=== PATIENT | female | born 1935 | race Caucasian/White ===

== ENCOUNTER 2016-10-03 10:26 | Emergency (ER) | payer OTHER ==
[~2016-10-03] VITALS: Ht 144.8 cm; Wt 74.2 kg
[~2016-10-03 10:26] MED LIST: ALBUAER19 INH; HYDR-3419 PO; METO25TA56 PO; Tylenol PO
[2016-10-03 10:47] VITALS: TEMP 36.7; Ht 144.8 cm; Wt 74.2 kg
[2016-10-03 11:00] VITALS: O2SAT 94
[2016-10-03 11:06] LABS: HEMATOCRIT 41.1 % (37-47); MEAN CELL VOLUME 89.7 fL (80-100); MEAN CORPUSCULAR HGB CONC 34.5 g/dl (32-36); MEAN PLATELET VOLUME 11.5 fL (7.4-10.4); PLATELET COUNT 167 K/uL (130-400); RED BLOOD COUNT 4.58 M/uL (4.2-5.4); WHITE BLOOD COUNT 3.11 K/uL (4.8-10.8)
[2016-10-03 11:17] LABS: PROTHROMBIN TIME (PATIENT) 10.8 SECONDS (9.0-12.0)
[2016-10-03 11:23] LABS: CALCIUM 9.1 mg/dl (8.5-10.1); CREATININE 0.81 mg/dl (0.60-1.20); POTASSIUM 3.7 mmol/L (3.5-5.1)
[2016-10-03 11:27] LABS: ALB/GLOB RATIO 1.1 (0.9-2)
--- NOTE | 2016-10-03 11:27 | DIAGNOSTIC IMAGING REPORT ---
CHEST ONE VIEW PORTABLE HISTORY: Atypical chest pain COMPARISON: Chest 09/20/2011. FINDINGS: The heart is normal in size. Mild interstitial thickening most pronounced at the lung bases has progressed. No pleural effusions. No pneumothorax. IMPRESSION: Mild interstitial thickening most pronounced at the lung bases has progressed. This could be due to developing congestive change or an atypical pneumonitis. Electronically signed by: Juan Jose Kenny M.D. 10/03/2016 11:25 AM Dictated Date/Time: 10/03/2016 11:19 AM
[2016-10-03 12:00] VITALS: BP 132/80
[2016-10-03 12:26] VITALS: PULSE 95; O2SAT 91
--- NOTE | 2016-10-03 16:07 | EMERGENCY ROOM VISIT NOTE ---
History Report prepared by Susana: Mariposa Barraza Under the Supervision of: Dr. Elan Juárez M.D. First contact with patient: 10:59 Chief Complaint: CHEST PAIN Stated Complaint: CHEST PAIN Nursing Triage Summary: chest pain for 2 wks, seen at Dr Estrella this am, told she needed to come to the er, pt has home health nurse. pt speaks gambian History of Present Illness The patient is a 81 year old female who presents to the Emergency Room with complaints of persistent chest pain starting 2 weeks ago. She was brought to the ED by EMS and received nitro on the way to no relief. The patient is providing the history with the help of a easement man. The pain is constant and radiates to her shoulder blade. The pain worsens with palpation and movement. She reports a subjective fever, cough and SOB. She states that it seems as though she cannot get enough air. She reports difficultly sleeping and some swelling in the legs in the evening. She denies any changes to her bowel movements or urinary symptoms. She denies any injury or fall. She is not on any blood thinners. She has recently had some flu symptoms which have resolved. Source of History: patient (through easement man) Onset: 2 weeks ago Position: chest Timing: constant, other (persistent) Modifying Factors (Worsening): movement, other (palpation) Associated Symptoms: + SOB, + cough, + fevers, No hematochezia, No melena, No urinary symptoms Note: Pt reports difficulty sleeping and swelling in the legs. Review of Systems See HPI for pertinent positives & negatives. A total of 10 systems reviewed and were otherwise negative. Past Medical & Surgical Medical Problems: (1) Kidney stone Old medical records were reviewed. Nurse's notes were reviewed and I agree with. Family History Noncontributory secondary to age. Social History Smoking Status: Never Smoker Drug Use: none Marital Status: Housing Status: lives with significant other Occupation Status: retired Current/Historical Medications Scheduled Albuterol Inhaler (Ventolin Inhaler), 2 PUFFS INH Q4-6HR PRN Hydrocodon/Acetaminophen 5MG/300MG (Vicodin (5MG/300MG)), 1 TAB PO Q4H Metoprolol Tartrate (Lopressor) (Lopressor), 12.5 MG PO BID Scheduled PRN [Tylenol], 1 TAB PO Q4 PRN Allergies Coded Allergies: Aspirin (Verified Allergy, Mild, ITCHING, 03/12/13) Physical Exam Vital Signs Date Time Temp Pulse Resp B/P Pulse Ox O2 Delivery O2 Flow Rate FiO2 10/03/16 12:26 95 23 91 10/03/16 12:00 132/80 10/03/16 11:56 78 19 92 10/03/16 11:30 135/85 10/03/16 11:26 84 20 93 10/03/16 11:19 129/100 10/03/16 11:00 94 Room Air 10/03/16 10:56 89 20 92 10/03/16 10:55 92 10/03/16 10:49 95 Room Air 10/03/16 10:47 36.7 96 22 135/86 95 Room Air 10/03/16 10:39 135/86 Physical Exam General: Non ill-appearing older female. Well developed well nourished in no acute distress, breathing comfortably on room air. Normal speech HEENT: Normal cephalic atraumatic. Pupils are equal round and reactive to light. Sclerae are anicteric Extraocular movements are intact. Oropharynx is pink with moist mucous membranes. No swelling of the mouth lips or tongue. Neck: Supple with a midline trachea. No meningeal signs or stiffness, no JVD or bruits. No Stridor. Chest: Clear to auscultation bilaterally. No wheezes or rhonchi. No increased work of breathing. Reproducible tenderness on chest to palpation. Heart: regular rate and rhythm. Abdomen: Soft nontender, nondistended without rebound guarding or rigidity. Extremities: No cyanosis clubbing or edema. No calf tenderness or assymetry Spine/Back. Non tender to palpation. No CVA tenderness Skin: Good turgor without rashes. Neurologic exam: Cranial nerves two through 12 are intact. Motor and sensation are intact and symmetrical throughout. Medical Decision & Procedures ER Provider Diagnostic Interpretation: X-ray results as stated below per interpretation by me and the radiologist: CHEST ONE VIEW PORTABLE HISTORY: Atypical chest pain COMPARISON: Chest 09/20/2011. FINDINGS: The heart is normal in size. Mild interstitial thickening most pronounced at the lung bases has progressed. No pleural effusions. No pneumothorax. IMPRESSION: Mild interstitial thickening most pronounced at the lung bases has progressed. This could be due to developing congestive change or an atypical pneumonitis. Electronically signed by: Juan Jose Kenny M.D. 10/03/2016 11:25 AM Dictated Date/Time: 10/03/2016 11:19 AM Laboratory Results 10/03/16 10:50 10/03/16 10:50 Test 10/03/16 10:50 10/03/16 10:57 10/03/16 11:19 Red Blood Count 4.58 M/uL (4.2-5.4) Mean Corpuscular Volume 89.7 fL (80-100) Mean Corpuscular Hemoglobin 31.0 pg (25-34) Mean Corpuscular Hemoglobin Concent 34.5 g/dl (32-36) RDW Standard Deviation 42.2 fL (36.4-46.3) RDW Coefficient of Variation 13.0 % (11.5-14.5) Mean Platelet Volume 11.5 fL (7.4-10.4) Prothrombin Time 10.8 SECONDS (9.0-12.0) Prothromb Time International Ratio 1.0 (0.9-1.1) Activated Partial Thromboplast Time 25.0 SECONDS (21.0-31.0) Partial Thromboplastin Ratio 1.0 D-Dimer 520 ug/L FEU (0-500) Anion Gap 8.0 mmol/L (3-11) Est Creatinine Clear Calc Drug Dose 45.4 ml/min Estimated GFR () 78.9 Estimated GFR (Non- 68.1 BUN/Creatinine Ratio 19.0 (10-20) Calcium Level 9.1 mg/dl (8.5-10.1) Total Bilirubin 1.3 mg/dl (0.2-1) Aspartate Amino Transf (AST/SGOT) 27 U/L (15-37) Alanine Aminotransferase (ALT/SGPT) 33 U/L (12-78) Alkaline Phosphatase 75 U/L (45-117) Total Creatine Kinase 32 U/L (26-192) Creatine Kinase MB 1.6 ng/ml (0.5-3.6) Creatine Kinase MB Ratio 5.0 (0-3.0) Pro-B-Type Natriuretic Peptide 111 pg/ml (0-1800) Total Protein 6.6 gm/dl (6.4-8.2) Albumin 3.4 gm/dl (3.4-5.0) Globulin 3.2 gm/dl (2.5-4.0) Albumin/Globulin Ratio 1.1 (0.9-2) Bedside Troponin I 0.020 ng/ml (0-0.045) Influenza Type A Antigen Neg for Influ A (NEG) Influenza Type B Antigen Neg for Influ B (NEG) Laboratory studies as stated above per my review. ECG Indication: chest pain Rate (beats per minute): 99 Rhythm: normal sinus Findings: RBBB, no acute ischemic change, no ectopy Comparison ECG Date: Change: no significant change ED Course 1101: Past medical records reviewed. The patient was evaluated in room B6, and a complete history and physical examination were performed. 1308: Upon reevaluation, the patient is resting comfortably. I discussed the results and treatment plan with her. She verbalized agreement of the treatment plan. The patient was discharged home. Medical Decision Differential diagnoses: acute coronary syndrome, arrhythmia, musculoskeletal, influenza, PE, electrolyte or metabolic abnormality. This patient comes in as described above. She was placed in room B6. She is here for treatment and evaluation of chest pain. It has been going for several weeks and it is worse with palpation and movement and she appears in no distress. I did use the farmworker turkey farm provided by the hospital through the iPad. EKG does not suggest acute coronary syndrome or arrhythmia. Her symptoms are atypical for cardiac disease. Her cardiac enzymes are not elevated. Her d-dimer is marginally elevated at 520 and given her age this is probably an age-appropriate d-dimer and her symptoms do not suggest a PE. Chest x-ray does not show any definite acute findings, there are some increased interstitial markings. Clinically, I do not think she is in heart failure. She 's had no white count or fever to suggest infection. I talked at length and I think this most likely is musculoskeletal as it is reproducible. I recommend that she follow up with her regular doctor. I did offer her admission but she declines and wants to go home. She will return if: Worsening of symptoms, fever or chills, shortness of breath, any new problems or concerns. Impression Primary Impression: Precordial chest pain Scribe Attestation The scribe's documentation has been prepared under my direction and personally reviewed by me in its entirety. I confirm that the note above accurately reflects all work, treatment, procedures, and medical decision making performed by me. Departure Information Dispostion Home / Self-Care Referrals Walter Campbell MD (PCP) Forms HOME CARE DOCUMENTATION FORM, IMPORTANT VISIT INFORMATION Patient Instructions My [facility] Additional Instructions Rest REtun if: worsening of symptoms, fever, increasing pain, shortness of breath, any new problems or concerns Follow-up with your doctor on Friday for recek
== END 2016-10-03 14:14 | disposition home or self-care (01) ==
LOC: EDBD 10:26 → C.EDB 10:28
DX: R07.2 Precordial pain (principal); I45.10 Unspecified right bundle-branch block; Z87.442 Personal history of urinary calculi; Z79.82 Long term (current) use of aspirin

== ENCOUNTER 2019-12-13 11:56 | Inpatient (IN) ==
[2019-12-13] MEDS ORDERED: SODIUM CHLORIDE 0.9% 500 ML IV ONE (13:31)
[2019-12-13] MEDS ORDERED: ONDANSETRON INJ 2 MG/ML 2 ML VIAL IV STA (13:32)
[2019-12-13] MEDS ORDERED: MoRPHine SULFATE 2 MG/ML CARP IV STA (13:32)
--- NOTE | 2019-12-13 13:37 | Emergency Department Note ---
History of Present Illness General Chief complaint: Abdominal Pain Stated complaint: ABD Pain Time Seen by Provider: 12/13/19 13:17 Source: patient, family (daughter) and phlebotomist associate Mode of arrival: ambulatory Limitations: language barrier History of Present Illness Maximum Pain Intensity: 8 This patient is a an 84-year-old white female comes in complaining of abdominal pain most in the lower abdomen centrally and also bilaterally. It sounds like she is also had some dysuria and frequency. She appears uncomfortable. She tells me she has a history of kidney stones and thinks this feels similar she has mild back pain bilaterally. No fever or chills. No exposure to COVID known. She does have some mild shortness of breath but says she has some asthma at time she appears in no respiratory distress no chest pain. No trauma. No numbness or weakness. History was obtained from the patient using the language line phlebotomist associate Home Medications Home Medications Medication Instructions Recorded Confirmed Type atorvastatin 20 mg PO QAM 12/13/19 12/13/19 History levothyroxine 50 mcg PO QAM 12/13/19 12/13/19 History linagliptin [Tradjenta] 5 mg PO QAM 12/13/19 12/13/19 History lisinopril 10 mg PO QAM 12/13/19 12/13/19 History mometasone [Asmanex Twisthaler] 1 inh INHALATION BID 12/13/19 12/13/19 History Allergies Allergy/AdvReac Type Severity Reaction Status Date / Time aspirin Allergy Mild ITCHING Verified 12/13/19 14:00 Tessalon Perles CAPS Allergy Unknown Unknown Uncoded 12/13/19 14:00 Past Med/Surg History Medical History (Updated 12/13/19 @ 21:06 by Elan Juárez MD) 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 and not listed on [facility] problem list Asthma Diabetes mellitus, type II HLD (hyperlipidemia) HTN (hypertension) Hypothyroidism Surgical History (Updated 12/13/19 @ 16:50 by Sandee Jenkins PA-C) History of appendectomy History of cholecystectomy History of partial gastrectomy REMOVE STOMACH, PARTIAL N/A 11/29/2014 LAPAROSCOPIC GASTRECTOMY PARTIAL performed by Ubaldo Kilpatrick MD [place] [facility] [place] Status post laser lithotripsy of ureteral calculus REMOVE SMALL BLADDER STONE, SIMPLE 06/01/2014 LITHOLAPAXY SIMPLE performed by Brenda Dietz MD Family History Family/Other Asthma Social History Preferred Language: Malaysian Communication Ability: interprete Train Control Technician Required: Yes Beliefs That Will Affect Care: None marital status: / Current Living Situation: Alone current occupational status: retired Other Information That Helps Us Care for You: No Feels Safe at Home: Yes Safety Concerns: Feels Safe At This Time Smoking Status: Former smoker Hx Alcohol Use: No Hx Substance Use: No Immunizations: Past medical history: Kidney stones. 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 she tells me she is not on any prednisone/steroids Review of Systems A total of 10 systems reviewed and were otherwise negative Physical Exam Vital Signs Vital Signs - 24 hr 12/13/19 12:08 12/13/19 14:43 Pulse Rate 130 H Respiratory Rate 22 18 Respiratory Depth Normal Respiratory Pattern Regular Blood Pressure 178/105 H Blood Pressure Mean 129 Pulse Oximetry 94 97 Oxygen Delivery Method Room Air Nasal Cannula Oxygen Flow Rate 1 Sepsis Recent Fever Within 48 Hours No Sepsis Action Taken by Nursing No Action Required General: Well developed well nourished uncomfortable appearing older female in no acute distress, breathing comfortably on room air. Normal speech HEENT: Normal cephalic atraumatic. Pupils are equal round and reactive to light. Extraocular movements are intact. Oropharynx is pink with moist mucous membranes. No swelling of the mouth lips or tongue. Neck: Supple with a midline trachea. No meningeal signs or stiffness, no JVD or bruits. No Stridor. Chest: Clear to auscultation bilaterally. No wheezes or rhonchi. No increased work of breathing. Heart: Regular rate and rhythm without murmurs or gallops. Abdomen: Soft she appears mildly distended and diffusely tender mostly in the central and lower abdomen, nondistended without rebound guarding or rigidity. Extremities: No cyanosis clubbing or edema. No calf tenderness or assymetry Spine/Back. Non tender to palpation. No CVA tenderness Skin: Good turgor without rashes. Neurologic exam: Cranial nerves two through 12 are intact. Motor and sensation are intact and symmetrical throughout. Course Administered Medications Sodium Chloride (Nss 1000ml) 1,000 mls @ 75 mls/hr IV .[id number] MOODY Stop: 12/14/19 08:29 Last Admin: 12/13/19 19:27 Dose: 75 mls/hr Documented by: [id number] Insulin Aspart (Novolog Flexpen) 0 units SC ACHS MOODY Stop: 01/12/20 20:59 Last Admin: 12/13/19 20:58 Dose: 2 units Documented by: [id number] Cosigned by: [id number] Discontinued Medications Sodium Chloride (Nss) 500 mls @ 999 mls/hr IV .Q31M ONE Stop: 12/13/19 14:01 Last Admin: 12/13/19 13:30 Dose: 999 mls/hr Documented by: [id number] Ceftriaxone Sodium (Rocephin) 2,000 mg in 70 mls @ 140 mls/hr IV NOW STA Stop: 12/13/19 15:15 Last Admin: 12/13/19 16:01 Dose: 140 mls/hr Documented by: [id number] Sodium Chloride (Nss 1000ml) 1,000 mls @ 999 mls/hr IV .Q1H1M ONE Stop: 12/13/19 15:47 Last Admin: 12/13/19 15:00 Dose: 999 mls/hr Documented by: [id number] Morphine Sulfate (Morphine Sulfate) 2 mg IV NOW STA Stop: 12/13/19 13:33 Last Admin: 12/13/19 15:01 Dose: 2 mg Documented by: [id number] Ondansetron HCl (Zofran) 4 mg IV NOW STA Stop: 12/13/19 13:33 Last Admin: 12/13/19 15:01 Dose: 4 mg Documented by: [id number] Medical Decision Making Differential Diagnosis Kidney stone, aneurysm, bowel obstruction, UTI, sepsis, cardiac disease, electrolyte or metabolic abnormality Medical Records Attestation: I reviewed the patient's medical records. Home Medications Current Medication List: was personally reviewed by me Laboratory Data Result diagrams: 12/13/19 13:40 12/13/19 13:40 Lab Results 12/13/19 12/13/19 12/13/19 Range/Units 13:00 13:40 13:40 WBC 21.43 H (4.8-10.8) K/uL RBC 4.55 (4.2-5.4) M/uL Hgb 14.2 (12.0-16.0) g/dL Hct 42.1 (37-47) % MCV 92.5 (80-100) fL MCH 31.2 (25-34) pg MCHC 33.7 (32-36) g/dL RDW Std Deviation 43.8 (36.4-46.3) fL RDW Coeff of Esa 13.0 (11.5-14.5) % Plt Count 127 L (130-400) K/uL MPV 13.0 H (7.4-10.4) fL Immature Gran % (Auto) 0.3 % Neut % (Auto) 85.5 % Lymph % (Auto) 4.6 % [place] % (Auto) 9.5 % Eos % (Auto) 0.0 % Baso % (Auto) 0.1 % Immature Gran # (Auto) 0.07 H (0.00-0.02) K/uL Neut # (Auto) 18.30 H (1.4-6.5) K/uL Lymph # (Auto) 0.98 L (1.2-3.4) K/uL [place] # (Auto) 2.04 H (0.11-0.59) K/uL Eos # (Auto) 0.01 (0-0.5) K/uL Baso # (Auto) 0.03 (0-0.2) K/uL Sodium 134 L (136-145) mmol/L Potassium 3.8 (3.5-5.1) mmol/L Chloride 101 (98-107) mmol/L Carbon Dioxide 26 (21-32) mmol/L Anion Gap 8.0 (3-11) BUN 12 (7-18) mg/dl Creatinine 0.96 (0.6-1.2) mg/dl Est Cr Clr Drug Dosing 39.3 ml/min Est GFR ( Amer) 62.9 Est GFR (Non-Af Amer) 54.3 BUN/Creatinine Ratio 12.5 (10-20) Glucose 201 H (70-99) mg/dl Calcium 9.2 (8.5-10.1) mg/dl Total Bilirubin 1.9 H (0.2-1) mg/dl AST 17 (15-37) U/L ALT 25 (12-78) U/L Alkaline Phosphatase 103 (45-117) U/L Troponin I < 0.015 (0-0.045) ng/ml Total Protein 7.3 (6.4-8.2) gm/dl Albumin 3.7 (3.4-5.0) gm/dl Globulin 3.6 (2.5-4.0) gm/dl Albumin/Globulin Ratio 1.0 (0.9-2) Lipase 63 L (73-393) U/L Urine Color Yellow Urine Appearance Cloudy A (Clear) Urine pH 8.0 H (4.5-7.5) Ur Specific [place] 1.013 (1.000-1.030) Urine Protein Negative (Negative) Urine Glucose (UA) Negative (Negative) Urine Ketones 1+ H (Negative) Urine Blood Negative (Negative) Urine Nitrite Positive A (Negative) Urine Bilirubin Negative (Negative) Urine Urobilinogen Negative (Negative) Ur Leukocyte Esterase 2+ H (Negative) Urine RBC 0-4 (0-4) /hpf Urine WBC 10-30 H (0-5) /hpf Ur Epithelial Cells 10-20 H (0-5) /lpf Ur Renal Epithelial Cell 0-5 (0-5) /lpf Urine Bacteria 4+ H (Negative) Hyaline Casts 5-10 H (0-5) /lpf Granular Casts 1-5 H (0) /lpf Imaging Data Radiologist's Impression: Abdomen and pelvis CT: 1. No evidence of bowel obstruction. No evidence of free air 2. Nonspecific inflammatory process centered in the cecum. A definite appendix is not visualized. Close clinical follow-up is indicated. 3. 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 4. Bladder calculi Chest x-ray: 1. Chronic interstitial coarsening of the lung bases is suggestive of fibrosis with probable atelectasis. 2. Mild cardiomegaly. ECG Data Attestation: I personally reviewed and interpreted this ECG as follows: Indication: + abdominal pain Rate (beats per minute): 130 Rhythm: + sinus tachycardia ECG Intervals/blocks: + Right Bundle branch block and + Normal IA ECG [place]: + Normal ECG ST segments: + Nonspecific ST abnormalities ECG Findings: no PACs and no PVCs Comparison ECG Date: no prior available Blood Pressure Blood Pressure Findings: Elevated blood pressure Blood Pressure Disposition: elevated BP felt to be situational MDM Narrative This patient comes in as described above. She was placed in room A9. She is been having lower abdominal pain. She is had some urinary symptoms as well with pain from urination. She appears very uncomfortable. She is tachycardic which I think is secondary to mostly pain. IV access was established established she was hydrated with IV with fluid boluses. She was given morphine 2 mg IV and Zofran 4 mg IV and seemed be doing much better. Her white count came back significant elevated 21,000. Her urinalysis does look infected. CAT scan the abdomen shows hydro-on the right. There is some possible inflammatory changes around the cecum. She is had a previous appendectomy. X-ray does not show any pneumonia. She is remained hemodynamically stable. I did add blood cultures as well as a lactic acid and she was given Rocephin 2 g IV. A chest x-ray does not show any acute abnormalities. I do think she needs to be admitted/observe for further treatment and evaluation of her abdominal pain, UTI, sepsis. Continuous cardiac monitoring: The patient was having abdominal pain and has some mild shortness of breath and was placed on a continuous cardiac monito.r she initially was tachycardic with a rate of 130 with sinus tachycardia. Impression & Plan Sepsis, Abdominal pain, Acute UTI (urinary tract infection), Weakness Discharge Plan Visit Data *Final* Discharge Date/Time: 12/13/19 17:38 Chief Complaint: Abdominal Pain Stated Complaint: ABD Pain ED Provider: Elan Juárez Discharge Problem: Sepsis, Abdominal pain, Acute UTI (urinary tract infection), Weakness Patient Disposition: Admitted As Inpatient Discharge Instructions Interventions: ED Discharge Assessment Last Done: 12/13/19 17:38 Discharge Problem: Sepsis Qualifiers: Sepsis type: sepsis due to unspecified organism Sepsis acute organ dysfunction status: without acute organ dysfunction Qualified Code(s): A41.9 - Sepsis, unspecified organism Abdominal pain Qualifiers: Abdominal location: lower abdomen, unspecified Qualified Code(s): R10.30 - Lower abdominal pain, unspecified
[2019-12-13 13:38] LABS: Appearance Urine Cloudy (Clear); Bilirubin Urine Negative (Negative); Blood Urine Negative (Negative); Color Urine Yellow; Glucose Urine UA Negative (Negative); Ketones Urine 1+ (Negative); Leukocyte Esterase Urine 2+ (Negative); Nitrite Urine Positive (Negative); Protein Urine Negative (Negative); Specific Gravity Urine 1.013 (1.000-1.030); Urobilinogen Urine Negative (Negative)
[2019-12-13 14:02] LABS: Bacteria Urine 4+ (Negative); RBC Urine 0-4 /hpf (0-4); Renal Epithelial Cells Urine 0-5 /lpf (0-5)
[2019-12-13 14:05] LABS: Alanine Aminotransferase 25 U/L (12-78); Albumin Level 3.7 gm/dl (3.4-5.0); Aspartate Aminotransferase 17 U/L (15-37); BUN Creatinine Ratio 12.5 (10-20); Blood Urea Nitrogen 12 mg/dl (7-18); Calcium 9.2 mg/dl (8.5-10.1); Carbon Dioxide 26 mmol/L (21-32); Chloride 101 mmol/L (98-107); Creatinine Clr Calc Pharmacy 39.3 ml/min; Est GFR (African American) 62.9; Est GFR (Non-African American) 54.3; Glucose 201 mg/dl (70-99); Lipase 63 U/L (73-393); Potassium 3.8 mmol/L (3.5-5.1); Sodium 134 mmol/L (136-145)
[2019-12-13 14:09] LABS: Alkaline Phosphatase 103 U/L (45-117); Bilirubin,Total 1.9 mg/dl (0.2-1); Globulin 3.6 gm/dl (2.5-4.0); Total Protein 7.3 gm/dl (6.4-8.2); Troponin I < 0.015 ng/ml (0-0.045)
--- NOTE | 2019-12-13 14:35 | CT Scan Report ---
CT SCAN OF THE ABDOMEN AND PELVIS WITHOUT CONTRAST CLINICAL HISTORY: Generalized abdominal pain COMPARISON STUDY: 05/23/1999 TECHNIQUE: CT scan of the abdomen and pelvis was performed from the lung bases to the proximal femurs . Images are reviewed in the axial, sagittal, and coronal planes. IV contrast was not administered fo r this examination. A dose lowering technique was utilized adhering to the principles of ALARA. CT DOSE: 515.19 mGy.cm FINDINGS: Lower chest: There is respiratory motion artifact. There are dependent atelectatic changes. Liver: The unenhanced liver is normal in size, contour, and attenuation. There is no intrahepatic iris iary ductal dilatation. Gallbladder: Surgically absent Spleen: Normal in size and attenuation. Pancreas: Unremarkable. Adrenal glands: There is minor left adrenal gland thickening Kidneys: There is a stable dilated right renal pelvis consistent with a chronic UPJ type obstruction versus a large parapelvic cyst. No renal calculi are visualized. There are several bladder calculi id entified similar to the preceding study. Bowel: There are no transition zones indicate bowel obstruction. There is an inflammatory process gloria tered on the cecum. A definite appendix is not visualized, nor was it visualized the preceding study. The etiology of this inflammatory process is not known. This could be secondary to an infectious col itis, or cecal diverticulitis. Underlying neoplasm cannot be excluded with certainty. Clinical follow -up is advocated. Peritoneum: There is no intraperitoneal free air or abdominal ascites. Vasculature: The abdominal aorta is normal in course and caliber. Adenopathy: None. Pelvic viscera: There are calcified uterine fibroids. Skeletal structures: No destructive osseous lesions are seen. IMPRESSION: 1. No evidence of bowel obstruction. No evidence of free air 2. Nonspecific inflammatory process centered in the cecum. A definite appendix is not visualized. Kristine se clinical follow-up is indicated. 3. 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 4. Bladder calculi ACT 112: Negative or not required by law. Electronically signed by: Juan Bernardo M.D. 12/13/2019 2:33 PM
--- NOTE | 2019-12-13 14:43 | XRay Report ---
XR chest 1V portable HISTORY: 84 years-old Female sob acute weakness with shortness of breath COMPARISON: Chest radiograph 10/03/2016, CT abdomen and pelvis 12/13/2019 TECHNIQUE: Portable AP view of the chest FINDINGS: Unchanged mild left hemidiaphragmatic elevation. Cardiac silhouette is mildly enlarged. Calcific plaq ue of the thoracic arch. Interstitial coarsening of the lung bases redemonstrated. Chronic blunting o f the left costophrenic angle. No pneumothorax, large pleural effusion or overt pulmonary edema. Dege nerative changes of the shoulders and spine. IMPRESSION: 1. Chronic interstitial coarsening of the lung bases is suggestive of fibrosis with probable atelecta sis. 2. Mild cardiomegaly. ACT 112: Negative or not required by law. The above report was generated using voice recognition software. It may contain grammatical, syntax o r spelling errors. Electronically signed by: Jakob Rodriguez M.D. 12/13/2019 2:42 PM
[2019-12-13 14:44] LABS: Hematocrit (blood only) 42.1 % (37-47); Hemoglobin 14.2 g/dL (12.0-16.0); Mean Corpuscular Hemoglobin 31.2 pg (25-34); Mean Corpuscular Hgb Conc 33.7 g/dL (32-36); Mean Corpuscular Volume 92.5 fL (80-100); RDW Standard Deviation 43.8 fL (36.4-46.3); Red Blood Count 4.55 M/uL (4.2-5.4); White Blood Count 21.43 K/uL (4.8-10.8)
[2019-12-13] MEDS ORDERED: cefTRIAXone SODIUM 2,000 MG/70 ML BAG IV STA (14:46)
[2019-12-13] MEDS ORDERED: SODIUM CHLORIDE 0.9% 1000ML 1,000 ML IV ONE (14:47)
[2019-12-13 14:58] LABS: Basophils # (auto) 0.03 K/uL (0-0.2); Basophils % (auto) 0.1 %; Eosinophils # (auto) 0.01 K/uL (0-0.5); Immature Granulocytes # (auto) 0.07 K/uL (0.00-0.02); Immature Granulocytes % (auto) 0.3 %; Lymphocytes # (auto) 0.98 K/uL (1.2-3.4); Lymphocytes % (auto) 4.6 %; Monocytes # (auto) 2.04 K/uL (0.11-0.59); Monocytes % (auto) 9.5 %; Neutrophils % (auto) 85.5 %; Platelet Count 127 K/uL (130-400)
--- NOTE | 2019-12-13 15:32 | History & Physical Report ---
Date of Service December 13, 2019 Assessment & Plan (1) UTI (urinary tract infection): (2) Ureteropelvic junction (UPJ) obstruction: This is an 84yo F with a PMH of HTN, DM II, HLD, asthma and hypothyroidism who presents with abdominal pain since yesterday and was found to have a UTI. -UA abnormal. Leukocytosis of 21K. Receiving empiric Rocephin until urine cultures result. Also obtain blood cultures -CT abdomen pelvis with chronic right UPJ obstruction versus parapelvic cyst and bladder calculi. Also with nonspecific inflammatory process centered in the cecum (history of appendectomy per chart review) -Last urology follow up was [address] Dietz, found to have passed stones spontaneously -Gentle IV fluids, routine urology consult, strain urine, follow cultures (3) HTN (hypertension): Continue lisinopril (4) Diabetes mellitus, type II: A1c of 8.3 in 2019. Will repeat a1c -Hold home agents -SSI while in-patient -BSG AC HS (5) Asthma: Continue Asmanex inhaler BID (6) Hypothyroidism: Continue levothyroxine (7) HLD (hyperlipidemia): Continue atorvastatin DVT Ppx: SCDs Code status: FULL per discussion with patient via reverberatory skimmer PCP: Refugio Dispo: Admitted to [facility]. Plan to return home once medically stable. Patient seen in collaboration with Dr. Frazier. Please see addendum. History of Present Illness Chief Complaint: abdominal pain Primary Care Provider: Clarisa Huff MD This is an 84yo F with a PMH of HTN, DM II, HLD, asthma and hypothyroidism who presents with abdominal pain since yesterday. Of note, patient speaks Turkmen so history obtained with help of video reverberatory skimmer. Abdominal pain is located in lower quadrants in a band-like distribution and is constant. Not associated with fever, nausea or vomiting. No flank pain. Took tylenol and ibuprofen with some relief. Also has been having difficulty urinating with thin stream and occasionally has pain. No chills, confusion, chest pain,SOB, hematuria or constipation. Per chart review, has history of bladder stone removal in 2013. Also with history of gastric mass at the [place] s/[place] [facility] [place] Histology consistent with leiomyoma. Allergies Allergy/AdvReac Type Severity Reaction Status Date / Time aspirin Allergy Mild ITCHING Verified 12/13/19 14:00 Tesandre Bess CAPS Allergy Unknown Unknown Uncoded 12/13/19 14:00 Home Medications Home Medications Medication Instructions Recorded Confirmed Type atorvastatin 20 mg PO QAM 12/13/19 12/13/19 History levothyroxine 50 mcg PO QAM 12/13/19 12/13/19 History linagliptin [Tradjenta] 5 mg PO QAM 12/13/19 12/13/19 History lisinopril 10 mg PO QAM 12/13/19 12/13/19 History mometasone [Asmanex Twisthaler] 1 inh INHALATION BID 12/13/19 12/13/19 History Past Med/Surg History Medical History (Updated 12/13/19 @ 21:06 by Elan Juárez MD) 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 and not listed on [facility] problem list Asthma Diabetes mellitus, type II HLD (hyperlipidemia) HTN (hypertension) Hypothyroidism Surgical History (Updated 12/13/19 @ 16:50 by Sandee Jenkins PA-C) History of appendectomy History of cholecystectomy History of partial gastrectomy REMOVE STOMACH, PARTIAL N/A 11/29/2014 LAPAROSCOPIC GASTRECTOMY PARTIAL performed [place] Ubaldo Kilpatrick [place] [facility] [place] post laser lithotripsy of ureteral calculus REMOVE SMALL BLADDER STONE, SIMPLE 06/01/2014 LITHOLAPAXY SIMPLE performed by Brenda Dietz MD Family History Family/Other Asthma Social History Preferred Language: Turkmen Communication Ability: interprete Pictures Editor Required: Yes Beliefs That Will Affect Care: None marital status: / Current Living Situation: Alone current occupational status: retired Other Information That Helps Us Care for You: No Feels Safe at Home: Yes Safety Concerns: Feels Safe At This Time Smoking Status: Former smoker Hx Alcohol Use: No Hx Substance Use: No Review of Systems Review of Systems: At least ten systems reviewed and negative except as noted in the HPI. Physical Exam Physical Exam: Please see Dr. Frazier's addendum for physical exam. Results & Data Results & Data ([facility]) Vital Signs (Past 12 Hours) Vital Signs Pulse Resp BP Pulse Ox 12/13/19 14:43 18 97 12/13/19 12:08 130 H 22 178/105 H 94 Laboratory Results Short CBC 12/13/19 Range/Units 13:40 WBC 21.43 H (4.8-10.8) K/uL Hgb 14.2 (12.0-16.0) g/dL Hct 42.1 (37-47) % Plt Count 127 L (130-400) K/uL BMP 12/13/19 13:40 Sodium 134 L Potassium 3.8 Chloride 101 Carbon Dioxide 26 BUN 12 Creatinine 0.96 Glucose 201 H Calcium 9.2 Cardiac Enzymes 12/13/19 Range/Units 13:40 Troponin I < 0.015 (0-0.045) ng/ml Liver Function 12/13/19 Range/Units 13:40 Total Bilirubin 1.9 H (0.2-1) mg/dl AST 17 (15-37) U/L ALT 25 (12-78) U/L Alkaline Phosphatase 103 (45-117) U/L Albumin 3.7 (3.4-5.0) gm/dl Urine 12/13/19 Range/Units 13:00 Urine Color Yellow Urine Appearance Cloudy A (Clear) Urine pH 8.0 H (4.5-7.5) Ur Specific [place] 1.013 (1.000-1.030) Urine Protein Negative (Negative) Urine Glucose (UA) Negative (Negative) Diagnostic Findings CXR: IMPRESSION: 1. Chronic interstitial coarsening of the lung bases is suggestive of fibrosis with probable atelectasis. 2. Mild cardiomegaly. CT abd/pelvis: IMPRESSION: 1. No evidence of bowel obstruction. No evidence of free air 2. Nonspecific inflammatory process centered in the cecum. A definite appendix is not visualized. Close clinical follow-up is indicated. 3. 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 4. Bladder calculi Supervising Physician Co-Signing Physician Notes History and physical exam performed by me. Patient is Turkmen-speaking. History obtained using video telemetry reverberatory skimmer. History notable for 84-year-old woman with PMH of HTN, DM II, HLD, asthma and hypothyroidism who presents with abdominal pain since yesterday, associated with some dysuria and reduced urination. Physical exam, General: Elderly woman in no acute distress Eyes: PERRL, conjunctivae normal, not pale, anicteric sclerae, EOM intact bilaterally ENMT: External ear and nose normal, oropharynx normal Neck: Normal visual inspection, no tracheal deviation, no swelling noted Respiratory: Normal respiratory effort, no respiratory distress, lungs clear to auscultation, no crackles and no wheezes Cardiovascular: Tachycardia, regular pulse, S1-2, no pedal edema Chest (Breasts): Chest: normal inspection of chest Gastrointestinal (Abdomen): Abdomen is not distended, soft, suprapubic and central abdominal tenderness, no guarding, no palpable hepatosplenomegaly, normal bowel sounds Musculoskeletal: No cyanosis or clubbing, all extremities motor strength 5/5 Genitourinary: +suprapubic tenderness, No CVA tenderness Skin: No rash noted on gross inspection, No ulcers noted Neurologic: Alert and oriented x 3, No focal weakness, sensation grossly intact Psychiatric: Euthymic affect Labs notable for leukocytosis of 21, platelet of 127, sodium of 134, glucose of 201, UA suggestive of UTI [positive nitrite, bacteria, pyuria] CT abdomen and pelvis showed nonspecific inflammatory process in the cecum, chronic right UPJ obstruction versus parapelvic cyst, bladder calculi -Abdominal pain -UTI -Bladder calculi Continue IV ceftriaxone Follow-up urine cultures Get urology consult regarding CT findings Strain urine Monitor blood glucose and manage appropriately Other plans as documented in Sandee Jenkins's note
[2019-12-13] MEDS ORDERED: ONDANSETRON INJ 2 MG/ML 2 ML VIAL IV PRN (18:29)
[2019-12-13] MEDS ORDERED: GLUCOSE 40% GEL 15 GM TUBE PO PRN (18:29)
[2019-12-13] MEDS ORDERED: GLUCAGON FOR INJ 1 MG VIAL SQ PRN (18:29)
[2019-12-13] MEDS ORDERED: POLYETHYLENE (MIRALAX) 17 GM PACK PO PRN (18:29)
[2019-12-13] MEDS ORDERED: DEXTROSE 50% 50 ML SYRINGE IV PRN (18:29)
[2019-12-13] MEDS ORDERED: GLUCOSE 10 TABS/TUBE PO PRN (18:29)
[2019-12-13] MEDS ORDERED: CARBOHYDRATES FOR HYPOGLYCEMIA PO PRN (18:29)
[2019-12-13] MEDS ORDERED: SODIUM CHLORIDE 0.9% 1000ML 1,000 ML IV SCH (19:10)
[2019-12-13] MEDS: INSULIN ASPART 100 UNITS/ML 3 ML PEN SC SCH (20:58)
[2019-12-14] MEDS: LEVOTHYROXINE SODIUM 50 MCG TABLET PO SCH (05:11)
[2019-12-14 06:29] LABS: Hematocrit (blood only) 39.7 % (37-47); Hemoglobin 12.8 g/dL (12.0-16.0); Mean Corpuscular Hemoglobin 30.6 pg (25-34); Mean Corpuscular Hgb Conc 32.2 g/dL (32-36); Mean Platelet Volume 12.8 fL (7.4-10.4); Platelet Count 127 K/uL (130-400); RDW Coefficient of Variation 13.1 % (11.5-14.5); RDW Standard Deviation 45.6 fL (36.4-46.3); Red Blood Count 4.18 M/uL (4.2-5.4); White Blood Count 16.58 K/uL (4.8-10.8)
[2019-12-14 06:46] LABS: Estimated Average Glucose 180 mg/dl; Hemoglobin A1C 7.9 % (4.5-5.6)
[2019-12-14 06:52] LABS: Calcium 8.5 mg/dl (8.5-10.1); Creatinine Clr Calc Pharmacy 46.3 ml/min; Est GFR (African American) 77.3; Est GFR (Non-African American) 66.7; Potassium 3.6 mmol/L (3.5-5.1)
--- NOTE | 2019-12-14 07:03 | Electrocardiogram Report ---
Test Reason : Blood Pressure : / mmHG Vent. Rate : 130 BPM Atrial Rate : 130 BPM P-R Int : 200 ms QRS Dur : 116 ms QT Int : 266 ms P-R-T Axes : 069 086 -20 degrees QTc Int : 391 ms Sinus tachycardia Low voltage QRS Right bundle branch block T wave abnormality, consider inferior ischemia Abnormal ECG When compared with ECG of 03-OCT-2016 10:37, T wave inversion more evident in Inferior leads Nonspecific T wave abnormality now evident in Lateral leads Confirmed by Derrell Jarrell ([id number]) on 12/14/2019 7:03:07 AM Referred By: REFERRED SELF Confirmed By:Mahin Jarrell
[2019-12-14] MEDS: ATORVASTATIN 20 MG TAB PO SCH (08:35)
[2019-12-14] MEDS: FLUTICASONE FUROATE 100MCG 14 PUFFS/INHALER INH SCH (08:35)
[2019-12-14] MEDS: lisinopriL 10 MG TAB PO SCH (08:35)
--- NOTE | 2019-12-14 08:39 | Urology Consultation ---
Date of Consultation December 14, 2019 Assessment & Plan (1) Bladder stones: Patient with bladder stones and signs of retention on CT scan. At this point would highly recommend placement of catheter for drainage. Patient will need drainage and antibiotics for management of acute UTI. Will need to get full records from Dr. Dietz who patient has previously seen and previously required litholapaxy. Will need to check with patient's daughter who per nursing is the medical decision maker. She will likely need outpatient follow- up once the acute UTI is better controlled. Difficult to determine if findings on kidney are acute versus chronic versus cysts. Hydronephrosis with retention would be a possibility as well. No obstructing stones visualized. Agree with plans for supportive care and antibiotics. Will await further information from family and from patient's medical records with Dr. Dietz. Can also attempt to discuss again with patient if able to have a commercial construction estimator available. Will likely need management in the outpatient setting and can defer until that visit to further discuss different options. For now recommendation would be drainage and antibiotics for management of acute UTI. (2) Acute urinary retention: (3) Acute UTI (urinary tract infection): History of Present Illness Attending Physician: Lucille Maya MD History of Present Illness Extremely limited information from patient as she knows minimal Nepali. Majority of information given from nursing and for medical records. Patient was admitted with acute abdominal pain. Found to have retention with bladder stones. Patient has history of kidney stones per records. Patient also may have hydro-versus peripelvic cyst. Is dealing with acute UTI and ill feelings. No major changes. Patient has elevated white count. No recent fever. Is undergoing IV antibiotics and close monitoring and management. Denies any major complaints right now. 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 and not listed on [facility] problem list Asthma Diabetes mellitus, type II HLD (hyperlipidemia) HTN (hypertension) Hypothyroidism Surgical History History of appendectomy History of cholecystectomy History of partial gastrectomy REMOVE STOMACH, PARTIAL N/A 11/29/2014 LAPAROSCOPIC GASTRECTOMY PARTIAL [place] Ubal[place]patrick [place] [facility] [place] post laser lithotripsy of ureteral calculus REMOVE SMALL BLADDER STONE, SIMPLE 06/01/2014 LITHOLAPAXY SIMPLE performed by Brenda Dietz MD Family History Family/Other Asthma Social History Preferred Language: [place] Island[place] Communication Ability: interprete Communication Tools: Facial Expression, Physical Gestures and Lip Movement/Reading Quarter Trimmer Required: Yes Beliefs That Will Affect Care: None marital status: / Current Living Situation: Alone current occupational status: retired Other Information That Helps Us Care for You: No Feels Safe at Home: Yes Safety Concerns: Feels Safe At This Time Smoking Status: Former smoker Hx Alcohol Use: No Hx Substance Use: No Review of Systems Review of Systems: Unobtainable due to cognitive status Extremely limited secondary to patient's language barrier. Physical Exam Physical Exam: General: Alert in no acute distress. Patient is well nourished and well kept. HEENT: Normocephalic Atraumatic. Inspection normal. Cranial Nerves 2-12 Grossly intact. Nares are clear. Neck is supple. Normal inspection of face. Normal inspection of neck. Neurologic: No deficits on inspection. Baseline for motor function and sensory. Psychologic: Normal affect, limited exam secondary to language barrier. Respiratory: Nonlabored. No use of accessory muscles. No tachypnea or dyspnea. Cardiovascular: No tachycardia Skin: [place] and Dry. No rashes or visible lesions. Extremities: Moving without issues. No motor deficits on inspection Lymphatics: No edema Abdomen: Soft Non-distended. No acites. No rebound or guarding. Results & Data Vital Signs (Past 12 Hours) Vital Signs Temp Pulse Pulse Resp BP Pulse Ox 12/14/19 07:25 36.8 C 95 H 18 134/75 95 12/14/19 04:00 37.2 C 92 H 18 130/64 96 12/14/19 00:00 37.1 C 68 18 146/63 H 99 12/13/19 23:45 90 PG Care Time/CCT Total # of Minutes Spent Total Time Spent with Patient: Total time spent is greater than 50% in coordination of care (as documented) at patient's floor/unit and/or counseling patient: Coding Level of Care Code 57512 Initial Inpt Care Lvl 3 Diagnoses Bladder stones N21.0 Acute urinary retention R33.8 Acute UTI (urinary tract infection) N39.0
[2019-12-14] MEDS: INSULIN ASPART 100 UNITS/ML 3 ML PEN SC SCH ×4 (08:42→21:16)
[2019-12-14] MEDS: ACETAMINOPHEN 325 MG TAB PO PRN (10:22)
[2019-12-14] MEDS: MoRPHine SULFATE 2 MG/ML CARP IV PRN ×2 (11:14→20:13)
[2019-12-14] MEDS ORDERED: cefTRIAXone SODIUM 1,000 MG in DEXTROSE 5% 50 ML IV SCH (16:00)
--- NOTE | 2019-12-14 17:06 | Hospitalist Progress Note ---
Date of Service December 14, 2019 Assessment & Plan (1) Abdominal pain: continues to have lower abdomen tenderness CT abdomen/pelvis shows inflammatory change in ceacum area r/o IBD Abx changed to IV cipro and flagyl GI eval requested clear liq diet till GI eval (2) UTI (urinary tract infection): complicated UTI due to chronic UPJ obstruction /urinary bladder stone was initially treated with IV rocephin changed to IV cipro and Flagyl for GI findings of inflammation in ceacum follow urine culture ordered Pyridium for bladder spasm (3) Ureteropelvic junction (UPJ) obstruction: -CT abdomen pelvis with chronic right UPJ obstruction versus parapelvic cyst and bladder calculi. Also with nonspecific inflammatory process centered in the cecum (history of appendectomy per chart review) was [place] Dietz [place] [facility] [place] consulted , appreciate input recommends Cooper cathter for chronic urinary retention pt will need to be on Cooper cather on dc till next urology eval in clinic (4) HTN (hypertension): Continue lisinopril (5) Diabetes mellitus, type II: -Hold home agents -SSI while in-patient -BSG AC HS (6) Asthma: Continue Asmanex inhaler BID no wheeze or cough or SOB (7) Hypothyroidism: Continue levothyroxine (8) HLD (hyperlipidemia): Continue atorvastatin DVT Ppx: SCDs Code status: FULL per discussion with patient via petroleum refining firer PCP: Dr Huff Dispo: excepted to be discharged home when medically stable Admission and Anticipated Discharge Date Admission Date: December 13, 2019 Subjective pt does not speak citizen of [place] pointing to lower abdomen/suprapubic area says " pain " no fever or chills /no nausea , vomiting or diarrhea , tolerating diet vitals been stable Cooper draining clear liquid urine Physical Exam Constitutional: WD/WN, vitals as above + language barrier (does no speak Filipino ) Eyes: + anicteric sclerae ENMT: external ear and nose normal, oropharynx normal Respiratory: normal respiratory effort, lungs clear to auscultation Cardiovascular: RRR, no murmur, no edema Gastrointestinal (Abdomen): Percussion/Palpation: + abdomen tender (lower abdomen /suprapubic tenderness ) and abdomen soft Musculoskeletal: no cyanosis or clubbing, extremities motor strength 5/5 Neurologic: PERRL, EOMI, accommodation nl, no face palsy, no dysarthria Psychiatric: A+Ox3, euthymic affect Results & Data Results & Data ([facility]) Vital Signs (Past 12 Hours) Vital Signs Temp Pulse Pulse Pulse Resp BP BP 12/14/19 16:48 80 12/14/19 15:44 36.8 C 82 17 90/55 L 12/14/19 11:11 36.3 C L 94 H 20 137/82 12/14/19 08:00 94 H 12/14/19 07:25 36.8 C 95 H 18 134/75 Pulse Ox 12/14/19 16:48 12/14/19 15:44 98 12/14/19 11:11 97 12/14/19 08:00 12/14/19 07:25 95 (1) Abdominal pain Abdominal location: lower abdomen, unspecified Qualified Code(s): R10.30 - Lower abdominal pain, unspecified
[2019-12-14] MEDS ORDERED: bisacodyL 10 MG SUPP PR STA (21:19)
[2019-12-14] MEDS ORDERED: LACTULOSE SYRUP 30 GM/45 ML UDP PO STA (21:19)
[2019-12-15] MEDS: LEVOTHYROXINE SODIUM 50 MCG TABLET PO SCH (06:19)
[2019-12-15] MEDS: FLUTICASONE FUROATE 100MCG 14 PUFFS/INHALER INH SCH (07:30)
[2019-12-15 08:04] LABS: Mean Corpuscular Hgb Conc 32.6 g/dL (32-36)
[2019-12-15 08:13] LABS: Hematocrit (blood only) 41.7 % (37-47); Hemoglobin 13.6 g/dL (12.0-16.0); Mean Corpuscular Hemoglobin 30.9 pg (25-34); Mean Corpuscular Volume 94.8 fL (80-100); RDW Coefficient of Variation 13.1 % (11.5-14.5); RDW Standard Deviation 45.8 fL (36.4-46.3); White Blood Count 9.45 K/uL (4.8-10.8)
[2019-12-15 08:31] LABS: Creatinine Clr Calc Pharmacy 45.7 ml/min; Est GFR (African American) 76.2; Est GFR (Non-African American) 65.7; Potassium 3.5 mmol/L (3.5-5.1)
[2019-12-15 08:41] LABS: Mean Platelet Volume 13.2 fL (7.4-10.4); Platelet Count 147 K/uL (130-400); Platelet Estimate Normal (Normal)
--- NOTE | 2019-12-15 08:58 | Urology Progress Note ---
Date of Service December 15, 2019 Assessment & Plan (1) Bladder stones: (2) Acute urinary retention: issues do not seem to be the cause of her pain hydro vs peripelvic cyst - no symptoms matching acute obstruction/renal colic - contrast enhanced CT with delayed images will differentiate cyst vs hydro - uncertain this has to happen acutely bladder stones/retention - her lower abdominal pain seems to be more GI than in nature - cont jordan and continue observation Subjective limited direct history because of language barrier seen in the company of nursing who could relay issues overnight no flank pain/renal colic pain urine clear - draining appropriately (jordan) - complaining of lower abdominal tenderness - thinks she needs to have a BM - crampy nature of the pain Review of Systems Review of Systems: All systems reviewed & are unremarkable except as noted in HPI & below Physical Exam Physical Exam: very tender in the lower abdomen/suprapubic region Constitutional: well developed and well nourished Neck: neck nontender Respiratory: normal respiratory effort; no respiratory distress and does not use accessory muscles Cardiovascular: Rate/Rhythm: regular rate Vessels: radial pulses present Extremities: no edema Gastrointestinal (Abdomen): Inspection/Auscultation: abdomen normal to inspection Percussion/Palpation: abdomen soft; abdomen nontender and no guarding Musculoskeletal: Head/Neck/Chest: normocephalic and head atraumatic Extremities: extremities normal to inspection Skin: no rashes and no lesions Trauma: no evidence of skin trauma Neurologic: awake; not obtunded Speech / Cognition: normal speech Motor/Sensory: no tremor Psychiatric: Orientation: alert and oriented x 3 Lymphatic: no lymphadenopathy Results & Data Vital Signs (Past 12 Hours) Vital Signs Temp Pulse Resp BP BP Pulse Ox 12/15/19 07:40 36.7 C 99 H 18 168/83 H 96 12/15/19 04:00 36.8 C 91 H 20 116/68 93 12/14/19 23:36 37.3 C 96 H 18 154/81 H 97 PG Care Time/CCT Total # of Minutes Spent Total Time Spent with Patient: Total time spent is greater than 50% in coordination of care (as documented) at patient's floor/unit and/or counseling patient: Coding Level of Care Code 24697 Subseq Hosp Care Lvl 2 Diagnoses Bladder stones N21.0 Acute urinary retention R33.8
[2019-12-15] MEDS: INSULIN ASPART 100 UNITS/ML 3 ML PEN SC SCH ×4 (09:02→21:06)
--- NOTE | 2019-12-15 09:26 | Gastrointestinal Consultation ---
Date of Consultation December 15, 2019 Assessment & Plan (1) Acute urinary retention: 84 year old paraguayan speaking female w/ history of HTN, T2DM, dyslipidemia, asthma and hypothyroidism admitted w/ acute urinary retention, bladder stones and UTI - GI asked to evaluate as CTAP w/ inflammatory process at the cecum etiology unknown. Denies black/bloody stools, change in bowel habits, weight loss or prior history of IBD. She recalls a history of a colonoscopy but I am unable to locate this. DDX discussed: infectious colitis, diverticulitis, IBD, underlying neoplasm. She is quite hesitant to undergo a colonoscopy after discussion but will think about it Appreciate urology and primary team management of urinary retention, UTI and bladder stones. Would check c.diff, stool culture, giardia if loose stools present. Consider diagnostic colonoscopy. If not agreeable, consider repeat contrast enhanced abdominal imaging Thank you for allowing us to participate in the care of this patient. Please call with any acute changes, questions or concerns. Please see addendum below with additional recommendation from my supervising physician. (2) Bladder stones: (3) Abnormal CT of the abdomen: Supervising Physician Co-Signing Physician Notes Attg add: I interviewed and examined pt, reviewed chart and labs. Pt with lower abdominal pain, CT imaging showed madhu-cecal inflammation. On exam, she is comfortable, but has tenderness on RLQ. CT reviewed with radiologist -- she does not clearly have an appendix. DDX = ischemia? infectious enteritis? appendicitis? Perforating cecal neoplasm is also in differential, although CT is not clearly consistent with this. Continue abx for now. Diet as tolerated. COnsider surgery consult for ? possible appendicitis. Would consider cscopy in 4 weeks if pt is amenable. History of Present Illness Reason for Consultation: abnormal CT, IBD? Requesting Physician: Darrion Attending Physician: Melisa Maier MD History of Present Illness 84 year old Russ[place] speaking female with history of HTN, T2DM, dyslipidemia, asthma and hypothyroidism who presented to the ED with abdominal pain - GI asked to evaluate for abnormal CTAP. Pt is a vague historian. Notes abdominal pain for quite some time but did not seek help as she was fearful to leave quarantine. She is unable to describe the pain for me but constant, lower midline. No associated change in bowels. Denies constipation, diarrhea, black/bloody stools. She does note urinary symptoms and difficulty w/ urination. Discussed CT findings with her. She is adamant that her symptoms are from her bladder stones and UTI and will not elaborate much past that. No prior history of IBD. No weight loss. No fever, chills, CP, SOB. 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 No evidence of free air Nonspecific inflammatory process centered in the cecum. A definite appendix is not visualized. Close clinical follow-up is indicated. 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 Bladder calculi Allergies Allergy/AdvReac Type Severity Reaction Status Date / Time aspirin Allergy Mild ITCHING Verified 12/13/19 14:00 benzonatate Allergy Unknown Verified 12/15/19 08:20 [From Sb Bess] Home Medications Home Medications Medication Instructions Recorded Confirmed Type atorvastatin 20 mg PO QAM 12/13/19 12/13/19 History levothyroxine 50 mcg PO QAM 12/13/19 12/13/19 History linagliptin [Tradjenta] 5 mg PO QAM 12/13/19 12/13/19 History lisinopril 10 mg PO QAM 12/13/19 12/13/19 History mometasone [Asmanex Twisthaler] 1 inh INHALATION BID 12/13/19 12/13/19 History Patient History 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 and not listed on [facility] problem list Asthma Diabetes mellitus, type II HLD (hyperlipidemia) HTN (hypertension) Hypothyroidism Surgical History History of appendectomy History of cholecystectomy History of partial gastrectomy REMOVE STOMACH, PARTIAL N/A 11/29/2014 LAPAROSCOPIC GASTRECTOMY PARTIAL performed by Ubaldo Kilpatrick MD at OR [facility] Status post laser lithotripsy of ureteral calculus REMOVE SMALL BLADDER STONE, SIMPLE 06/01/2014 LITHOLAPAXY SIMPLE performed by Brenda Dietz MD Family History Family/Other Asthma Social History Preferred Language: Venezuelan Communication Ability: Venezuelan Communication Tools: IPad and Language Line Conference Translator Conference Translator Required: Yes Beliefs That Will Affect Care: None marital status: Unknown Current Living Situation: Alone current occupational status: retired Other Information That Helps Us Care for You: No Feels Safe at Home: Yes Safety Concerns: Feels Safe At This Time Smoking Status: Former smoker Hx Alcohol Use: No Hx Substance Use: No Review of Systems Constitutional: no fever, no chills and no fatigue Respiratory: no cough and no dyspnea Cardiovascular: no chest pain and no dyspnea Gastrointestinal: + abdominal pain; no nausea, no vomiting, no change in bowel habits, no change in stools, no blood in stools and no melena Genitourinary: + decreased urination Physical Exam Constitutional: + obese; no acute distress appears stated age Eyes: PERRL, conjunctivae normal, anicteric sclerae Neck: trachea midline Respiratory: normal respiratory effort Cardiovascular: Rate/Rhythm: regular rate and regular rhythm Gastrointestinal (Abdomen): Inspection/Auscultation: abdomen normal to inspection and normal bowel sounds Patient would not consent to palpation of abdomen. Skin: no rashes, warm and dry Results & Data ([facility]) Vital Signs (Past 12 Hours) Vital Signs Temp Pulse Resp BP BP Pulse Ox 12/15/19 07:40 36.7 C 99 H 18 168/83 H 96 12/15/19 04:00 36.8 C 91 H 20 116/68 93 12/14/19 23:36 37.3 C 96 H 18 154/81 H 97 Laboratory Results 12/15/19 12/15/19 12/15/19 Range/Units 07:52 07:52 07:31 WBC 9.45 (4.8-10.8) K/uL RBC 4.40 (4.2-5.4) M/uL Hgb 13.6 (12.0-16.0) g/dL Hct 41.7 (37-47) % MCV 94.8 (80-100) fL MCH 30.9 (25-34) pg MCHC 32.6 (32-36) g/dL RDW Std Deviation 45.8 (36.4-46.3) fL RDW Coeff of Esa 13.1 (11.5-14.5) % Plt Count 147 (130-400) K/uL MPV 13.2 H (7.4-10.4) fL Platelet Estimate Normal (Normal) Sodium 138 (136-145) mmol/L Potassium 3.5 (3.5-5.1) mmol/L Chloride 105 (98-107) mmol/L Carbon Dioxide 27 (21-32) mmol/L Anion Gap 7.0 (3-11) BUN 10 (7-18) mg/dl Creatinine 0.82 (0.6-1.2) mg/dl Est Cr Clr Drug Dosing 45.7 ml/min Est GFR ( Amer) 76.2 Est GFR (Non-Af Amer) 65.7 BUN/Creatinine Ratio 12.0 (10-20) Glucose 146 H (70-99) mg/dl POC Glucose 147 H (70-99) mg/dl Calcium 9.0 (8.5-10.1) mg/dl 12/14/19 12/14/19 12/14/19 Range/Units 20:49 16:42 11:34 WBC (4.8-10.8) K/uL RBC (4.2-5.4) M/uL Hgb (12.0-16.0) g/dL Hct (37-47) % MCV (80-100) fL MCH (25-34) pg MCHC (32-36) g/dL RDW Std Deviation (36.4-46.3) fL RDW Coeff of Esa (11.5-14.5) % Plt Count (130-400) K/uL MPV (7.4-10.4) fL Platelet Estimate (Normal) Sodium (136-145) mmol/L Potassium (3.5-5.1) mmol/L Chloride (98-107) mmol/L Carbon Dioxide (21-32) mmol/L Anion Gap (3-11) BUN (7-18) mg/dl Creatinine (0.6-1.2) mg/dl Est Cr Clr Drug Dosing ml/min Est GFR ( Amer) Est GFR (Non-Af Amer) BUN/Creatinine Ratio (10-20) Glucose (70-99) mg/dl POC Glucose 132 H 144 H 148 H (70-99) mg/dl Calcium (8.5-10.1) mg/dl
[2019-12-15] MEDS: CIPROFLOXACIN / D5W 400 MG/200 ML BAG IV SCH ×2 (09:49→21:47)
[2019-12-15] MEDS: lisinopriL 10 MG TAB PO SCH (09:50)
[2019-12-15] MEDS: ATORVASTATIN 20 MG TAB PO SCH (09:50)
[2019-12-15] MEDS: PHENAZOPYRIDINE HCL 100 MG TAB PO SCH ×3 (09:52→21:47)
[2019-12-15] MEDS: metroNIDAZOLE 500 MG/100 ML BAG IV SCH ×2 (09:55→18:24)
[2019-12-15] MEDS: ACETAMINOPHEN 325 MG TAB PO PRN (10:08)
[2019-12-15] MEDS ORDERED: ALBUTEROL 0.083% NEBU SOLN 3 ML VIAL NEB PRN (11:25)
[2019-12-15] MEDS ORDERED: ALBUTEROL HFA 8 GM INHALER INH ONE (11:57)
[2019-12-15] MEDS ORDERED: ALBUTEROL HFA 8 GM INHALER INH PRN ×2 (13:56→19:16)
--- NOTE | 2019-12-15 19:06 | Hospitalist Progress Note ---
Date of Service December 15, 2019 Assessment & Plan (1) Abdominal pain: continues to have R lower abdomen tenderness CT abdomen/pelvis shows inflammatory change in ceacum area Gastro on board recommended to continue cipro and flagyl Consider outpatient colonoscopy in 4 weeks if pt is amenable. Continue clear liquid diet and advanced as tolerated Consider surgical consult for possible appendicitis if pain continues Continue monitor closely (2) UTI (urinary tract infection): complicated UTI due to chronic UPJ obstruction /urinary bladder stone was initially treated with IV Rocephin Urine cx postive for Ecoli IV Rocephin changed to IV cipro for GI findings of inflammation in ceacum Continue Pyridium for bladder spasm (3) Ureteropelvic junction (UPJ) obstruction: CT abdomen pelvis with chronic right UPJ obstruction versus parapelvic cyst and bladder calculi. Also with nonspecific inflammatory process centered in the cecum (history of appendectomy per chart review) Was followed with Dr Dietz [facility] Urology consulted Recommends Jordan cathter for chronic urinary retention Pt does not want to discharge home with the the jordan cath Follow up with urology next week (4) HTN (hypertension): Continue lisinopril (5) Diabetes mellitus, type II: Hold home agents SSI while in-patient BSG AC HS Continue monitor BS (6) Asthma: Continue Asmanex inhaler BID no wheeze or cough or SOB (7) Hypothyroidism: Continue levothyroxine (8) HLD (hyperlipidemia): Continue atorvastatin DVT Ppx: SCDs Code status: FULL per discussion with patient via drill operator PCP: Dr Huff Dispo: excepted to be discharged home when medically stable Admission and Anticipated Discharge Date Admission Date: December 13, 2019 Subjective Pt was seen and examined Lying in bed with no distress Montenegrin drill operator line was used to communicate to her Pt said that she has some SOB She is very concern because they did not let her use her Asmanex and the albuterol inhalers She said that her room inhalers work very well for her breathing She said that her abdominal pain feels better Denies any chest pain, palpitation and fever Physical Exam Physical Exam: General- No acute distress Head- atraumatic Eyes- PERRL, EOMI, ENT- oropharynx clear Neck- supple, no JVD Lungs- clear to auscultation Heart- regular rhythm; no murmur Abdomen- normal bowel sounds, +BS with palpation Extremities- no calf tenderness Neuro- alert, oriented x 3; PERRL, EOMI; no facial palsy; no dysarthria Skin- warm & dry Results & Data Results & Data ([facility]) Vital Signs (Past 12 Hours) Vital Signs Temp Pulse Resp BP BP Pulse Ox 12/15/19 15:28 36.7 C 92 H 22 111/74 95 12/15/19 11:19 36.4 C L 90 20 133/75 98 12/15/19 07:40 36.7 C 99 H 18 168/83 H 96 (1) Abdominal pain Abdominal location: lower abdomen, unspecified Qualified Code(s): R10.30 - Lower abdominal pain, unspecified
[2019-12-15] MEDS: MoRPHine SULFATE 2 MG/ML CARP IV PRN (21:46)
[2019-12-16] MEDS: metroNIDAZOLE 500 MG/100 ML BAG IV SCH ×2 (02:27→11:20)
[2019-12-16] MEDS: LEVOTHYROXINE SODIUM 50 MCG TABLET PO SCH (06:34)
[2019-12-16] MEDS: FLUTICASONE FUROATE 100MCG 14 PUFFS/INHALER INH SCH (08:31)
[2019-12-16] MEDS: ATORVASTATIN 20 MG TAB PO SCH (08:36)
[2019-12-16] MEDS: PHENAZOPYRIDINE HCL 100 MG TAB PO SCH ×2 (08:36→13:16)
[2019-12-16] MEDS: lisinopriL 10 MG TAB PO SCH (08:36)
[2019-12-16] MEDS: CIPROFLOXACIN / D5W 400 MG/200 ML BAG IV SCH (08:38)
[2019-12-16] MEDS: INSULIN ASPART 100 UNITS/ML 3 ML PEN SC SCH ×2 (08:39→13:16)
--- NOTE | 2019-12-16 09:29 | Gastroenterology Progress Note ---
Date of Service December 16, 2019 Assessment & Plan (1) Acute urinary retention: 84 year old sammarinese speaking female w/ history of HTN, T2DM, dyslipidemia, asthma and hypothyroidism admitted w/ acute urinary retention, bladder stones and UTI - GI asked to evaluate as CTAP w/ inflammatory process at the cecum etiology unknown. DDX infectious, ischemic, neoplastic, diverticulitis, IBDm vs other Denies black/bloody stools, change in bowel habits, weight loss or prior history of IBD. She recalls a history of a colonoscopy but I am unable to locate this. Appreciate urology and primary team management of urinary retention, UTI and bladder stones. Would check c.diff, stool culture, giardia if loose stools present. Continue ABX as ordered. Consider diagnostic colonoscopy as an OP. If not agreeable, consider repeat contrast enhanced abdominal imaging Will sign off. Thank you for allowing us to participate in the care of this patient. Please call with any acute changes, questions or concerns. Please see addendum below with additional recommendation from my supervising physician. (2) Bladder stones: (3) Abnormal CT of the abdomen: Admission and Anticipated Discharge Date Admission Date: December 13, 2019 Supervising Physician Co-Signing Physician Notes Attg add: I interviewed pt with aid or director radiation oncology, and reviewed chart and labs . Pt refused physical exam. She reports that she has had complete resolution of her abdominal pain, and is insisting on leaving the hospital. She tells me multiple times that she does not want any further testing. Cecitis -- ? Occult appendicitis, ischemia, malignancy. I have recommended continued abx and inpt obs, but pt is presently refusing this. Please complete 7 days of empiric abx. She should have colonoscopy as an outpt in 4 weeks if she is agreeable; at present she is refusing this. Please call with questions. Subjective Pt was seen and evaluated, chart reviewed No concerns Wants to go home Less abd pain No nausea,vomiting Last BM was yesterday Review of Systems Constitutional: no fever and no chills Respiratory: no cough Cardiovascular: no chest pain Gastrointestinal: + abdominal pain (improving) Physical Exam Gastrointestinal (Abdomen): Percussion/Palpation: + abdomen tender (would not let me palpate RLQ) and abdomen soft; no guarding and abdomen not rigid Results & Data ([facility]) Vital Signs (Past 12 Hours) Vital Signs Temp Pulse Resp BP BP Pulse Ox 06/18/20 07:00 36.9 C 80 18 131/78 97 12/15/19 23:59 37 C 85 18 103/67 96
[2019-12-16] MEDS ORDERED: ALBUTEROL HFA 8 GM INHALER INH SCH (12:00)
--- NOTE | 2019-12-16 15:26 | Hospitalist Progress Note ---
Date of Service December 16, 2019 Assessment & Plan (1) Abdominal pain: continues to have R lower abdomen tenderness CT abdomen/pelvis shows inflammatory change in ceacum area Gastro on board recommended to continue cipro and flagyl Consider outpatient colonoscopy in 4 weeks if pt is amenable. If not agreeable, consider repeat contrast enhanced abdominal imaging Full liquid diet tolerated and advanced as tolerated Consider surgical consult for possible appendicitis if pain continues Pain improved significantly Case discussed with GI and recommended to continue cipro and flagyl (2) UTI (urinary tract infection): complicated UTI due to chronic UPJ obstruction /urinary bladder stone was initially treated with IV Rocephin Urine cx postive for Ecoli IV Rocephin changed to IV cipro for GI findings of inflammation in ceacum Continue Pyridium for bladder spasm Continue cipro on discharge (3) Ureteropelvic junction (UPJ) obstruction: CT abdomen pelvis with chronic right UPJ obstruction versus parapelvic cyst and bladder calculi. Also with nonspecific inflammatory process centered in the cecum (history of appendectomy per chart review) Was followed with Dr Dietz in past [facility] Urology consulted Recommends Jordan cathter for chronic urinary retention Pt does not want to discharge home with the the jordan cath Urology was notified and Dr. Abreu recommended to discharge on the jordan cath Follow up with urology on 12/20 @ 9:20 AM (4) HTN (hypertension): Continue lisinopril (5) Diabetes mellitus, type II: Hold home agents SSI while in-patient BSG AC HS Continue monitor BS (6) Asthma: Continue Asmanex inhaler BID On Abuterol prn no wheeze or cough or SOB (7) Hypothyroidism: Continue levothyroxine (8) HLD (hyperlipidemia): Continue atorvastatin DVT Ppx: SCDs Code status: FULL per discussion with patient via spanish interpreter/translator PCP: Dr Huff Dispo: Discharge home today Follow up with urology on 12/20 @ 9:20 AM Follow up with your PCP Follow up with gastroenterology in 3 to 4 weeks Admission and Anticipated Discharge Date Admission Date: December 13, 2019 Subjective Pt was seen and examined Sitting in chair with no distress Pt is upset because she wanted the albuterol inhaler to be at the bedside I spent about 1hr explained it to her via the Niuean spanish interpreter/translator that when she needs to use it to ask for it Pt does not want to go home with the jordan cath Later son came, I explained it to the son via the Niuean spanish interpreter/translator that she needs to keep the jordan cath as per urology due to dilated right renal pelvis She said that her abdominal pain improved significantly She tolerated her diet Denies any chest pain, palpitation, dizziness and SOB Physical Exam Physical Exam: General- No acute distress Head- atraumatic Eyes- PERRL, EOMI, ENT- oropharynx clear Neck- supple, no JVD Lungs- clear to auscultation Heart- regular rhythm; no murmur Abdomen- normal bowel sounds, Non distended Extremities- no calf tenderness Neuro- alert, oriented x 3; PERRL, EOMI; no facial palsy; no dysarthria Skin- warm & dry Results & Data Results & Data ([facility]) Vital Signs (Past 12 Hours) Vital Signs Temp Pulse Resp BP Pulse Ox 12/16/19 12:31 108 H 20 93 12/16/19 07:00 36.9 C 80 18 131/78 97 (1) Abdominal pain Abdominal location: lower abdomen, unspecified Qualified Code(s): R10.30 - Lower abdominal pain, unspecified
--- NOTE | 2019-12-17 09:18 | Discharge Summary ---
Date of Service December 16, 2019 Admission HPI Per Admitting Provider This is an 84yo F with a PMH of HTN, DM II, HLD, asthma and hypothyroidism who presents with abdominal pain since yesterday. Of note, patient speaks Congolese so history obtained with help of video parts interpreter. Abdominal pain is located in lower quadrants in a band-like distribution and is constant. Not associated with fever, nausea or vomiting. No flank pain. Took tylenol and ibuprofen with some relief. Also has been having difficulty urinating with thin stream and occasionally has pain. No chills, confusion, chest pain,SOB, hematuria or constipation. Per chart review, has history of bladder stone removal in 2013. Also with history of gastric mass at the cardia s/p partial gastrectomy at [facility]. Histology consistent with leiomyoma. Admission Exam Per Admitting Provider General: Elderly woman in no acute distress Eyes: PERRL, conjunctivae normal, not pale, anicteric sclerae, EOM intact bilaterally ENMT: External ear and nose normal, oropharynx normal Neck: Normal visual inspection, no tracheal deviation, no swelling noted Respiratory: Normal respiratory effort, no respiratory distress, lungs clear to auscultation, no crackles and no wheezes Cardiovascular: Tachycardia, regular pulse, S1-2, no pedal edema Chest (Breasts): Chest: normal inspection of chest Gastrointestinal (Abdomen): Abdomen is not distended, soft, suprapubic and central abdominal tenderness, no guarding, no palpable hepatosplenomegaly, normal bowel sounds Musculoskeletal: No cyanosis or clubbing, all extremities motor strength 5/5 Genitourinary: +suprapubic tenderness, No CVA tenderness Skin: No rash noted on gross inspection, No ulcers noted Neurologic: Alert and oriented x 3, No focal weakness, sensation grossly intact Psychiatric: Euthymic affect Principal Diagnosis Abdominal pain: UTI (urinary tract infection): Ureteropelvic junction (UPJ) obstruction: HTN (hypertension): Diabetes mellitus, type II: Asthma: Hypothyroidism: HLD (hyperlipidemia): Discharge Exam General- No acute distress Head- atraumatic Eyes- PERRL, EOMI, ENT- oropharynx clear Neck- supple, no JVD Lungs- clear to auscultation Heart- regular rhythm; no murmur Abdomen- normal bowel sounds, Non distended Extremities- no calf tenderness Neuro- alert, oriented x 3; PERRL, EOMI; no facial palsy; no dysarthria Skin- warm & dry Discharge Data Allergies Allergy/AdvReac Type Severity Reaction Status Date / Time aspirin Allergy Mild ITCHING Verified 12/13/19 14:00 benzonatate Allergy Unknown Verified 12/15/19 08:20 [From Sb Bess] Consultations 12/13/19 15:17 ED Decision to Admit Stat 12/13/19 18:29 Consult Urology Routine 12/15/19 07:35 Consult Gastroenterology Routine Ordered Studies 12/13/19 13:28 CT abd pelvis wo con Stat CT SCAN OF THE ABDOMEN AND PELVIS WITHOUT CONTRAST CLINICAL HISTORY: Generalized abdominal pain COMPARISON STUDY: 05/23/1999 TECHNIQUE: CT scan of the abdomen and pelvis was performed from the lung bases to the proximal femurs. Images are reviewed in the axial, sagittal, and coronal planes. IV contrast was not administered for this examination. A dose lowering technique was utilized adhering to the principles of ALARA. CT DOSE: 515.19 mGy.cm FINDINGS: Lower chest: There is respiratory motion artifact. There are dependent atelectatic changes. Liver: The unenhanced liver is normal in size, contour, and attenuation. There is no intrahepatic biliary ductal dilatation. Gallbladder: Surgically absent Spleen: Normal in size and attenuation. Pancreas: Unremarkable. Adrenal glands: There is minor left adrenal gland thickening Kidneys: There is a stable dilated right renal pelvis consistent with a chronic UPJ type obstruction versus a large parapelvic cyst. No renal calculi are visualized. There are several bladder calculi identified similar to the preceding study. Bowel: There are no transition zones indicate bowel obstruction. There is an inflammatory process centered on the cecum. A definite appendix is not visualized, nor was it visualized the preceding study. The etiology of this inflammatory process is not known. This could be secondary to an infectious colitis, or cecal diverticulitis. Underlying neoplasm cannot be excluded with certainty. Clinical follow-up is advocated. Peritoneum: There is no intraperitoneal free air or abdominal ascites. Vasculature: The abdominal aorta is normal in course and caliber. Adenopathy: None. Pelvic viscera: There are calcified uterine fibroids. Skeletal structures: No destructive osseous lesions are seen. IMPRESSION: 1. No evidence of bowel obstruction. No evidence of free air 2. Nonspecific inflammatory process centered in the cecum. A definite appendix is not visualized. Close clinical follow-up is indicated. 3. 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 4. Bladder calculi ACT 112: Negative or not required by law. Electronically signed by: Juan Bernardo M.D. 12/13/2019 2:33 PM Dictated: 12/13/19 1418 Transcribed: 12/13/19 1418 XR chest 1V portable HISTORY: 84 years-old Female sob acute weakness with shortness of breath COMPARISON: Chest radiograph 10/03/2016, CT abdomen and pelvis 12/13/2019 TECHNIQUE: Portable AP view of the chest FINDINGS: Unchanged mild left hemidiaphragmatic elevation. Cardiac silhouette is mildly enlarged. Calcific plaque of the thoracic arch. Interstitial coarsening of the lung bases redemonstrated. Chronic blunting of the left costophrenic angle. No pneumothorax, large pleural effusion or overt pulmonary edema. Degenerative changes of the shoulders and spine. IMPRESSION: 1. Chronic interstitial coarsening of the lung bases is suggestive of fibrosis with probable atelectasis. 2. Mild cardiomegaly. ACT 112: Negative or not required by law. The above report was generated using voice recognition software. It may contain grammatical, syntax or spelling errors. Electronically signed by: Jakob Rodriguez M.D. 12/13/2019 2:42 PM Dictated: 12/13/19 1441 Transcribed: 12/13/19 1441 Hospital Course (1) Abdominal pain: continues to have R lower abdomen tenderness CT abdomen/pelvis shows inflammatory change in ceacum area Gastro on board recommended to continue cipro and flagyl Consider outpatient colonoscopy in 4 weeks if pt is amenable. If not agreeable, consider repeat contrast enhanced abdominal imaging Full liquid diet tolerated and advanced as tolerated Consider surgical consult for possible appendicitis if pain continues Pain improved significantly Case discussed with GI and recommended to continue cipro and flagyl (2) UTI (urinary tract infection): complicated UTI due to chronic UPJ obstruction /urinary bladder stone was initially treated with IV Rocephin Urine cx postive for Ecoli IV Rocephin changed to IV cipro for GI findings of inflammation in ceacum Continue Pyridium for bladder spasm Continue cipro on discharge (3) Ureteropelvic junction (UPJ) obstruction: CT abdomen pelvis with chronic right UPJ obstruction versus parapelvic cyst and bladder calculi. Also with nonspecific inflammatory process centered in the cecum (history of appendectomy per chart review) Was followed with Dr Dietz in [facility] consulted Recommends Jordan cathter for chronic urinary retention Pt does not want to discharge home with the the jordan cath Urology was notified and Dr. Abreu recommended to discharge on the jordan cath Follow up with urology on 12/20 @ 9:20 AM (4) HTN (hypertension): Continue lisinopril (5) Diabetes mellitus, type II: Hold home agents SSI while in-patient BSG AC HS Continue monitor BS (6) Asthma: Continue Asmanex inhaler BID On Abuterol prn no wheeze or cough or SOB (7) Hypothyroidism: Continue levothyroxine (8) HLD (hyperlipidemia): Continue atorvastatin DVT Ppx: SCDs Code status: FULL per discussion with patient via parts interpreter PCP: Dr Huff Dispo: Discharge home today Follow up with urology on 12/20 @ 9:20 AM Follow up with your PCP Follow up with gastroenterology in 3 to 4 weeks Total Time Total Time Spent Total Time Spent (In Minutes): 60 minutes Total Time Includes: Examination of the Patient, Discharge Planning, Medication Reconciliation, Communication With Other Providers and Other Discharge Plan Discharge Items Patient Disposition: Home - Home Health Services Reason For Visit: UTI,ABD PAIN Discharge Diagnosis: Abdominal pain: UTI (urinary tract infection): Ureteropelvic junction (UPJ) obstruction: HTN (hypertension): Diabetes mellitus, type II: Asthma: Hypothyroidism: HLD (hyperlipidemia): Activity: Resume your previous activity Non-emergency contact: Primary Care Provider, Bale Breaker Operator and Urologist Call non-emergency contact if: you have any medication questions Follow-up/Referrals: Clarisa Huff MD [Primary Care Provider] - 12/23/19 11:00 am (12/23/2019 11:00 AM Provider Clarisa Huff MD Department General Internal Medicine [facility] ) Urology,[facility] [Physician] - 12/21/19 9:20 am ([facility] 12/21/2019 at 09:20am.) Diet: Carb Consistent or DM2 Addtl Attending Provider Instructions: Follow up with your primary care provider Dr. Huff on 12/22 @ 11:00 AM Follow up with Urology Dr. Abreu on 12/20 @ 9:20AM Address: [address] [place] [id number] Follow up with Gastroenterology in 4 weeks to arrange for colonoscopy (Your physician will arrange for the referral) Keep the jordan catheter for now until seeing by the urology on 12/20 Fall precaution (Due to the jordan catheter) Complete the course of the antibiotic with cipro and flagyl Advanced diet slowly as tolerated Follow up a healthy diabetes diet and limited concentrated sweet intake Seek medical attention if you develop any fever or abdominal pain worsening Pending Studies at Discharge: No Stand-Alone Forms: My [facility], Smoking Cessation Medications and DC Order Prescriptions: New albuterol sulfate [Ventolin HFA] 90 mcg/actuation Hfa Aerosol Inhaler 2 puff inhalation Q6R PRN (Reason: shortness of breath or wheezing) Qty: 18 RF: 0 phenazopyridine [Pyridium] 100 mg Tablet 100 mg PO TID PRN (Reason: bladder pain) Qty: 20 RF: 0 ciprofloxacin HCl [Cipro] 500 mg tablet 500 mg PO BID Qty: 10 RF: 0 metronidazole [Flagyl] 500 mg tablet 500 mg PO TID Qty: 15 RF: 0 Continued atorvastatin 20 mg tablet 20 mg PO QAM RF: 0 levothyroxine 50 mcg tablet 50 mcg PO QAM RF: 0 lisinopril 10 mg tablet 10 mg PO QAM RF: 0 Tradjenta 5 mg tablet 5 mg PO QAM RF: 0 Asmanex Twisthaler 220 mcg/ actuation (60) aerosol powdr breath activated 1 inh INHALATION BID Qty: 1 RF: 0 Discharge Orders: Discharge Order (Routine); Ordered 12/16/19 Ordered By: Melisa Monzon/Other Patient Handouts: High Blood Sugar (Hyperglycemia), Hypoglycemia (Low Blood Sugar), Managing Type 2 Diabetes Admission Data Admit Date/Time: 12/13/19 15:59 Attending Provider: Melisa Maier Admit Provider: Isamar Frazier I. Primary Care Provider: Clarisa Huff Other Providers: Isamar Frazier I. ; Dwain Bernstein ; Akhil Chang ; Kane Trotter I. ; Eliseo Abreu ; Haritha Stearns ; Jeanine Ruano ; Puneet Lepe ; Camilla Pfeiffer ; Lisseth Chambers ; Jj Maharaj ; Rayna Otero ; Mike Gardner ; Elsie Lu ; Biju Landeros ; Richa Prasad ; Kenneth Rosado ; Nereida Antonio ; Martín Cooper ; Sofía Crawford ; Boubacar Silva ; Josh Bee ; Anita De La Torre ; Evie Damico ; Ruma Yeung ; Brie Lozano ; Arley Jose ; [facility] Other Interventions: Discharge Summary Assessment (RN) Last Done: 12/16/19 15:55 DC Date/Time DO NOT enter until pt leaves facility: 12/16/19 16:50
[2019-12-18] MEDS ORDERED: SODIUM CHLORIDE 0.9% 500 ML IV ONE (12:23)
== END 2019-12-16 16:50 | disposition home health service (06) | DRG 690 ==
LOC: ED 11:56 → SUATTDRO 15:59 → 2W 15:59

== ENCOUNTER 2019-12-18 12:14 | Inpatient (IN) ==
[2019-12-18] MEDS ORDERED: HEPARIN (PORCINE) 1000 UNIT/ML 10 ML (CATH LAB USE ONLY) ONE (12:29)
[2019-12-18] MEDS ORDERED: NiCARDipine HCL INJ 2.5 MG/ML 10 ML AMP ONE (12:29)
[2019-12-18] MEDS ORDERED: fentaNYL citrate 100 MCG/2 ML VIAL ONE (12:30)
[2019-12-18] MEDS ORDERED: MIDAZOLAM HCL 1 MG/ML 2ML VIAL ONE (12:30)
[2019-12-18] MEDS ORDERED: NITROGLYCERIN/D5W 100MCG/ML 20ML SYR ONE (12:30)
[2019-12-18] MEDS ORDERED: BIVALIRUDIN 250 MG VIAL (CATH LAB ONLY) ONE (12:31)
[2019-12-18] MEDS ORDERED: SODIUM CHLORIDE 0.9% 500 ML IV ONE ×2 (12:45→13:53)
[2019-12-18 12:50] LABS: iSTAT Creatinine 0.9 mg/dl (0.6-1.3); iSTAT Ionized Calcium 1.08 mmol/l (1.12-1.32)
[2019-12-18 12:53] LABS: Base Excess VBG 0.1 mEq/L; HCO3 VBG 27 mmol/L; PCO2 VBG 53 mmHg (38-50); PO2 VBG 29 mmHg; pH VBG 7.33 (7.36-7.41)
[2019-12-18 12:55] LABS: Oxygen Saturation VBG < 60.0 %
[2019-12-18 13:03] LABS: Albumin Level 3.2 gm/dl (3.4-5.0); BUN Creatinine Ratio 9.6 (10-20); Bilirubin Direct 0.2 mg/dl (0-0.2); Calcium 9.2 mg/dl (8.5-10.1); Creatinine Clr Calc Pharmacy 35.5 ml/min; Est GFR (African American) 57.8; Est GFR (Non-African American) 49.9; Magnesium 1.8 mg/dl (1.8-2.4)
[2019-12-18 13:08] LABS: Basophils # (auto) 0.04 K/uL (0-0.2); Basophils % (auto) 0.4 %; Eosinophils # (auto) 0.01 K/uL (0-0.5); Eosinophils % (auto) 0.1 %; Hemoglobin 13.9 g/dL (12.0-16.0); Immature Granulocytes # (auto) 0.04 K/uL (0.00-0.02); Immature Granulocytes % (auto) 0.4 %; Lymphocytes # (auto) 0.56 K/uL (1.2-3.4); Lymphocytes % (auto) 5.9 %; Mean Corpuscular Hemoglobin 32.3 pg (25-34); Mean Corpuscular Hgb Conc 33.9 g/dL (32-36); Mean Corpuscular Volume 95.1 fL (80-100); Mean Platelet Volume 12.9 fL (7.4-10.4); Monocytes # (auto) 0.77 K/uL (0.11-0.59); Monocytes % (auto) 8.1 %; Neutrophils # (auto) 8.11 K/uL (1.4-6.5); Neutrophils % (auto) 85.1 %; Platelet Count 266 K/uL (130-400); RDW Coefficient of Variation 12.7 % (11.5-14.5); RDW Standard Deviation 44.4 fL (36.4-46.3); Red Blood Count 4.31 M/uL (4.2-5.4); White Blood Count 9.53 K/uL (4.8-10.8)
[2019-12-18 13:10] LABS: INR 1.1 (0.9-1.1); Partial Thromboplastin Ratio 0.9; Partial Thromboplastin Time 25.1 Seconds (21.0-31.0); Prothrombin Time 11.5 Seconds (9.0-12.0)
[2019-12-18 13:16] LABS: Albumin Globulin Ratio 0.8 (0.9-2); Bilirubin,Total 0.9 mg/dl (0.2-1); Globulin 4.2 gm/dl (2.5-4.0); Phosphorus 2.9 mg/dl (2.5-4.9); Thyroid Stimulating Hormone 2.77 uIu/ml (0.300-4.500); Total Protein 7.4 gm/dl (6.4-8.2); Troponin I 3.94 ng/ml (0-0.045)
--- NOTE | 2019-12-18 13:25 | XRay Report ---
XR chest 1V portable CLINICAL HISTORY: SEPSIS dyspnea COMPARISON STUDY: 12/13/2019 FINDINGS: Mild increase in cardiac size as well as prominence of the pulmonary vasculature. Diaphragm s remain smooth. Interstitial prominence of the left and to a lesser extent right base is slightly pr ogressive. IMPRESSION: 1. Mildly progressive bibasilar interstitial infiltrative change. 2. Developing pulmonary vascular congestion. ACT 112: Negative or not required by law. The above report was generated using voice recognition software. It may contain grammatical, syntax or spelling errors. Electronically signed by: Danis Galan M.D. 12/18/2019 1:24 PM
[2019-12-18] MEDS ORDERED: OPTIRAY 320 125ml IV PRN (14:10)
--- NOTE | 2019-12-18 14:17 | CT Scan Report ---
CT abd pelvis IV con only CT DOSE: HISTORY: Dyspnea sepsis TECHNIQUE: Multiaxial CT images of the abdomen and pelvis were performed following the use of intrave nous contrast. A dose lowering technique was utilized adhering to the principles of ALARA. COMPARISON STUDY: 12/13/2019 FINDINGS: Slightly progressive basilar infiltrative change. This primarily interstitial. Trace amount pleural thickening both lung bases unchanged. The liver spleen and pancreas are uniform in appearance. Prior cholecystectomy. Unchanged right renal cyst. No evidence for renal hydronephrosis. There continues to be mild degree of pericecal infiltrative change. This is unaltered from the prior exam and is nonspecific. The appendix is poorly seen. Nonobstructive bowel pattern. There is a Cooper catheter within a collapsed bladder. Uterus demonstrates several fibroids. Bladder calcifications persist and appear unchanged. IMPRESSION: 1. Slightly progressive bibasilar interstitial infiltrative change. 2. Bladder calculi unchanged. 3. Pericecal infiltrative process unchanged from the prior exam. 4. Right renal parapelvic cyst considered stable. ACT 112: Negative or not required by law. The above report was generated using voice recognition software. It may contain grammatical, syntax or spelling errors. Electronically signed by: Danis Galan M.D. 12/18/2019 2:15 PM
--- NOTE | 2019-12-18 14:20 | CT Scan Report ---
CT angio chest PE protocol CT DOSE: 597.61 mGy.cm HISTORY: Chest pain PE TECHNIQUE: Multiaxial CT images of the chest were performed following the intravenous administration of contrast to evaluate the pulmonary arteries. Maximal intensity projection images were also obtaine d. A dose lowering technique was utilized adhering to the principles of ALARA. COMPARISON STUDY: None. FINDINGS: Moderate atherosclerotic change thoracic aorta. Pulmonary vasculature enhances uniformly. No significant filling defects. Nonspecific bilateral interstitial change throughout both hemithoraces. No evidence for consolidative infiltrative process. IMPRESSION: 1. No evidence for pulmonary embolus. 2.. Mild interstitial change of the mid to lower lung regions bilaterally. ACT 112: Negative or not required by law. The above report was generated using voice recognition software. It may contain grammatical, syntax or spelling errors. Electronically signed by: Danis Galan M.D. 12/18/2019 2:19 PM
[2019-12-18] MEDS: POTASSIUM CHLORIDE / WTR 10 MEQ/100 ML PLCT IV SCH ×3 (14:40→23:10)
[2019-12-18] MEDS: MAGNESIUM SULFATE / D5W 1 GM/100 ML BAG IV STA ×2 (14:40→15:51)
[2019-12-18] MEDS ORDERED: VANCOMYCIN HCL 1,500 MG in SODIUM CHLORIDE 0.9% 500 ML IV ONE (15:21)
[2019-12-18] MEDS ORDERED: VANCOMYCIN CONSULT ACTIVE PRN (15:21)
[2019-12-18] MEDS ORDERED: PIPERACILLIN/TAZOBACTAM 4.5 GM/120 ML BAG IV ONE (15:21)
[2019-12-18] MEDS ORDERED: PIPERACILL/TAZOBAC CONSULT ACTIVE PRN (15:21)
--- NOTE | 2019-12-18 15:51 | History & Physical Report ---
Date of Service December 18, 2019 Assessment & Plan (1) Acute respiratory failure with hypoxia and hypercapnia: Acute respiratory failure with hypoxia CTA:No evidence for pulmonary embolus. Mild interstitial change of the mid to lower lung regions bilaterally. Intubated for respiratory support COVID screen: negative ? Aspiration Started on broad-spectrum antibiotics, steroids, bronchodilators Appreciate livestock broker help Sepsis Abdominal pain Ongoing nausea, vomiting, diarrhea Recently discharged on antibiotics for cecitis CT ABD:Slightly progressive bibasilar interstitial infiltrative change. Bladder calculi unchanged. Pericecal infiltrative process unchanged from the prior exam. Right renal parapelvic cyst considered stable. R/O C diff Stool studies ordered Consulted GI for input On antibiotics as above Trend lactate levels Received IV fluids On p.o. vancomycin until C. difficile ruled out NSTEMI Elevated troponin levels Continue IV heparin Check resting echo EKG in a.m. Consulted cardiology H/O aspirin allergy Continue Lipitor, lisinopril Added beta-lashanda Hypokalemia Likely due to GI losses Replete electrolytes as needed Ureteropelvic junction obstruction Continue Cooper catheter Hypothyroidism Continue levothyroxine DM II: Hold metformin Insulin therapy while hospitalized Monitor BGs DVT Px: On IV Heparin Code Status Full Code As per my discussion with patient's daughter Disposition Admitted in ICU History of Present Illness Chief Complaint: Chest Pain, SOB Primary Care Provider: Clarisa Huff MD Patient is an 84-year-old female with history of asthma, diabetes mellitus, hypertension, hypothyroidism, hyperlipidemia and other medical problems presents with history of shortness of breath, chest pain, abdominal pain, nausea, vomiting and diarrhea. History is limited as patient is Puerto Rican-speaking and in distress at the time of admission. Most of the history is obtained from old records, ER physician and patient's daughter. Patient was discharged 2 days ago from [facility] after being treated for E. coli UTI, Cecitis, UPJ obstruction. Patient has been having nausea, vomiting, diarrhea since yesterday as per the patient's daughter. Daughter states that she noticed her mother to be cyanotic and was gasping for breath today. EMS performed an EKG which was concerning for possible STEMI. On further evaluation by interventional cardiology while in ED, patient was thought to have similar prior EKG findings and heart alert was called off. Patient complained of lower abdominal pain and left-sided chest pain. No known history of fever, cough. Patient was was noted to be hypoxic while in ED and was placed on oxygen mask and later transitioned to BiPAP. CTA showed no acute PE. Imaging studies suggestive of mild interstitial change, developing pulmonary edema. Patient did not tolerate the BiPAP, and was transferred to ICU and was intubated. Troponins were elevated to be at 3.9, lactate elevated at 3.7. Patient was started on IV heparin while in ED. Allergies Allergy/AdvReac Type Severity Reaction Status Date / Time aspirin Allergy Mild ITCHING Verified 12/18/19 15:12 benzonatate Allergy Unknown Verified 12/18/19 15:12 [From [employer] Bess] Home Medications Home Medications Medication Instructions Recorded Confirmed Type Tradjenta 5 mg PO QAM 12/13/19 12/18/19 History atorvastatin 20 mg PO QAM 12/13/19 12/18/19 History levothyroxine 50 mcg PO QAM 12/13/19 12/18/19 History lisinopril 10 mg PO QAM 12/13/19 12/18/19 History albuterol sulfate [Ventolin HFA] 2 puff INHALATION Q6R PRN #18 gm 12/16/19 0 12/18/19 Rx ciprofloxacin HCl [Cipro] 500 mg PO BID #10 tab 12/16/19 12/18/19 Rx metronidazole [Flagyl] 500 mg PO TID #15 tab 12/16/19 12/18/19 Rx phenazopyridine [Pyridium] 100 mg PO TID PRN #20 tab 12/16/19 12/18/19 Rx metformin 500 mg PO BID 12/18/19 12/18/19 History Past Med/Surg History 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 and not listed on [facility] problem list Asthma Diabetes mellitus, type II HLD (hyperlipidemia) HTN (hypertension) Hypothyroidism Surgical History History of appendectomy History of cholecystectomy History of partial gastrectomy REMOVE STOMACH, PARTIAL N/A 11/29/2014 LAPAROSCOPIC GASTRECTOMY PARTIAL performed by Ubaldo Kilpatrick MD at [facility] [place] [place] Status post laser lithotripsy of ureteral calculus REMOVE SMALL BLADDER STONE, SIMPLE 06/01/2014 LITHOLAPAXY SIMPLE performed by Brenda Dietz MD Family History Family/Other Asthma Social History Preferred Language: Puerto Rican Communication Ability: Puerto Rican Communication Tools: IPad and Language Line Middleware Developer Middleware Developer Required: Yes Beliefs That Will Affect Care: None marital status: Unknown Current Living Situation: Alone current occupational status: retired Feels Safe at Home: Yes Smoking Status: Never smoker Hx Alcohol Use: No Hx Substance Use: No Review of Systems Review of Systems: Other Difficult to obtain due to patient's respiratory distress. Physical Exam Physical Exam: Physical Exam: Vitals signs as noted above General Appearance:Moderately built and nourished, in resp. distress Head: normocephalic, Atraumatic Eyes: normal inspection, EOMI Neck: supple, Trachea midline Respiratory/Chest: Decreased breath sounds, b/l scattered wheezing, Basal crackles, Tachypnea Cardiovascular: S1, S2, No murmur, +Tachycardia Abdomen/GI:Soft, Lower quadrant tender, Bowel sounds present Extremities/Musculoskelatal:normal inspection, B/L LE edema Neurologic/Psych:AAOX3, grossly no focal neurological deficits Skin: normal color, warm Results & Data Results & Data ([facility]) Vital Signs (Past 12 Hours) Vital Signs Pulse Pulse Resp BP BP Pulse Ox 12/18/19 15:29 127 H 29 H 95 12/18/19 15:16 125 H 15 142/85 H 86 L 12/18/19 15:15 125 H 26 H 85 L 12/18/19 15:13 124 H 17 156/86 H 89 L 12/18/19 15:06 127 H 18 158/116 H 85 L 12/18/19 15:00 126 H 21 12/18/19 14:45 125 H 20 92 12/18/19 14:40 126 H 34 H 92 12/18/19 14:30 122 H 16 92 12/18/19 14:20 118 H 31 H 91 12/18/19 14:11 123 H 22 91 12/18/19 14:10 122 H 21 141/101 H 92 12/18/19 13:50 119 H 24 90 12/18/19 13:46 120 H 22 90 06/20/20 13:35 118 H 24 120/88 94 12/18/19 13:31 119 H 92 12/18/19 13:30 117 H 18 120/88 92 12/18/19 13:20 121 H 92 12/18/19 13:17 117 H 24 131/90 96 12/18/19 13:16 117 H 127/100 96 12/18/19 13:10 116 H 96 12/18/19 13:00 118 H 131/91 95 12/18/19 12:50 117 H 97 12/18/19 12:45 117 H 137/104 H 99 12/18/19 12:40 123 H 93 12/18/19 12:36 123 H 124 H 30 H 155/106 H 155/106 H 93 12/18/19 12:31 123 H 122 H 24 148/104 H 91 12/18/19 12:30 123 H 90 12/18/19 12:24 123 H 17 90 12/18/19 12:23 126 H 22 92 12/18/19 12:18 120 H 22 142/104 H 89 L 12/18/19 12:11 126 H 20 142/104 H 87 L Laboratory Results Short CBC 12/18/19 Range/Units 12:30 WBC 9.53 (4.8-10.8) K/uL Hgb 13.9 (12.0-16.0) g/dL Hct 41.0 (37-47) % Plt Count 266 (130-400) K/uL BMP 12/18/19 12:30 Sodium 135 L Potassium 3.0 L Chloride 98 Carbon Dioxide 25 BUN 10 Creatinine 1.03 Glucose 280 H Calcium 9.2 Cardiac Enzymes 12/18/19 Range/Units 12:30 Troponin I 3.940 H* (0-0.045) ng/ml Liver Function 12/18/19 Range/Units 12:30 Total Bilirubin 0.9 (0.2-1) mg/dl Direct Bilirubin 0.2 (0-0.2) mg/dl AST 37 (15-37) U/L ALT 29 (12-78) U/L Alkaline Phosphatase 101 (45-117) U/L Albumin 3.2 L (3.4-5.0) gm/dl Diagnostic Findings CTA: 1. No evidence for pulmonary embolus. 2.. Mild interstitial change of the mid to lower lung regions bilaterally. CT ABD: 1. Slightly progressive bibasilar interstitial infiltrative change. 2. Bladder calculi unchanged. 3. Pericecal infiltrative process unchanged from the prior exam. 4. Right renal parapelvic cyst considered stable.
[2019-12-18] MEDS ORDERED: Heparin IV Low Dose *NO* Bolus IV ONE (16:16)
[2019-12-18] MEDS ORDERED: HEPARIN SODIUM/DEXTROSE 25,000 UNITS/500 ML BAG IV SCH (16:30)
--- NOTE | 2019-12-18 17:07 | Emergency Department Note ---
Impression & Plan Acute respiratory failure with hypoxia and hypercapnia, Sepsis, Pneumonia, Acute non-ST elevation myocardial infarction (NSTEMI), Elevated lactic acid level ED Provider Note NAME: RASHAD YOUNGER AGE: 84 SEX: F ARRIVES VIA: Ambulance INFORMANT: Patient, Daughter ED PROVIDER(S): Nicolas Hsieh MD CHIEF COMPLAINT: Shortness of breath. PLAN: Disposition: Admit MEDICAL DECISION MAKING: The patient is a pleasant 84-year-old woman, [place]se-speaking only, with a past medical history of hypertension, hyperlipidemia, diabetes, asthma, hypothyroidism who presents emergency department BIBA accompanied by Cuban speaking daughter from home after EMS was called for her complaints of shortness of breath and chest pressure in the setting of having nausea, vomiting and diarrhea repeatedly last night and was noted to be unwell when seen by her physical therapy team today. Upon arrival of EMS they performed an EKG which went was transmitted upon Med command call, which I received. Patient's EKG did raise concern for possible inferior ST elevation NV and so heart alert was initially activated. However in the interim prior to arrival we were able to obtain patient's prior EKG from 12/12 which looked identical with prominent right bundle branch block. I did share these EKGs with Dr. Velazquez, interventional cardiology on-call, and we did agree that they appeared identical and given the patient's constellation of symptoms reasonable to continue the patient's evaluation for possible infectious metabolic process and to cancel heart alert. Further, the patient's presentation occurs in the setting of recently being admitted from 12/12 to 12/15 for a urinary tract infection with chronic right UPJ obstruction. And was discharged on Cipro and Flagyl for inflammatory changes in the region of the cecum. Of note, I did discuss with the patient and her daughter and they do confirm she is full code, "do everything" [if her hear were to stop]. . On arrival the patient is ill-appearing, short of breath in mild distress. She does appear clinically dry. Lungs are diminished breath sounds at the bases. Abdomen is benign. The patient was given IV fluid hydration with improvement in her heart rate and dyspnea. EKG again demonstrates right bundle branch block that is similar to 12/13/2019. Chest x-ray with increased interstitial congestion. WBC, H/H and platelets within normal limits. VBG with pH of 7.33 and PCO2 of 53. Chemistry without acidosis with bicarb of 25. Potassium 3.0. Electrolytes otherwise unremarkable. LFTs unremarkable. Initial lactate 3.7 which did improve with 500 cc of fluid to 3.5. We were cautious to avoid overly aggressive IV fluid hydration to avoid overload in this elderly patient. Patient's troponin was elevated at 3.9 with BNP of 600, within normal limits. CTA of the chest was performed and negative for PE and CT of the abdomen pelvis also shows stable intra-abdominal findings. However note is made of increased interstitial infiltrative change as well as venous congestion. Patient was ordered for empiric broad-spectrum antibiotics given the patient's septic presentation with elevated lactate. Upon return from CT the patient's shortness of breath did worsen with increasing oxygen requirement which may have been related to lying supine. Patient was ordered for BiPAP and she subsequently had stabilizing of her work of breathing with normal oxygen saturation on BiPAP with 50% FiO2. Did review the findings and plan for admission with the patient and her daughter at the bedside. They were agreeable with plan for admission. Case was discussed with Dr. Ruggiero, [facility] hospitalist, who will evaluate the patient for admission. Triage Nursing notes reviewed and agree them. Additional history obtained from daughter Prior medical records reviewed Vital Signs: reviewed and remarkable for tachycardia. Differential diagnosis: Reactive airway disease, pneumonia, pneumothorax, COPD, CHF, infections, cardiac ischemia, pulmonary embolism, musculoskeletal, gastrointestinal, as well as other pathologies. ER treatment provided: See below. Diagnostics interpreted by me: ECG: Sinus Tachycardia, right bundle branch block, no ectopy. ST abnormalities similar to 12/13/2019. Cardiac Monitoring: An order for continuous cardiac monitoring was placed and demonstrated Sinus Tachycardia, 125 bpm, right bundle branch block, no ectopy. Laboratory studies: See below Imaging studies: XR chest 1V portable CLINICAL HISTORY: SEPSIS dyspnea COMPARISON STUDY: 12/13/2019 FINDINGS: Mild increase in cardiac size as well as prominence of the pulmonary vasculature. Diaphragms remain smooth. Interstitial prominence of the left and to a lesser extent right base is slightly progressive. IMPRESSION: 1. Mildly progressive bibasilar interstitial infiltrative change. 2. Developing pulmonary vascular congestion. -- CT abd pelvis IV con only CT DOSE: HISTORY: Dyspnea sepsis TECHNIQUE: Multiaxial CT images of the abdomen and pelvis were performed following the use of intravenous contrast. A dose lowering technique was utilized adhering to the principles of ALARA. COMPARISON STUDY: 12/13/2019 FINDINGS: Slightly progressive basilar infiltrative change. This primarily interstitial. Trace amount pleural thickening both lung bases unchanged. The liver spleen and pancreas are uniform in appearance. Prior cholecystectomy. Unchanged right renal cyst. No evidence for renal hydronephrosis. There continues to be mild degree of pericecal infiltrative change. This is unaltered from the prior exam and is nonspecific. The appendix is poorly seen. Nonobstructive bowel pattern. There is a Cooper catheter within a collapsed bladder. Uterus demonstrates several fibroids. Bladder calcifications persist and appear unchanged. IMPRESSION: 1. Slightly progressive bibasilar interstitial infiltrative change. 2. Bladder calculi unchanged. 3. Pericecal infiltrative process unchanged from the prior exam. 4. Right renal parapelvic cyst considered stable. -- CT angio chest PE protocol CT DOSE: 597.61 mGy.cm HISTORY: Chest pain PE TECHNIQUE: Multiaxial CT images of the chest were performed following the in travenous administration of contrast to evaluate the pulmonary arteries. Maximal intensity projection images were also obtained. A dose lowering technique was utilized adhering to the principles of ALARA. COMPARISON STUDY: None. FINDINGS: Moderate atherosclerotic change thoracic aorta. Pulmonary vasculature enhances uniformly. No significant filling defects. Nonspecific bilateral interstitial change throughout both hemithoraces. No evidence for consolidative infiltrative process. IMPRESSION: 1. No evidence for pulmonary embolus. 2.. Mild interstitial change of the mid to lower lung regions bilaterally. Consultation(s): Dr. Velazquez, interventional cardiology on-call. Case was [facility] who will [facility] the patient for [facility]. HPI: The patient is a pleasant 84-year-old woman, [place]orese-speaking only, with a past medical history of hypertension, hyperlipidemia, diabetes, asthma, hypothyroidism who presents emergency department from home after EMS was called for her complaints of shortness of breath and chest pressure in the setting of having nausea, vomiting and diarrhea repeatedly last night and was noted to be unwell when seen by her physical therapy team today. Upon arrival of EMS they performed an EKG which did raise concern for possible inferior ST elevation NV and so heart alert was initially activated. However in the interim prior to arrival we were able to obtain patient's prior EKG from 12/12 which looked identical with prominent right bundle branch block. I did share these EKGs with Dr. Velazquez, interventional cardiology on-call, and we did agree that they appeared identical and given the patient's constellation of symptoms reasonable to continue the patient's evaluation for possible infectious metabolic process and to cancel heart alert. Further, the patient's presentation occurs in the setting of recently being admitted from 12/12 to 12/15 for a urinary tract i nfection with chronic right UPJ obstruction. And was discharged on Cipro and Flagyl for inflammatory changes in the region of the cecum. ROS: See above HPI for pertinent positives & negatives. A total of 10 systems reviewed and were otherwise negative. PAST MEDICAL HISTORY:See Below PAST SURGICAL HISTORY:See Below FAMILY HISTORY:See Below SOCIAL HISTORY:See Below HOME MEDICATIONS:See Below ALLERGIES:See Below VITALS:See Below PHYSICAL EXAMINATION: GENERAL: Awake, alert, ill-appearing, in mild respiratory distress HENT: Normocephalic, atraumatic. Oropharynx with dry mucous membranes and otherwise unremarkable. . EYES: Normal conjunctiva. Sclera non-icteric. NECK: Supple. No nuchal rigidity. FROM. No JVD. RESPIRATORY: Diminished breath sounds at the bases and otherwise clear to auscultation. CARDIAC: Tachycardic rate, normal rhythm. Extremities warm and well perfused. Pulses equal. ABDOMEN: Soft, non-distended. No tenderness to palpation. No rebound or guarding. No masses. RECTAL: Deferred. MUSCULOSKELETAL: Chest examination reveals no tenderness. The back is symmetrical on inspection without obvious abnormality. There is no CVA tenderness to palpation. No joint edema. LOWER EXTREMITIES: Calves are equal size bilaterally and non-tender. Scant BLE edema. No discoloration. NEURO: Normal sensorium. No sensory or motor deficits noted. SKIN: No rash or jaundice noted. ED COURSE: Critical Care: I have personally spent greater than 135 minutes of critical care time in the direct management of this patient. This includes bedside care, interpretation of diagnostic studies, and testing, discussion with consultants, patient, and family members, and other required patient management activities. This 135 minutes is in excess of all separately billable procedures. 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 and not listed on [facility] problem list Asthma Diabetes mellitus, type II HLD (hyperlipidemia) HTN (hypertension) Hypothyroidism Surgical History History of appendectomy History of cholecystectomy History of partial gastrectomy REMOVE STOMACH, PARTIAL N/A 11/29/2014 LAPAROSCOPIC GASTRECTOMY PARTIAL performed by Ubaldo Kilpatrick MD at OR [facility] Status post laser lithotripsy of ureteral calculus REMOVE SMALL BLADDER STONE, SIMPLE 06/01/2014 LITHOLAPAXY SIMPLE performed by Brenda Dietz MD Family History Family/Other Asthma Social History Preferred Language: [place] Communication Ability: Impaired Communication Tools: IPad and Language Line Transit Mix Operator Transit Mix Operator Required: Yes Beliefs That Will Affect Care: None marital status: Unknown Current Living Situation: Alone current occupational status: retired Feels Safe at Home: Declines to Answer Smoking Status: Former smoker Hx Alcohol Use: No Hx Substance Use: No Allergies Allergies Allergy/AdvReac Type Severity Reaction Status Date / Time aspirin Allergy Mild ITCHING Verified 12/18/19 15:12 benzonatate Allergy Unknown Verified 12/18/19 15:12 [From Sb Bess] Home Meds Home Medications Medication Instructions Recorded Confirmed Tradjenta 5 mg PO QAM 12/13/19 12/18/19 atorvastatin 20 mg PO QAM 12/13/19 12/18/19 levothyroxine 50 mcg PO QAM 12/13/19 12/18/19 lisinopril 10 mg PO QAM 12/13/19 12/18/19 metformin 500 mg PO BID 12/18/19 12/18/19 Previous Rx's Medication Instructions Recorded albuterol sulfate [Ventolin HFA] 2 puff INHALATION Q6R PRN #18 gm 12/16/19 ciprofloxacin HCl [Cipro] 500 mg PO BID #10 tab 12/16/19 metronidazole [Flagyl] 500 mg PO TID #15 tab 12/16/19 phenazopyridine [Pyridium] 100 mg PO TID PRN #20 tab 12/16/19 Results & Data (ED) Vital Signs Vital Signs - 24 hr 12/18/19 12:11 12/18/19 12:18 12/18/19 12:23 Temperature Source Oral Pulse Rate 126 H 120 H 126 H Pulse Rate [Right] Pulse Rate from SpO2 Sensor 121 H Respiratory Rate 20 22 22 Respiratory Effort / Characteristics Respiratory Pattern Blood Pressure 142/104 H 142/104 H Blood Pressure [Right Arm] Blood Pressure Mean 116 113 Blood Pressure Mean [Right Arm] Pulse Oximetry 87 L 89 L 92 Oxygen Delivery Method Room Air Nasal Cannula Nasal Cannula Oxygen Flow Rate 3 4 Fraction of Inspired Oxygen Sepsis Recent Fever Within 48 Hours No Sepsis Action Taken by Nursing No Action Required 12/18/19 12:24 12/18/19 12:25 12/18/19 12:26 Temperature Source Pulse Rate 123 H Pulse Rate [Right] Pulse Rate from SpO2 Sensor 124 H Respiratory Rate 17 Respiratory Effort / Characteristics Respiratory Pattern Regular Blood Pressure Blood Pressure [Right Arm] Blood Pressure Mean Blood Pressure Mean [Right Arm] Pulse Oximetry 90 Oxygen Delivery Method Nasal Cannula Nasal Cannula Oxygen Flow Rate 3 4 Fraction of Inspired Oxygen Sepsis Recent Fever Within 48 Hours Sepsis Action Taken by Nursing 12/18/19 12:27 12/18/19 12:30 12/18/19 12:31 Temperature Source Pulse Rate 123 H 123 H Pulse Rate [Right] 122 H Pulse Rate from SpO2 Sensor 123 H 123 H Respiratory Rate 24 Respiratory Effort / Characteristics Respiratory Pattern Blood Pressure 148/104 H Blood Pressure [Right Arm] Blood Pressure Mean 117 Blood Pressure Mean [Right Arm] Pulse Oximetry 90 91 Oxygen Delivery Method Nasal Cannula Nasal Cannula Nasal Cannula Oxygen Flow Rate 4 3 3 Fraction of Inspired Oxygen Sepsis Recent Fever Within 48 Hours Sepsis Action Taken by Nursing 12/18/19 12:36 12/18/19 12:40 12/18/19 12:45 Temperature Source Pulse Rate 123 H 123 H 117 H Pulse Rate [Right] 124 H Pulse Rate from SpO2 Sensor 124 H 123 H 116 H Respiratory Rate 30 H Respiratory Effort / Characteristics Respiratory Pattern Blood Pressure 155/106 H 137/104 H Blood Pressure [Right Arm] 155/106 H Blood Pressure Mean 114 128 Blood Pressure Mean [Right Arm] 122 Pulse Oximetry 93 93 99 Oxygen Delivery Method Nasal Cannula Nasal Cannula Nasal Cannula Oxygen Flow Rate 6 6 6 Fraction of Inspired Oxygen Sepsis Recent Fever Within 48 Hours Sepsis Action Taken by Nursing 12/18/19 12:50 12/18/19 13:00 12/18/19 13:10 Temperature Source Pulse Rate 117 H 118 H 116 H Pulse Rate [Right] Pulse Rate from SpO2 Sensor 117 H 118 H 116 H Respiratory Rate Respiratory Effort / Characteristics Respiratory Pattern Blood Pressure 131/91 Blood Pressure [Right Arm] Blood Pressure Mean 107 Blood Pressure Mean [Right Arm] Pulse Oximetry 97 95 96 Oxygen Delivery Method Nasal Cannula Nasal Cannula Nasal Cannula Oxygen Flow Rate 6 6 6 Fraction of Inspired Oxygen Sepsis Recent Fever Within 48 Hours Sepsis Action Taken by Nursing 12/18/19 13:16 12/18/19 13:17 12/18/19 13:20 Temperature Source Pulse Rate 117 H 121 H Pulse Rate [Right] 117 H Pulse Rate from SpO2 Sensor 117 H 120 H Respiratory Rate 24 Respiratory Effort / Characteristics Respiratory Pattern Blood Pressure 127/100 Blood Pressure [Right Arm] 131/90 Blood Pressure Mean 106 Blood Pressure Mean [Right Arm] 103 Pulse Oximetry 96 96 92 Oxygen Delivery Method Nasal Cannula Nasal Cannula Nasal Cannula Oxygen Flow Rate 6 2 6 Fraction of Inspired Oxygen Sepsis Recent Fever Within 48 Hours Sepsis Action Taken by Nursing 12/18/19 13:30 12/18/19 13:31 12/18/19 13:35 Temperature Source Pulse Rate 117 H 119 H Pulse Rate [Right] 118 H Pulse Rate from SpO2 Sensor 112 H 119 H Respiratory Rate 18 24 Respiratory Effort / Characteristics Respiratory Pattern Blood Pressure 120/88 Blood Pressure [Right Arm] 120/88 Blood Pressure Mean 93 Blood Pressure Mean [Right Arm] 98 Pulse Oximetry 92 92 94 Oxygen Delivery Method Nasal Cannula Nasal Cannula Nasal Cannula Oxygen Flow Rate 6 6 2 Fraction of Inspired Oxygen Sepsis Recent Fever Within 48 Hours Sepsis Action Taken by Nursing 12/18/19 13:46 12/18/19 13:50 12/18/19 14:10 Temperature Source Pulse Rate 120 H 119 H 122 H Pulse Rate [Right] Pulse Rate from SpO2 Sensor 120 H 120 H 124 H Respiratory Rate 22 24 21 Respiratory Effort / Characteristics Respiratory Pattern Blood Pressure 141/101 H Blood Pressure [Right Arm] Blood Pressure Mean 105 Blood Pressure Mean [Right Arm] Pulse Oximetry 90 90 92 Oxygen Delivery Method Nasal Cannula Nasal Cannula Nasal Cannula Oxygen Flow Rate Fraction of Inspired Oxygen Sepsis Recent Fever Within 48 Hours Sepsis Action Taken by Nursing 12/18/19 14:11 12/18/19 14:20 12/18/19 14:30 Temperature Source Pulse Rate 123 H 118 H 122 H Pulse Rate [Right] Pulse Rate from SpO2 Sensor 123 H 118 H 123 H Respiratory Rate 22 31 H 16 Respiratory Effort / Characteristics Respiratory Pattern Blood Pressure Blood Pressure [Right Arm] Blood Pressure Mean Blood Pressure Mean [Right Arm] Pulse Oximetry 91 91 92 Oxygen Delivery Method Nasal Cannula Oxygen Flow Rate Fraction of Inspired Oxygen Sepsis Recent Fever Within 48 Hours Sepsis Action Taken by Nursing 12/18/19 14:40 12/18/19 14:45 12/18/19 15:00 Temperature Source Pulse Rate 126 H 125 H 126 H Pulse Rate [Right] Pulse Rate from SpO2 Sensor 126 H 125 H Respiratory Rate 34 H 20 21 Respiratory Effort / Characteristics Respiratory Pattern Blood Pressure Blood Pressure [Right Arm] Blood Pressure Mean Blood Pressure Mean [Right Arm] Pulse Oximetry 92 92 Oxygen Delivery Method Nasal Cannula Oxygen Flow Rate 4 Fraction of Inspired Oxygen Sepsis Recent Fever Within 48 Hours Sepsis Action Taken by Nursing 12/18/19 15:06 12/18/19 15:13 12/18/19 15:15 Temperature Source Pulse Rate 127 H 124 H 125 H Pulse Rate [Right] Pulse Rate from SpO2 Sensor 127 H 126 H 125 H Respiratory Rate 18 17 26 H Respiratory Effort / Characteristics Respiratory Pattern Blood Pressure 158/116 H 156/86 H Blood Pressure [Right Arm] Blood Pressure Mean 120 109 Blood Pressure Mean [Right Arm] Pulse Oximetry 85 L 89 L 85 L Oxygen Delivery Method Nasal Cannula Oxymask Oxymask Oxygen Flow Rate 4 7 7 Fraction of Inspired Oxygen Sepsis Recent Fever Within 48 Hours Sepsis Action Taken by Nursing 12/18/19 15:16 12/18/19 15:29 12/18/19 15:30 Temperature Source Pulse Rate 125 H 127 H 127 H Pulse Rate [Right] Pulse Rate from SpO2 Sensor 126 H 127 H Respiratory Rate 15 29 H 25 H Respiratory Effort / Characteristics Spontaneous Respiratory Pattern Blood Pressure 142/85 H 155/105 H Blood Pressure [Right Arm] Blood Pressure Mean 106 115 Blood Pressure Mean [Right Arm] Pulse Oximetry 86 L 95 95 Oxygen Delivery Method Oxymask BiPAP Oxygen Flow Rate 9 Fraction of Inspired Oxygen 50 Sepsis Recent Fever Within 48 Hours Sepsis Action Taken by Nursing 12/18/19 15:45 12/18/19 16:00 12/18/19 16:01 Temperature Source Pulse Rate 113 H 109 H 109 H Pulse Rate [Right] Pulse Rate from SpO2 Sensor 113 H 109 H 109 H Respiratory Rate 23 25 H 26 H Respiratory Effort / Characteristics Respiratory Pattern Blood Pressure 100/47 L Blood Pressure [Right Arm] Blood Pressure Mean 58 Blood Pressure Mean [Right Arm] Pulse Oximetry 95 97 96 Oxygen Delivery Method BiPAP BiPAP BiPAP Oxygen Flow Rate Fraction of Inspired Oxygen Sepsis Recent Fever Within 48 Hours Sepsis Action Taken by Nursing 12/18/19 16:15 12/18/19 16:30 12/18/19 16:31 Temperature Source Pulse Rate 114 H 115 H 113 H Pulse Rate [Right] Pulse Rate from SpO2 Sensor 113 H 115 H 113 H Respiratory Rate 22 19 26 H Respiratory Effort / Characteristics Respiratory Pattern Blood Pressure 123/95 Blood Pressure [Right Arm] Blood Pressure Mean 103 Blood Pressure Mean [Right Arm] Pulse Oximetry 98 96 98 Oxygen Delivery Method BiPAP Oxygen Flow Rate Fraction of Inspired Oxygen Sepsis Recent Fever Within 48 Hours Sepsis Action Taken by Nursing 12/18/19 16:45 12/18/19 17:00 12/18/19 17:01 Temperature Source Pulse Rate 113 H Pulse Rate [Right] Pulse Rate from SpO2 Sensor 113 H 122 H 123 H Respiratory Rate 31 H Respiratory Effort / Characteristics Respiratory Pattern Blood Pressure 128/102 H Blood Pressure [Right Arm] Blood Pressure Mean 111 Blood Pressure Mean [Right Arm] Pulse Oximetry 96 83 L 85 L Oxygen Delivery Method Oxygen Flow Rate Fraction of Inspired Oxygen Sepsis Recent Fever Within 48 Hours Sepsis Action Taken by Nursing 12/18/19 17:15 12/18/19 17:30 12/18/19 17:31 Temperature Source Pulse Rate 120 H 121 H 121 H Pulse Rate [Right] Pulse Rate from SpO2 Sensor 120 H 122 H 121 H Respiratory Rate 29 H 22 24 Respiratory Effort / Characteristics Respiratory Pattern Blood Pressure 156/102 H Blood Pressure [Right Arm] Blood Pressure Mean 125 Blood Pressure Mean [Right Arm] Pulse Oximetry 93 92 92 Oxygen Delivery Method Oxymask Oxymask Oxymask Oxygen Flow Rate 9 9 9 Fraction of Inspired Oxygen Sepsis Recent Fever Within 48 Hours Sepsis Action Taken by Nursing Laboratory Data Attestation: I reviewed the patient's lab results. Result diagrams: 12/18/19 12:30 12/18/19 20:17 Lab Results 12/18/19 12/18/19 12/18/19 Range/Units 12:30 12:30 12:30 WBC 9.53 (4.8-10.8) K/uL RBC 4.31 (4.2-5.4) M/uL Hgb 13.9 (12.0-16.0) g/dL POC Hgb (12.0-16.0) g/dl Hct 41.0 (37-47) % POC Hct (37-47) % MCV 95.1 (80-100) fL MCH 32.3 (25-34) pg MCHC 33.9 (32-36) g/dL RDW Std Deviation 44.4 (36.4-46.3) fL RDW Coeff of Esa 12.7 (11.5-14.5) % Plt Count 266 (130-400) K/uL MPV 12.9 H (7.4-10.4) fL Immature Gran % (Auto) 0.4 % Neut % (Auto) 85.1 % Lymph % (Auto) 5.9 % [place] % (Auto) 8.1 % Eos % (Auto) 0.1 % Baso % (Auto) 0.4 % Immature Gran # (Auto) 0.04 H (0.00-0.02) K/uL Neut # (Auto) 8.11 H (1.4-6.5) K/uL Lymph # (Auto) 0.56 L (1.2-3.4) K/uL [place] # (Auto) 0.77 H (0.11-0.59) K/uL Eos # (Auto) 0.01 (0-0.5) K/uL Baso # (Auto) 0.04 (0-0.2) K/uL PT 11.5 (9.0-12.0) Seconds INR 1.1 (0.9-1.1) APTT 25.1 (21.0-31.0) Seconds PTT Ratio 0.9 VBG pH (7.36-7.41) VBG pCO2 (38-50) mmHg VBG pO2 mmHg VBG HCO3 mmol/L VBG O2 Saturation % VBG Base Excess mEq/L Barometric Pressure mm/Hg POC Sodium (135-144) mmol/L Sodium 135 L (136-145) mmol/L POC Potassium (3.3-5.0) mmol/L Potassium 3.0 L (3.5-5.1) mmol/L POC Chloride (101-112) mmol/L Chloride 98 (98-107) mmol/L Carbon Dioxide 25 (21-32) mmol/L POC Total CO2 (24-31) mmol/L Anion Gap 12.0 H (3-11) POC Anion Gap (16-25) mmol/L POC BUN (7-18) mg/dl BUN 10 (7-18) mg/dl Creatinine 1.03 (0.6-1.2) mg/dl POC Creatinine (0.6-1.3) mg/dl Est Cr Clr Drug Dosing 35.5 ml/min Est GFR ( Amer) 57.8 Est GFR (Non-Af Amer) 49.9 BUN/Creatinine Ratio 9.6 L (10-20) Glucose 280 H (70-99) mg/dl POC Glucose (other) (70-99) mg/dl Lactate (0.4-2.0) mmol/L Calcium 9.2 (8.5-10.1) mg/dl POC Ioniz Calcium Coleen (1.12-1.32) mmol/l Phosphorus 2.9 (2.5-4.9) mg/dl Magnesium 1.8 (1.8-2.4) mg/dl Total Bilirubin 0.9 (0.2-1) mg/dl Direct Bilirubin 0.2 (0-0.2) mg/dl AST 37 (15-37) U/L ALT 29 (12-78) U/L Alkaline Phosphatase 101 (45-117) U/L Troponin I 3.940 H* (0-0.045) ng/ml NT-Pro-B Natriuret Pep 604 (0-1800) pg/ml Total Protein 7.4 (6.4-8.2) gm/dl Albumin 3.2 L (3.4-5.0) gm/dl Globulin 4.2 H (2.5-4.0) gm/dl Albumin/Globulin Ratio 0.8 L (0.9-2) Procalcitonin (0-0.5) ng/ml TSH 2.770 (0.300-4.500) uIu/ml 12/18/19 12/18/19 12/18/19 Range/Units 12:30 12:35 12:35 WBC (4.8-10.8) K/uL RBC (4.2-5.4) M/uL Hgb (12.0-16.0) g/dL POC Hgb (12.0-16.0) g/dl Hct (37-47) % POC Hct (37-47) % MCV (80-100) fL MCH (25-34) pg MCHC (32-36) g/dL RDW Std Deviation (36.4-46.3) fL RDW Coeff of Esa (11.5-14.5) % Plt Count (130-400) K/uL MPV (7.4-10.4) fL Immature Gran % (Auto) % Neut % (Auto) % Lymph % (Auto) % [place] % (Auto) % Eos % (Auto) % Baso % (Auto) % Immature Gran # (Auto) (0.00-0.02) K/uL Neut # (Auto) (1.4-6.5) K/uL Lymph # (Auto) (1.2-3.4) K/uL [place] # (Auto) (0.11-0.59) K/uL Eos # (Auto) (0-0.5) K/uL Baso # (Auto) (0-0.2) K/uL PT (9.0-12.0) Seconds INR (0.9-1.1) APTT (21.0-31.0) Seconds PTT Ratio VBG pH 7.33 L (7.36-7.41) VBG pCO2 53 H (38-50) mmHg VBG pO2 29 mmHg VBG HCO3 27 mmol/L VBG O2 Saturation < 60.0 % VBG Base Excess 0.1 mEq/L Barometric Pressure 734.0 mm/Hg POC Sodium (135-144) mmol/L Sodium (136-145) mmol/L POC Potassium (3.3-5.0) mmol/L Potassium (3.5-5.1) mmol/L POC Chloride (101-112) mmol/L Chloride (98-107) mmol/L Carbon Dioxide (21-32) mmol/L POC Total CO2 (24-31) mmol/L Anion Gap (3-11) POC Anion Gap (16-25) mmol/L POC BUN (7-18) mg/dl BUN (7-18) mg/dl Creatinine (0.6-1.2) mg/dl POC Creatinine (0.6-1.3) mg/dl Est Cr Clr Drug Dosing ml/min Est GFR ( Amer) Est GFR (Non-Af Amer) BUN/Creatinine Ratio (10-20) Glucose (70-99) mg/dl POC Glucose (other) (70-99) mg/dl Lactate 3.7 H* (0.4-2.0) mmol/L Calcium (8.5-10.1) mg/dl POC Ioniz Calcium Coleen (1.12-1.32) mmol/l Phosphorus (2.5-4.9) mg/dl Magnesium (1.8-2.4) mg/dl Total Bilirubin (0.2-1) mg/dl Direct Bilirubin (0-0.2) mg/dl AST (15-37) U/L ALT (12-78) U/L Alkaline Phosphatase (45-117) U/L Troponin I (0-0.045) ng/ml NT-Pro-B Natriuret Pep (0-1800) pg/ml Total Protein (6.4-8.2) gm/dl Albumin (3.4-5.0) gm/dl Globulin (2.5-4.0) gm/dl Albumin/Globulin Ratio (0.9-2) Procalcitonin 0.26 (0-0.5) ng/ml TSH (0.300-4.500) uIu/ml 12/18/19 12/18/19 Range/Units 12:36 14:34 WBC (4.8-10.8) K/uL RBC (4.2-5.4) M/uL Hgb (12.0-16.0) g/dL POC Hgb 15.0 (12.0-16.0) g/dl Hct (37-47) % POC Hct 44 (37-47) % MCV (80-100) fL MCH (25-34) pg MCHC (32-36) g/dL RDW Std Deviation (36.4-46.3) fL RDW Coeff of Esa (11.5-14.5) % Plt Count (130-400) K/uL MPV (7.4-10.4) fL Immature Gran % (Auto) % Neut % (Auto) % Lymph % (Auto) % [place] % (Auto) % Eos % (Auto) % Baso % (Auto) % Immature Gran # (Auto) (0.00-0.02) K/uL Neut # (Auto) (1.4-6.5) K/uL Lymph # (Auto) (1.2-3.4) K/uL [place] # (Auto) (0.11-0.59) K/uL Eos # (Auto) (0-0.5) K/uL Baso # (Auto) (0-0.2) K/uL PT (9.0-12.0) Seconds INR (0.9-1.1) APTT (21.0-31.0) Seconds PTT Ratio VBG pH (7.36-7.41) VBG pCO2 (38-50) mmHg VBG pO2 mmHg VBG HCO3 mmol/L VBG O2 Saturation % VBG Base Excess mEq/L Barometric Pressure mm/Hg POC Sodium 137 (135-144) mmol/L Sodium (136-145) mmol/L POC Potassium 3.0 L (3.3-5.0) mmol/L Potassium (3.5-5.1) mmol/L POC Chloride 96 L (101-112) mmol/L Chloride (98-107) mmol/L Carbon Dioxide (21-32) mmol/L POC Total CO2 26 (24-31) mmol/L Anion Gap (3-11) POC Anion Gap 19.0 (16-25) mmol/L POC BUN 10 (7-18) mg/dl BUN (7-18) mg/dl Creatinine (0.6-1.2) mg/dl POC Creatinine 0.9 (0.6-1.3) mg/dl Est Cr Clr Drug Dosing ml/min Est GFR ( Amer) Est GFR (Non-Af Amer) BUN/Creatinine Ratio (10-20) Glucose (70-99) mg/dl POC Glucose (other) 284 H (70-99) mg/dl Lactate 3.5 H* (0.4-2.0) mmol/L Calcium (8.5-10.1) mg/dl POC Ioniz Calcium Coleen 1.08 L (1.12-1.32) mmol/l Phosphorus (2.5-4.9) mg/dl Magnesium (1.8-2.4) mg/dl Total Bilirubin (0.2-1) mg/dl Direct Bilirubin (0-0.2) mg/dl AST (15-37) U/L ALT (12-78) U/L Alkaline Phosphatase (45-117) U/L Troponin I (0-0.045) ng/ml NT-Pro-B Natriuret Pep (0-1800) pg/ml Total Protein (6.4-8.2) gm/dl Albumin (3.4-5.0) gm/dl Globulin (2.5-4.0) gm/dl Albumin/Globulin Ratio (0.9-2) Procalcitonin (0-0.5) ng/ml TSH (0.300-4.500) uIu/ml Administered Medications Albuterol (Duoneb) 3 ml NEB QIDR [facility] Stop: 01/17/20 19:49 Last Admin: 12/18/19 20:26 Dose: 3 ml Documented by: [id number] Atorvastatin Calcium (Lipitor) 80 mg PO HS [facility] Stop: 01/17/20 19:59 Last Admin: 12/18/19 23:01 Dose: Not Given Documented by: [id number] Clopidogrel Bisulfate (Plavix) 75 mg PO QAM [facility] Stop: 01/17/20 20:09 Last Admin: 12/18/19 23:01 Dose: Not Given Documented by: [id number] Heparin Sodium/Dextrose (Heparin Sodium/Dextrose) 25,000 units in 500 mls @ 13 mls/hr IV .Q24H [facility]; Protocol Stop: 01/17/20 16:29 Last Admin: 12/18/19 17:27 Dose: 650 units/hr, 13 mls/hr Documented by: [id number] Cosigned by: [id number] Fentanyl Citrate (Fentanyl Drip) 1,250 mcg in 250 mls @ 10 mls/hr IV .Q24H [facility]; Protocol Stop: 01/01/20 19:29 Last Titration: 12/18/19 20:15 Dose: 50 mcg/hr, 10 mls/hr Documented by: [id number] Admin: 12/18/19 19:30 Dose: 25 mcg/hr, 5 mls/hr Documented by: [id number] Cosigned by: [id number] Propofol (Diprivan) 1,000 mg in 100 mls @ 8.4 mls/hr IV .[id number] [facility]; Protocol Stop: 12/21/19 19:29 Last Admin: 12/18/19 20:41 Dose: 5 mcg/kg/min, 2.1 mls/hr Documented by: [id number] Cosigned by: [id number] Potassium Chloride (K Arturo / Wtr) 10 meq in 100 mls @ 100 mls/hr IV Q1H [facility] Stop: 12/19/19 00:29 Last Admin: 12/18/19 23:10 Dose: 100 mls/hr Documented by: [id number] Pantoprazole Sodium 40 mg/ (Syringe) 10 mls @ 5 mls/min IV DAILY@1100 [facility] Stop: 01/17/20 19:59 Last Admin: 12/18/19 23:10 Dose: 5 mls/min Documented by: [id number] Piperacillin Sod/Tazobactam (Sod 3.375 gm/ Dextrose) 115 mls @ 28.75 mls/hr IV Q8H [facility]; Protocol Stop: 12/25/19 21:59 Last Admin: 12/18/19 23:03 Dose: 28.8 mls/hr Documented by: [id number] Insulin Aspart (Novolog Flexpen) 0 units SC Q4H [facility]; Protocol Stop: 01/17/20 21:59 Last Admin: 12/18/19 23:16 Dose: 7 units Documented by: [id number] Cosigned by: [id number] Ioversol (Optiray 320 125ml) 121 ml IV ONCE PRN PRN Reason: Interaction Checking Stop: 12/22/19 14:09 Last Admin: 12/18/19 14:10 Dose: 121 ml Documented by: [id number] Metoprolol Tartrate (Lopressor) 12.5 mg PO BID [facility] Stop: 01/17/20 20:59 Last Admin: 12/18/19 23:01 Dose: Not Given Documented by: [id number] Discontinued Medications Albuterol (Duoneb) 3 ml NEB ONE ONE Stop: 12/18/19 17:20 Last Admin: 12/18/19 18:19 Dose: 3 ml Documented by: [id number] Bivalirudin (Angiomax (Speech Language Pathologist Only)) Confirm Administered Dose 250 mg .ROUTE .STK-MED ONE Stop: 12/18/19 12:32 Last Admin: 12/18/19 13:49 Dose: Not Given Documented by: [id number] Fentanyl Citrate (Fentanyl Citrate) Confirm Administered Dose 100 mcg .ROUTE .STK-MED ONE Stop: 12/18/19 12:31 Last Admin: 12/18/19 13:48 Dose: Not Given Documented by: [id number] Fentanyl Citrate (Fentanyl Drip) Confirm Administered Dose 1,250 mcg IV .STK-MED ONE Stop: 12/18/19 19:33 Last Admin: 12/18/19 20:43 Dose: Not Given Documented by: [id number] Furosemide (Lasix) 20 mg IV ONE ONE Stop: 12/18/19 17:28 Last Admin: 12/18/19 17:36 Dose: 20 mg Documented by: [id number] Heparin Sodium (Porcine) (Heparin Iv Bolus (Speech Language Pathologist Use Only)) Confirm Administered Dose 10,000 units .ROUTE .STK-MED ONE Stop: 12/18/19 12:30 Last Admin: 12/18/19 13:48 Dose: Not Given Documented by: [id number] Heparin Sodium/Dextrose () 1 ea IV ONE ONE; Protocol Stop: 12/18/19 16:17 Last Admin: 12/18/19 17:30 Dose: Not Given Documented by: [id number] Heparin Sodium/Sodium Chloride (Heparin/Nss 1000 Unit/500ml Flush Bag) Confirm Administered Dose 3,000 units IV .STK-MED ONE Stop: 12/18/19 12:31 Last Admin: 12/18/19 13:49 Dose: Not Given Documented by: [id number] Sodium Chloride (Nss) 500 mls @ 999 mls/hr IV .Q31M ONE Stop: 12/18/19 13:15 Last Infusion: 12/18/19 14:34 Dose: 0 mls/hr Documented by: [id number] Admin: 12/18/19 13:33 Dose: 999 mls/hr Documented by: [id number] Sodium Chloride (Nss) 500 mls @ 999 mls/hr IV .Q31M ONE Stop: 12/18/19 14:23 Last Infusion: 12/18/19 15:11 Dose: 0 mls/hr Documented by: [id number] Admin: 12/18/19 14:40 Dose: 999 mls/hr Documented by: [id number] Potassium Chloride (K Arturo / Wtr) 10 meq in 100 mls @ 100 mls/hr IV Q1H [facility] Stop: 12/18/19 15:59 Last Infusion: 12/18/19 16:48 Dose: 0 mls/hr Documented by: [id number] Admin: 12/18/19 15:48 Dose: 100 mls/hr Documented by: [id number] Infusion: 12/18/19 15:40 Dose: 100 mls/hr Documented by: [id number] Admin: 12/18/19 14:40 Dose: 100 mls/hr Documented by: [id number] Magnesium Sulfate/Dextrose (Magnesium Sulfate / D5w) 1 gm in 100 mls @ 50 mls/hr IV Q2H [facility] Stop: 12/18/19 15:52 Last Admin: 12/18/19 15:51 Dose: 50 mls/hr Documented by: [id number] Infusion: 12/18/19 15:51 Dose: 50 mls/hr Documented by: [id number] Admin: 12/18/19 14:40 Dose: 50 mls/hr Documented by: [id number] Piperacillin Sod/Tazobactam Sod (Zosyn) 4.5 gm in 120 mls @ 240 mls/hr IV NOW ONE Stop: 12/18/19 15:50 Last Infusion: 12/18/19 16:10 Dose: 0 mls/hr Documented by: [id number] Admin: 12/18/19 15:36 Dose: 240 mls/hr Documented by: [id number] Vancomycin HCl 1,500 mg/ (Sodium Chloride) 530 mls @ 200 mls/hr IV NOW ONE Stop: 12/18/19 17:59 Last Admin: 12/18/19 16:14 Dose: 200 mls/hr Documented by: [id number] Insulin Human Regular 5 units/ (Syringe) 5 mls @ 30 mls/min IV 2200 ONE Stop: 12/18/19 22:01 Last Admin: 12/18/19 23:03 Dose: 30 mls/min Documented by: [id number] Cosigned by: [id number] Sodium Chloride (Nss 1000ml) 500 mls @ 999 mls/hr IV .Q31M ONE Stop: 12/18/19 23:05 Last Admin: 12/18/19 23:07 Dose: 999 mls/hr Documented by: [id number] Sodium Chloride (Nss 1000ml) 500 mls @ 999 mls/hr IV .Q31M ONE Stop: 12/18/19 23:14 Last Admin: 12/18/19 23:07 Dose: 999 mls/hr Documented by: [id number] Insulin Glargine (Lantus Solostar Pen) 10 units SC 2200 ONE Stop: 12/18/19 22:01 Last Admin: 12/18/19 23:11 Dose: 10 units Documented by: [id number] Cosigned by: [id number] Methylprednisolone (Solumedrol) 40 mg IV ONE ONE Stop: 12/18/19 17:21 Last Admin: 12/18/19 17:36 Dose: 40 mg Documented by: [id number] Midazolam HCl (Versed) Confirm Administered Dose 2 mg .ROUTE .STK-MED ONE Stop: 12/18/19 12:31 Last Admin: 12/18/19 13:49 Dose: Not Given Documented by: [id number] Miscellaneous () Confirm Administered Dose 1 ea .ROUTE .STK-MED ONE Stop: 12/18/19 19:05 Last Admin: 12/18/19 23:00 Dose: Not Given Documented by: [id number] Nicardipine HCl (Cardene) Confirm Administered Dose 25 mg .ROUTE .STK-MED ONE Stop: 12/18/19 12:30 Last Admin: 12/18/19 13:48 Dose: Not Given Documented by: [id number] Nitroglycerin/Dextrose (Nitroglycerin/D5w 100 Mcg/Ml 20ml Syringe) Confirm Administered Dose 2,000 mcg .ROUTE .STK-MED ONE Stop: 12/18/19 12:31 Last Admin: 12/18/19 13:49 Dose: Not Given Documented by: [id number] Propofol (Diprivan) Confirm Administered Dose 1,000 mg IV .STK-MED ONE Stop: 12/18/19 19:33 Last Admin: 12/18/19 20:43 Dose: Not Given Documented by: [id number] Blood Pressure Blood Pressure Findings: Elevated blood pressure Blood Pressure Disposition: further management by hospitalist Discharge Plan Visit Data *Final* Discharge Date/Time: 12/18/19 18:45 Chief Complaint: Shortness of Breath/Dyspnea Stated Complaint: cardiac alert ED Provider: Nicolas Hsieh Discharge Problem: Acute respiratory failure with hypoxia and hypercapnia, Sepsis, Pneumonia, Acut e non-ST elevation myocardial infarction (NSTEMI), Elevated lactic acid level Patient Disposition: Admitted As Inpatient Discharge Instructions Interventions: ED Discharge Assessment Last Done: 12/18/19 18:45
[2019-12-18] MEDS ORDERED: ALBUT/IPRATROP 3MG/0.5MG NEB 3 ML VIAL NEB ONE (17:19)
[2019-12-18 17:23] LABS: Influenza A virus by PCR Neg for Influ A (Neg); Influenza B virus by PCR Neg for Influ B (Neg)
[2019-12-18] MEDS ORDERED: FUROSEMIDE 40 MG/4 ML VIAL IV ONE (17:27)
--- NOTE | 2019-12-18 18:30 | Critical Care Consultation ---
Date of Consultation December 18, 2019 Assessment & Plan (1) Acute respiratory failure with hypoxia and hypercapnia: EKG 12/18/2019: Sinus tachycardia, right axis deviation, right bundle branch block, ST depression and T wave inversions appreciated in lead V2 V3, lead III and aVF. -- VDRF sec to Acute Hypoxic respiratory failure Increased interstitial thickening appreciated on the CT chest, no evidence of PE, no pleural effusion Aspiration from vomiting high on differential Patient does have underlying asthma --> not wheezing at the time of examination Continue with inhaled bronchodilators, steroids, antibiotics Maintain SPO2 between 88 to 92% BiPAP nightly and as needed shortness of breath Covid 19 PCR negative. Influenza A & B -ve --Abdominal pain diffuse diarrhea with nausea and vomiting going on since last couple of days while the patient was on antibiotics Rule out C. difficile Continue with contact precautions Patient has dirty urine but she has chronic Cooper as well which was placed on prior admission on 12/13/2019--> culture from 12/13/2019 is growing E. coli which is pansensitive Follow-up septic work-up continue with broad-spectrum antibiotic CT abdomen pelvis: Pericecal infiltrative process unchanged from prior exam, right renal parapelvic cyst which is stable. Bladder calculi which is unchanged GI consult, follow-up recommendation -- HAGMA Delta-delta: > 2, mixed picture Likely sec to lactic acidosis, metabolic alkalosis from vomiting and acidosis from diarrhea Follow up serum osm, urine osm, urine lytes Follow up ABG Monitor --NSTEMI Trend troponin Repeat EKG Start the patient on low-dose beta-lashanda, continue with lisinopril, continue with statin --Ureteropelvic junction obstruction Continue with Cooper --Hypothyroidism TSH 2.7 c/w Levothyroxine --Hypokalemia Being placed --Prophylaxis VTE: Heparin GI: Protonix Diet: Cardiac Plan: c/w broad spectrum antibiotic. F/u septic work up Last urine culture showed E. coli which is pansensitive. Continue with broad- spectrum antibiotics right now. Continue with NSTEMI protocol for elevated troponin. Low-dose beta-lashanda, continue with WILFRIDO inhibitor, statin, Plavix. Patient is allergic to aspirin Consult cardiology GI. I have personally spent 71 minutes of critical care time in the direct management of this patient. This is a life/limb threatening event. This includes time spent evaluating patient, direct bedside care, chart review, placing orders, interpretation of diagnostic studies, discussion with consultants, patient, and family members, as well as other required patient management activities. This time is exclusive of all separately billable procedures, and teaching time and separate from and in addition to any other critical care service time. Please note the above document was generated using voice recognition software. It may contain grammatical, syntax or spelling errors. (2) Sepsis: (3) Acute non-ST elevation myocardial infarction (NSTEMI): (4) Ureteropelvic junction (UPJ) obstruction: History of Present Illness History of Present Illness 84-year-old female with past medical history of hypothyroidism, hypertension, ureteropelvic junction obstruction status post Cooper catheter placed on previous admission which was 12/13/2019, diabetes type 2, asthma, dyslipidemia was recently in the hospital on 12/13/2019 with similar complaints of abdominal pain. She was found to have UTI with pansensitive E. coli as well as pericecal fat stranding. She was discharged on Flagyl and ciprofloxacin to be taken. She started complaining of nausea and vomiting since last couple of days along with abdominal pain and diarrhea. Diarrhea was 2-3 times a day which was watery. At the time of examination today she is complaining of respiratory distress. She states she is having difficulty breathing as well as abdominal pain. Denies any headache. No blurry vision. Patient's daughter was at bedside during time of examination. On interrogation was taking place in Ugandan language and Part Gambian. I had a talk with the daughter regarding CODE STATUS she said do everything right now. But the patient would not like to be on the vent for a long time no tracheostomy then stop. On asking patient whether she is willing to have intubation done if need be. What she is saying is let her I think she is altered because of the underlying acute medical issues going on. Allergies Allergy/AdvReac Type Severity Reaction Status Date / Time aspirin Allergy Mild ITCHING Verified 12/18/19 15:12 benzonatate Allergy Unknown Verified 12/18/19 15:12 [From Sb Bess] Home Medications Home Medications Medication Instructions Recorded Confirmed Type Tradjenta 5 mg PO QAM 12/13/19 12/18/19 History atorvastatin 20 mg PO QAM 12/13/19 12/18/19 History levothyroxine 50 mcg PO QAM 12/13/19 12/18/19 History lisinopril 10 mg PO QAM 12/13/19 12/18/19 History albuterol sulfate [Ventolin HFA] 2 puff INHALATION Q6R PRN #18 gm 12/16/19 12/18/19 Rx ciprofloxacin HCl [Cipro] 500 mg PO BID #10 tab 12/16/19 12/18/19 Rx metronidazole [Flagyl] 500 mg PO TID #15 tab 12/16/19 12/18/19 Rx phenazopyridine [Pyridium] 100 mg PO TID PRN #20 tab 12/16/19 12/18/19 Rx metformin 500 mg PO BID 12/18/19 12/18/19 History Patient History Social History Preferred Language: Ug[place]an Communication Ability: Ugandan Communication Tools: IPad and Language Line Reception Interviewer Reception Interviewer Required: Yes Beliefs That Will Affect Care: None marital status: Unknown Current Living Situation: Alone current occupational status: retired Feels Safe at Home: Yes Smoking Status: Never smoker Hx Alcohol Use: No Hx Substance Use: No Review of Systems Review of Systems: All systems reviewed & are unremarkable except as noted in HPI & below Physical Exam Physical Exam: Constitutional: In respiratory distress HEENT: EOMI, PERRLA Respiratory system: Decreased air entry bilaterally, positive crackles bilateral lower lobes, more on the left side, no wheeze, no rhonchi CVS: S1-S2 positive, no murmurs or gallops, tachycardia Abdomen: Soft, diffuse tenderness, more tender bilateral lower quadrants, no rebound, decreased bowel sounds x4 Extremities: +2 pulses bilaterally radialis/ dorsalis pedis, no cyanosis, no edema Neuro: Lethargic but oriented to self, she knew that her daughter was bedside Psych: Flat mood and affect G/U: Positive Cooper Skin: no rashes, warm and dry Lymphatic: no cervical or axillary lymphadenopathy Results & Data Results & Data ([facility]) Vital Signs (Past 12 Hours) Vital Signs Pulse Pulse Resp BP BP Pulse Ox 12/18/19 18:20 120 H 22 91 12/18/19 18:15 119 H 93 12/18/19 18:05 121 H 130/107 H 90 12/18/19 18:01 120 H 90 12/18/19 18:00 121 H 90 12/18/19 17:57 120 H 140/97 91 12/18/19 17:45 120 H 32 H 91 12/18/19 17:31 121 H 24 156/102 H 92 12/18/19 17:30 121 H 22 92 12/18/19 17:15 120 H 29 H 93 12/18/19 17:01 85 L 12/18/19 17:00 128/102 H 83 L 12/18/19 16:45 113 H 31 H 96 12/18/19 16:31 113 H 26 H 123/95 98 12/18/19 16:30 115 H 19 96 12/18/19 16:15 114 H 22 98 12/18/19 16:01 109 H 26 H 100/47 L 96 12/18/19 16:00 109 H 25 H 97 12/18/19 15:45 113 H 23 95 12/18/19 15:30 127 H 25 H 155/105 H 95 12/18/19 15:29 127 H 29 H 95 12/18/19 15:16 125 H 15 142/85 H 86 L 12/18/19 15:15 125 H 26 H 85 L 12/18/19 15:13 124 H 17 156/86 H 89 L 12/18/19 15:06 127 H 18 158/116 H 85 L 12/18/19 15:00 126 H 21 12/18/19 14:45 125 H 20 92 12/18/19 14:40 126 H 34 H 92 12/18/19 14:30 122 H 16 92 12/18/19 14:20 118 H 31 H 91 12/18/19 14:11 123 H 22 91 12/18/19 14:10 122 H 21 141/101 H 92 12/18/19 13:50 119 H 24 90 12/18/19 13:46 120 H 22 90 12/18/19 13:35 118 H 24 120/88 94 12/18/19 13:31 119 H 92 12/18/19 13:30 117 H 18 120/88 92 12/18/19 13:20 121 H 92 12/18/19 13:17 117 H 24 131/90 96 12/18/19 13:16 117 H 127/100 96 12/18/19 13:10 116 H 96 12/18/19 13:00 118 H 131/91 95 12/18/19 12:50 117 H 97 12/18/19 12:45 117 H 137/104 H 99 12/18/19 12:40 123 H 93 12/18/19 12:36 123 H 124 H 30 H 155/106 H 155/106 H 93 12/18/19 12:31 123 H 122 H 24 148/104 H 91 12/18/19 12:30 123 H 90 12/18/19 12:24 123 H 17 90 12/18/19 12:23 126 H 22 92 12/18/19 12:18 120 H 22 142/104 H 89 L 12/18/19 12:11 126 H 20 142/104 H 87 L 12/18/19 12:30 12/18/19 12:30 Coding Level of Care Code Critical Care 1st 30-74 mins Diagnoses Acute respiratory failure with hypoxia and hypercapnia J96.01; J96.02 Sepsis A41.9 Acute non-ST elevation myocardial infarction (NSTEMI) I21.4 Ureteropelvic junction (UPJ) obstruction N13.5 Time Spent (min) 71
[2019-12-18] MEDS ORDERED: RAPID SEQUENCE INDUCTION BAG ONE (19:04)
[2019-12-18] MEDS ORDERED: PROPOFOL BOLUS FROM BAG IV PRN (19:21)
[2019-12-18] MEDS ORDERED: FENTANYL BOLUS FROM BAG IV PRN (19:21)
[2019-12-18] MEDS ORDERED: STAT IV Infusion **Titration per Protocol STA (19:21)
--- NOTE | 2019-12-18 19:22 | Procedure Note ---
Procedure Note Date of Service December 18, 2019 INTUBATION PROCEDURE NOTE: Attending: Dr Shaan Yi MD Patient was evaluated and plan to intubate was made for respiratory distress. Sedative agent used: Etomidate 20, lidocaine 100 mg Paralysis agent used: Rocuronium 40 mg Emergent consent was implied given patients rapidly declining clinical status and need for airway protection. The patient was prepared in the appropriate fashion. The patient was easily pre-oxygenated by using [id number] ventilation. With help of glide scope grade 1 vocal cords were visualized and 7.5 Yoruba ETT was introduced on first attempt to 23 cm at the lip. The stylette was removed and balloon was inflated with 10mL of air. Appropriate Colorimetric change was appreciated for at least 10 breaths. Bilateral chest rise and breath sounds were appreciated without air sounds in the epigastrium. Patient tolerated the procedure well and there were no immediate complications. Chest Xray to follow for confirming placement. Coding CPT Codes Resuscitation - Resuscitation: 93376 Endotracheal Intubation, emergency ([id number]) [facility] [place] Procedure Codes (Charges) Resuscitation Resuscitation: 34432 Endotracheal Intubation, emergency
[2019-12-18] MEDS: fentaNYL DRIP 1,250 MCG/250 ML BAG IV SCH (19:30)
[2019-12-18] MEDS ORDERED: PROPOFOL IV EMULSION 10 MG/ML 100 ML VIAL IV ONE (19:32)
[2019-12-18] MEDS ORDERED: ROCURONIUM BROMIDE 10 MG/ML 5 ML VIAL IV ONE (19:33)
[2019-12-18] MEDS ORDERED: ETOMIDATE 2 MG/ML 20 ML VIAL IV ONE (19:33)
[2019-12-18] MEDS ORDERED: LIDOCAINE HCL 2% MPF (LOCAL) 5 ML VIAL INFIL ONE (19:33)
--- NOTE | 2019-12-18 19:39 | XRay Report ---
XR chest 1V portable CLINICAL HISTORY: intubation tube position COMPARISON STUDY: 12/18/2019 FINDINGS: Endotracheal tube positioned 1 cm above the giselle. Interval development of a small left ef fusion. Bibasilar parenchymal infiltrative change. Prominent pulmonary vasculature. Nasogastric tube within the stomach. IMPRESSION: 1. Endotracheal tube 1 cm above the giselle. 2. Nasogastric tube within the stomach. 3. Developing bibasilar parenchymal infiltrative/effusion type change. ACT 112: Negative or not required by law. The above report was generated using voice recognition software. It may contain grammatical, syntax or spelling errors. Electronically signed by: Danis Galan M.D. 12/18/2019 7:38 PM
[2019-12-18] MEDS ORDERED: DEXTROSE 50% 50 ML SYRINGE IV PRN (19:50)
[2019-12-18] MEDS ORDERED: CONSULT PHARMACY STA (19:50)
[2019-12-18] MEDS ORDERED: GLUCOSE 10 TABS/TUBE PO PRN (19:50)
[2019-12-18] MEDS ORDERED: PHENAZOPYRIDINE HCL 100 MG TAB PO PRN (19:50)
[2019-12-18] MEDS ORDERED: GLUCOSE 40% GEL 15 GM TUBE PO PRN (19:50)
[2019-12-18] MEDS ORDERED: CARBOHYDRATES FOR HYPOGLYCEMIA PO PRN (19:50)
[2019-12-18] MEDS ORDERED: ICU PROTOCOL FOR HYPERGLYCEMIA PRN (19:50)
[2019-12-18] MEDS ORDERED: GLUCAGON FOR INJ 1 MG VIAL SQ PRN (19:50)
--- NOTE | 2019-12-18 20:02 | Procedure Note ---
Procedure Note Date of Service December 18, 2019 Note ARTERIAL LINE PROCEDURE NOTE: Procedure: Arterial Line Placement Attending: Dr. Yi Provider: COMPA Mayer Indication: Monitoring on Pressors Anesthesia: None Line placed emergently following intubation with hypotension. A time-out was completed verifying correct patient, procedure, site, positioning, and implant(s) or special equipment if applicable. Allens test was performed to ensure adequate perfusion. Patients left wrist was prepped and draped in the usual sterile fashion. Ultrasound guidance was used to aid needle placement. A 20g Arrow arterial line was introduced into the left radial artery. Catheter was threaded, and the needle was removed with appropriate blood return. Good waveform was observed. The patient tolerated the procedure well. Confirmation of placement with ultrasound. Blood Loss: Minimal Complications: None Procedural Ultrasound Guidance: Procedure Date: 12/18/2019 Indication: Arterial line placement Attending: Dr. Shaan Yi Provider: COMPA Mayer Artery Identified: YES Line confirmed in Artery with ultrasound: Yes Complications: NONE Patient tolerated procedure: WELL Coding CPT Codes Tubes, Drains, and Vasc Access - Tubes, Drains, and Vasc Access: [id number] Place Catheter In Artery ([id number]) Tubes, Drains, and Vasc Access - Tubes, Drains, and Vasc Access: [id number] Ultrasound Guidance For Vascular ([id number]) [facility] [place] Procedure Codes (Charges) Tubes, Drains, and Vasc Access Procedure 1: Tubes, Drains, and Vasc Access: [id number] Place Catheter In Artery Procedure 2: Tubes, Drains, and Vasc Access: [id number] Ultrasound Guidance For Vascular
[2019-12-18] MEDS ORDERED: PHARMACY GLYCEMIC MGMT CONSULT PRN (20:20)
[2019-12-18 20:25] LABS: iSTAT Arterial Blood Gas HCO3 21 meg/L (19-24); iSTAT Arterial Blood Gas pCO2 34 mmHg (35-46); iSTAT Arterial Blood Gas pO2 300 mmHg (80-95); iSTAT Carbon Dioxide 22 mmol/L (24-31); iSTAT FiO2 100 %; iSTAT Site Art Line
[2019-12-18] MEDS: ALBUT/IPRATROP 3MG/0.5MG NEB 3 ML VIAL NEB SCH (20:26)
[2019-12-18] MEDS: propofoL 1,000 MG/100 ML VIAL IV SCH (20:41)
[2019-12-18 21:00] LABS: Albumin Globulin Ratio 0.7 (0.9-2); Albumin Level 2.7 gm/dl (3.4-5.0); BUN Creatinine Ratio 11.2 (10-20); Calcium 8.4 mg/dl (8.5-10.1); Creatinine Clr Calc Pharmacy 34.5 ml/min; Est GFR (African American) 55.8; Est GFR (Non-African American) 48.2; Globulin 3.7 gm/dl (2.5-4.0); Magnesium 2.3 mg/dl (1.8-2.4); Phosphorus 5.7 mg/dl (2.5-4.9); Total Protein 6.4 gm/dl (6.4-8.2)
[2019-12-18 21:07] LABS: Troponin I 4.38 ng/ml (0-0.045)
[2019-12-18] MEDS ORDERED: PNEUMOCOCCAL POLYSACCHARIDES 25 MCG/0.5 ML VIAL/SYR IM ONE (21:27)
[2019-12-18] MEDS ORDERED: PNEUMOCOCCAL ADMINISTRATION CHARGE ONE (21:27)
[2019-12-18 21:29] LABS: Bilirubin,Total 1.2 mg/dl (0.2-1)
[2019-12-18] MEDS ORDERED: INSULIN HUMAN REGULAR PER UNIT 5 UNITS in SYRINGE 4.95 ML IV ONE (22:00)
[2019-12-18] MEDS ORDERED: INSULIN GLARGINE SOLOSTAR 100 UNITS/ML 3 ML PEN SC ONE (22:00)
[2019-12-18] MEDS ORDERED: SODIUM CHLORIDE 0.9% 1000ML 500 ML IV ONE ×2 (22:35→22:44)
[2019-12-18] MEDS: ATORVASTATIN 40 MG TAB PO SCH (23:01)
[2019-12-18] MEDS: METOPROLOL TARTRATE 25 MG TAB PO SCH (23:01)
[2019-12-18] MEDS: CLOPIDOGREL BISULFATE 75 MG TAB PO SCH (23:01)
[2019-12-18] MEDS: PIPERACILLIN/TAZOBACTAM 3.375 GM in DEXTROSE 5% 100 ML IV SCH (23:03)
[2019-12-18] MEDS: PANTOprazole 40 MG in SYRINGE 0 ML IV SCH (23:10)
[2019-12-18] MEDS: INSULIN ASPART 100 UNITS/ML 3 ML PEN SC SCH (23:16)
[2019-12-19] MEDS: POTASSIUM CHLORIDE / WTR 10 MEQ/100 ML PLCT IV SCH ×3 (00:10→02:32)
[2019-12-19 02:18] LABS: Partial Thromboplastin Ratio 1.2; Partial Thromboplastin Time 32.2 Seconds (21.0-31.0)
[2019-12-19] MEDS ORDERED: INSULIN PROTOCOL GOAL RANGE ONE (02:41)
[2019-12-19] MEDS ORDERED: SEVERE STRESS LEVEL STA (02:54)
[2019-12-19] MEDS ORDERED: HEPARIN IV BOLUS 4,000 UNITS in SYRINGE 0 ML IV STA (02:56)
[2019-12-19 03:14] LABS: Creatinine Urine Random 20.8 mg/dl; Potassium Random Urine 25.4 mmol/L; Uric Acid Urine Random 14.3 mg/dl
[2019-12-19] MEDS: RASPBERRY SYRUP 5 ML UDP PO SCH ×4 (04:00→18:33)
[2019-12-19] MEDS: VANCOMYCIN HCL 125 MG/2.5ML SOLN PO SCH ×4 (04:00→18:33)
[2019-12-19] MEDS ORDERED: NovoLIN-R BOLUS FROM BAG IV ONE (04:00)
[2019-12-19 04:23] LABS: Basophils # (auto) 0.01 K/uL (0-0.2); Basophils % (auto) 0.1 %; Hematocrit (blood only) 38.2 % (37-47); Hemoglobin 12.8 g/dL (12.0-16.0); Immature Granulocytes # (auto) 0.06 K/uL (0.00-0.02); Immature Granulocytes % (auto) 0.6 %; Lymphocytes # (auto) 0.95 K/uL (1.2-3.4); Lymphocytes % (auto) 9.2 %; Mean Corpuscular Hemoglobin 30.5 pg (25-34); Mean Corpuscular Hgb Conc 33.5 g/dL (32-36); Mean Platelet Volume 12.7 fL (7.4-10.4); Monocytes # (auto) 0.71 K/uL (0.11-0.59); Monocytes % (auto) 6.8 %; Neutrophils # (auto) 8.65 K/uL (1.4-6.5); Neutrophils % (auto) 83.3 %; Platelet Count 207 K/uL (130-400); RDW Coefficient of Variation 12.9 % (11.5-14.5); RDW Standard Deviation 42.8 fL (36.4-46.3); White Blood Count 10.38 K/uL (4.8-10.8)
[2019-12-19] MEDS: INSULIN REGULAR 250 UNITS in SODIUM CHLORIDE 0.9% 247.5 ML IV SCH (04:24)
[2019-12-19] MEDS: INSULIN ASPART 100 UNITS/ML 3 ML PEN SC SCH ×5 (05:00→20:38)
[2019-12-19 05:02] LABS: Albumin Globulin Ratio 0.7 (0.9-2); Albumin Level 2.6 gm/dl (3.4-5.0); BUN Creatinine Ratio 15.8 (10-20); Calcium 8.2 mg/dl (8.5-10.1); Creatinine Clr Calc Pharmacy 34.5 ml/min; Est GFR (African American) 58.5; Est GFR (Non-African American) 50.5; Globulin 3.5 gm/dl (2.5-4.0); Magnesium 2.1 mg/dl (1.8-2.4); Phosphorus 1.9 mg/dl (2.5-4.9); Potassium 3.9 mmol/L (3.5-5.1); Total Protein 6.1 gm/dl (6.4-8.2)
[2019-12-19 05:20] LABS: Beta-Hydroxybutyrate 23.81 mg/dl (0.2-2.81)
[2019-12-19 06:26] LABS: iSTAT Arterial Blood Gas HCO3 20 meg/L (19-24); iSTAT Arterial Blood Gas pCO2 26 mmHg (35-46); iSTAT Arterial Blood Gas pH 7.49 (7.35-7.45); iSTAT Arterial Blood Gas pO2 83 mmHg (80-95); iSTAT Carbon Dioxide 20 mmol/L (24-31); iSTAT FiO2 40 %; iSTAT Site Art Line
[2019-12-19] MEDS: PIPERACILLIN/TAZOBACTAM 3.375 GM in DEXTROSE 5% 100 ML IV SCH ×3 (06:35→22:00)
[2019-12-19] MEDS ORDERED: NORMOSOL-R 500 ML IV ONE (07:00)
[2019-12-19] MEDS: ALBUT/IPRATROP 3MG/0.5MG NEB 3 ML VIAL NEB SCH ×4 (07:04→19:59)
--- NOTE | 2019-12-19 07:39 | XRay Report ---
XR chest 1V portable CLINICAL HISTORY: resp failure dyspnea COMPARISON STUDY: 12/18/2019 FINDINGS: Endotracheal tube 2 cm with the giselle. Nasogastric tube within the stomach. Unchanging par enchymal infiltrate/effusion left lung base. Slight improvement of the parenchymal infiltrate right b ase. IMPRESSION: 1. Stable parenchymal infiltrate/effusion left base. 2. Improving parenchymal infiltrate right base. 3. Endotracheal tube 2 cm above the giselle. ACT 112: Negative or not required by law. The above report was generated using voice recognition software. It may contain grammatical, syntax or spelling errors. Electronically signed by: Danis Galan M.D. 12/19/2019 7:38 AM
[2019-12-19] MEDS ORDERED: NORMOSOL-R 1,000 ML IV SCH (07:45)
--- NOTE | 2019-12-19 08:36 | Pharmacy Report ---
Pharmacy Abx Initial Consult - Date of Service December 19, 2019 - Pharmacy Dosing Scope Date of Consult: 12/18/2019 Consultation requested by: Dr. Ruggiero Pharmacy is consulted to initiate Vancomycin and Zosyn IV dosing therapy, order appropriate labs and adjust drug dose/frequency. - Subjective The patient is a 84 year old F admitted on 12/18/19 17:36. - Objective Height: 5 ft Weight: 65 kg Vital Signs (Past 12hrs): Vital Signs Temp Pulse Pulse Resp BP Pulse Ox 12/19/19 06:57 14 12/19/19 06:01 18 12/19/19 06:00 37.1 C 82 98 12/19/19 05:30 37.1 C 81 97 12/19/19 05:00 37.0 C 75 98 12/19/19 04:30 37.0 C 73 98 12/19/19 04:00 36.9 C 75 98 12/19/19 03:30 36.9 C 75 99 12/19/19 03:00 36.8 C 79 99 12/19/19 02:30 36.8 C 78 99 12/19/19 02:00 36.7 C 76 99 12/19/19 01:40 79 18 99 12/19/19 01:30 36.6 C 80 99 12/19/19 01:00 36.5 C 81 99 12/19/19 00:30 36.5 C 81 99 12/19/19 00:00 36.5 C 85 99 12/18/19 23:40 86 18 99 12/18/19 23:30 36.4 C L 82 18 100 12/18/19 23:00 36.4 C L 85 18 99 12/18/19 22:30 36.4 C L 87 18 99 12/18/19 22:00 36.3 C L 87 18 98 12/18/19 21:30 36.4 C L 89 18 98 12/18/19 21:00 36.6 C 90 18 97 12/18/19 20:30 36.7 C 97 H 92 H 17 105/62 96 Lab Results (24hrs): Laboratory Tests (24 Hours) 12/19/19 12/19/19 12/18/19 04:11 04:11 20:17 WBC 10.38 Neut # (Auto) 8.65 H ESR Creatinine 1.02 1.06 Est Cr Clr Drug Dosing 34.5 34.5 C-Reactive Protein Procalcitonin 12/18/19 12/18/19 12/18/19 20:17 20:17 12:30 WBC Neut # (Auto) ESR 39 H Creatinine Est Cr Clr Drug Dosing C-Reactive Protein 2.00 H Procalcitonin 0.26 12/18/19 12/18/19 12:30 12:30 WBC 9.53 Neut # (Auto) 8.11 H ESR Creatinine 1.03 Est Cr Clr Drug Dosing 35.5 C-Reactive Protein Procalcitonin Micro Results: 12/19/19 03:36 MRSA Surveillance Culture - Pending Nasal 12/19/19 02:12 Urine Culture - Pending Urine,Indwelling Cath 12/18/19 12:35 Aerobic Blood Culture - Pending Blood Anaerobic Blood Culture - Pending 12/18/19 12:30 Aerobic Blood Culture - Pending Blood Anaerobic Blood Culture - Pending - Risk Factors for Resistance * Hospitalization for 48 hours or more within the past 90 days: * 12/12-12/15 secondary to UTI * Antimicrobial use within the last 90 days: * Ciprofloxacin * Metronidazole * Ceftriaxone - Assessment & Plan Assessment 84 year old F admitted secondary to acute respiratory failure with hypoxia and hypercapnia * PMHx significant for HTN, Ureteropelvic junction obstruction s/p Cooper cath, T2DM, asthma * Recently admitted for UTI which was treated with Ceftriaxone and then transitioned to PO cipro/flagy upon discharge * Complains of N/v along w/ abdominal pain and diarrhea for the past few days as well as difficulty breathing * Chest CT shows interstitial thickening, possible aspiration * Patient required intubation secondary to respiratory failure * Cdiff studies, Blood cultures, MRSA nasal swab, Urine Cx all pending at this time * SCr is slightly elevated from baseline, WBCs 10.4k, Lactic acid down this AM (3.4 --> 2.3), PCT 0.26 * Patient started on vanc and zosyn, also on PO vanc until Cdiff ruled out Plan IV Vancomycin and Zosyn for treatment of possible pneumonia Vancomycin IV * Estimated PK Parameters: Vd 0.6 L/kg, Tien 0.032 hr-1, t1/2 ~22 hrs * Loading dose: 1500 mg (23 mg/kg) * Maintenance dose: 1000 mg IV (15 mg/kg) every 24 hours * Goal trough level: 15 to 20 mcg/mL * Trough level ordered for Friday prior to the 3rd maintenance dose to ensure trough is not subtherapeutic Piperacillin/tazobactam * 4.5 g bolus administered over 30 minutes, then 3.375 g IV extended infusion every 8 hours for CrCl greater than 20 mL/min Pharmacy will continue to follow and will adjust dose/frequency as necessary. Thank you.
[2019-12-19] MEDS: METOPROLOL TARTRATE 25 MG TAB PO SCH ×2 (08:56→20:34)
[2019-12-19] MEDS ORDERED: SODIUM PHOSPHATE 3 MMOL/1 ML 5 ML VIAL IV ONE (09:00)
[2019-12-19] MEDS ORDERED: ATORVASTATIN 20 MG TAB PO SCH (09:00)
[2019-12-19] MEDS ORDERED: POTASSIUM CHLORIDE 20 MEQ/15 ML UDC PO STA (09:01)
--- NOTE | 2019-12-19 09:01 | Pharmacy Report ---
Pharmacy Glycemic Short Note 2 - Date of Service December 19, 2019 - Glycemic Short BSG Results (Last 24 hours): 12/18/19 12/18/19 12/18/19 12:30 12:36 19:04 Glucose 280 H POC Glucose 345 H* POC Glucose (other) 284 H 12/18/19 12/18/19 12/19/19 20:17 23:15 01:55 Glucose 371 H* POC Glucose 376 H* 345 H* POC Glucose (other) 12/19/19 12/19/19 12/19/19 03:40 04:11 05:26 Glucose 342 H* POC Glucose 347 H* 325 H* POC Glucose (other) 12/19/19 12/19/19 06:34 07:37 Glucose POC Glucose 299 H 279 H POC Glucose (other) OUTPATIENT ANTIDIABETIC REGIMEN: * Tradjenta 5 mg qAM, metformin 500 mg BID * A1c = 7.9% (12/14/19) ASSESSMENT: * Anette is a 84 yo T2DM female admitted with acute respiratory failure with hypoxia and hypercapnia * Patient started on broad spectrum empiric antibiotics for sepsis work up. She is s/p intubation and mechanical ventilation on propofol and fentanyl infusions. She is also on IV heparin infusion. * Received a one time dose of solu medrol 40 mg IV 12/17 @ 1736 * IV insulin infusion initiated overnight. Currently infusing at 3.5 units/hr. Continue to titrate per insulin infusion protocol. PLAN FOR INPATIENT GLYCEMIC CONTROL: * Hold outpatient oral diabetes medications * Continue IV insulin infusion per protocol PLAN FOR DISCHARGE: * A1c = 7.9% * TBD
--- NOTE | 2019-12-19 09:27 | Cardiology Consultation ---
Date of Consultation December 19, 2019 Assessment & Plan (1) Acute respiratory failure with hypoxia and hypercapnia: (2) Sepsis: (3) Pneumonia: (4) Acute non-ST elevation myocardial infarction (NSTEMI): (5) Elevated lactic acid level: (6) Abnormal CT of the abdomen: (7) Acute urinary retention: (8) Bladder stones: I believe the patient's troponin elevation is multifactorial including stress and sepsis. Believe continued conservative management is indicated. She has an allergy to aspirin and I think Plavix is appropriate. I think it is also appropriate to switch her from IV heparin to subcu due to volume considerations. A resting echocardiogram is planned which I will review. History of Present Illness Attending Physician: Melisa Maier MD History of Present Illness Patient is an 84-year-old Guinean-speaking female with history of asthma, diabetes mellitus, hypertension, hypothyroidism, hyperlipidemia, and is followed by endocrinology for [place]'s disease. She presented with history of shortness of breath, chest pain, abdominal pain, nausea, vomiting and diarrhea. She is currently intubated so the information is taken from the medical record. She was only recently discharged from the hospital after having abdominal pain and a UTI. She has a history of bladder stones and obstructive uropathy. The GI service was consulted during the admission and recommended colonoscopy due to some evidence of inflammation in the colon however, patient decided against this procedure. She came in in respiratory failure after having nausea vomiting and diarrhea. She has been intubated. At first a heart alert was called but after review by the interventionalists who felt her EKG was unchanged with an old right bundle branch block and conservative management was indicated. The patient has had a bump in her troponins peaking at 4.9. Patient has no past significant cardiac history. Allergies Allergy/AdvReac Type Severity Reaction Status Date / Time aspirin Allergy Mild ITCHING Verified 12/18/19 15:12 benzonatate Allergy Unknown Verified 12/18/19 15:12 [From Sb Bess] Home Medications Home Medications Medication Instructions Recorded Confirmed Type Tradjenta 5 mg PO QAM 12/13/19 12/18/19 History atorvastatin 20 mg PO QAM 12/13/19 12/18/19 History levothyroxine 50 mcg PO QAM 12/13/19 12/18/19 History lisinopril 10 mg PO QAM 12/13/19 12/18/19 History albuterol sulfate [Ventolin HFA] 2 puff INHALATION Q6R PRN #18 gm 12/16/19 12/18/19 Rx ciprofloxacin HCl [Cipro] 500 mg PO BID #10 tab 12/16/19 12/18/19 Rx metronidazole [Flagyl] 500 mg PO TID #15 tab 12/16/19 12/18/19 Rx phenazopyridine [Pyridium] 100 mg PO TID PRN #20 tab 12/16/19 12/18/19 Rx metformin 500 mg PO BID 12/18/19 12/18/19 History Patient History Medical History [place]'s disease (Inactive 03/17/13) ? not taking steroids and not listed on [facility] problem list Asthma Diabetes mellitus, type II HLD (hyperlipidemia) HTN (hypertension) Hypothyroidism Surgical History History of appendectomy History of cholecystectomy History of partial gastrectomy REMOVE STOMACH, PARTIAL N/A 11/29/2014 LAPAROSCOPIC G[place]RECTOMY [place]IAL [place] Ubaldo Kilpatrick [place] [facility] [place] post laser lithotripsy of ureteral calculus REMOVE SMALL BLADDER STONE, SIMPLE 06/01/2014 LITHOLAPAXY SIMPLE performed by Brenda Dietz MD Family History Family/Other Asthma Social History Preferred Language: Guinean Communication Ability: Unable Communication Tools: IPad, Picture Board, Facial Expression and Physical Gestures Complementary Health Therapists Required: Yes Beliefs That Will Affect Care: None marital status: Unknown Current Living Situation: Alone current occupational status: retired Feels Safe at Home: Declines to Answer Smoking Status: Former smoker Hx Alcohol Use: No Hx Substance Use: No Review of Systems Review of Systems: Unobtainable due to endotracheal tube Physical Exam Physical Exam: General: The patient is intubated Head: normocephalic, no masses, lesions, tenderness or abnormalities Eyes: conjunctiva are pink and non-injected, sclera clear Neck: supple, no adenopathy, no bruits, normal jugular venous pulse, no hepatojugular reflux Chest: normal shape and normal respiratory effort Lungs: clear to auscultation and percussion Cardiac Exam: - regular rate & rhythm, no murmurs gallops or rubs - normal S1, normal S2 Pulses: 2(+) throughout Abdomen: abdomen soft, non-tender, no abnormal masses and no hepatosplenomegaly Musculoskeletal: no gait disturbance, no joint inflammation, no deforming arthritis Extremities: no edema and no cyanosis Neuro: grossly normal exam Results & Data ([facility]) Vital Signs (Past 12 Hours) Vital Signs Temp Pulse Resp Pulse Ox 12/19/19 07:10 82 15 96 12/19/19 06:57 14 12/19/19 06:01 18 12/19/19 06:00 37.1 C 82 98 12/19/19 05:30 37.1 C 81 97 12/19/19 05:00 37.0 C 75 98 12/19/19 04:30 37.0 C 73 98 12/19/19 04:00 36.9 C 75 98 12/19/19 03:30 36.9 C 75 99 12/19/19 03:00 36.8 C 79 99 12/19/19 02:30 36.8 C 78 99 12/19/19 02:00 36.7 C 76 99 12/19/19 01:40 79 18 99 12/19/19 01:30 36.6 C 80 99 12/19/19 01:00 36.5 C 81 99 12/19/19 00:30 36.5 C 81 99 12/19/19 00:00 36.5 C 85 99 12/18/19 23:40 86 18 99 12/18/19 23:30 36.4 C L 82 18 100 12/18/19 23:00 36.4 C L 85 18 99 12/18/19 22:30 36.4 C L 87 18 99 12/18/19 22:00 36.3 C L 87 18 98 12/18/19 21:30 36.4 C L 89 18 98 Laboratory Results Laboratory Results - last 24 hr 12/18/19 12/18/19 12/18/19 12:30 12:30 12:30 WBC 9.53 RBC 4.31 Hgb 13.9 POC Hgb Hct 41.0 POC Hct MCV 95.1 MCH 32.3 MCHC 33.9 RDW Std Deviation 44.4 RDW Coeff of Esa 12.7 Plt Count 266 MPV 12.9 H Immature Gran % (Auto) 0.4 Neut % (Auto) 85.1 Lymph % (Auto) 5.9 Coos % (Auto) 8.1 Eos % (Auto) 0.1 Baso % (Auto) 0.4 Immature Gran # (Auto) 0.04 H Neut # (Auto) 8.11 H Lymph # (Auto) 0.56 L Coos # (Auto) 0.77 H Eos # (Auto) 0.01 Baso # (Auto) 0.04 ESR PT 11.5 INR 1.1 APTT 25.1 PTT Ratio 0.9 Sample Site POC pH POC pCO2 POC pO2 POC HCO3 POC Base Excess POC ABG O2 Sat Abdiel Test VBG pH VBG pCO2 VBG pO2 VBG HCO3 VBG O2 Saturation VBG Base Excess Barometric Pressure O2 Delivery Device POC O2 Rate Minute Ventilation POC FiO2 Tidal Volume PEEP POC Sodium Sodium 135 L POC Potassium Potassium 3.0 L POC Chloride Chloride 98 Carbon Dioxide 25 POC Total CO2 Anion Gap 12.0 H POC Anion Gap POC BUN BUN 10 Creatinine 1.03 POC Creatinine Est Cr Clr Drug Dosing 35.5 Est GFR ( Amer) 57.8 Est GFR (Non-Af Amer) 49.9 BUN/Creatinine Ratio 9.6 L Glucose 280 H POC Glucose POC Glucose (other) Lactate Calcium 9.2 POC Ioniz Calcium Coleen Phosphorus 2.9 Magnesium 1.8 Total Bilirubin 0.9 Direct Bilirubin 0.2 AST 37 ALT 29 Alkaline Phosphatase 101 Troponin I 3.940 H* C-Reactive Protein NT-Pro-B Natriuret Pep 604 Total Protein 7.4 Albumin 3.2 L Globulin 4.2 H Albumin/Globulin Ratio 0.8 L Beta-Hydroxybutyric Acd Procalcitonin TSH 2.770 Urine Osmolality Ur Random Creatinine Ur Random Sodium Ur Random Potassium Ur Random Chloride Ur Random Uric Acid Nasal Screen MRSA (PCR) COVID-19 PCR Influenza Type A (PCR) Influenza Type B (PCR) SARS-CoV-2 RNA (RT-PCR) 12/18/19 12/18/19 12/18/19 12:30 12:35 12:35 WBC RBC Hgb POC Hgb Hct POC Hct MCV MCH MCHC RDW Std Deviation RDW Coeff of Esa Plt Count MPV Immature Gran % (Auto) Neut % (Auto) Lymph % (Auto) Coos % (Auto) Eos % (Auto) Baso % (Auto) Immature Gran # (Auto) Neut # (Auto) Lymph # (Auto) Coos # (Auto) Eos # (Auto) Baso # (Auto) ESR PT INR APTT PTT Ratio Sample Site POC pH POC pCO2 POC pO2 POC HCO3 POC Base Excess POC ABG O2 Sat Abdiel Test VBG pH 7.33 L VBG pCO2 53 H VBG pO2 29 VBG HCO3 27 VBG O2 Saturation < 60.0 VBG Base Excess 0.1 Barometric Pressure 734.0 O2 Delivery Device POC O2 Rate Minute Ventilation POC FiO2 Tidal Volume PEEP POC Sodium Sodium POC Potassium Potassium POC Chloride Chloride Carbon Dioxide POC Total CO2 Anion Gap POC Anion Gap POC BUN BUN Creatinine POC Creatinine Est Cr Clr Drug Dosing Est GFR ( Amer) Est GFR (Non-Af Amer) BUN/Creatinine Ratio Glucose POC Glucose POC Glucose (other) Lactate 3.7 H* Calcium POC Ioniz Calcium Coleen Phosphorus Magnesium Total Bilirubin Direct Bilirubin AST ALT Alkaline Phosphatase Troponin I C-Reactive Protein NT-Pro-B Natriuret Pep Total Protein Albumin Globulin Albumin/Globulin Ratio Beta-Hydroxybutyric Acd Procalcitonin 0.26 TSH Urine Osmolality Ur Random Creatinine Ur Random Sodium Ur Random Potassium Ur Random Chloride Ur Random Uric Acid Nasal Screen MRSA (PCR) COVID-19 PCR Influenza Type A (PCR) Influenza Type B (PCR) SARS-CoV-2 RNA (RT-PCR) 12/18/19 12/18/19 12/18/19 12:36 14:34 19:04 WBC RBC Hgb POC Hgb 15.0 Hct POC Hct 44 MCV MCH MCHC RDW Std Deviation RDW Coeff of Esa Plt Count MPV Immature Gran % (Auto) Neut % (Auto) Lymph % (Auto) Coos % (Auto) Eos % (Auto) Baso % (Auto) Immature Gran # (Auto) Neut # (Auto) Lymph # (Auto) Coos # (Auto) Eos # (Auto) Baso # (Auto) ESR PT INR APTT PTT Ratio Sample Site POC pH POC pCO2 POC pO2 POC HCO3 POC Base Excess POC ABG O2 Sat Abdiel Test VBG pH VBG pCO2 VBG pO2 VBG HCO3 VBG O2 Saturation VBG Base Excess Barometric Pressure O2 Delivery Device POC O2 Rate Minute Ventilation POC FiO2 Tidal Volume PEEP POC Sodium 137 Sodium POC Potassium 3.0 L Potassium POC Chloride 96 L Chloride Carbon Dioxide POC Total CO2 26 Anion Gap POC Anion Gap 19.0 POC BUN 10 BUN Creatinine POC Creatinine 0.9 Est Cr Clr Drug Dosing Est GFR ( Amer) Est GFR (Non-Af Amer) BUN/Creatinine Ratio Glucose POC Glucose 345 H* POC Glucose (other) 284 H Lactate 3.5 H* Calcium POC Ioniz Calcium Coleen 1.08 L Phosphorus Magnesium Total Bilirubin Direct Bilirubin AST ALT Alkaline Phosphatase Troponin I C-Reactive Protein NT-Pro-B Natriuret Pep Total Protein Albumin Globulin Albumin/Globulin Ratio Beta-Hydroxybutyric Acd Procalcitonin TSH Urine Osmolality Ur Random Creatinine Ur Random Sodium Ur Random Potassium Ur Random Chloride Ur Random Uric Acid Nasal Screen MRSA (PCR) COVID-19 PCR Influenza Type A (PCR) Influenza Type B (PCR) SARS-CoV-2 RNA (RT-PCR) 12/18/19 12/18/19 12/18/19 20:11 20:17 20:17 WBC RBC Hgb POC Hgb Hct POC Hct MCV MCH MCHC RDW Std Deviation RDW Coeff of Esa Plt Count MPV Immature Gran % (Auto) Neut % (Auto) Lymph % (Auto) Coos % (Auto) Eos % (Auto) Baso % (Auto) Immature Gran # (Auto) Neut # (Auto) Lymph # (Auto) Coos # (Auto) Eos # (Auto) Baso # (Auto) ESR 39 H PT INR APTT PTT Ratio Sample Site Art Line POC pH 7.40 POC pCO2 34 L POC pO2 300 H POC HCO3 21 POC Base Excess -3.0 POC ABG O2 Sat 100.0 H Abdiel Test NA VBG pH VBG pCO2 VBG pO2 VBG HCO3 VBG O2 Saturation VBG Base Excess Barometric Pressure O2 Delivery Device Ventilator POC O2 Rate 20 Minute Ventilation 9.0 POC FiO2 100 Tidal Volume 450 PEEP 5 POC Sodium Sodium POC Potassium Potassium POC Chloride Chloride Carbon Dioxide POC Total CO2 22 L Anion Gap POC Anion Gap POC BUN BUN Creatinine POC Creatinine Est Cr Clr Drug Dosing Est GFR ( Amer) Est GFR (Non-Af Amer) BUN/Creatinine Ratio Glucose POC Glucose POC Glucose (other) Lactate Calcium POC Ioniz Calcium Coleen Phosphorus Magnesium Total Bilirubin Direct Bilirubin AST ALT Alkaline Phosphatase Troponin I 4.380 H* C-Reactive Protein 2.00 H NT-Pro-B Natriuret Pep Total Protein Albumin Globulin Albumin/Globulin Ratio Beta-Hydroxybutyric Acd Procalcitonin TSH Urine Osmolality Ur Random Creatinine Ur Random Sodium Ur Random Potassium Ur Random Chloride Ur Random Uric Acid Nasal Screen MRSA (PCR) COVID-19 PCR Influenza Type A (PCR) Influenza Type B (PCR) SARS-CoV-2 RNA (RT-PCR) 12/18/19 12/18/19 12/18/19 20:17 20:30 21:39 WBC RBC Hgb POC Hgb Hct POC Hct MCV MCH MCHC RDW Std Deviation RDW Coeff of Esa Plt Count MPV Immature Gran % (Auto) Neut % (Auto) Lymph % (Auto) Coos % (Auto) Eos % (Auto) Baso % (Auto) Immature Gran # (Auto) Neut # (Auto) Lymph # (Auto) Coos # (Auto) Eos # (Auto) Baso # (Auto) ESR PT INR APTT PTT Ratio Sample Site POC pH POC pCO2 POC pO2 POC HCO3 POC Base Excess POC ABG O2 Sat Abdiel Test VBG pH VBG pCO2 VBG pO2 VBG HCO3 VBG O2 Saturation VBG Base Excess Barometric Pressure O2 Delivery Device POC O2 Rate Minute Ventilation POC FiO2 Tidal Volume PEEP POC Sodium Sodium 137 POC Potassium Potassium 3.0 L POC Chloride Chloride 103 Carbon Dioxide 18 L POC Total CO2 Anion Gap 15.0 H POC Anion Gap POC BUN BUN 12 Creatinine 1.06 POC Creatinine Est Cr Clr Drug Dosing 34.5 Est GFR ( Amer) 55.8 Est GFR (Non-Af Amer) 48.2 BUN/Creatinine Ratio 11.2 Glucose 371 H* POC Glucose POC Glucose (other) Lactate 3.4 H* Calcium 8.4 L POC Ioniz Calcium Coleen Phosphorus 5.7 H D Magnesium 2.3 Total Bilirubin 1.2 H Direct Bilirubin AST 315 H ALT 149 H Alkaline Phosphatase 110 Troponin I C-Reactive Protein NT-Pro-B Natriuret Pep Total Protein 6.4 Albumin 2.7 L Globulin 3.7 Albumin/Globulin Ratio 0.7 L Beta-Hydroxybutyric Acd 36.66 H Procalcitonin TSH Urine Osmolality Ur Random Creatinine Ur Random Sodium Ur Random Potassium Ur Random Chloride Ur Random Uric Acid Nasal Screen MRSA (PCR) COVID-19 PCR Influenza Type A (PCR) Influenza Type B (PCR) SARS-CoV-2 RNA (RT-PCR) 12/18/19 12/18/19 12/18/19 22:10 23:15 Unknown WBC RBC Hgb POC Hgb Hct POC Hct MCV MCH MCHC RDW Std Deviation RDW Coeff of Esa Plt Count MPV Immature Gran % (Auto) Neut % (Auto) Lymph % (Auto) Coos % (Auto) Eos % (Auto) Baso % (Auto) Immature Gran # (Auto) Neut # (Auto) Lymph # (Auto) Coos # (Auto) Eos # (Auto) Baso # (Auto) ESR PT INR APTT PTT Ratio Sample Site POC pH POC pCO2 POC pO2 POC HCO3 POC Base Excess POC ABG O2 Sat Abdiel Test VBG pH VBG pCO2 VBG pO2 VBG HCO3 VBG O2 Saturation VBG Base Excess Barometric Pressure O2 Delivery Device POC O2 Rate Minute Ventilation POC FiO2 Tidal Volume PEEP POC Sodium Sodium POC Potassium Potassium POC Chloride Chloride Carbon Dioxide POC Total CO2 Anion Gap POC Anion Gap POC BUN BUN Creatinine POC Creatinine Est Cr Clr Drug Dosing Est GFR ( Amer) Est GFR (Non-Af Amer) BUN/Creatinine Ratio Glucose POC Glucose 376 H* POC Glucose (other) Lactate 3.4 H* Calcium POC Ioniz Calcium Coleen Phosphorus Magnesium Total Bilirubin Direct Bilirubin AST ALT Alkaline Phosphatase Troponin I C-Reactive Protein NT-Pro-B Natriuret Pep Total Protein Albumin Globulin Albumin/Globulin Ratio Beta-Hydroxybutyric Acd Procalcitonin TSH Urine Osmolality Ur Random Creatinine Ur Random Sodium Ur Random Potassium Ur Random Chloride Ur Random Uric Acid Nasal Screen MRSA (PCR) COVID-19 PCR Influenza Type A (PCR) Influenza Type B (PCR) SARS-CoV-2 RNA (RT-PCR) Cancelled 12/18/19 12/18/19 12/19/19 Unknown Unknown 01:55 WBC RBC Hgb POC Hgb Hct POC Hct MCV MCH MCHC RDW Std Deviation RDW Coeff of Esa Plt Count MPV Immature Gran % (Auto) Neut % (Auto) Lymph % (Auto) Coos % (Auto) Eos % (Auto) Baso % (Auto) Immature Gran # (Auto) Neut # (Auto) Lymph # (Auto) Coos # (Auto) Eos # (Auto) Baso # (Auto) ESR PT INR APTT PTT Ratio Sample Site POC pH POC pCO2 POC pO2 POC HCO3 POC Base Excess POC ABG O2 Sat Abdiel Test VBG pH VBG pCO2 VBG pO2 VBG HCO3 VBG O2 Saturation VBG Base Excess Barometric Pressure O2 Delivery Device POC O2 Rate Minute Ventilation POC FiO2 Tidal Volume PEEP POC Sodium Sodium POC Potassium Potassium POC Chloride Chloride Carbon Dioxide POC Total CO2 Anion Gap POC Anion Gap POC BUN BUN Creatinine POC Creatinine Est Cr Clr Drug Dosing Est GFR ( Amer) Est GFR (Non-Af Amer) BUN/Creatinine Ratio Glucose POC Glucose POC Glucose (other) Lactate Calcium POC Ioniz Calcium Coleen Phosphorus Magnesium Total Bilirubin Direct Bilirubin AST ALT Alkaline Phosphatase Troponin I 4.940 H* C-Reactive Protein NT-Pro-B Natriuret Pep Total Protein Albumin Globulin Albumin/Globulin Ratio Beta-Hydroxybutyric Acd Procalcitonin TSH Urine Osmolality Ur Random Creatinine Ur Random Sodium Ur Random Potassium Ur Random Chloride Ur Random Uric Acid Nasal Screen MRSA (PCR) COVID-19 PCR NEGATIVE Influenza Type A (PCR) Neg for Influ A Influenza Type B (PCR) Neg for Influ B SARS-CoV-2 RNA (RT-PCR) 12/19/19 12/19/19 12/19/19 01:55 01:55 02:12 WBC RBC Hgb POC Hgb Hct POC Hct MCV MCH MCHC RDW Std Deviation RDW Coeff of Esa Plt Count MPV Immature Gran % (Auto) Neut % (Auto) Lymph % (Auto) Coos % (Auto) Eos % (Auto) Baso % (Auto) Immature Gran # (Auto) Neut # (Auto) Lymph # (Auto) Coos # (Auto) Eos # (Auto) Baso # (Auto) ESR PT INR APTT 32.2 H PTT Ratio 1.2 Sample Site POC pH POC pCO2 POC pO2 POC HCO3 POC Base Excess POC ABG O2 Sat Abidel Test VBG pH VBG pCO2 VBG pO2 VBG HCO3 VBG O2 Saturation VBG Base Excess Barometric Pressure O2 Delivery Device POC O2 Rate Minute Ventilation POC FiO2 Tidal Volume PEEP POC Sodium Sodium POC Potassium Potassium POC Chloride Chloride Carbon Dioxide POC Total CO2 Anion Gap POC Anion Gap POC BUN BUN Creatinine POC Creatinine Est Cr Clr Drug Dosing Est GFR ( Amer) Est GFR (Non-Af Amer) BUN/Creatinine Ratio Glucose POC Glucose 345 H* POC Glucose (other) Lactate Calcium POC Ioniz Calcium Coleen Phosphorus Magnesium Total Bilirubin Direct Bilirubin AST ALT Alkaline Phosphatase Troponin I C-Reactive Protein NT-Pro-B Natriuret Pep Total Protein Albumin Globulin Albumin/Globulin Ratio Beta-Hydroxybutyric Acd Procalcitonin TSH Urine Osmolality Ur Random Creatinine 20.8 Ur Random Sodium 94 Ur Random Potassium 25.4 Ur Random Chloride 112 Ur Random Uric Acid 14.3 Nasal Screen MRSA (PCR) COVID-19 PCR Influenza Type A (PCR) Influenza Type B (PCR) SARS-CoV-2 RNA (RT-PCR) 12/19/19 12/19/19 12/19/19 02:12 03:40 04:11 WBC 10.38 RBC 4.20 Hgb 12.8 POC Hgb Hct 38.2 POC Hct MCV 91.0 MCH 30.5 MCHC 33.5 RDW Std Deviation 42.8 RDW Coeff of Esa 12.9 Plt Count 207 MPV 12.7 H Immature Gran % (Auto) 0.6 Neut % (Auto) 83.3 Lymph % (Auto) 9.2 Coos % (Auto) 6.8 Eos % (Auto) 0.0 Baso % (Auto) 0.1 Immature Gran # (Auto) 0.06 H Neut # (Auto) 8.65 H Lymph # (Auto) 0.95 L Coos # (Auto) 0.71 H Eos # (Auto) 0.00 Baso # (Auto) 0.01 ESR PT INR APTT PTT Ratio Sample Site POC pH POC pCO2 POC pO2 POC HCO3 POC Base Excess POC ABG O2 Sat Abdiel Test VBG pH VBG pCO2 VBG pO2 VBG HCO3 VBG O2 Saturation VBG Base Excess Barometric Pressure O2 Delivery Device POC O2 Rate Minute Ventilation POC FiO2 Tidal Volume PEEP POC Sodium Sodium POC Potassium Potassium POC Chloride Chloride Carbon Dioxide POC Total CO2 Anion Gap POC Anion Gap POC BUN BUN Creatinine POC Creatinine Est Cr Clr Drug Dosing Est GFR ( Amer) Est GFR (Non-Af Amer) BUN/Creatinine Ratio Glucose POC Glucose 347 H* POC Glucose (other) Lactate Calcium POC Ioniz Calcium Coleen Phosphorus Magnesium Total Bilirubin Direct Bilirubin AST ALT Alkaline Phosphatase Troponin I C-Reactive Protein NT-Pro-B Natriuret Pep Total Protein Albumin Globulin Albumin/Globulin Ratio Beta-Hydroxybutyric Acd Procalcitonin TSH Urine Osmolality 406 L Ur Random Creatinine Ur Random Sodium Ur Random Potassium Ur Random Chloride Ur Random Uric Acid Nasal Screen MRSA (PCR) COVID-19 PCR Influenza Type A (PCR) Influenza Type B (PCR) SARS-CoV-2 RNA (RT-PCR) 12/19/19 12/19/19 12/19/19 04:11 04:11 05:26 WBC RBC Hgb POC Hgb Hct POC Hct MCV MCH MCHC RDW Std Deviation RDW Coeff of Esa Plt Count MPV Immature Gran % (Auto) Neut % (Auto) Lymph % (Auto) Coos % (Auto) Eos % (Auto) Baso % (Auto) Immature Gran # (Auto) Neut # (Auto) Lymph # (Auto) Coos # (Auto) Eos # (Auto) Baso # (Auto) ESR PT INR APTT PTT Ratio Sample Site POC pH POC pCO2 POC pO2 POC HCO3 POC Base Excess POC ABG O2 Sat Abdiel Test VBG pH VBG pCO2 VBG pO2 VBG HCO3 VBG O2 Saturation VBG Base Excess Barometric Pressure O2 Delivery Device POC O2 Rate Minute Ventilation POC FiO2 Tidal Volume PEEP POC Sodium Sodium 137 POC Potassium Potassium 3.9 D POC Chloride Chloride 106 Carbon Dioxide 20 L POC Total CO2 Anion Gap 11.0 POC Anion Gap POC BUN BUN 16 Creatinine 1.02 POC Creatinine Est Cr Clr Drug Dosing 34.5 Est GFR ( Amer) 58.5 Est GFR (Non-Af Amer) 50.5 BUN/Creatinine Ratio 15.8 Glucose 342 H* POC Glucose 325 H* POC Glucose (other) Lactate 2.3 H* Calcium 8.2 L POC Ioniz Calcium Coleen Phosphorus 1.9 L D Magnesium 2.1 Total Bilirubin 1.0 Direct Bilirubin AST 383 H ALT 188 H Alkaline Phosphatase 100 Troponin I C-Reactive Protein NT-Pro-B Natriuret Pep Total Protein 6.1 L Albumin 2.6 L Globulin 3.5 Albumin/Globulin Ratio 0.7 L Beta-Hydroxybutyric Acd 23.81 H Procalcitonin TSH Urine Osmolality Ur Random Creatinine Ur Random Sodium Ur Random Potassium Ur Random Chloride Ur Random Uric Acid Nasal Screen MRSA (PCR) COVID-19 PCR Influenza Type A (PCR) Influenza Type B (PCR) SARS-CoV-2 RNA (RT-PCR) 12/19/19 12/19/19 12/19/19 06:12 06:34 07:37 WBC RBC Hgb POC Hgb Hct POC Hct MCV MCH MCHC RDW Std Deviation RDW Coeff of Esa Plt Count MPV Immature Gran % (Auto) Neut % (Auto) Lymph % (Auto) Coos % (Auto) Eos % (Auto) Baso % (Auto) Immature Gran # (Auto) Neut # (Auto) Lymph # (Auto) Coos # (Auto) Eos # (Auto) Baso # (Auto) ESR PT INR APTT PTT Ratio Sample Site Art Line POC pH 7.49 H POC pCO2 26 L POC pO2 83 POC HCO3 20 POC Base Excess -4.0 POC ABG O2 Sat 97.0 H Abdiel Test NA VBG pH VBG pCO2 VBG pO2 VBG HCO3 VBG O2 Saturation VBG Base Excess Barometric Pressure O2 Delivery Device Ventilator POC O2 Rate 12 Minute Ventilation 8.1 POC FiO2 40 Tidal Volume 450 PEEP 5 POC Sodium Sodium POC Potassium Potassium POC Chloride Chloride Carbon Dioxide POC Total CO2 20 L Anion Gap POC Anion Gap POC BUN BUN Creatinine POC Creatinine Est Cr Clr Drug Dosing Est GFR ( Amer) Est GFR (Non-Af Amer) BUN/Creatinine Ratio Glucose POC Glucose 299 H 279 H POC Glucose (other) Lactate Calcium POC Ioniz Calcium Coleen Phosphorus Magnesium Total Bilirubin Direct Bilirubin AST ALT Alkaline Phosphatase Troponin I C-Reactive Protein NT-Pro-B Natriuret Pep Total Protein Albumin Globulin Albumin/Globulin Ratio Beta-Hydroxybutyric Acd Procalcitonin TSH Urine Osmolality Ur Random Creatinine Ur Random Sodium Ur Random Potassium Ur Random Chloride Ur Random Uric Acid Nasal Screen MRSA (PCR) COVID-19 PCR Influenza Type A (PCR) Influenza Type B (PCR) SARS-CoV-2 RNA (RT-PCR) 12/19/19 12/19/19 12/19/19 08:31 09:08 09:08 WBC RBC Hgb POC Hgb Hct POC Hct MCV MCH MCHC RDW Std Deviation RDW Coeff of Esa Plt Count MPV Immature Gran % (Auto) Neut % (Auto) Lymph % (Auto) Coos % (Auto) Eos % (Auto) Baso % (Auto) Immature Gran # (Auto) Neut # (Auto) Lymph # (Auto) Coos # (Auto) Eos # (Auto) Baso # (Auto) ESR PT INR APTT Pending PTT Ratio Pending Sample Site POC pH POC pCO2 POC pO2 POC HCO3 POC Base Excess POC ABG O2 Sat Abdiel Test VBG pH VBG pCO2 VBG pO2 VBG HCO3 VBG O2 Saturation VBG Base Excess Barometric Pressure O2 Delivery Device POC O2 Rate Minute Ventilation POC FiO2 Tidal Volume PEEP POC Sodium Sodium POC Potassium Potassium POC Chloride Chloride Carbon Dioxide POC Total CO2 Anion Gap POC Anion Gap POC BUN BUN Creatinine POC Creatinine Est Cr Clr Drug Dosing Est GFR ( Amer) Est GFR (Non-Af Amer) BUN/Creatinine Ratio Glucose POC Glucose 289 H POC Glucose (other) Lactate Calcium POC Ioniz Calcium Coleen Phosphorus Magnesium Total Bilirubin Direct Bilirubin AST ALT Alkaline Phosphatase Troponin I Pending C-Reactive Protein NT-Pro-B Natriuret Pep Total Protein Albumin Globulin Albumin/Globulin Ratio Beta-Hydroxybutyric Acd Procalcitonin TSH Urine Osmolality Ur Random Creatinine Ur Random Sodium Ur Random Potassium Ur Random Chloride Ur Random Uric Acid Nasal Screen MRSA (PCR) COVID-19 PCR Influenza Type A (PCR) Influenza Type B (PCR) SARS-CoV-2 RNA (RT-PCR) 12/19/19 12/19/19 09:11 Unknown WBC RBC Hgb POC Hgb Hct POC Hct MCV MCH MCHC RDW Std Deviation RDW Coeff of Esa Plt Count MPV Immature Gran % (Auto) Neut % (Auto) Lymph % (Auto) Coos % (Auto) Eos % (Auto) Baso % (Auto) Immature Gran # (Auto) Neut # (Auto) Lymph # (Auto) Coos # (Auto) Eos # (Auto) Baso # (Auto) ESR PT INR APTT PTT Ratio Sample Site POC pH POC pCO2 POC pO2 POC HCO3 POC Base Excess POC ABG O2 Sat Abdiel Test VBG pH VBG pCO2 VBG pO2 VBG HCO3 VBG O2 Saturation VBG Base Excess Barometric Pressure O2 Delivery Device POC O2 Rate Minute Ventilation POC FiO2 Tidal Volume PEEP POC Sodium Sodium POC Potassium Potassium POC Chloride Chloride Carbon Dioxide POC Total CO2 Anion Gap POC Anion Gap POC BUN BUN Creatinine POC Creatinine Est Cr Clr Drug Dosing Est GFR ( Amer) Est GFR (Non-Af Amer) BUN/Creatinine Ratio Glucose POC Glucose POC Glucose (other) Lactate Pending Calcium POC [facility] Calcium Coleen Phosphorus Magnesium Total Bilirubin Direct Bilirubin AST ALT Alkaline Phosphatase Troponin I C-Reactive Protein NT-Pro-B Natriuret Pep Total Protein Albumin Globulin Albumin/Globulin Ratio Beta-Hydroxybutyric Acd Procalcitonin TSH Urine Osmolality Ur Random Creatinine Ur Random Sodium Ur Random Potassium Ur Random Chloride Ur Random Uric Acid Nasal Screen MRSA (PCR) Cancelled COVID-19 PCR Influenza Type A (PCR) Influenza Type B (PCR) SARS-CoV-2 RNA (RT-PCR) Medications Administered Current Inpatient Medications Albuterol (Duoneb) 3 ml NEB QIDR MOODY Stop: 01/17/20 19:49 Last Admin: 12/19/19 07:04 Dose: 3 ml Documented by: Atorvastatin Calcium (Lipitor) 80 mg PO HS MOODY Stop: 01/17/20 19:59 Last Admin: 12/18/19 23:01 Dose: Not Given Documented by: Clopidogrel Bisulfate (Plavix) 75 mg PO QAM MOODY Stop: 01/17/20 20:09 Last Admin: 12/18/19 23:01 Dose: Not Given Documented by: Dextrose (Dextrose 50%) 25 - 50 ml IV UD PRN; Protocol PRN Reason: Hypoglycemia Protocol Stop: 01/17/20 19:49 Fentanyl Citrate (Fentanyl Bolus From Bag) 50 mcg IV Q60M PRN PRN Reason: Pain or Agitation Stop: 01/01/20 19:20 Glucagon (Glucagen) 1 mg SQ UD PRN; Protocol PRN Reason: Hypoglycemia Protocol Stop: 01/17/20 19:49 Glucose (Dex4 Glucose) 4 - 8 tabs PO UD PRN; Protocol PRN Reason: Hypoglycemia Protocol Stop: 01/17/20 19:49 Glucose (Glucose 40%) 15 - 30 gm PO UD PRN; Protocol PRN Reason: Hypoglycemia Protocol Stop: 01/17/20 19:49 Heparin Sodium/Dextrose (Heparin Sodium/Dextrose) 25,000 units in 500 mls @ 15 mls/hr IV .Q24H MOODY; Protocol Stop: 01/17/20 16:29 Last Titration: 12/19/19 07:19 Dose: 750 units/hr, 15 mls/hr Documented by: Fentanyl Citrate (Fentanyl Drip) 1,250 mcg in 250 mls @ 10 mls/hr IV .Q24H MOODY; Protocol Stop: 01/01/20 19:29 Last Titration: 12/19/19 07:19 Dose: 50 mcg/hr, 10 mls/hr Documented by: Propofol (Diprivan) 1,000 mg in 100 mls @ 4.2 mls/hr IV .[id number] MOODY; Protocol Stop: 12/21/19 19:29 Last Titration: 12/19/19 07:19 Dose: 10 mcg/kg/min, 4.2 mls/hr Documented by: Pantoprazole Sodium 40 mg/ (Syringe) 10 mls @ 5 mls/min IV DAILY@1100 MOODY Stop: 01/17/20 19:59 Last Admin: 12/18/19 23:10 Dose: 5 mls/min Documented by: Piperacillin Sod/Tazobactam (Sod 3.375 gm/ Dextrose) 115 mls @ 28.75 mls/hr IV Q8H MOODY; Protocol Stop: 12/25/19 21:59 Last Admin: 12/19/19 06:35 Dose: 28.8 mls/hr Documented by: Vancomycin HCl 1,000 mg/ (Sodium Chloride) 270 mls @ 125 mls/hr IV Q24H [facility] Stop: 12/25/19 15:59 Insulin Human Regular 250 (units/ Sodium Chloride) 250 mls @ 4.2 mls/hr IV .Q24H [facility]; Protocol Stop: 01/18/20 03:59 Last Titration: 12/19/19 07:35 Dose: 4.2 units/hr, 4.2 mls/hr Documented by: Potassium Chloride 40 meq/ (Sodium Chloride) 1,020 mls @ 125 mls/hr IV .Q8H10M [facility] Stop: 01/18/20 09:29 Sodium Phosphate 24 mmol/ (Sodium Chloride) 508 mls @ 88 mls/hr IV ONE ONE Stop: 12/19/19 15:16 Insulin Aspart (Novolog Flexpen) 0 units SC ACHS [facility] Stop: 01/18/20 07:29 Ioversol (Optiray 320 125ml) 121 ml IV ONCE PRN PRN Reason: Interaction Checking Stop: 12/22/19 14:09 Last Admin: 12/18/19 14:10 Dose: 121 ml Documented by: Levothyroxine Sodium (Synthroid) 50 mcg PO QDB [facility] Stop: 01/18/20 07:29 Lisinopril (Zestril) 10 mg PO QAM [facility] Stop: 01/18/20 08:59 Metoprolol Tartrate (Lopressor) 12.5 mg PO BID [facility] Stop: 01/17/20 20:59 Last Admin: 12/19/19 08:56 Dose: Not Given Documented by: Miscellaneous (Carbohydrates For Hypoglycemia) 15 - 30 gm PO UD PRN PRN Reason: Hypoglycemia Protocol Stop: 01/17/20 19:49 Miscellaneous Information (Consult) 1 ea N/A UD PRN PRN Reason: Consult Stop: 01/17/20 15:20 Miscellaneous Information (Consult) 1 ea N/A UD PRN PRN Reason: Consult Stop: 01/17/20 15:20 Miscellaneous Information (Consult Glycemic Management Pharmacy) 1 ea N/A UD PRN; Protocol PRN Reason: Consult Stop: 01/17/20 20:19 Phenazopyridine HCl (Pyridium) 100 mg PO TID PRN PRN Reason: bladder pain Stop: 01/17/20 19:49 Propofol (Diprivan Bolus From Bag) 20 mg IV Q5M PRN PRN Reason: Sedation Stop: 12/21/19 19:20 Raspberry (Raspberry) 5 ml PO Q6 MOODY Stop: 01/02/20 00:00 Last Admin: 12/19/19 06:35 Dose: 5 ml Documented by: Vancomycin HCl (Vancomycin Hcl) 125 mg PO Q6 MOODY Stop: 12/29/19 00:00 Last Admin: 12/19/19 06:34 Dose: 125 mg Documented by:
[2019-12-19] MEDS ORDERED: SODIUM PHOSPHATE 24 MMOL in SODIUM CHLORIDE 0.9% 500 ML IV ONE (09:30)
[2019-12-19] MEDS: POTASSIUM CHLORIDE 40 MEQ in SODIUM CHLORIDE 0.9% 1000ML 1,000 ML IV SCH ×2 (09:45→18:29)
[2019-12-19 09:47] LABS: Partial Thromboplastin Ratio 3.6
[2019-12-19] MEDS: CLOPIDOGREL BISULFATE 75 MG TAB PO SCH (09:53)
[2019-12-19] MEDS: lisinopriL 10 MG TAB PO SCH (10:06)
--- NOTE | 2019-12-19 10:20 | Critical Care Progress Note ---
Date of Service December 19, 2019 Assessment & Plan (1) Acute respiratory failure with hypoxia and hypercapnia: EKG 12/18/2019: Sinus tachycardia, right axis deviation, right bundle branch block, ST depression and T wave inversions appreciated in lead V2 V3, lead III and aVF. -- VDRF sec to Acute Hypoxic respiratory failure Increased interstitial thickening appreciated on the CT chest, no evidence of PE, no pleural effusion Aspiration from vomiting high on differential Patient does have underlying asthma --> not wheezing at the time of examination Continue with inhaled bronchodilators, antibiotics. Patient got a dose of Solu- Medrol in the ED Maintain SPO2 between 88 to 92% Covid 19 PCR negative. Influenza A & B -ve --Abdominal pain diffuse diarrhea with nausea and vomiting Seems to be from DKA going on since last couple of days while the patient was on antibiotics Rule out C. difficile. Continue with p.o. vancomycin. Patient did not have bowel movement since coming to the hospital. Patient has dirty urine but she has chronic Cooper as well which was placed on prior admission on 12/13/2019--> culture from 12/13/2019 is growing E. coli which is pansensitive Follow-up septic work-up continue with broad-spectrum antibiotic CT abdomen pelvis: Pericecal infiltrative process unchanged from prior exam, right renal parapelvic cyst which is stable. Bladder calculi which is unchanged GI consult, follow-up recommendation --DKA Continue with insulin drip until anion gap closes Decreasing blood glucose no more than 100 in an hour Replace potassium IV when potassium level between 3.3-5.3 BMP every 4 hours Continue with IV fluids -- HAGMA Delta delta: Less than 1 Gap plus non-gap, Gap is likely from lactic acidosis and beta hydroxybutyric acid, non-gap is from urinary loss Monitor --NSTEMI Trend troponin Repeat EKG Patient on low-dose beta-lashanda, Plavix, lisinopril and statin Case discussed with cardiology no need to start Plavix and no need to have heparin drip --Ureteropelvic junction obstruction Continue with Cooper --Hypothyroidism TSH 2.7 c/w Levothyroxine --Hypophosphatemia Being replaced --Prophylaxis VTE: Heparin subc GI: Protonix Diet: N.p.o. Plan: In/out: +2.8 L, urine output 1065 mL, ABG 7.49/ Patient hemodynamically stable. Clinically she seems to be improving. Lactate is trending down. Chest x-ray from today shows ETT 1.3 cm above the giselle with retracted by 1 cm. There is some pulmonary edema also being appreciated now on the chest x-ray. We will give a dose of Lasix with the patient. Case discussed with cardiology who think this is most likely demand ischemia for the troponin. Conservative management as per them. Will DC heparin drip and change it to subcu heparin Troponin peaked at 5 today. Continue with Vanco and Zosyn if the nasal MRSA is negative will discontinue vancomycin. Continue with p.o. vancomycin till we have C. difficile back. I have personally spent 34 minutes of critical care time in the direct management of this patient. This is a life/limb threatening event. This includes time spent evaluating patient, direct bedside care, chart review, placing orders, interpretation of diagnostic studies, discussion with consultants, patient, and family members, as well as other required patient management activities. This time is exclusive of all separately billable procedures, and teaching time and separate from and in addition to any other critical care service time. Please note the above document was generated using voice recognition software. It may contain grammatical, syntax or spelling errors. (2) Sepsis: (3) Acute non-ST elevation myocardial infarction (NSTEMI): (4) Ureteropelvic junction (UPJ) obstruction: Admission and Anticipated Discharge Date Admission Date: December 18, 2019 Subjective Patient seen and examined at bedside. No acute distress, no adverse events overnight. Patient was on fentanyl 50 and propofol 10 at the time of examination. RASS -1. Patient is answering questions on asking Togolese language. She is moving all the extremities on command. Patient was found to be in DKA currently on insulin drip. Review of Systems Review of Systems: All systems reviewed & are unremarkable except as noted in HPI & below and Unobtainable due to endotracheal tube Physical Exam Physical Exam: Constitutional: Intubated sedated HEENT: EOMI, PERRLA Respiratory system: Decreased air entry bilaterally, positive crackles bilateral lower lobes, more on the left side, no wheeze, no rhonchi CVS: S1-S2 positive, no murmurs or gallops Abdomen: Soft, nontender, no rebound, decreased bowel sounds x4 Extremities: +2 pulses bilaterally radialis/ dorsalis pedis, no cyanosis, no edema Neuro: Positive gag, positive corneal, positive pupillary, following commands, RASS -1 Psych: Unable to assess G/U: Positive Cooper Skin: no rashes, warm and dry Lymphatic: no cervical or axillary lymphadenopathy Results & Data Results & Data ([facility]) Vital Signs (Past 12 Hours) Vital Signs Temp Pulse Resp Pulse Ox 12/19/19 07:10 82 15 96 12/19/19 06:57 14 12/19/19 06:01 18 12/19/19 06:00 37.1 C 82 98 12/19/19 05:30 37.1 C 81 97 12/19/19 05:00 37.0 C 75 98 12/19/19 04:30 37.0 C 73 98 12/19/19 04:00 36.9 C 75 98 12/19/19 03:30 36.9 C 75 99 12/19/19 03:00 36.8 C 79 99 12/19/19 02:30 36.8 C 78 99 12/19/19 02:00 36.7 C 76 99 12/19/19 01:40 79 18 99 12/19/19 01:30 36.6 C 80 99 12/19/19 01:00 36.5 C 81 99 12/19/19 00:30 36.5 C 81 99 12/19/19 00:00 36.5 C 85 99 12/18/19 23:40 86 18 99 12/18/19 23:30 36.4 C L 82 18 100 12/18/19 23:00 36.4 C L 85 18 99 12/18/19 22:30 36.4 C L 87 18 99 12/19/19 04:11 12/19/19 04:11 Coding Level of Care Code Critical Care 1st 30-74 mins Diagnoses Acute respiratory failure with hypoxia and hypercapnia J96.01; J96.02 Sepsis A41.9 Acute non-ST elevation myocardial infarction (NSTEMI) I21.4 Ureteropelvic junction (UPJ) obstruction N13.5 Time Spent (min) 34
--- NOTE | 2019-12-19 11:21 | Hospitalist Progress Note ---
Date of Service December 19, 2019 Assessment & Plan (1) Acute respiratory failure with hypoxia and hypercapnia: Acute respiratory failure with hypoxia CTA chest showed no evidence for pulmonary embolus. Mild interstitial change of the mid to lower lung regions bilaterally. Covid 19 PCR negative. Influenza A & B negative VBG on admission showed pH 7.33 and PCO2 53 Received IV steroid on admission Intubated for respiratory support after failed Bipap trial Vent management per Lead Handler Continue IV abx with Zosyn and VAnco Sepsis Recently discharged on antibiotics for cecitis Was discharged on Cipro and flagyl Lactate 3.7 on admission with normal WBC and procalcitonin CT abd/pelvis on admission showed slightly progressive bibasilar interstitial infiltrative change. Bladder calculi unchanged. Pericecal infiltrative process unchanged from the prior exam. Right renal parapelvic cyst considered stable. Blood cx and urine cx pending Stool studies ordered Received IVF Lactate trending down to 2.1 Continue monitor closely Diarrhea associated with Nausea and Vomiting CT showed pericecal infiltrative process unchanged from the prior exam. Recent hospitalization was discharged on Cipro and Flagyl Continue IV Zosyn for now Check stools for Cidff if diarrhea continues GI consult pending Monitor electroyles NSTEMI Possible demand ischemia due to sepsis in the setting acute respiratory failure Troponin on admission 3.9 then peaked to 5 EKG showed no ischemic changes Was starting on IV heparin Cardiology on board recommended conservative management for now Continue to trend Troponin Aspirin on allergies list, Plavix was starting Echo PENDING EKG in a.m. Continue Lipitor, lisinopril and beta-lashanda Electrolytes Imbalance Likely due to GI losses Phosphorus 1.9 today Electrolytes replaced Recent UTI Urine cx grew Ecoli on 12/12 that was pansensitive Was discharge on cipro Follow up repeat urine cx Ureteropelvic junction obstruction Continue Cooper catheter as per urology on previous admission Hypothyroidism Continue levothyroxine DM II: Hold metformin Pharmacy on board for glycemic management Continue monitor BS DVT Px: On IV Heparin drip Code Status Full Code Disposition Continue monitor in the ICU Admission and Anticipated Discharge Date Admission Date: December 18, 2019 Subjective Pt was seen and examined Sedated and intubated on Mechanical Ventilation support Vital signs stable Physical Exam Physical Exam: General- Sedated Head- atraumatic Eyes- PERRL, EOMI, ENT- Intubated Neck- supple, no JVD Lungs- clear to auscultation Heart- regular rhythm; no murmur Abdomen- normal bowel sounds, soft, nontender Extremities- no calf tenderness Neuro- Sedated Skin- warm & dry Results & Data Results & Data ([facility]) Vital Signs (Past 12 Hours) Vital Signs Temp Pulse Resp Pulse Ox 12/19/19 07:10 82 15 96 12/19/19 06:57 14 12/19/19 06:01 18 12/19/19 06:00 37.1 C 82 98 12/19/19 05:30 37.1 C 81 97 12/19/19 05:00 37.0 C 75 98 12/19/19 04:30 37.0 C 73 98 12/19/19 04:00 36.9 C 75 98 12/19/19 03:30 36.9 C 75 99 12/19/19 03:00 36.8 C 79 99 12/19/19 02:30 36.8 C 78 99 12/19/19 02:00 36.7 C 76 99 12/19/19 01:40 79 18 99 12/19/19 01:30 36.6 C 80 99 12/19/19 01:00 36.5 C 81 99 12/19/19 00:30 36.5 C 81 99 12/19/19 00:00 36.5 C 85 99 12/18/19 23:40 86 18 99 12/18/19 23:30 36.4 C L 82 18 100
[2019-12-19] MEDS: PANTOprazole 40 MG in SYRINGE 0 ML IV SCH (12:27)
[2019-12-19] MEDS ORDERED: FUROSEMIDE 20 MG in SYRINGE 0 ML IV ONE (12:30)
[2019-12-19] MEDS: LEVOTHYROXINE SODIUM 50 MCG TABLET PO SCH (12:32)
--- NOTE | 2019-12-19 14:35 | Electrocardiogram Report ---
Test Reason : Blood Pressure : / mmHG Vent. Rate : 079 BPM Atrial Rate : 079 BPM P-R Int : 174 ms QRS Dur : 130 ms QT Int : 458 ms P-R-T Axes : 055 094 134 degrees QTc Int : 525 ms Normal sinus rhythm Right bundle branch block Abnormal ECG When compared with ECG of 13-DEC-2019 12:10, Vent. rate has decreased BY [address] no longer depressed in Anterior leads T wave inversion no longer evident in Inferior leads T wave inversion now evident in Lateral leads Confirmed by Boubacar Brunson ([id number]) on 12/19/2019 2:35:23 PM Referred By: REFERRED SELF Confirmed By:Boubacar Brunson
--- NOTE | 2019-12-19 15:25 | Gastrointestinal Consultation ---
Date of Consultation December 19, 2019 Assessment & Plan (1) Abnormal CT of the abdomen: possible ileocecal IBD vs. neoplastic process vs. infectious etiology. would hold off on endoscopic evaluation in the acute setting, would benefit from a colonoscopy to evaluate once she recovers, likely as an outpatient. Recs: supportive care outpatient colonoscopy rest as per primary team History of Present Illness Attending Physician: Melisa Maier MD 84 year old Albanian speaking female with history of HTN, T2DM, dyslipidemia, asthma and hypothyroidism here with DKA and intubated in the ICU- GI asked to evaluate for abnormal CTAP. CT A/P showed inflammatory process in the cecum, no perforation noted. She was seen last admission by [facility] for the same issue, plan was for outpt colonoscopy to further evaluate. currently intubated and sedated in no distress. 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 Allergies Allergy/AdvReac Type Severity Reaction Status Date / Time aspirin Allergy Mild ITCHING Verified 12/18/19 15:12 benzonatate Allergy Unknown Verified 12/18/19 15:12 [From Sb Bess] Home Medications Home Medications Medication Instructions Recorded Confirmed Type Tradjenta 5 mg PO QAM 12/13/19 12/18/19 History atorvastatin 20 mg PO QAM 12/13/19 12/18/19 History levothyroxine 50 mcg PO QAM 12/13/19 12/18/19 History lisinopril 10 mg PO QAM 12/13/19 12/18/19 History albuterol sulfate [Ventolin HFA] 2 puff INHALATION Q6R PRN #18 gm 12/16/19 12/18/19 Rx ciprofloxacin HCl [Cipro] 500 mg PO BID #10 tab 12/16/19 12/18/19 Rx metronidazole [Flagyl] 500 mg PO TID #15 tab 12/16/19 12/18/19 Rx phenazopyridine [Pyridium] 100 mg PO TID PRN #20 tab 12/16/19 12/18/19 Rx metformin 500 mg PO BID 12/18/19 12/18/19 History Patient History 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 and not listed on [facility] problem list Asthma Diabetes mellitus, type II HLD (hyperlipidemia) HTN (hypertension) Hypothyroidism Surgical History History of appendectomy History of cholecystectomy History of partial gastrectomy REMOVE STOMACH, PARTIAL N/A 11/29/2014 LAPAROSCOPIC GASTRECTOMY PARTIAL performed by Ubaldo Kilpatrick MD at [facility] Status post laser lithotripsy of ureteral calculus REMOVE SMALL BLADDER STONE, SIMPLE 06/01/2014 LITHOLAPAXY SIMPLE performed by Brenda Dietz MD Family History Family/Other Asthma Social History Preferred Language: Albanian Communication Ability: Unable Communication Tools: IPad Software Asset Management Analyst Required: Yes Beliefs That Will Affect Care: None marital status: Unknown Current Living Situation: Alone current occupational status: retired Feels Safe at Home: Declines to Answer Smoking Status: Former smoker Hx Alcohol Use: No Hx Substance Use: No Review of Systems Constitutional: no fever, no chills and no weight loss Eyes: as per Subjective / HPI Ear, Nose, Mouth, Throat: as per Subjective / HPI Respiratory: no dyspnea and no dyspnea on exertion Cardiovascular: no chest pain and no palpitations Gastrointestinal: as per Subjective / HPI Musculoskeletal: no joint pain and no swelling Integumentary: no rash and no lesions Neurologic: no numbness and no paresthesia Psychiatric: no depression and no anxiety Endocrine: no fatigue Hematologic / Lymphatic: no easy bleeding and no easy bruising Physical Exam Constitutional: WD/WN, vitals as above Eyes: EOM intact bilaterally Neck: normal visual inspection Respiratory: normal respiratory effort, lungs clear to auscultation Cardiovascular: RRR, no murmur, no edema Gastrointestinal (Abdomen): Inspection/Auscultation: abdomen normal to inspection; abdomen not distended Percussion/Palpation: abdomen soft; abdomen nontender and no hepatosplenomegaly Musculoskeletal: Extremities: no cyanosis Gait: normal gait Skin: no rashes, warm and dry Neurologic: moves all extremities Psychiatric: A+Ox3, euthymic affect Results & Data ([facility]) Vital Signs (Past 12 Hours) Vital Signs Temp Pulse Resp Pulse Ox 12/19/19 11:05 84 13 96 12/19/19 07:10 82 15 96 12/19/19 06:57 14 12/19/19 06:01 18 12/19/19 06:00 37.1 C 82 98 12/19/19 05:30 37.1 C 81 97 12/19/19 05:00 37.0 C 75 98 12/19/19 04:30 37.0 C 73 98 12/19/19 04:00 36.9 C 75 98 12/19/19 03:30 36.9 C 75 99 PG Care Time/CCT Total # of Minutes Spent Total Time Spent with Patient: Total time spent is greater than 50% in coordination of care (as documented) at patient's floor/unit and/or counseling patient: Coding Level of Care Code 69299 Initial Inpt Care Lvl [address] of the abdomen R93.5
[2019-12-19] MEDS ORDERED: VANCOMYCIN HCL 1,000 MG in SODIUM CHLORIDE 0.9% 250 ML IV SCH (16:00)
[2019-12-19] MEDS: propofoL 1,000 MG/100 ML VIAL IV SCH (16:12)
[2019-12-19] MEDS: fentaNYL DRIP 1,250 MCG/250 ML BAG IV SCH (18:32)
[2019-12-19 20:30] LABS: Appearance Urine Cloudy (Clear); Color Urine Orange
[2019-12-19 20:31] LABS: Sulfosalicylic Acid Urine Positive (Negative)
[2019-12-19 20:32] LABS: Specific Gravity Urine 1.024 (1.000-1.060)
[2019-12-19 20:39] LABS: Bacteria Urine 2+ (Negative); Epithelial Cell Urine 0-5 /lpf (0-5); RBC Urine 0-4 /hpf (0-4)
[2019-12-19] MEDS: ATORVASTATIN 40 MG TAB PO SCH (20:40)
[2019-12-19] MEDS: HEPARIN SOD 5,000 UNIT/0.5 ML VIAL SQ SCH (20:41)
[2019-12-20] MEDS: RASPBERRY SYRUP 5 ML UDP PO SCH ×2 (00:10→06:16)
[2019-12-20] MEDS: VANCOMYCIN HCL 125 MG/2.5ML SOLN PO SCH ×2 (00:10→05:50)
[2019-12-20] MEDS: POTASSIUM CHLORIDE 40 MEQ in SODIUM CHLORIDE 0.9% 1000ML 1,000 ML IV SCH (01:31)
[2019-12-20] MEDS ORDERED: FUROSEMIDE 20 MG in SYRINGE 0 ML IV ONE (02:44)
[2019-12-20] MEDS: propofoL 1,000 MG/100 ML VIAL IV SCH ×2 (03:01→13:31)
[2019-12-20] MEDS ORDERED: FUROSEMIDE 40 MG/4 ML VIAL IV ONE (03:15)
[2019-12-20 04:47] LABS: Basophils # (auto) 0.02 K/uL (0-0.2); Basophils % (auto) 0.1 %; Eosinophils # (auto) 0.03 K/uL (0-0.5); Eosinophils % (auto) 0.2 %; Hematocrit (blood only) 37.9 % (37-47); Hemoglobin 12.3 g/dL (12.0-16.0); Immature Granulocytes % (auto) 0.5 %; Lymphocytes # (auto) 1.93 K/uL (1.2-3.4); Lymphocytes % (auto) 9.7 %; Mean Corpuscular Hemoglobin 30.1 pg (25-34); Mean Corpuscular Hgb Conc 32.5 g/dL (32-36); Mean Corpuscular Volume 92.7 fL (80-100); Mean Platelet Volume 12.4 fL (7.4-10.4); Monocytes # (auto) 1.47 K/uL (0.11-0.59); Monocytes % (auto) 7.4 %; Neutrophils # (auto) 16.26 K/uL (1.4-6.5); Neutrophils % (auto) 82.1 %; Platelet Count 224 K/uL (130-400); RDW Coefficient of Variation 13.3 % (11.5-14.5); RDW Standard Deviation 44.9 fL (36.4-46.3); Red Blood Count 4.09 M/uL (4.2-5.4); White Blood Count 19.81 K/uL (4.8-10.8)
[2019-12-20] MEDS ORDERED: INSULIN GLARGINE SOLOSTAR 100 UNITS/ML 3 ML PEN SC ONE (05:00)
[2019-12-20 05:08] LABS: Albumin Level 2.5 gm/dl (3.4-5.0); BUN Creatinine Ratio 16.3 (10-20); Calcium 7.5 mg/dl (8.5-10.1); Creatinine Clr Calc Pharmacy 34.2 ml/min; Est GFR (African American) 57.8; Est GFR (Non-African American) 49.9; Magnesium 1.9 mg/dl (1.8-2.4); Potassium 4.4 mmol/L (3.5-5.1)
[2019-12-20 05:13] LABS: Albumin Globulin Ratio 0.7 (0.9-2); Bilirubin,Total 0.7 mg/dl (0.2-1); Globulin 3.5 gm/dl (2.5-4.0); Phosphorus 2.8 mg/dl (2.5-4.9); Troponin I 3.45 ng/ml (0-0.045)
[2019-12-20] MEDS: INSULIN REGULAR 250 UNITS in SODIUM CHLORIDE 0.9% 247.5 ML IV SCH (05:48)
[2019-12-20] MEDS: PIPERACILLIN/TAZOBACTAM 3.375 GM in DEXTROSE 5% 100 ML IV SCH ×3 (05:51→22:01)
[2019-12-20] MEDS ORDERED: NORMOSOL-R 1,000 ML IV SCH (06:00)
[2019-12-20 06:10] LABS: iSTAT Arterial Blood Gas HCO3 23 meg/L (19-24); iSTAT Arterial Blood Gas pCO2 33 mmHg (35-46); iSTAT Arterial Blood Gas pH 7.45 (7.35-7.45); iSTAT Arterial Blood Gas pO2 75 mmHg (80-95); iSTAT Carbon Dioxide 24 mmol/L (24-31); iSTAT FiO2 30 %; iSTAT Site Art Line
[2019-12-20] MEDS ORDERED: GLUCOSE 40% GEL 15 GM TUBE PO PRN (07:02)
[2019-12-20] MEDS ORDERED: GLUCAGON FOR INJ 1 MG VIAL SQ PRN (07:02)
[2019-12-20] MEDS ORDERED: DEXTROSE 50% 50 ML SYRINGE IV PRN (07:02)
[2019-12-20] MEDS ORDERED: GLUCOSE 10 TABS/TUBE PO PRN (07:02)
[2019-12-20] MEDS ORDERED: CARBOHYDRATES FOR HYPOGLYCEMIA PO PRN (07:02)
[2019-12-20] MEDS: ALBUT/IPRATROP 3MG/0.5MG NEB 3 ML VIAL NEB SCH ×4 (07:20→18:51)
--- NOTE | 2019-12-20 08:00 | XRay Report ---
XR chest 1V portable CLINICAL HISTORY: Respiratory failure COMPARISON STUDY: 12/19/2019 FINDINGS: There is an endotracheal tube 14 mm above the giselle. There is a nasogastric tube which pas ses into the stomach. The heart is the upper limits of normal in size. Left hemidiaphragm remains obs cured, ingesting a small left pleural effusion associated left basilar atelectasis/consolidation. A s mall right subpulmonic pleural effusion is suspected. There are increased basilar interstitial markin gs unchanged from the preceding study.[ IMPRESSION: Stable findings ACT 112: Negative or not required by law. Electronically signed by: Juan Bernardo M.D. 12/20/2019 7:59 AM
[2019-12-20] MEDS: CLOPIDOGREL BISULFATE 75 MG TAB PO SCH (08:27)
[2019-12-20] MEDS: INSULIN ASPART 100 UNITS/ML 3 ML PEN SC SCH ×4 (08:27→22:03)
[2019-12-20] MEDS: LEVOTHYROXINE SODIUM 50 MCG TABLET PO SCH (08:27)
[2019-12-20] MEDS: HEPARIN SOD 5,000 UNIT/0.5 ML VIAL SQ SCH (08:28)
[2019-12-20] MEDS: PANTOprazole 40 MG in SYRINGE 0 ML IV SCH (08:28)
[2019-12-20] MEDS: METOPROLOL TARTRATE 25 MG TAB PO SCH ×4 (08:29→22:02)
--- NOTE | 2019-12-20 09:00 | Hospitalist Progress Note ---
Date of Service December 20, 2019 Assessment & Plan (1) Acute respiratory failure with hypoxia and hypercapnia: Acute respiratory failure with hypoxia CTA chest showed no evidence for pulmonary embolus. Mild interstitial change of the mid to lower lung regions bilaterally. Covid 19 PCR negative. Influenza A & B negative VBG on admission showed pH 7.33 and PCO2 53 Received IV steroid on admission Intubated for respiratory support after failed Bipap trial Vent management per [employer] CXR today showed increased basilar interstitial markings unchanged from the preceding study Continue IV abx with Zosyn and VAnco Wean trial to Plan to extubate today Sepsis Recently discharged on antibiotics for cecitis Was discharged on Cipro and flagyl Lactate 3.7 on admission with normal WBC and procalcitonin CT abd/pelvis on admission showed slightly progressive bibasilar interstitial infiltrative change. Bladder calculi unchanged. Pericecal infiltrative process unchanged from the prior exam. Right renal parapelvic cyst considered stable. Blood cx and urine cx pending Stool studies ordered Received IVF Lactate normalized at 1.4 Continue monitor closely Diarrhea associated with Nausea and Vomiting CT showed pericecal infiltrative process unchanged from the prior exam. Recent hospitalization was discharged on Cipro and Flagyl Continue IV Zosyn for now Check stools for Cidff if diarrhea continues Gastro on board Monitor electrolytes NSTEMI Possible demand ischemia due to sepsis in the setting acute respiratory failure Troponin on admission 3.9 then peaked to 5, now trending down EKG showed no ischemic changes Was starting on IV heparin, now discontinued Cardiology on board recommended conservative management for now Continue to trend Troponin Aspirin on allergies list, Plavix was starting Echo showed LV with severe septal hypokinesis. 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 AST peaked to 383, now trending down 179 today ALT peaked to 188, trending down slightly to 173 today Continue monitor LFT Electrolytes Imbalance Likely due to GI losses Phosphorus 2.8 today Continue monitor electrolytes Recent UTI Urine cx grew Ecoli on 12/12 that was pansensitive Was discharge on cipro Currently on IV Zosyn Repeat urine cx no growth Ureteropelvic junction obstruction Continue Cooper catheter as per urology on previous admission Hypothyroidism Continue levothyroxine DM II: Hold metformin Pharmacy on board for glycemic management Continue monitor BS DVT Px: Subq heparin Code Status Full Code Disposition Continue monitor in the ICU Admission and Anticipated Discharge Date Admission Date: December 18, 2019 Subjective Pt was seen and examined Lying in bed with no distress Awake since sedation off Look comfortable in bed Intubated on vent support Plan to extubate today Physical Exam Physical Exam: General- No acute distress Head- atraumatic Eyes- PERRL, EOMI, ENT- Intubated Neck- supple, no JVD Lungs- clear to auscultation Heart- regular rhythm; no murmur Abdomen- normal bowel sounds, soft, nontender Extremities- no calf tenderness Neuro- awake, moving extremities Skin- warm & dry Results & Data Results & Data ([facility]) Vital Signs (Past 12 Hours) Vital Signs Temp Pulse Resp BP Pulse Ox 12/20/19 07:11 95 H 11 L 96 12/20/19 07:00 37.4 C 85 101/63 95 12/20/19 05:54 37.4 C 91 H 105/68 98 12/20/19 05:25 84 12 98 12/20/19 05:24 37.4 C 88 95/71 L 97 12/20/19 05:00 37.4 C 86 97 12/20/19 04:54 37.3 C 97 H 116/69 97 12/20/19 04:24 37.3 C 101 H 136/81 97 12/20/19 04:00 37.2 C 76 96 12/20/19 03:00 37.2 C 84 96 12/20/19 02:54 37.2 C 74 97 12/20/19 02:25 37.3 C 77 96 12/20/19 02:15 82 12 95 12/20/19 02:02 37.3 C 96 H 99/63 L 96 12/20/19 01:24 37.3 C 83 96/60 L 97 12/20/19 01:00 37.3 C 97 H 98 12/20/19 00:54 37.3 C 96 H 115/70 97 12/20/19 00:00 90 12/19/19 23:54 37.4 C 93 H 101/65 95 12/19/19 23:09 37.5 C 93 H 100/64 96 12/19/19 22:24 37.5 C 98 H 92/62 L 94 12/19/19 22:15 105 H 14 95 12/19/19 21:54 37.5 C 103 H 106/60 96
--- NOTE | 2019-12-20 10:31 | Cardiology Progress Note ---
Date of Service December 20, 2019 Assessment & Plan (1) Acute respiratory failure with hypoxia and hypercapnia: (2) Sepsis: (3) Pneumonia: (4) Acute non-ST elevation myocardial infarction (NSTEMI): (5) Elevated lactic acid level: (6) Abnormal CT of the abdomen: (7) Acute urinary retention: (8) Bladder stones: The patient's presentation of respiratory failure is most likely multifactorial including possible sepsis, GI pathology and coronary artery disease. She did have a non-STEMI on presentation and wall motion abnormalities of the anterior myocardium on the echocardiogram which could indicate an extension of a previous infarct. The estimated left ventricular ejection fraction is between 40 and 45%. I would treat her as if she has had a recent non-STEMI or infarct. She is allergic to aspirin but certainly Plavix should be given. I would restart her beta-lashanda today. Eventually she should have an WILFRIDO inhibitor and statin. Subjective The patient is alert, plan is for extubation sometime today. Review of Systems Review of Systems: All systems reviewed & are unremarkable except as noted in HPI & below Nothing additional to add. Physical Exam Physical Exam: General: no acute distress and stated age Head: normocephalic, no masses, lesions, tenderness or abnormalities Eyes: conjunctiva are pink and non-injected, sclera clear Neck: supple, no adenopathy, no bruits, normal jugular venous pulse, no hepatojugular reflux Chest: normal shape and normal respiratory effort Lungs: clear to auscultation and percussion Cardiac Exam: - regular rate & rhythm, no murmurs gallops or rubs - normal S1, normal S2 Pulses: 2(+) throughout Abdomen: abdomen soft, non-tender, no abnormal masses and no hepatosplenomegaly Musculoskeletal: no gait disturbance, no joint inflammation, no deforming arthritis Extremities: no edema and no cyanosis Neuro: grossly normal exam Results & Data Vital Signs (Past 12 Hours) Vital Signs Temp Pulse Resp BP Pulse Ox 12/20/19 09:00 37.4 C 96 H 109/69 95 12/20/19 08:00 37.5 C 101 H 102/77 94 12/20/19 07:11 95 H 11 L 96 12/20/19 07:00 37.4 C 85 101/63 95 12/20/19 05:54 37.4 C 91 H 105/68 98 12/20/19 05:25 84 12 98 12/20/19 05:24 37.4 C 88 95/71 L 97 12/20/19 05:00 37.4 C 86 97 12/20/19 04:54 37.3 C 97 H 116/69 97 12/20/19 04:24 37.3 C 101 H 136/81 97 12/20/19 04:00 37.2 C 76 96 12/20/19 03:00 37.2 C 84 96 12/20/19 02:54 37.2 C 74 97 12/20/19 02:25 37.3 C 77 96 12/20/19 02:15 82 12 95 12/20/19 02:02 37.3 C 96 H 99/63 L 96 12/20/19 01:24 37.3 C 83 96/60 L 97 12/20/19 01:00 37.3 C 97 H 98 12/20/19 00:54 37.3 C 96 H 115/70 97 12/20/19 00:00 90 12/19/19 23:54 37.4 C 93 H 101/65 95 12/19/19 23:09 37.5 C 93 H 100/64 96 Laboratory Results Laboratory Results - last 24 hr 12/19/19 12/19/19 12/19/19 10:30 11:26 12:41 WBC RBC Hgb Hct MCV MCH MCHC RDW Std Deviation RDW Coeff of Esa Plt Count MPV Immature Gran % (Auto) Neut % (Auto) Lymph % (Auto) Hayes % (Auto) Eos % (Auto) Baso % (Auto) Immature Gran # (Auto) Neut # (Auto) Lymph # (Auto) Hayes # (Auto) Eos # (Auto) Baso # (Auto) Sample Site POC pH POC pCO2 POC pO2 POC HCO3 POC Total CO2 POC Base Excess POC ABG O2 Sat Abdiel Test O2 Delivery Device POC O2 Rate Minute Ventilation POC FiO2 Tidal Volume PEEP Sodium Potassium Chloride Carbon Dioxide Anion Gap BUN Creatinine Est Cr Clr Drug Dosing Est GFR ( Amer) Est GFR (Non-Af Amer) BUN/Creatinine Ratio Glucose POC Glucose 213 H 213 H 130 H Lactate Calcium Phosphorus Magnesium Total Bilirubin AST ALT Alkaline Phosphatase Troponin I Total Protein Albumin Globulin Albumin/Globulin Ratio Specimen Hemolysis Urine Color Urine Appearance Urine pH Ur Specific Garita Urine Protein Urine Glucose (UA) Urine Ketones Urine Blood Urine Nitrite Urine Bilirubin Urine Urobilinogen Ur Leukocyte Esterase Urine RBC Urine WBC Ur Epithelial Cells Urine Bacteria Hyaline Casts RBC Casts Nasal Screen MRSA (PCR) 12/19/19 12/19/19 12/19/19 14:09 14:30 15:01 WBC RBC Hgb Hct MCV MCH MCHC RDW Std Deviation RDW Coeff of Esa Plt Count MPV Immature Gran % (Auto) Neut % (Auto) Lymph % (Auto) Hayes % (Auto) Eos % (Auto) Baso % (Auto) Immature Gran # (Auto) Neut # (Auto) Lymph # (Auto) Hayes # (Auto) Eos # (Auto) Baso # (Auto) Sample Site POC pH POC pCO2 POC pO2 POC HCO3 POC Total CO2 POC Base Excess POC ABG O2 Sat Abdiel Test O2 Delivery Device POC O2 Rate Minute Ventilation POC FiO2 Tidal Volume PEEP Sodium Potassium Chloride Carbon Dioxide Anion Gap BUN Creatinine Est Cr Clr Drug Dosing Est GFR ( Amer) Est GFR (Non-Af Amer) BUN/Creatinine Ratio Glucose POC Glucose 91 88 95 Lactate Calcium Phosphorus Magnesium Total Bilirubin AST ALT Alkaline Phosphatase Troponin I Total Protein Albumin Globulin Albumin/Globulin Ratio Specimen Hemolysis Urine Color Urine Appearance Urine pH Ur Specific Garita Urine Protein Urine Glucose (UA) Urine Ketones Urine Blood Urine Nitrite Urine Bilirubin Urine Urobilinogen Ur Leukocyte Esterase Urine RBC Urine WBC Ur Epithelial Cells Urine Bacteria Hyaline Casts RBC Casts Nasal Screen MRSA (PCR) 12/19/19 12/19/19 12/19/19 16:18 17:27 19:02 WBC RBC Hgb Hct MCV MCH MCHC RDW Std Deviation RDW Coeff of Esa Plt Count MPV Immature Gran % (Auto) Neut % (Auto) Lymph % (Auto) Hayes % (Auto) Eos % (Auto) Baso % (Auto) Immature Gran # (Auto) Neut # (Auto) Lymph # (Auto) Hayes # (Auto) Eos # (Auto) Baso # (Auto) Sample Site POC pH POC pCO2 POC pO2 POC HCO3 POC Total CO2 POC Base Excess POC ABG O2 Sat Abdiel Test O2 Delivery Device POC O2 Rate Minute Ventilation POC FiO2 Tidal Volume PEEP Sodium Potassium Chloride Carbon Dioxide Anion Gap BUN Creatinine Est Cr Clr Drug Dosing Est GFR ( Amer) Est GFR (Non-Af Amer) BUN/Creatinine Ratio Glucose POC Glucose 95 104 H 102 H Lactate Calcium Phosphorus Magnesium Total Bilirubin AST ALT Alkaline Phosphatase Troponin I Total Protein Albumin Globulin Albumin/Globulin Ratio Specimen Hemolysis Urine Color Urine Appearance Urine pH Ur Specific Garita Urine Protein Urine Glucose (UA) Urine Ketones Urine Blood Urine Nitrite Urine Bilirubin Urine Urobilinogen Ur Leukocyte Esterase Urine RBC Urine WBC Ur Epithelial Cells Urine Bacteria Hyaline Casts RBC Casts Nasal Screen MRSA (PCR) 12/19/19 12/19/19 12/19/19 20:00 20:00 20:00 WBC RBC Hgb Hct MCV MCH MCHC RDW Std Deviation RDW Coeff of Esa Plt Count MPV Immature Gran % (Auto) Neut % (Auto) Lymph % (Auto) Hayes % (Auto) Eos % (Auto) Baso % (Auto) Immature Gran # (Auto) Neut # (Auto) Lymph # (Auto) Hayes # (Auto) Eos # (Auto) Baso # (Auto) Sample Site POC pH POC pCO2 POC pO2 POC HCO3 POC Total CO2 POC Base Excess POC ABG O2 Sat Abdiel Test O2 Delivery Device POC O2 Rate Minute Ventilation POC FiO2 Tidal Volume PEEP Sodium Potassium Chloride Carbon Dioxide Anion Gap BUN Creatinine Est Cr Clr Drug Dosing Est GFR ( Amer) Est GFR (Non-Af Amer) BUN/Creatinine Ratio Glucose POC Glucose 105 H Lactate Calcium Phosphorus Magnesium Total Bilirubin AST ALT Alkaline Phosphatase Troponin I Total Protein Albumin Globulin Albumin/Globulin Ratio Specimen Hemolysis Urine Color [place] Urine Appearance Cloudy A Urine pH Ur Specific Garita 1.024 Urine Protein Urine Glucose (UA) Urine Ketones Urine Blood Urine Nitrite Urine Bilirubin Urine Urobilinogen Ur Leukocyte Esterase Urine RBC 0-4 Urine WBC 10-30 H Ur Epithelial Cells 0-5 Urine Bacteria 2+ H Hyaline Casts 5-10 H RBC Casts 1-5 H Nasal Screen MRSA (PCR) Negative 12/19/19 12/19/19 12/20/19 21:02 23:26 01:01 WBC RBC Hgb Hct MCV MCH MCHC RDW Std Deviation RDW Coeff of Esa Plt Count MPV Immature Gran % (Auto) Neut % (Auto) Lymph % (Auto) Hayes % (Auto) Eos % (Auto) Baso % (Auto) Immature Gran # (Auto) Neut # (Auto) Lymph # (Auto) Hayes # (Auto) Eos # (Auto) Baso # (Auto) Sample Site POC pH POC pCO2 POC pO2 POC HCO3 POC Total CO2 POC Base Excess POC ABG O2 Sat Abdiel Test O2 Delivery Device POC O2 Rate Minute Ventilation POC FiO2 Tidal Volume PEEP Sodium Potassium Chloride Carbon Dioxide Anion Gap BUN Creatinine Est Cr Clr Drug Dosing Est GFR ( Amer) Est GFR (Non-Af Amer) BUN/Creatinine Ratio Glucose POC Glucose 115 H 108 H 89 Lactate Calcium Phosphorus Magnesium Total Bilirubin AST ALT Alkaline Phosphatase Troponin I Total Protein Albumin Globulin Albumin/Globulin Ratio Specimen Hemolysis Urine Color Urine Appearance Urine pH Ur Specific Garita Urine Protein Urine Glucose (UA) Urine Ketones Urine Blood Urine Nitrite Urine Bilirubin Urine Urobilinogen Ur Leukocyte Esterase Urine RBC Urine WBC Ur Epithelial Cells Urine Bacteria Hyaline Casts RBC Casts Nasal Screen MRSA (PCR) 12/20/19 12/20/19 12/20/19 02:57 04:36 04:36 WBC 19.81 H RBC 4.09 L Hgb 12.3 Hct 37.9 MCV 92.7 MCH 30.1 MCHC 32.5 RDW Std Deviation 44.9 RDW Coeff of Esa 13.3 Plt Count 224 MPV 12.4 H Immature Gran % (Auto) 0.5 Neut % (Auto) 82.1 Lymph % (Auto) 9.7 Hayes % (Auto) 7.4 Eos % (Auto) 0.2 Baso % (Auto) 0.1 Immature Gran # (Auto) 0.10 H Neut # (Auto) 16.26 H Lymph # (Auto) 1.93 Hayes # (Auto) 1.47 H Eos # (Auto) 0.03 Baso # (Auto) 0.02 Sample Site POC pH POC pCO2 POC pO2 POC HCO3 POC Total CO2 POC Base Excess POC ABG O2 Sat Abdiel Test O2 Delivery Device POC O2 Rate Minute Ventilation POC FiO2 Tidal Volume PEEP Sodium 141 Potassium 4.4 Chloride 112 H Carbon Dioxide 23 Anion Gap 6.0 BUN 17 Creatinine 1.03 Est Cr Clr Drug Dosing 34.2 Est GFR ( Amer) 57.8 Est GFR (Non-Af Amer) 49.9 BUN/Creatinine Ratio 16.3 Glucose 98 POC Glucose 119 H Lactate Calcium 7.5 L Phosphorus 2.8 Magnesium 1.9 Total Bilirubin 0.7 AST 179 H ALT 173 H Alkaline Phosphatase 87 Troponin I 3.450 H* Total Protein 6.0 L Albumin 2.5 L Globulin 3.5 Albumin/Globulin Ratio 0.7 L Specimen Hemolysis Urine Color Urine Appearance Urine pH Ur Specific Garita Urine Protein Urine Glucose (UA) Urine Ketones Urine Blood Urine Nitrite Urine Bilirubin Urine Urobilinogen Ur Leukocyte Esterase Urine RBC Urine WBC Ur Epithelial Cells Urine Bacteria Hyaline Casts RBC Casts Nasal Screen MRSA (PCR) 12/20/19 12/20/19 12/20/19 04:36 05:56 07:46 WBC RBC Hgb Hct MCV MCH MCHC RDW Std Deviation RDW Coeff of Esa Plt Count MPV Immature Gran % (Auto) Neut % (Auto) Lymph % (Auto) Hayes % (Auto) Eos % (Auto) Baso % (Auto) Immature Gran # (Auto) Neut # (Auto) Lymph # (Auto) Hayes # (Auto) Eos # (Auto) Baso # (Auto) Sample Site Art Line POC pH 7.45 POC pCO2 33 L POC pO2 75 L POC HCO3 23 POC Total CO2 24 POC Base Excess -1.0 POC ABG O2 Sat 96.0 H Abdiel Test NA O2 Delivery Device Ventilator POC O2 Rate 12 Minute Ventilation 5.4 POC FiO2 30 Tidal Volume 420 PEEP 5 Sodium Potassium Chloride Carbon Dioxide Anion Gap BUN Creatinine Est Cr Clr Drug Dosing Est GFR ( Amer) Est GFR (Non-Af Amer) BUN/Creatinine Ratio Glucose POC Glucose 95 Lactate 1.4 Calcium Phosphorus Magnesium Total Bilirubin AST ALT Alkaline Phosphatase Troponin I Total Protein Albumin Globulin Albumin/Globulin Ratio Specimen Hemolysis Urine Color Urine Appearance Urine pH Ur Specific Garita Urine Protein Urine Glucose (UA) Urine Ketones Urine Blood Urine Nitrite Urine Bilirubin Urine Urobilinogen Ur Leukocyte Esterase Urine RBC Urine WBC Ur Epithelial Cells Urine Bacteria Hyaline Casts RBC Casts Nasal Screen MRSA (PCR) Diagnostic Findings 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 Medications Administered Current Inpatient Medications Albuterol (Duoneb) 3 ml NEB QIDR MOODY Stop: 01/17/20 19:49 Last Admin: 12/20/19 07:20 Dose: 3 ml Documented by: Atorvastatin Calcium (Lipitor) 80 mg PO HS MOODY Stop: 01/17/20 19:59 Last Admin: 12/19/19 20:40 Dose: 80 mg Documented by: Clopidogrel Bisulfate (Plavix) 75 mg PO QAM MOODY Stop: 01/17/20 20:09 Last Admin: 12/20/19 08:27 Dose: 75 mg Documented by: Dextrose (Dextrose 50%) 25 - 50 ml IV UD PRN; Protocol PRN Reason: Hypoglycemia Protocol Stop: 01/17/20 19:49 Fentanyl Citrate (Fentanyl Bolus From Bag) 50 mcg IV Q60M PRN PRN Reason: Pain or Agitation Stop: 01/01/20 19:20 Glucagon (Glucagen) 1 mg SQ UD PRN; Protocol PRN Reason: Hypoglycemia Protocol Stop: 01/17/20 19:49 Glucose (Dex4 Glucose) 4 - 8 tabs PO UD PRN; Protocol PRN Reason: Hypoglycemia Protocol Stop: 01/17/20 19:49 Glucose (Glucose 40%) 15 - 30 gm PO UD PRN; Protocol PRN Reason: Hypoglycemia Protocol Stop: 01/17/20 19:49 Heparin Sodium (Porcine) (Heparin Sodium (Porcine)) 5,000 units SQ Q12 [facility] Stop: 01/18/20 20:59 Last Admin: 12/20/19 08:28 Dose: 5,000 units Documented by: Fentanyl Citrate (Fentanyl Drip) 1,250 mcg in 250 mls @ 10 mls/hr IV .Q24H MOODY; Protocol Stop: 01/01/20 19:29 Last Titration: 12/20/19 07:09 Dose: 50 mcg/hr, 10 mls/hr Documented by: Propofol (Diprivan) 1,000 mg in 100 mls @ 4.2 mls/hr IV .[id number] MOODY; Protocol Stop: 12/21/19 19:29 Last Titration: 12/20/19 07:09 Dose: 10 mcg/kg/min, 4.2 mls/hr Documented by: Pantoprazole Sodium 40 mg/ (Syringe) 10 mls @ 5 mls/min IV DAILY@1100 MOODY Stop: 01/17/20 19:59 Last Admin: 12/20/19 08:28 Dose: 5 mls/min Documented by: Piperacillin Sod/Tazobactam (Sod 3.375 gm/ Dextrose) 115 mls @ 28.75 mls/hr IV Q8H MOODY; Protocol Stop: 12/25/19 21:59 Last Infusion: 12/20/19 09:35 Dose: Infused Documented by: Vancomycin HCl 1,000 mg/ (Sodium Chloride) 270 mls @ 125 mls/hr IV Q24H MOODY Stop: 12/25/19 15:59 Last Infusion: 12/19/19 18:26 Dose: Infused Documented by: Parenteral Electrolytes (Normosol-R) 1,000 mls @ 125 mls/hr IV .Q8H MOODY Stop: 01/19/20 05:59 Last Admin: 12/20/19 06:17 Dose: 125 mls/hr Documented by: Insulin Aspart (Novolog Flexpen) 0 units SC ACHS [facility] Stop: 01/19/20 07:29 Last Admin: 12/20/19 08:27 Dose: Not Given Documented by: Ioversol (Optiray 320 125ml) 121 ml IV ONCE PRN PRN Reason: Interaction Checking Stop: 12/22/19 14:09 Last Admin: 12/18/19 14:10 Dose: 121 ml Documented by: Levothyroxine Sodium (Synthroid) 50 mcg PO QDB [facility] Stop: 01/18/20 07:29 Last Admin: 12/20/19 08:27 Dose: 50 mcg Documented by: Lisinopril (Zestril) 10 mg PO QAM [facility] Stop: 01/18/20 08:59 Last Admin: 12/19/19 10:06 Dose: Not Given Documented by: Metoprolol Tartrate (Lopressor) 12.5 mg PO BID [facility] Stop: 01/17/20 20:59 Last Admin: 12/20/19 10:25 Dose: 12.5 mg Documented by: Miscellaneous (Carbohydrates For Hypoglycemia) 15 - 30 gm PO UD PRN PRN Reason: Hypoglycemia Protocol Stop: 01/17/20 19:49 Miscellaneous Information (Consult) 1 ea N/A UD PRN PRN Reason: Consult Stop: 01/17/20 15:20 Miscellaneous Information (Consult) 1 ea N/A UD PRN PRN Reason: Consult Stop: 01/17/20 15:20 Miscellaneous Information (Consult Glycemic Management Pharmacy) 1 ea N/A UD PRN; Protocol PRN Reason: Consult Stop: 01/17/20 20:19 Phenazopyridine HCl (Pyridium) 100 mg PO TID PRN PRN Reason: bladder pain Stop: 01/17/20 19:49 Propofol (Diprivan Bolus From Bag) 20 mg IV Q5M PRN PRN Reason: Sedation Stop: 12/21/19 19:20 Raspberry (Raspberry) 5 ml PO Q6 [facility] Stop: 01/02/20 00:00 Last Admin: 12/20/19 06:16 Dose: 5 ml Documented by: Vancomycin HCl (Vancomycin Hcl) 125 mg PO Q6 [facility] Stop: 12/29/19 00:00 Last Admin: 12/20/19 05:50 Dose: 125 mg Documented by:
[2019-12-20] MEDS: lisinopriL 10 MG TAB PO SCH (10:33)
--- NOTE | 2019-12-20 12:42 | Gastroenterology Progress Note ---
Date of Service December 20, 2019 Assessment & Plan (1) Abnormal CT of the abdomen: (2) Acute respiratory failure with hypoxia and hypercapnia: Pt is a 84 y/o female currently admitted w ARF, sepsis. GI consulted for pericecal infiltrative process seen in CT abd/pelvis. Abd exam benign w/o signs of pain, no n/v, no diarrhea. Plan for her to get extubated today - Will following along after extubation and reassess tomorrow to see if family/pt wants any endoscopic (colonoscopy) eval. Continue antibx for now. Admission and Anticipated Discharge Date Admission Date: December 18, 2019 Supervising Physician Co-Signing Physician Notes Attending attestation I have seen, examined this patient, and agree with the findings and above by our mid-level provider COMPA Tuttle, with the following additions: - Extubated - Abdomen soft, nt - Once has recovered, then will re-discuss colonoscocpy, however, previously refused Subjective Pt was still intubated, planned to get extubated this AM She appears to be comfortable, alert. Review of Systems Review of Systems: Unobtainable due to endotracheal tube Physical Exam Constitutional: WD/WN, vitals as above well groomed, cooperative and comfortable Eyes: PERRL, conjunctivae normal, anicteric sclerae ENMT: external ear and nose normal, oropharynx normal intubated Respiratory: normal respiratory effort, lungs clear to auscultation Cardiovascular: RRR, no murmur, no edema Gastrointestinal (Abdomen): normal bowel sounds, soft, nontender, no hepatosplenomegaly Skin: no rashes, warm and dry no jaundice Psychiatric: Orientation: alert and cooperative intubated Lymphatic: no lymphedema Results & Data ([facility]) Vital Signs (Past 12 Hours) Vital Signs Temp Pulse Pulse Resp BP Pulse Ox 12/20/19 12:00 37.7 C H 82 124/69 98 12/20/19 11:36 86 18 99 12/20/19 11:00 37.5 C 104 H 149/86 H 99 12/20/19 10:53 100 H 98 12/20/19 10:00 37.4 C 85 101/71 96 12/20/19 09:00 37.4 C 96 H 109/69 95 12/20/19 08:00 37.5 C 101 H 102/77 94 12/20/19 07:11 95 H 11 L 96 12/20/19 07:00 37.4 C 85 101/63 95 12/20/19 05:54 37.4 C 91 H 105/68 98 12/20/19 05:25 84 12 98 12/20/19 05:24 37.4 C 88 95/71 L 97 12/20/19 05:00 37.4 C 86 97 12/20/19 04:54 37.3 C 97 H 116/69 97 12/20/19 04:24 37.3 C 101 H 136/81 97 12/20/19 04:00 37.2 C 76 96 12/20/19 03:00 37.2 C 84 96 12/20/19 02:54 37.2 C 74 97 12/20/19 02:25 37.3 C 77 96 12/20/19 02:15 82 12 95 12/20/19 02:02 37.3 C 96 H 99/63 L 96 12/20/19 01:24 37.3 C 83 96/60 L 97 12/20/19 01:00 37.3 C 97 H 98 12/20/19 00:54 37.3 C 96 H 115/70 97
--- NOTE | 2019-12-20 14:00 | Pharmacy Report ---
Pharmacy Glycemic Short Note 2 - Date of Service December 20, 2019 - Glycemic Short BSG Results (Last 24 hours): 12/19/19 12/19/19 12/19/19 14:09 14:30 15:01 Glucose POC Glucose 91 88 95 12/19/19 12/19/19 12/19/19 16:18 17:27 19:02 Glucose POC Glucose 95 104 H 102 H 12/19/19 12/19/19 12/19/19 20:00 21:02 23:26 Glucose POC Glucose 105 H 115 H 108 H 12/20/19 12/20/19 12/20/19 01:01 02:57 04:36 Glucose 98 POC Glucose 89 119 H 12/20/19 12/20/19 07:46 11:05 Glucose POC Glucose 95 102 H OUTPATIENT ANTIDIABETIC REGIMEN: * Tradjenta 5 mg qAM, metformin 500 mg BID * A1c = 7.9% (12/14/19) ASSESSMENT: 12/19 * BSGs well controlled over last 24 hrs. AG 6, Bicarb 23 on AM labs. * Transitioned from insulin drip to SQ basal/bolus regimen by overnight [employer]. Pt was given 14 units Lantus overnight prior to transition. * Extubated around noon-time today, uncertain PO intake today * Reviewed recent admission data, pt's BSGs fairly well controlled using Novolog CF 30 and CR 10 with no basal insulin, however fasting AM BSGs were > 140 on several occasions, therefore will continue low dose basal insulin at this time with scaled dosing given uncertain PO intake. Will utilize similar Novolog doses this admission as they are in line with "moderate" stress dose based upon weight 12/18 * Anette is a 84 yo T2DM female admitted with acute respiratory failure with hypoxia and hypercapnia * Patient started on broad spectrum empiric antibiotics for sepsis work up. She is s/p intubation and mechanical ventilation on propofol and fentanyl infusions. She is also on IV heparin infusion. * Received a one time dose of solu medrol 40 mg IV 12/17 @ 1736 * IV insulin infusion initiated overnight. Currently infusing at 3.5 units/hr. Continue to titrate per insulin infusion protocol. PLAN FOR INPATIENT GLYCEMIC CONTROL: * Lantus SQ BID per scale: * 0 units if BSG less than 110 * 7 units if BSG 110-180 * 12 units if BSG greater than 180 * Novolog SQ ACHS * Goal range: 110-140mg/dL * Correction factor: 35mg/dL/unit * Carb ratio: 1 unit per 12gm CHO consumed PLAN FOR DISCHARGE: * A1c = 7.9% * TBD
--- NOTE | 2019-12-20 17:51 | Critical Care Progress Note ---
Date of Service December 20, 2019 Assessment & Plan (1) Acute respiratory failure with hypoxia and hypercapnia: EKG 12/18/2019: Sinus tachycardia, right axis deviation, right bundle branch block, ST depression and T wave inversions appreciated in lead V2 V3, lead III and aVF. -- VDRF sec to Acute Hypoxic respiratory failure Liberated from ventilator today Covid 19 PCR negative. Influenza A & B -ve --Abdominal pain diffuse diarrhea with nausea and vomiting: Resolved C. difficile unlikely secondary to no diarrhea --DKA Transitioning off insulin infusion -- HAGMA resolved --Ureteropelvic junction obstruction Continue with Cooper --Hypothyroidism TSH 2.7 c/w Levothyroxine --Hypophosphatemia Being replaced --Prophylaxis VTE: Heparin subc GI: Protonix Diet: Passed bedside swallow, able to take clears as tolerated (2) Sepsis: (3) Acute non-ST elevation myocardial infarction (NSTEMI): (4) Ureteropelvic junction (UPJ) obstruction: Admission and Anticipated Discharge Date Admission Date: December 18, 2019 Subjective No overnight events, on spontaneous breathing trial. Solomon Islander speaker only Review of Systems Review of Systems: Unobtainable due to endotracheal tube Physical Exam Physical Exam: General: Alert. nontoxic. Following complex commands Skin: Warm, dry, Head: Atraumatic Ears, nose, mouth and throat: airway obscured by endotracheal tube Cardiovascular: Normal peripheral perfusion Respiratory: no respiratory distress Gastrointestinal: Non distended Musculoskeletal: No deformity Results & Data Results & Data ([facility]) Vital Signs (Past 12 Hours) Vital Signs Temp Pulse Pulse Resp BP Pulse Ox 12/20/19 17:00 37.5 C 101 H 139/83 97 12/20/19 16:00 37.5 C 102 H 111/99 94 12/20/19 15:38 87 18 99 12/20/19 15:00 37.4 C 105 H 142/89 H 94 12/20/19 14:00 37.4 C 87 98/79 L 93 12/20/19 13:00 37.6 C H 88 124/82 97 12/20/19 12:00 37.7 C H 82 124/69 98 12/20/19 11:36 86 18 99 12/20/19 11:00 37.5 C 104 H 149/86 H 99 12/20/19 10:53 100 H 98 12/20/19 10:00 37.4 C 85 101/71 96 12/20/19 09:00 37.4 C 96 H 109/69 95 12/20/19 08:00 37.5 C 101 H 102/77 94 12/20/19 07:11 95 H 11 L 96 12/20/19 07:00 37.4 C 85 101/63 95 12/20/19 05:54 37.4 C 91 H 105/68 98 Coding Level of Care Code Critical Care 1st 30-74 mins Diagnoses Acute respiratory failure with hypoxia and hypercapnia J96.01; J96.02 Sepsis A41.9 Acute non-ST elevation myocardial infarction (NSTEMI) I21.4 Ureteropelvic junction (UPJ) obstruction N13.5 Time Spent (min) 55 Comment I have personally spent 55 minutes of critical care time in the direct management of this patient. This is a life/limb threatening event. This includes time spent evaluating patient, direct bedside care, chart review, placing orders, interpretation of diagnostic studies, discussion with c onsultants, patient, and/or family members regarding treatment decisions, as well as other required patient management activities. This time is exclusive of all separately billable procedures, and teaching time and separate from and in addition to any other critical care service time.
[2019-12-20] MEDS: ENOXAPARIN INJ 30 MG/0.3 ML SYR SQ SCH (22:02)
[2019-12-20] MEDS: INSULIN GLARGINE SOLOSTAR 100 UNITS/ML 3 ML PEN SC SCH (22:04)
[2019-12-21] MEDS ORDERED: ONDANSETRON INJ 2 MG/ML 2 ML VIAL IV PRN (04:21)
[2019-12-21] MEDS ORDERED: ONDANSETRON INJ 2 MG/ML 2 ML VIAL ONE (04:24)
[2019-12-21 05:17] LABS: Basophils # (auto) 0.03 K/uL (0-0.2); Basophils % (auto) 0.2 %; Eosinophils # (auto) 0.01 K/uL (0-0.5); Eosinophils % (auto) 0.1 %; Hematocrit (blood only) 41.5 % (37-47); Hemoglobin 13.4 g/dL (12.0-16.0); Immature Granulocytes # (auto) 0.09 K/uL (0.00-0.02); Immature Granulocytes % (auto) 0.7 %; Lymphocytes # (auto) 3.01 K/uL (1.2-3.4); Lymphocytes % (auto) 22.7 %; Mean Corpuscular Hemoglobin 30.7 pg (25-34); Mean Corpuscular Hgb Conc 32.3 g/dL (32-36); Mean Corpuscular Volume 95.2 fL (80-100); Mean Platelet Volume 12.9 fL (7.4-10.4); Monocytes # (auto) 1.38 K/uL (0.11-0.59); Monocytes % (auto) 10.4 %; Neutrophils # (auto) 8.74 K/uL (1.4-6.5); Neutrophils % (auto) 65.9 %; Platelet Count 231 K/uL (130-400); RDW Coefficient of Variation 13.5 % (11.5-14.5); RDW Standard Deviation 46.8 fL (36.4-46.3); Red Blood Count 4.36 M/uL (4.2-5.4); White Blood Count 13.26 K/uL (4.8-10.8)
[2019-12-21 05:48] LABS: Albumin Level 2.7 gm/dl (3.4-5.0); BUN Creatinine Ratio 13.8 (10-20); Calcium 8.4 mg/dl (8.5-10.1); Creatinine Clr Calc Pharmacy 39.7 ml/min; Est GFR (African American) 64.6; Est GFR (Non-African American) 55.7; Potassium 3.9 mmol/L (3.5-5.1)
[2019-12-21 06:01] LABS: Albumin Globulin Ratio 0.7 (0.9-2); Bilirubin,Total 0.8 mg/dl (0.2-1); Globulin 3.8 gm/dl (2.5-4.0); Phosphorus 3.8 mg/dl (2.5-4.9); Total Protein 6.5 gm/dl (6.4-8.2)
[2019-12-21] MEDS: PIPERACILLIN/TAZOBACTAM 3.375 GM in DEXTROSE 5% 100 ML IV SCH (06:21)
[2019-12-21] MEDS: ALBUT/IPRATROP 3MG/0.5MG NEB 3 ML VIAL NEB SCH ×3 (07:09→15:49)
[2019-12-21] MEDS: CLOPIDOGREL BISULFATE 75 MG TAB PO SCH (07:46)
[2019-12-21] MEDS: LEVOTHYROXINE SODIUM 50 MCG TABLET PO SCH (07:46)
[2019-12-21] MEDS: lisinopriL 10 MG TAB PO SCH (07:46)
[2019-12-21] MEDS: INSULIN ASPART 100 UNITS/ML 3 ML PEN SC SCH ×4 (07:47→20:37)
[2019-12-21] MEDS: INSULIN GLARGINE SOLOSTAR 100 UNITS/ML 3 ML PEN SC SCH ×2 (07:48→20:37)
[2019-12-21 09:04] LABS: Hepatitis B Surface Antigen Neg (Neg)
[2019-12-21 09:33] LABS: Hepatitis C IgG 13Yrs+Old_Rflx Neg (Neg)
--- NOTE | 2019-12-21 09:40 | Critical Care Progress Note ---
Date of Service December 21, 2019 Assessment & Plan (1) Acute respiratory failure with hypoxia and hypercapnia: EKG 12/18/2019: Sinus tachycardia, right axis deviation, right bundle branch block, ST depression and T wave inversions appreciated in lead V2 V3, lead III and aVF. -- VDRF sec to Acute Hypoxic respiratory failure Liberated from ventilator 12/19 Covid 19 PCR negative. Influenza A & B -ve --Abdominal pain diffuse diarrhea with nausea and vomiting: Resolved --DKA: Resolved -- HAGMA resolved --Ureteropelvic junction obstruction Continue with Cooper --Hypothyroidism TSH 2.7 c/w Levothyroxine --Hypophosphatemia: Resolved --Prophylaxis VTE: Heparin subc GI: Protonix Diet: Passed bedside swallow, able to take clears as tolerated Ordered physical therapy, Occupational Therapy, speech therapy Discontinuing all antibiotics: No obvious source of infection cecal inflammation seen on CT could possibly be evaluated by colonoscopy, abdominal pain and diarrhea have resolved Stable for downgrade out of ICU (2) Sepsis: (3) Acute non-ST elevation myocardial infarction (NSTEMI): (4) Ureteropelvic junction (UPJ) obstruction: Admission and Anticipated Discharge Date Admission Date: December 18, 2019 Subjective No overnight events, history limited as patient is Salvadorean-speaking and the dental instrument maker software is not functioning: We have a call out to distributor/the prior to resolve this Review of Systems Review of Systems: Other Unable to obtain secondary to language barrier Physical Exam Physical Exam: General: Alert. nontoxic. Following complex commands Skin: Warm, dry, Head: Atraumatic Ears, nose, mouth and throat: airway patent Cardiovascular: Normal peripheral perfusion Respiratory: no respiratory distress Gastrointestinal: Non distended Musculoskeletal: No deformity Results & Data Results & Data ([facility]) Vital Signs (Past 12 Hours) Vital Signs Temp Pulse Pulse Resp BP Pulse Ox 12/21/19 07:09 92 H 19 96 12/21/19 07:00 37.2 C 93 H 124/71 95 12/21/19 00:00 37.8 C H 89 98 12/20/19 23:55 37.7 C H 88 152/90 H 99 12/20/19 23:25 37.6 C H 96 H 155/88 H 97 12/20/19 23:00 37.6 C H 83 98 12/20/19 22:55 37.6 C H 81 136/90 98 12/20/19 22:25 37.6 C H 91 H 136/73 96 12/20/19 22:02 37.6 C H 108 H 146/81 H 98 12/20/19 22:00 37.6 C H 106 H 97 Coding Level of Care Code 80040 Subseq Hosp Care Lvl 3 Diagnoses Acute respiratory failure with hypoxia and hypercapnia J96.01; J96.02 Sepsis A41.9 Acute non-ST elevation myocardial infarction (NSTEMI) I21.4 Ureteropelvic junction (UPJ) obstruction N13.5
[2019-12-21] MEDS: METOPROLOL TARTRATE 25 MG TAB PO SCH ×3 (10:10→20:39)
[2019-12-21] MEDS: TRAMADOL HCL 50 MG TABLET PO PRN (10:35)
--- NOTE | 2019-12-21 10:53 | Cardiology Progress Note ---
Date of Service December 21, 2019 Assessment & Plan (1) Acute respiratory failure with hypoxia and hypercapnia: (2) Sepsis: (3) Pneumonia: (4) Acute non-ST elevation myocardial infarction (NSTEMI): (5) Elevated lactic acid level: (6) Abnormal CT of the abdomen: (7) Acute urinary retention: (8) Bladder stones: The patient continues to improve. She has been started on a beta-lashanda and WILFRIDO inhibitor. I do not see a recent lipid panel so I ordered one for the morning. I will review that and make recommendations regarding a statin. Subjective No new cardiac complaints today. Review of Systems Review of Systems: All systems reviewed & are unremarkable except as noted in HPI & below Nothing additional to add. Physical Exam Physical Exam: General: no acute distress and stated age Head: normocephalic, no masses, lesions, tenderness or abnormalities Eyes: conjunctiva are pink and non-injected, sclera clear Neck: supple, no adenopathy, no bruits, normal jugular venous pulse, no hepatojugular reflux Chest: normal shape and normal respiratory effort Lungs: clear to auscultation and percussion Cardiac Exam: - regular rate & rhythm, no murmurs gallops or rubs - normal S1, normal S2 Pulses: 2(+) throughout Abdomen: abdomen soft, non-tender, no abnormal masses and no hepatosplenomegaly Musculoskeletal: no gait disturbance, no joint inflammation, no deforming arthritis Extremities: no edema and no cyanosis Neuro: grossly normal exam Results & Data Vital Signs (Past 12 Hours) Vital Signs Temp Pulse Pulse Resp BP Pulse Ox 12/21/19 10:00 94 H 115/76 95 12/21/19 09:00 108 H 147/79 H 95 12/21/19 08:00 37.2 C 102 H 140/71 96 12/21/19 07:09 92 H 19 96 12/21/19 07:00 37.2 C 93 H 124/71 95 12/21/19 00:00 37.8 C H 89 98 12/20/19 23:55 37.7 C H 88 152/90 H 99 12/20/19 23:25 37.6 C H 96 H 155/88 H 97 12/20/19 23:00 37.6 C H 83 98 12/20/19 22:55 37.6 C H 81 136/90 98 Laboratory Results Laboratory Results - last 24 hr 12/20/19 12/20/19 12/20/19 11:05 16:07 22:03 WBC RBC Hgb Hct MCV MCH MCHC RDW Std Deviation RDW Coeff of Esa Plt Count MPV Immature Gran % (Auto) Neut % (Auto) Lymph % (Auto) Page % (Auto) Eos % (Auto) Baso % (Auto) Neut # (Auto) Lymph # (Auto) Page # (Auto) Eos # (Auto) Baso # (Auto) Immature Gran # (Auto) Sodium Potassium Chloride Carbon Dioxide Anion Gap BUN Creatinine Est Cr Clr Drug Dosing Est GFR ( Amer) Est GFR (Non-Af Amer) BUN/Creatinine Ratio Glucose POC Glucose 102 H 108 H 116 H Calcium Phosphorus Magnesium Total Bilirubin AST ALT Alkaline Phosphatase Total Protein Albumin Globulin Albumin/Globulin Ratio Hepatitis A IgM Ab Hep Bs Antigen Hep B Core IgM Ab Hepatitis C Antibody 12/21/19 12/21/19 12/21/19 05:00 05:00 05:00 WBC 13.26 H RBC 4.36 Hgb 13.4 Hct 41.5 MCV 95.2 MCH 30.7 MCHC 32.3 RDW Std Deviation 46.8 H RDW Coeff of Esa 13.5 Plt Count 231 MPV 12.9 H Immature Gran % (Auto) 0.7 Neut % (Auto) 65.9 Lymph % (Auto) 22.7 Page % (Auto) 10.4 Eos % (Auto) 0.1 Baso % (Auto) 0.2 Neut # (Auto) 8.74 H Lymph # (Auto) 3.01 Page # (Auto) 1.38 H Eos # (Auto) 0.01 Baso # (Auto) 0.03 Immature Gran # (Auto) 0.09 H Sodium 140 Potassium 3.9 Chloride 107 Carbon Dioxide 26 Anion Gap 7.0 BUN 13 Creatinine 0.94 Est Cr Clr Drug Dosing 39.7 Est GFR ( Amer) 64.6 Est GFR (Non-Af Amer) 55.7 BUN/Creatinine Ratio 13.8 Glucose 134 H POC Glucose Calcium 8.4 L Phosphorus 3.8 D Magnesium 2.0 Total Bilirubin 0.8 AST 148 H ALT 175 H Alkaline Phosphatase 117 Total Protein 6.5 Albumin 2.7 L Globulin 3.8 Albumin/Globulin Ratio 0.7 L Hepatitis A IgM Ab Hep Bs Antigen Neg Hep B Core IgM Ab Hepatitis C Antibody Neg 12/21/19 12/21/19 05:00 07:18 WBC RBC Hgb Hct MCV MCH MCHC RDW Std Deviation RDW Coeff of Esa Plt Count MPV Immature Gran % (Auto) Neut % (Auto) Lymph % (Auto) Page % (Auto) Eos % (Auto) Baso % (Auto) Neut # (Auto) Lymph # (Auto) Page # (Auto) Eos # (Auto) Baso # (Auto) Immature Gran # (Auto) Sodium Potassium Chloride Carbon Dioxide Anion Gap BUN Creatinine Est Cr Clr Drug Dosing Est GFR ( Amer) Est GFR (Non-Af Amer) BUN/Creatinine Ratio Glucose POC Glucose 126 H Calcium Phosphorus Magnesium Total Bilirubin AST ALT Alkaline Phosphatase Total Protein Albumin Globulin Albumin/Globulin Ratio Hepatitis A IgM Ab Pending Hep Bs Antigen Hep B Core IgM Ab Pending Hepatitis C Antibody Medications Administered Current Inpatient Medications Albuterol (Duoneb) 3 ml NEB QIDR REPLACED BY [facility] Stop: 01/17/20 19:49 Last Admin: 12/21/19 07:09 Dose: 3 ml Documented by: Atorvastatin Calcium (Lipitor) 80 mg PO HS REPLACED BY [facility] Stop: 01/17/20 19:59 Last Admin: 12/19/19 20:40 Dose: 80 mg Documented by: Clopidogrel [facility] (Plavix) [facility] [place]: 01/17/20 20:09 Last Admin: 12/21/19 07:46 Dose: 75 mg Documented by: Dextrose (Dextrose 50%) 25 - 50 ml IV UD PRN; Protocol PRN Reason: Hypoglycemia Protocol Stop: 01/17/20 19:49 Enoxaparin Sodium (Lovenox) 30 mg SQ HS REPLACED BY [facility] Stop: 01/19/20 20:59 Last Admin: 12/20/19 22:02 Dose: 30 mg Documented by: Glucagon (Glucagen) 1 mg SQ UD PRN; Protocol PRN Reason: Hypoglycemia Protocol Stop: 01/17/20 19:49 Glucose (Dex4 Glucose) 4 - 8 tabs PO UD PRN; Protocol PRN Reason: Hypoglycemia Protocol Stop: 01/17/20 19:49 Glucose (Glucose 40%) 15 - 30 gm PO UD PRN; Protocol PRN Reason: Hypoglycemia Protocol Stop: 01/17/20 19:49 Insulin Aspart (Novolog Flexpen) 0 units SC [facility] REPLACED BY [facility] Stop: 01/19/20 07:29 Last Admin: 12/21/19 07:47 Dose: Not Given Documented by: Insulin Glargine (Lantus Solostar Pen) 0 units SC BID REPLACED BY [facility]; Protocol Stop: 01/19/20 20:59 Last Admin: 12/21/19 07:48 Dose: 7 units Documented by: Ioversol (Optiray 320 125ml) 121 ml IV ONCE PRN PRN Reason: Interaction Checking Stop: 12/22/19 14:09 Last Admin: 12/18/19 14:10 Dose: 121 ml Documented by: Levothyroxine Sodium (Synthroid) 50 mcg PO QDB REPLACED BY [facility] Stop: 01/18/20 07:29 Last Admin: 12/21/19 07:46 Dose: 50 mcg Documented by: Lisinopril (Zestril) 10 mg PO QAM REPLACED BY [facility] Stop: 01/18/20 08:59 Last Admin: 12/21/19 07:46 Dose: 10 mg Documented by: Metoprolol Tartrate (Lopressor) 25 mg PO BID REPLACED BY [facility] Stop: 01/20/20 10:44 Last Admin: 12/21/19 10:33 Dose: 25 mg Documented by: Miscellaneous (Carbohydrates For Hypoglycemia) 15 - 30 gm PO UD PRN PRN Reason: Hypoglycemia Protocol Stop: 01/17/20 19:49 Miscellaneous Information (Consult Glycemic Management Pharmacy) 1 ea N/A UD PRN; Protocol PRN Reason: Consult Stop: 01/17/20 20:19 Ondansetron HCl (Zofran) 4 mg IV Q6H PRN PRN Reason: Nausea Stop: 01/20/20 04:20 Last Admin: 12/21/19 04:50 Dose: 4 mg Documented by: Phenazopyridine HCl (Pyridium) 100 mg PO TID PRN PRN Reason: bladder pain Stop: 01/17/20 19:49 Tramadol HCl (Ultram) 50 mg PO Q6H PRN PRN Reason: Pain Stop: 01/20/20 10:11 Last Admin: 12/21/19 10:35 Dose: 50 mg Documented by:
--- NOTE | 2019-12-21 11:41 | Gastroenterology Progress Note ---
Date of Service December 21, 2019 Assessment & Plan (1) Abnormal CT of the abdomen: (2) Acute respiratory failure with hypoxia and hypercapnia: Pt is a 84 y/o female currently admitted w ARF, sepsis. GI consulted for pericecal infiltrative process seen in CT abd/pelvis. Pt was extubated yesterd ay. Overnight had nausea w/o vomiting and c/o lower abd pain, smear of loose stool today - Obtain KUB to r/o obstructive processes - Check stool cx and Cdiff - Will touch base w family regarding wishes of further endoscopic evaluation once she is medically stable. Admission and Anticipated Discharge Date Admission Date: December 18, 2019 Supervising Physician Co-Signing Physician Notes Attending attestation I have seen, examined this patient, and agree with the findings and above by our mid-level provider COMPA Tuttle, with the following additions: -Attempting to discuss with family plans and goals of care, previously have resisted and reluctant to proceed with any test given continued oxygen requirement will hold on plans for colonoscopy until that is been hopefully improved, unless family and patient still refuses. Subjective Pt extubated yesterday. Was having nausea but no vomiting overnight. C/O some abd pain, RN reports smear of loose stools. Interpreting service via Ipad was unavailable Review of Systems Review of Systems: Limited see subjective above Physical Exam Constitutional: WD/WN, vitals as above well groomed, cooperative and comfortable Eyes: PERRL, conjunctivae normal, anicteric sclerae ENMT: external ear and nose normal, oropharynx normal Respiratory: no respiratory distress and does not use accessory muscles Auscultation: + diminished lung sounds Cardiovascular: RRR, no murmur, no edema Gastrointestinal (Abdomen): normal bowel sounds, soft, nontender, no hepatosplenomegaly Skin: no rashes, warm and dry no jaundice Psychiatric: Orientation: alert and cooperative Lymphatic: no lymphedema Results & Data ([facility]) Vital Signs (Past 12 Hours) Vital Signs Temp Pulse Pulse Resp BP Pulse Ox 12/21/19 11:12 99 H 18 99 12/21/19 10:00 94 H 115/76 95 12/21/19 09:00 108 H 147/79 H 95 12/21/19 08:00 37.2 C 102 H 140/71 96 12/21/19 07:09 92 H 19 96 12/21/19 07:00 37.2 C 93 H 124/71 95 12/21/19 00:00 37.8 C H 89 98 12/20/19 23:55 37.7 C H 88 152/90 H 99
--- NOTE | 2019-12-21 12:25 | XRay Report ---
XR KUB/Abdomen 1 view CLINICAL HISTORY: abd pain pain COMPARISON STUDY: No previous studies for comparison. FINDINGS: The soft tissues, psoas shadows, renal outlines and intestinal gas pattern appear normal. T here is no evidence for bowel obstruction. No abnormal abdominal calcifications are seen. IMPRESSION: Normal study. ACT 112: Negative or not required by law. The above report was generated using voice recognition software. It may contain grammatical, syntax or spelling errors. Electronically signed by: Danis Galan M.D. 12/21/2019 12:23 PM
[2019-12-21] MEDS ORDERED: ALUMINUM/MAGNESIUM/SIMETH (MAALOX MAX) 30 ML UDC PO STA (12:38)
--- NOTE | 2019-12-21 13:01 | Pharmacy Report ---
Pharmacy Glycemic Short Note 2 - Date of Service December 21, 2019 - Glycemic Short BSG Results (Last 24 hours): 12/20/19 12/20/19 12/21/19 16:07 22:03 05:00 Glucose 134 H POC Glucose 108 H 116 H 12/21/19 12/21/19 07:18 11:28 Glucose POC Glucose 126 H 132 H OUTPATIENT ANTIDIABETIC REGIMEN: * Tradjenta 5 mg qAM, metformin 500 mg BID * A1c = 7.9% (12/14/19) ASSESSMENT: 12/20 * BSGs remain well controlled at this time * Over the last 24 hrs, 21 units of basal insulin have been administered while NPO. Fasting AM BSG 126. * Will continue with current insulin doses at this time as there is no clear indication to change 12/19 * BSGs well controlled over last 24 hrs. AG 6, Bicarb 23 on AM labs. 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 Pt was given 14 units Lantus overnight prior to transition. * Extubated around noon-time today, uncertain PO intake today * Reviewed recent admission data, pt's BSGs fairly well controlled using Novolog CF 30 and CR 10 with no basal insulin, however fasting AM BSGs were > 140 on several occasions, therefore will continue low dose basal insulin at this time with scaled dosing given uncertain PO intake. Will utilize similar Novolog doses this admission as they are in line with "moderate" stress dose based upon weight 12/18 * Anette is a 84 yo T2DM female admitted with acute respiratory failure with hypoxia and hypercapnia * Patient started on broad spectrum empiric antibiotics for sepsis work up. She is s/p intubation and mechanical ventilation on propofol and fentanyl infusions. She is also on IV heparin infusion. * Received a one time dose of solu medrol 40 mg IV 12/17 @ 1736 * IV insulin infusion initiated overnight. Currently infusing at 3.5 units/hr. Continue to titrate per insulin infusion protocol. PLAN FOR INPATIENT GLYCEMIC CONTROL: * Lantus SQ BID per scale: * 0 units if BSG less than 110 * 7 units if BSG 110-180 * 12 units if BSG greater than 180 * Novolog SQ ACHS * Goal range: 110-140mg/dL * Correction factor: 35mg/dL/unit * Carb ratio: 1 unit per 12gm CHO consumed PLAN FOR DISCHARGE: * A1c = 7.9% * TBD
[2019-12-21] MEDS ORDERED: VANCOMYCIN TROUGH ONE (15:30)
--- NOTE | 2019-12-21 15:59 | Electrocardiogram Report ---
Test Reason : Blood Pressure : / mmHG Vent. Rate : 084 BPM Atrial Rate : 084 BPM P-R Int : 182 ms QRS Dur : 114 ms QT Int : 376 ms P-R-T Axes : 047 101 135 degrees QTc Int : 444 ms Normal sinus rhythm Possible Left atrial enlargement Incomplete right bundle branch block Possible Right ventricular hypertrophy Septal infarct , age undetermined T wave abnormality, consider anterolateral ischemia Abnormal ECG When compared with ECG of 19-DEC-2019 08:38, Septal infarct is now Present T wave inversion more evident in Anterior leads QT has shortened Confirmed by Boubacar Brunson ([id number]) on 12/21/2019 3:59:38 PM Referred By: REFERRED SELF Confirmed By:Boubacar Brunson
--- NOTE | 2019-12-21 16:45 | Hospitalist Progress Note ---
Date of Service December 21, 2019 Assessment & Plan (1) Acute respiratory failure with hypoxia and hypercapnia: Acute respiratory failure with hypoxia CTA chest showed no evidence for pulmonary embolus. Mild interstitial change of the mid to lower lung regions bilaterally. Covid 19 PCR negative. Influenza A & B negative VBG on admission showed pH 7.33 and PCO2 53 Received IV steroid on admission Intubated for respiratory support after failed Bipap trial Vent management per Sample Mounter CXR today showed increased basilar interstitial markings unchanged from the preceding study Continue IV abx with Zosyn and VAnco Wean trial to Plan to extubate today 12/21/19 S/P extubation day#1 Passed swallow eval Continue oxygen supplement Continue neb treatment Consider Pulmonology consult once out of the ICU Continue monitor closely Sepsis Recently discharged on antibiotics for cecitis Was discharged on Cipro and flagyl Lactate 3.7 on admission with normal WBC and procalcitonin CT abd/pelvis on admission showed slightly progressive bibasilar interstitial infiltrative change. Bladder calculi unchanged. Pericecal infiltrative process unchanged from the prior exam. Right renal parapelvic cyst considered stable. Blood cx and urine cx no growth Received IVF Lactate normalized at 1.4 Antibiotic discontinued since there is no clear source of infection Continue monitor closely Diarrhea associated with Nausea and Vomiting CT showed pericecal infiltrative process unchanged from the prior exam. Recent hospitalization was discharged on Cipro and Flagyl Continue IV Zosyn for now Check stools for Cidff if diarrhea continues Gastro on board KUB showed normal study Diarrhea resolved Will need to discuss with family for colonoscopy once medically stable Starting on clear liquid diet and advance as tolerated NSTEMI Possible demand ischemia due to sepsis in the setting acute respiratory failure Troponin on admission 3.9 then peaked to 5, now trending down EKG showed no ischemic changes Was starting on IV heparin, now discontinued Cardiology on board recommended conservative management for now Continue to trend Troponin Aspirin on allergies list, Plavix was starting Echo showed LV with severe septal hypokinesis. 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 AST peaked to 383, now trending down 148 today ALT peaked to 188, trending down slightly to 175 today Continue monitor LFT Electrolytes Imbalance Likely due to GI losses Phosphorus 3.8 today Continue monitor electrolytes stable Recent UTI Urine cx grew Ecoli on 12/12 that was pansensitive Was discharge on cipro Repeat urine cx no growth IV Zosyn discontinued today Ureteropelvic junction obstruction Continue Jordan catheter as per urology on previous admission Follow up with urology for jordan catheter removal Will need to talk with urology if catheter can be removed while in the hospital once stable Hypothyroidism Continue levothyroxine DM II: Hold metformin Pharmacy on board for glycemic management Continue monitor BS DVT Px: Subq heparin Code Status Full Code Disposition Will transfer to telemetry today Admission and Anticipated Discharge Date Admission Date: December 18, 2019 Subjective Pt was seen and examined Lying in bed with no distress Pt was extubated today She said that she does have some breathing discomfort She said that she is having chest discomfort She feels weak Physical Exam Physical Exam: General- No acute distress Head- atraumatic Eyes- PERRL, EOMI, ENT- s/p extubation on 12/19 Neck- supple, no JVD Lungs- No wheezing Heart- regular rhythm; no murmur Abdomen- normal bowel sounds, soft, nontender Extremities- no calf tenderness Neuro- awake, moving extremities Skin- warm & dry Results & Data Results & Data ([facility]) Vital Signs (Past 12 Hours) Vital Signs Temp Pulse Pulse Resp BP Pulse Ox 12/21/19 16:03 36.5 C 96 H 122/67 92 12/21/19 16:00 72 12/21/19 15:50 85 18 97 12/21/19 15:00 73 93/52 L 97 12/21/19 14:00 73 108/55 L 98 12/21/19 13:09 79 99/68 L 97 12/21/19 13:00 37.1 C 69 140/90 97 12/21/19 12:00 82 123/80 99 12/21/19 11:12 99 H 18 99 12/21/19 11:00 95 H 123/89 98 12/21/19 10:00 94 H 115/76 95 12/21/19 09:00 108 H 147/79 H 95 12/21/19 08:00 37.2 C 102 H 140/71 96 12/21/19 07:09 92 H 19 96 12/21/19 07:00 37.2 C 93 H 124/71 95
[2019-12-21] MEDS: ALBUTEROL HFA 8 GM INHALER INH SCH (18:59)
[2019-12-21] MEDS: ENOXAPARIN INJ 30 MG/0.3 ML SYR SQ SCH (20:39)
[2019-12-22] MEDS: ALBUTEROL HFA 8 GM INHALER INH SCH ×3 (07:25→19:55)
[2019-12-22] MEDS: LEVOTHYROXINE SODIUM 50 MCG TABLET PO SCH (08:35)
[2019-12-22] MEDS: CLOPIDOGREL BISULFATE 75 MG TAB PO SCH (08:35)
[2019-12-22] MEDS: lisinopriL 10 MG TAB PO SCH (08:35)
[2019-12-22] MEDS: METOPROLOL TARTRATE 25 MG TAB PO SCH ×2 (08:36→20:47)
[2019-12-22 08:50] LABS: Albumin Globulin Ratio 0.7 (0.9-2); Albumin Level 2.6 gm/dl (3.4-5.0); BUN Creatinine Ratio 20.8 (10-20); Bilirubin,Total 0.7 mg/dl (0.2-1); Calcium 8.7 mg/dl (8.5-10.1); Creatinine Clr Calc Pharmacy 52.1 ml/min; Est GFR (African American) 89.1; Est GFR (Non-African American) 76.9; Globulin 3.9 gm/dl (2.5-4.0); Phosphorus 3.8 mg/dl (2.5-4.9); Total Protein 6.5 gm/dl (6.4-8.2)
[2019-12-22] MEDS: INSULIN GLARGINE SOLOSTAR 100 UNITS/ML 3 ML PEN SC SCH (09:19)
[2019-12-22] MEDS: INSULIN ASPART 100 UNITS/ML 3 ML PEN SC SCH ×4 (09:20→20:48)
[2019-12-22 09:29] LABS: Hematocrit (blood only) 46.2 % (37-47); Hemoglobin 14.3 g/dL (12.0-16.0); Mean Corpuscular Hemoglobin 30.6 pg (25-34); Mean Corpuscular Volume 98.9 fL (80-100); RDW Coefficient of Variation 13.6 % (11.5-14.5); RDW Standard Deviation 48.5 fL (36.4-46.3); Red Blood Count 4.67 M/uL (4.2-5.4); White Blood Count 8.78 K/uL (4.8-10.8)
[2019-12-22 09:53] LABS: Basophils # (auto) 0.02 K/uL (0-0.2); Basophils % (auto) 0.2 %; Echinocytes 1+; Eosinophils # (auto) 0.01 K/uL (0-0.5); Eosinophils % (auto) 0.1 %; Giant Platelets 1+; Immature Granulocytes # (auto) 0.08 K/uL (0.00-0.02); Immature Granulocytes % (auto) 0.9 %; Lymphocytes # (auto) 1.05 K/uL (1.2-3.4); Monocytes # (auto) 0.95 K/uL (0.11-0.59); Monocytes % (auto) 10.8 %; Neutrophils # (auto) 6.67 K/uL (1.4-6.5); Platelet Count 189 K/uL (130-400); Platelet Estimate Normal (Normal)
[2019-12-22 10:06] LABS: Magnesium 2.2 mg/dl (1.8-2.4); Potassium 4.5 mmol/L (3.5-5.1)
--- NOTE | 2019-12-22 10:43 | Cardiology Progress Note ---
Date of Service December 22, 2019 Assessment & Plan (1) Acute respiratory failure with hypoxia and hypercapnia: (2) Sepsis: (3) Pneumonia: (4) Acute non-ST elevation myocardial infarction (NSTEMI): (5) Elevated lactic acid level: (6) Abnormal CT of the abdomen: (7) Acute urinary retention: (8) Bladder stones: The patient is resting comfortably however physical therapy is indicated to me that she is very weak and unsteady with her gait. She will probably need a rehab hospital prior to returning home. Otherwise she is clinically stable and currently on guideline directed medications. Subjective The patient is resting comfortably today. Review of Systems Review of Systems: All systems reviewed & are unremarkable except as noted in HPI & below Physical Exam Physical Exam: General: no acute distress and stated age Head: normocephalic, no masses, lesions, tenderness or abnormalities Eyes: conjunctiva are pink and non-injected, sclera clear Neck: supple, no adenopathy, no bruits, normal jugular venous pulse, no hepatojugular reflux Chest: normal shape and normal respiratory effort Lungs: clear to auscultation and percussion Cardiac Exam: - regular rate & rhythm, no murmurs gallops or rubs - normal S1, normal S2 Pulses: 2(+) throughout Abdomen: abdomen soft, non-tender, no abnormal masses and no hepatosplenomegaly Musculoskeletal: no gait disturbance, no joint inflammation, no deforming arthritis Extremities: no edema and no cyanosis Neuro: grossly normal exam Results & Data Vital Signs (Past 12 Hours) Vital Signs Temp Pulse Pulse Pulse Resp BP BP 12/22/19 07:36 36.5 C 103 H 18 128/77 12/22/19 07:31 104 H 12/22/19 07:25 77 18 12/22/19 03:03 36.8 C 89 18 129/85 12/22/19 00:12 36.3 C L 80 18 124/82 12/22/19 00:00 84 Pulse Ox 12/22/19 07:36 90 12/22/19 07:31 12/22/19 07:25 91 12/22/19 03:03 91 12/22/19 00:12 93 12/22/19 00:00 Laboratory Results Laboratory Results - last 24 hr 12/21/19 12/21/19 12/21/19 11:28 15:56 17:12 WBC RBC Hgb Hct MCV MCH MCHC RDW Std Deviation RDW Coeff of Esa Plt Count MPV Immature Gran % (Auto) Neut % (Auto) Lymph % (Auto) [place] % (Auto) Eos % (Auto) Baso % (Auto) Neut # (Auto) Lymph # (Auto) [place] # (Auto) Eos # (Auto) Baso # (Auto) Immature Gran # (Auto) Absolute Nucleated RBC Nucleated RBC % (auto) Neutrophils % (Manual) Band Neutrophils % Lymphocytes % (Manual) Prolymphocyte % Reactive Lymphs % (Man) Monocytes % (Manual) Eosinophils % (Manual) Basophils % (Manual) Metamyelocytes % (Man) Myelocytes % (Man) Promyelocytes % (Man) Blast Cells % (Manual) Plasma Cell % (Manual) Other Cells % Nucleated RBC % Neutrophils # (Manual) Band Neutrophils # Total Absolute Neuts Lymphocytes # (Manual) Prolymphocyte # Reactive Lymphs # Total Abs Lymphocytes Monocytes # (Manual) Eosinophils # (Manual) Basophils # (Manual) Metamyelocytes # (Man) Myelocytes # (Manual) Promyelocytes # (Man) Blast Cells # (Man) Plasma Cell # (Manual) Other Cells # Nucleated RBCs # (Man) Hypersegmented Neuts Hyposegmented Neuts Hypogranular Neuts Large Granular Lymphs # Lrg Granular Lymphs Hairy Cells Smudge Cells Toxic Granulation Toxic Vacuolation Dohle Bodies Laverne Rods Platelet Estimate Hypogranular Platelets Clumped Platelets Giant Platelets Platelet Satelliting RBC Morphology Polychromasia Hypochromasia Poikilocytosis Basophilic Stippling Anisocytosis Microcytosis Macrocytosis Spherocytes Pappenheimer Bodies Sickle Cells Target Cells Tear Drop Cells Ovalocytes Stomatocytes [place] Bodies Echinocytes Acanthocytes (Spur) Rouleaux RBC Agglutinates Schistocytes RBC Morph Comment Sezary Cell Sodium Potassium Chloride Carbon Dioxide Anion Gap BUN Creatinine Est Cr Clr Drug Dosing Est GFR ( Amer) Est GFR (Non-Af Amer) BUN/Creatinine Ratio Glucose POC Glucose 132 H 108 H Calcium Phosphorus Magnesium Total Bilirubin AST ALT Alkaline Phosphatase Total Protein Albumin Globulin Albumin/Globulin Ratio Triglycerides Cholesterol LDL Cholesterol, Calc VLDL Cholesterol, Calc HDL Cholesterol Cholesterol/HDL Ratio Stl C. diff Tox B Gene Negative Cdiff Gene 06/23/20 06/24/20 06/24/20 20:34 07:25 07:25 WBC Cancelled RBC Cancelled Hgb Cancelled Hct Cancelled MCV Cancelled MCH Cancelled MCHC Cancelled RDW Std Deviation Cancelled RDW Coeff of Esa Cancelled Plt Count Cancelled MPV Cancelled Immature Gran % (Auto) Cancelled Neut % (Auto) Cancelled Lymph % (Auto) Cancelled [place] % (Auto) Cancelled Eos % (Auto) Cancelled Baso % (Auto) Cancelled Neut # (Auto) Cancelled Lymph # (Auto) Cancelled [place] # (Auto) Cancelled Eos # (Auto) Cancelled Baso # (Auto) Cancelled Immature Gran # (Auto) Cancelled Absolute Nucleated RBC Cancelled Nucleated RBC % (auto) Cancelled Neutrophils % (Manual) Cancelled Band Neutrophils % Cancelled Lymphocytes % (Manual) Cancelled Prolymphocyte % Cancelled Reactive Lymphs % (Man) Cancelled Monocytes % (Manual) Cancelled Eosinophils % (Manual) Cancelled Basophils % (Manual) Cancelled Metamyelocytes % (Man) Cancelled Myelocytes % (Man) Cancelled Promyelocytes % (Man) Cancelled Blast Cells % (Manual) Cancelled Plasma Cell % (Manual) Cancelled Other Cells % Cancelled Nucleated RBC % Cancelled Neutrophils # (Manual) Cancelled Band Neutrophils # Cancelled Total Absolute Neuts Cancelled Lymphocytes # (Manual) Cancelled Prolymphocyte # Cancelled Reactive Lymphs # Cancelled Total Abs Lymphocytes Cancelled Monocytes # (Manual) Cancelled Eosinophils # (Manual) Cancelled Basophils # (Manual) Cancelled Metamyelocytes # (Man) Cancelled Myelocytes # (Manual) Cancelled Promyelocytes # (Man) Cancelled Blast Cells # (Man) Cancelled Plasma Cell # (Manual) Cancelled Other Cells # Cancelled Nucleated RBCs # (Man) Cancelled Hypersegmented Neuts Cancelled Hyposegmented Neuts Cancelled Hypogranular Neuts Cancelled Large Granular Lymphs Cancelled # Lrg Granular Lymphs Cancelled Hairy Cells Cancelled Smudge Cells Cancelled Toxic Granulation Cancelled Toxic Vacuolation Cancelled Dohle Bodies Cancelled Laverne Rods Cancelled Platelet Estimate Cancelled Hypogranular Platelets Cancelled Clumped Platelets Cancelled Giant Platelets Cancelled Platelet Satelliting Cancelled RBC Morphology Cancelled Polychromasia Cancelled Hypochromasia Cancelled Poikilocytosis Cancelled Basophilic Stippling Cancelled Anisocytosis Cancelled Microcytosis Cancelled Macrocytosis Cancelled Spherocytes Cancelled Pappenheimer Bodies Cancelled Sickle Cells Cancelled Target Cells Cancelled Tear Drop Cells Cancelled Ovalocytes Cancelled Stomatocytes Cancelled [place] Bodies Cancelled Echinocytes Cancelled Acanthocytes (Spur) Cancelled Rouleaux Cancelled RBC Agglutinates Cancelled Schistocytes Cancelled RBC Morph Comment Cancelled Sezary Cell Cancelled Sodium 141 Potassium Chloride 108 H Carbon Dioxide 24 Anion Gap 9.0 BUN 15 Creatinine 0.72 Est Cr Clr Drug Dosing 52.1 Est GFR ( Amer) 89.1 Est GFR (Non-Af Amer) 76.9 BUN/Creatinine Ratio 20.8 H Glucose 99 POC Glucose 94 Calcium 8.7 Phosphorus 3.8 Magnesium Total Bilirubin 0.7 AST ALT 148 H Alkaline Phosphatase 108 Total Protein 6.5 Albumin 2.6 L Globulin 3.9 Albumin/Globulin Ratio 0.7 L Triglycerides 193 H Cholesterol 135 LDL Cholesterol, Calc 63 VLDL Cholesterol, Calc 39 HDL Cholesterol 33 Cholesterol/HDL Ratio 4 Stl C. diff Tox B Gene 12/22/19 12/22/19 12/22/19 08:45 09:02 09:02 WBC 8.78 RBC 4.67 Hgb 14.3 Hct 46.2 MCV 98.9 MCH 30.6 MCHC 31.0 L RDW Std Deviation 48.5 H RDW Coeff of Esa 13.6 Plt Count 189 MPV 13.0 H Immature Gran % (Auto) 0.9 Neut % (Auto) 76.0 Lymph % (Auto) 12.0 [place] % (Auto) 10.8 Eos % (Auto) 0.1 Baso % (Auto) 0.2 Neut # (Auto) 6.67 H Lymph # (Auto) 1.05 L [place] # (Auto) 0.95 H Eos # (Auto) 0.01 Baso # (Auto) 0.02 Immature Gran # (Auto) 0.08 H Absolute Nucleated RBC Nucleated RBC % (auto) Neutrophils % (Manual) Band Neutrophils % Lymphocytes % (Manual) Prolymphocyte % Reactive Lymphs % (Man) Monocytes % (Manual) Eosinophils % (Manual) Basophils % (Manual) Metamyelocytes % (Man) Myelocytes % (Man) Promyelocytes % (Man) Blast Cells % (Manual) Plasma Cell % (Manual) Other Cells % Nucleated RBC % Neutrophils # (Manual) Band Neutrophils # Total Absolute Neuts Lymphocytes # (Manual) Prolymphocyte # Reactive Lymphs # Total Abs Lymphocytes Monocytes # (Manual) Eosinophils # (Manual) Basophils # (Manual) Metamyelocytes # (Man) Myelocytes # (Manual) Promyelocytes # (Man) Blast Cells # (Man) Plasma Cell # (Manual) Other Cells # Nucleated RBCs # (Man) Hypersegmented Neuts Hyposegmented Neuts Hypogranular Neuts Large Granular Lymphs # Lrg Granular Lymphs Hairy Cells Smudge Cells Toxic Granulation Toxic Vacuolation Dohle Bodies Laverne Rods Platelet Estimate Normal Hypogranular Platelets Clumped Platelets Giant Platelets 1+ Platelet Satelliting RBC Morphology Polychromasia Hypochromasia Poikilocytosis Basophilic Stippling Anisocytosis Microcytosis Macrocytosis Spherocytes Pappenheimer Bodies Sickle Cells Target Cells Tear Drop Cells Ovalocytes Stomatocytes [place] Bodies Echinocytes 1+ Acanthocytes (Spur) Rouleaux RBC Agglutinates Schistocytes RBC Morph Comment Sezary Cell Sodium Potassium 4.5 D Chloride Carbon Dioxide Anion Gap BUN Creatinine Est Cr Clr Drug Dosing Est GFR ( Amer) Est GFR (Non-Af Amer) BUN/Creatinine Ratio Glucose POC Glucose 92 Calcium Phosphorus Magnesium 2.2 Total Bilirubin AST 92 H ALT Alkaline Phosphatase Total Protein Albumin Globulin Albumin/Globulin Ratio Triglycerides Cholesterol LDL Cholesterol, Calc VLDL Cholesterol, Calc HDL Cholesterol Cholesterol/HDL Ratio Stl C. diff Tox B Gene Medications Administered Current Inpatient Medications Albuterol (Ventolin Hfa) 2 puffs INH [id number] [facility] Stop: 01/20/20 18:59 Last Admin: 12/22/19 07:25 Dose: 2 puffs Documented by: Atorvastatin Calcium (Lipitor) 80 mg PO HS [facility] Stop: 01/17/20 19:59 Last Admin: 12/19/19 20:40 Dose: 80 mg Documented by: Clopidogrel Bisulfate (Plavix) 75 mg PO QAM [facility] Stop: 01/17/20 20:09 Last Admin: 12/22/19 08:35 Dose: 75 mg Documented by: Dextrose (Dextrose 50%) 25 - 50 ml IV UD PRN; Protocol PRN Reason: Hypoglycemia Protocol Stop: 01/17/20 19:49 Enoxaparin Sodium (Lovenox) 30 mg SQ [facility] Stop: 01/19/20 20:59 Last Admin: 12/21/19 20:39 Dose: 30 mg Documented by: Glucagon (Glucagen) 1 mg SQ UD PRN; Protocol PRN Reason: Hypoglycemia Protocol Stop: 01/17/20 19:49 Glucose (Dex4 Glucose) 4 - 8 tabs PO UD PRN; Protocol PRN Reason: Hypoglycemia Protocol Stop: 01/17/20 19:49 Glucose (Glucose 40%) 15 - 30 gm PO UD PRN; Protocol PRN Reason: Hypoglycemia Protocol Stop: 01/17/20 19:49 Insulin Aspart (Novolog Flexpen) 0 units SC ACHS [facility] Stop: 01/19/20 07:29 Last Admin: 12/22/19 09:20 Dose: Not Given Documented by: Insulin Glargine (Lantus Solostar Pen) 0 units SC BID [facility]; Protocol Stop: 01/19/20 20:59 Last Admin: 12/22/19 09:19 Dose: Not Given Documented by: Levothyroxine Sodium (Synthroid) 50 mcg PO QDB [facility] Stop: 01/18/20 07:29 Last Admin: 12/22/19 08:35 Dose: 50 mcg Documented by: Lisinopril (Zestril) 10 mg PO QAM [facility] Stop: 01/18/20 08:59 Last Admin: 12/22/19 08:35 Dose: 10 mg Documented by: Metoprolol Tartrate (Lopressor) 25 mg PO BID [facility] Stop: 01/20/20 10:44 Last Admin: 12/22/19 08:36 Dose: 25 mg Documented by: Miscellaneous (Carbohydrates For Hypoglycemia) 15 - 30 gm PO UD PRN PRN Reason: Hypoglycemia Protocol Stop: 01/17/20 19:49 Miscellaneous Information (Consult Glycemic Management Pharmacy) 1 ea N/A UD PRN; Protocol PRN Reason: Consult Stop: 01/17/20 20:19 Ondansetron HCl (Zofran) 4 mg IV Q6H PRN PRN Reason: Nausea Stop: 01/20/20 04:20 Last Admin: 12/21/19 04:50 Dose: 4 mg Documented by: Phenazopyridine HCl (Pyridium) 100 mg PO TID PRN PRN Reason: bladder pain Stop: 01/17/20 19:49 Tramadol HCl (Ultram) 50 mg PO Q6H PRN PRN Reason: Pain Stop: 01/20/20 10:11 Last Admin: 12/21/19 10:35 Dose: 50 mg Documented by:
--- NOTE | 2019-12-22 12:38 | Pharmacy Report ---
Pharmacy Glycemic Short Note 2 - Date of Service December 22, 2019 - Glycemic Short BSG Results (Last 24 hours): OUTPATIENT ANTIDIABETIC REGIMEN: * Tradjenta 5 mg qAM, metformin 500 mg BID * A1c = 7.9% (12/14/19) ASSESSMENT: 12/21 * BSGs remain well-controlled, slightly low if anything * Patient required 7 units of insulin yesterday, all basal * BSGs ranged 94 - 126 mg/dL * Fasting BSG decreased this morning to 92 mg/dL * Given this and patient not eating much, will hold basal insulin regimen today to prevent hypoglycemia. If PO intake changes significantly, will likely have to add basal insulin back 12/20 * BSGs remain well controlled at this time * Over the last 24 hrs, 21 units of basal insulin have been administered while NPO. Fasting AM BSG 126. * Will continue with current insulin doses at this time as there is no clear indication to change 12/19 * BSGs well controlled over last 24 hrs. AG 6, Bicarb 23 on AM labs. * Transitioned from insulin drip to SQ basal/bolus regimen by overnight [employer]IST. Pt was given 14 units Lantus overnight prior to transition. * Extubated around noon-time today, uncertain PO intake today * Reviewed recent admission data, pt's BSGs fairly well controlled using Novolog CF 30 and CR 10 with no basal insulin, however fasting AM BSGs were > 140 on several occasions, therefore will continue low dose basal insulin at this time with scaled dosing given uncertain PO intake. Will utilize similar Novolog doses this admission as they are in line with "moderate" stress dose based upon weight 12/18 * Anette is a 84 yo T2DM female admitted with acute respiratory failure with hypoxia and hypercapnia * Patient started on broad spectrum empiric antibiotics for sepsis work up. She is s/p intubation and mechanical ventilation on propofol and fentanyl infusions. She is also on IV heparin infusion. * Received a one time dose of solu medrol 40 mg IV 12/17 @ 1736 * IV insulin infusion initiated overnight. Currently infusing at 3.5 units/hr. Continue to titrate per insulin infusion protocol. PLAN FOR INPATIENT GLYCEMIC CONTROL: * HOLD Lantus * Novolog SQ ACHS * Goal range: 110-140mg/dL * Correction factor: 35mg/dL/unit * Carb ratio: 1 unit per 12gm CHO consumed PLAN FOR DISCHARGE: * A1c = 7.9% * Given A1c, would recommend optimizing oral medications. Titrate Metformin to 1000 mg PO BIDM and continue Tradjenta 5 mg PO QPM.
[2019-12-22 12:39] LABS: Hepatitis A Antibody IgM NON-REACTIVE (NON-REACTIVE); Hepatitis B Core Antibody IgM NON-REACTIVE (NON-REACTIVE)
[2019-12-22] MEDS ORDERED: MoRPHine SULFATE 2 MG/ML CARP IV STA (13:31)
[2019-12-22] MEDS ORDERED: NITROGLYCERIN 2% OINTMENT 30GM TUBE EXT ONE ×2 (13:32)
[2019-12-22] MEDS ORDERED: NITROGLYCERIN 2% OINTMENT 30GM TUBE ONE (13:35)
--- NOTE | 2019-12-22 13:46 | Hospitalist Progress Note ---
Date of Service December 22, 2019 Assessment & Plan (1) Acute respiratory failure with hypoxia and hypercapnia: -CTA chest showed no evidence for pulmonary embolus. Mild interstitial change of the mid to lower lung regions bilaterally, Covid 19 PCR negative. Influenza A & B negative, VBG on admission showed pH 7.33 and PCO2 53, Received IV steroid on admission -initially was Intubated for respiratory support after failed Bipap trial, was started on empirical antibiotics of IV Zosyn and IV Vancomyin, extubated on 12/21/2019 and the subsequently transferred from ICU to medical/telemetry garcia -as of 12/22/2019, patient remains has been on room air or nasal cannula oxygen, continue to monitor oxygenation and obtain Chest X ray concern for non-ST elevation myocardial infarction of unclear duration -troponin on admission 3.9 then peaked to 5, now trending down -initially was on IV heparin -Aspirin on allergies list, Plavix was started. Continue Lipitor, lisinopril and beta-lashanda -echocardiogram showed LV with severe septal hypokinesis. Severe anterior wall hypokinesis with EF 40-45%. and that recent cardiology assessment that the hypokinesis may have been much longer ago prior to this hospitalization -12/22/2019: Spoke with patient through [place] speaking analysis manager services. Patient is very soft spoken and it was difficult for analysis manager to hear her. Patient reports she has chest pain and when asked of duration she says it is there "all the time." patient appears very weak in appearance. Have asked nurse to obtain EKG, give IV morphine 2mg x 1 and nitropaste 2 inch. Will obtain troponin. Also notified cardiology Dr. Kurtz of these plans Transaminitis -may be related to cardiac hypokinesis, versus acute illness -monitor concern for sepsis on this admission but gastrointestinal source rule ruled out, history of cecitis, ruled out Urinary tract infection -patient had history of recent hospitalization for cecitis with outpatient antibiotics of ciprofloxacin and flagyl. Lactate 3.7 on admission with normal WBC and procalcitonin -CT abd/pelvis on admission showed slightly progressive bibasilar interstitial infiltrative change. Bladder calculi unchanged. Pericecal infiltrative process u nchanged from the prior exam. Right renal parapelvic cyst considered stable. -Blood cx and urine cx no growth -Urine cx grew Ecoli on 12/12 that was pansensitive, initially on Zosyn but Zosyn stopped on 12/21/2019 as no urinary tract infection in the urine culture -lactic acid normalized with IV fluids and not on current GI antibiotics -Gastroenterology following the patient and discussing whether any benefit for colonoscopy Diarrhea associated with Nausea and Vomiting Hypokalemia Hypophosphatemia -12/21/2019 stool cultures negative and C.difficile negative -electrolytes normalized on this admission after electrolyte supplements to replace electrolytes loss to diarrhea Ureteropelvic junction obstruction -Continue Jordan catheter as per urology on previous admission Follow up with urology for jordan catheter removal Hypothyroidism -Continue levothyroxine Diabetes Mellitus without [place] [facility] current use of insulin -Hold metformin -Pharmacy on board for glycemic management -Continue monitor blood sugar for insulin as needed DVT Px: Subq heparin Code Status Full Code Admission and Anticipated Discharge Date Admission Date: December 18, 2019 Subjective Spoke with patient through [place] speaking analysis manager services. Patient is very soft spoken and it was difficult for analysis manager to hear her. Patient reports she has chest pain and when asked of duration she says it is there "all the time." patient appears very weak in appearance. Have asked nurse to obtain EKG, give IV morphine 2mg x 1 and nitropaste 2 inch. Will obtain troponin. Also notified cardiology Dr. Kurtz of these plans Review of Systems Review of Systems: All systems reviewed & are unremarkable except as noted in Subjective Physical Exam Constitutional: + ill appearing Eyes: PERRL, conjunctivae normal, anicteric sclerae EOM intact bilaterally ENMT: external ear and nose normal, oropharynx normal Neck: normal visual inspection Respiratory: normal respiratory effort, lungs clear to auscultation Cardiovascular: Rate/Rhythm: regular rate and regular rhythm Gastrointestinal (Abdomen): normal bowel sounds, soft, nontender, no hepatosplenomegaly Musculoskeletal: Head/Neck/Chest: normocephalic and head atraumatic Neurologic: PERRL, EOMI, accommodation nl, no face palsy, no dysarthria CN's II-XI intact bilaterally Psychiatric: Orientation: alert and cooperative Results & Data Results & Data ([facility]) Vital Signs (Past 12 Hours) Vital Signs Temp Pulse Pulse Pulse Resp BP BP 12/22/19 13:34 89 18 12/22/19 12:20 35.9 C L 94 H 18 124/85 12/22/19 07:36 36.5 C 103 H 18 128/77 12/22/19 07:31 104 H 12/22/19 07:25 77 18 12/22/19 03:03 36.8 C 89 18 129/85 Pulse Ox 12/22/19 13:34 82 L 12/22/19 12:20 94 12/22/19 07:36 90 12/22/19 07:31 12/22/19 07:25 91 12/22/19 03:03 91
--- NOTE | 2019-12-22 14:31 | XRay Report ---
XR chest 1V portable HISTORY: Shortness of breath. follow lung infiltrates COMPARISON: Chest 12/20/2019. FINDINGS: Rotated study. The endotracheal tube is been removed. No pneumothorax. There are low lung v olumes. Cardiomegaly, small bilateral pleural effusions, and perihilar interstitial/vascular thickeni ng has progressed. This is consistent with progressive pulmonary edema. Left basilar densities remain unchanged. IMPRESSION: Interval progression of the pulmonary edema and small bilateral pleural effusions. ACT 112: Negative or not required by law. Electronically signed by: Juan Jose Kenny M.D. 12/22/2019 2:29 PM
--- NOTE | 2019-12-22 14:55 | Electrocardiogram Report ---
Test Reason : Blood Pressure : / mmHG Vent. Rate : 098 BPM Atrial Rate : 098 BPM P-R Int : 186 ms QRS Dur : 112 ms QT Int : 392 ms P-R-T Axes : 041 100 257 degrees QTc Int : 500 ms Normal sinus rhythm Left atrial enlargement Rightward axis Low voltage QRS Incomplete right bundle branch block Septal infarct (cited on or before 21-DEC-2019) T wave abnormality, consider anterolateral ischemia Abnormal ECG When compared with ECG of 21-DEC-2019 12:26, QT has lengthened Confirmed by Boubacar Brunson ([id number]) on 12/22/2019 2:55:08 PM Referred By: REFERRED SELF Confirmed By:Boubacar Brunson
[2019-12-22] MEDS ORDERED: FUROSEMIDE 40 MG in SYRINGE 0 ML IV ONE (15:00)
[2019-12-22] MEDS: ENOXAPARIN INJ 30 MG/0.3 ML SYR SQ SCH (20:47)
[2019-12-22] MEDS ORDERED: SODIUM CHLORIDE 0.9% 500 ML IV SCH (22:00)
[2019-12-23] MEDS: ALBUTEROL HFA 8 GM INHALER INH SCH ×2 (06:51→13:28)
[2019-12-23 07:08] LABS: Basophils # (auto) 0.02 K/uL (0-0.2); Basophils % (auto) 0.2 %; Eosinophils # (auto) 0.02 K/uL (0-0.5); Eosinophils % (auto) 0.2 %; Hematocrit (blood only) 42.4 % (37-47); Hemoglobin 13.2 g/dL (12.0-16.0); Immature Granulocytes # (auto) 0.08 K/uL (0.00-0.02); Immature Granulocytes % (auto) 0.8 %; Lymphocytes # (auto) 1.36 K/uL (1.2-3.4); Lymphocytes % (auto) 14.2 %; Mean Corpuscular Hemoglobin 30.6 pg (25-34); Mean Corpuscular Hgb Conc 31.1 g/dL (32-36); Mean Corpuscular Volume 98.1 fL (80-100); Mean Platelet Volume 12.5 fL (7.4-10.4); Monocytes % (auto) 12.6 %; Neutrophils # (auto) 6.88 K/uL (1.4-6.5); Platelet Count 198 K/uL (130-400); RDW Coefficient of Variation 13.6 % (11.5-14.5); RDW Standard Deviation 48.1 fL (36.4-46.3); Red Blood Count 4.32 M/uL (4.2-5.4); White Blood Count 9.56 K/uL (4.8-10.8)
[2019-12-23 07:43] LABS: BUN Creatinine Ratio 20.3 (10-20); Calcium 8.4 mg/dl (8.5-10.1); Creatinine Clr Calc Pharmacy 31.5 ml/min; Est GFR (African American) 50.1; Est GFR (Non-African American) 43.2; Magnesium 2.1 mg/dl (1.8-2.4); Phosphorus 3.7 mg/dl (2.5-4.9); Potassium 4.3 mmol/L (3.5-5.1)
[2019-12-23] MEDS ORDERED: FUROSEMIDE 40 MG in SYRINGE 0 ML IV SCH (09:00)
[2019-12-23] MEDS ORDERED: INSULIN GLARGINE SOLOSTAR 100 UNITS/ML 3 ML PEN SC ONE (09:00)
--- NOTE | 2019-12-23 09:50 | Cardiology Progress Note ---
Date of Service December 23, 2019 Assessment & Plan (1) Acute respiratory failure with hypoxia and hypercapnia: (2) Sepsis: (3) Pneumonia: (4) Acute non-ST elevation myocardial infarction (NSTEMI): (5) Elevated lactic acid level: (6) Abnormal CT of the abdomen: (7) Acute urinary retention: (8) Bladder stones: This patient expressed some chest pain to the hospitalist late yesterday afternoon. She was given 40 of IV Lasix and then later on the night hospitalist gave 500 cc IV fluid, probably for hypotension and her WILFRIDO inhibitor was held. Her chest x-ray yesterday was so grossly underpenetrated that I do not believe you could tell whether or not she was in pulmonary edema. On my exam today she does have an S3 gallop and some minimal neck veins of distention. She needs guideline directed medication including her WILFRIDO inhibitor which I restarted today. I do not believe that she is in florid pulmonary edema. She is going to have chronic heart failure and will require daily diuretic but I feel that should be a low dose of a loop diuretic such as 20 mg of Lasix orally daily. She will need extensive rehab after discharge. Subjective The patient is resting comfortably. According to physical therapy she is struggling and will need extensive rehab. She expresses no discomfort to me. No chest pain or shortness of breath. Review of Systems Review of Systems: All systems reviewed & are unremarkable except as noted in HPI & below and Unobtainable due to cognitive status Physical Exam Physical Exam: General: no acute distress and stated age Head: normocephalic, no masses, lesions, tenderness or abnormalities Eyes: conjunctiva are pink and non-injected, sclera clear Neck: supple, no adenopathy, no bruits, normal jugular venous pulse, no hepatojugular reflux Chest: normal shape and normal respiratory effort Lungs: clear to auscultation and percussion Cardiac Exam: - regular rate & rhythm, no murmurs gallops or rubs - normal S1, normal S2, S3 gallop Pulses: 2(+) throughout Abdomen: abdomen soft, non-tender, no abnormal masses and no hepatosplenomegaly Musculoskeletal: no gait disturbance, no joint inflammation, no deforming arthritis Extremities: no edema and no cyanosis Neuro: grossly normal exam Results & Data Vital Signs (Past 12 Hours) Vital Signs Temp Pulse Pulse Resp BP Pulse Ox 12/23/19 07:58 36.6 C 100 H 18 120/78 94 12/23/19 07:25 95 H 12/23/19 06:53 101 H 18 93 12/23/19 04:22 36.8 C 101 H 20 123/81 91 12/23/19 00:00 83 12/22/19 23:29 115/80 92 12/22/19 21:49 36.9 C 82 18 80/53 L 90 Laboratory Results Laboratory Results - last 24 hr 12/21/19 12/22/19 12/22/19 05:00 09:02 09:02 WBC RBC Hgb Hct MCV MCH MCHC RDW Std Deviation RDW Coeff of Esa Plt Count 189 MPV 13.0 H Immature Gran % (Auto) 0.9 Neut % (Auto) 76.0 Lymph % (Auto) 12.0 [place] % (Auto) 10.8 Eos % (Auto) 0.1 Baso % (Auto) 0.2 Neut # (Auto) 6.67 H Lymph # (Auto) 1.05 L [place] # (Auto) 0.95 H Eos # (Auto) 0.01 Baso # (Auto) 0.02 Immature Gran # (Auto) 0.08 H Platelet Estimate Normal Giant Platelets 1+ Echinocytes 1+ Sodium Potassium 4.5 D Chloride Carbon Dioxide Anion Gap BUN Creatinine Est Cr Clr Drug Dosing Est GFR ( Amer) Est GFR (Non-Af Amer) BUN/Creatinine Ratio Glucose POC Glucose Calcium Phosphorus Magnesium 2.2 AST 92 H Troponin I Stl C. diff Tox B Gene Hepatitis A IgM Ab NON-REACTIVE Hep B Core IgM Ab NON-REACTIVE 12/22/19 12/22/19 12/22/19 11:49 13:56 16:51 WBC RBC Hgb Hct MCV MCH MCHC RDW Std Deviation RDW Coeff of Esa Plt Count MPV Immature Gran % (Auto) Neut % (Auto) Lymph % (Auto) [place] % (Auto) Eos % (Auto) Baso % (Auto) Neut # (Auto) Lymph # (Auto) [place] # (Auto) Eos # (Auto) Baso # (Auto) Immature Gran # (Auto) Platelet Estimate Giant Platelets Echinocytes Sodium Potassium Chloride Carbon Dioxide Anion Gap BUN Creatinine Est Cr Clr Drug Dosing Est GFR ( Amer) Est GFR (Non-Af Amer) BUN/Creatinine Ratio Glucose POC Glucose 122 H 208 H Calcium Phosphorus Magnesium AST Troponin I 0.637 H* Stl C. diff Tox B Gene Hepatitis A IgM Ab Hep B Core IgM Ab 12/22/19 12/22/19 12/22/19 18:25 20:05 20:09 WBC RBC Hgb Hct MCV MCH MCHC RDW Std Deviation RDW Coeff of Esa Plt Count MPV Immature Gran % (Auto) Neut % (Auto) Lymph % (Auto) [place] % (Auto) Eos % (Auto) Baso % (Auto) Neut # (Auto) Lymph # (Auto) [place] # (Auto) Eos # (Auto) Baso # (Auto) Immature Gran # (Auto) Platelet Estimate Giant Platelets Echinocytes Sodium Potassium Chloride Carbon Dioxide Anion Gap BUN Creatinine Est Cr Clr Drug Dosing Est GFR ( Amer) Est GFR (Non-Af Amer) BUN/Creatinine Ratio Glucose POC Glucose 259 H Calcium Phosphorus Magnesium AST Troponin I 0.569 H* Stl C. diff Tox B Gene Negative Cdiff Gene Hepatitis A IgM Ab Hep B Core IgM Ab 12/23/19 12/23/19 12/23/19 06:39 06:39 07:41 WBC 9.56 RBC 4.32 Hgb 13.2 Hct 42.4 MCV 98.1 MCH 30.6 MCHC 31.1 L RDW Std Deviation 48.1 H RDW Coeff of Esa 13.6 Plt Count 198 MPV 12.5 H Immature Gran % (Auto) 0.8 Neut % (Auto) 72.0 Lymph % (Auto) 14.2 [place] % (Auto) 12.6 Eos % (Auto) 0.2 Baso % (Auto) 0.2 Neut # (Auto) 6.88 H Lymph # (Auto) 1.36 [place] # (Auto) 1.20 H Eos # (Auto) 0.02 Baso # (Auto) 0.02 Immature Gran # (Auto) 0.08 H Platelet Estimate Giant Platelets Echinocytes Sodium 144 Potassium 4.3 Chloride 107 Carbon Dioxide 29 Anion Gap 8.0 BUN 24 H D Creatinine 1.16 D Est Cr Clr Drug Dosing 31.5 Est GFR ( Amer) 50.1 Est GFR (Non-Af Amer) 43.2 BUN/Creatinine Ratio 20.3 H Glucose 192 H POC Glucose 191 H Calcium 8.4 L Phosphorus 3.7 Magnesium 2.1 AST Troponin I Stl C. diff Tox B Gene Hepatitis A IgM Ab Hep B Core IgM Ab Medications Administered Current Inpatient Medications Albuterol (Ventolin Hfa) 2 puffs INH [id number] [facility] Stop: 01/20/20 18:59 Last Admin: 12/23/19 06:51 Dose: 2 puffs Documented by: Atorvastatin Calcium (Lipitor) 80 mg PO HS [facility] Stop: 01/17/20 19:59 Last Admin: 12/19/19 20:40 Dose: 80 mg Documented by: Clopidogrel Bisulfate (Plavix) 75 mg PO QAM [facility] Stop: 01/17/20 20:09 Last Admin: 12/22/19 08:35 Dose: 75 mg Documented by: Dextrose (Dextrose 50%) 25 - 50 ml IV UD PRN; Protocol PRN Reason: Hypoglycemia Protocol Stop: 01/17/20 19:49 Enoxaparin Sodium (Lovenox) 30 mg SQ HS [facility] Stop: 01/19/20 20:59 Last Admin: 12/22/19 20:47 Dose: 30 mg Documented by: [facility]: 01/23/20 08:59 Glucagon (Glucagen) 1 mg SQ UD PRN; Protocol PRN Reason: Hypoglycemia Protocol Stop: 01/17/20 19:49 Glucose (Dex4 Glucose) 4 - 8 tabs PO UD PRN; Protocol PRN Reason: Hypoglycemia Protocol Stop: 01/17/20 19:49 Glucose (Glucose 40%) 15 - 30 gm PO UD PRN; Protocol PRN Reason: Hypoglycemia Protocol Stop: 01/17/20 19:49 Insulin Aspart (Novolog Flexpen) 0 units SC ACHS [facility] Stop: 01/19/20 07:29 Last Admin: 12/22/19 20:48 Dose: 4 units Documented by: Levothyroxine Sodium (Synthroid) 50 mcg PO QDB [facility] Stop: 01/18/20 07:29 Last Admin: 12/22/19 08:35 Dose: 50 mcg Documented by: Lisinopril (Zestril) 10 mg PO QAM [facility] Stop: 01/18/20 08:59 Last Admin: 12/22/19 08:35 Dose: 10 mg Documented by: Metoprolol Tartrate (Lopressor) 25 mg PO BID [facility] Stop: 01/20/20 10:44 Last Admin: 12/22/19 20:47 Dose: 25 mg Documented by: Miscellaneous (Carbohydrates For Hypoglycemia) 15 - 30 gm PO UD PRN PRN Reason: Hypoglycemia Protocol Stop: 01/17/20 19:49 Miscellaneous Information (Consult Glycemic Management Pharmacy) 1 ea N/A UD PRN; Protocol PRN Reason: Consult Stop: 01/17/20 20:19 Ondansetron HCl (Zofran) 4 mg IV Q6H PRN PRN Reason: Nausea Stop: 01/20/20 04:20 Last Admin: 12/21/19 04:50 Dose: 4 mg Documented by: Phenazopyridine HCl (Pyridium) 100 mg PO TID PRN PRN Reason: bladder pain Stop: 01/17/20 19:49 Tramadol HCl (Ultram) 50 mg PO Q6H PRN PRN Reason: Pain Stop: 01/20/20 10:11 Last Admin: 12/21/19 10:35 Dose: 50 mg Documented by:
[2019-12-23] MEDS: INSULIN ASPART 100 UNITS/ML 3 ML PEN SC SCH ×4 (10:07→21:37)
[2019-12-23] MEDS: LEVOTHYROXINE SODIUM 50 MCG TABLET PO SCH (10:08)
[2019-12-23] MEDS: METOPROLOL TARTRATE 25 MG TAB PO SCH ×2 (10:08→21:39)
[2019-12-23] MEDS: CLOPIDOGREL BISULFATE 75 MG TAB PO SCH (10:08)
--- NOTE | 2019-12-23 10:25 | Pharmacy Report ---
Pharmacy Glycemic Short Note 2 - Date of Service December 23, 2019 - Glycemic Short BSG Results (Last 24 hours): OUTPATIENT ANTIDIABETIC REGIMEN: * Tradjenta 5 mg qAM, metformin 500 mg BID * A1c = 7.9% (12/14/19) ASSESSMENT: 12/22 * Patient required 9 units of insulin yesterday, all bolus * BSGs ranged 92 - 259 mg/dL * Fasting BSG this AM significantly elevated at 191 mg/dL. This, along with post-prandial BSG elevations throughout the day yesterday, were secondary to the patient being basal deficient from me holding her Lantus. * Will give the patient a one time dose of Lantus 10 units this AM and then resume BID Lantus dosing per scale listed below. * Tightened CF/CR slightly today to help correct hyperglycemia while patient is basal deficient. Lunchtime BSG was 169 mg/dL, improving 12/21 * Anette is a 84 yo T2DM female admitted with acute respiratory failure with hypoxia and hypercapnia * BSGs remain well-controlled, slightly low if anything * Patient required 7 units of insulin yesterday, all basal * BSGs ranged 94 - 126 mg/dL * Fasting BSG decreased this morning to 92 mg/dL * Given this and patient not eating much, will hold basal insulin regimen today to prevent hypoglycemia. If PO intake changes significantly, will likely have to add basal insulin back PLAN FOR INPATIENT GLYCEMIC CONTROL: * Lantus 10 units SQ x 1 this AM * Lantus per scale SQ BID: * 0 units for BSG below 140 mg/dL * 5 units for BSG 140 - 180 mg/dL * 10 units for BSG above 180 mg/dL * Novolog SQ ACHS - tightened * Goal range: 110-140mg/dL * Correction factor: 30 mg/dL/unit * Carb ratio: 1 unit per 10 gm CHO consumed PLAN FOR DISCHARGE: * A1c = 7.9% * Given A1c, would recommend optimizing oral medications. Titrate Metformin to 1000 mg PO BIDM and continue Tradjenta 5 mg PO QPM.
[2019-12-23] MEDS: TRAMADOL HCL 50 MG TABLET PO PRN (17:06)
[2019-12-23] MEDS: COUGH DROP (SUGAR FREE) LOZ 24 LOZ/1 BOX BUCCAL SCH (17:37)
--- NOTE | 2019-12-23 17:56 | Hospitalist Progress Note ---
Date of Service December 23, 2019 Assessment & Plan (1) Acute respiratory failure with hypoxia and hypercapnia: -CTA chest showed no evidence for pulmonary embolus. Mild interstitial change of the mid to lower lung regions bilaterally, Covid 19 PCR negative. Influenza A & B negative, VBG on admission showed pH 7.33 and PCO2 53, Received IV steroid on admission -initially was Intubated for respiratory support after failed Bipap trial, was started on empirical antibiotics of IV Zosyn and IV Vancomyin, extubated on 12/21/2019 and the subsequently transferred from ICU to medical/telemetry garcia -as of 12/22/2019, patient remains has been on room air or nasal cannula oxygen. seen and examined on nasal cannula oxygen on 12/23/2019 concern for non-ST elevation myocardial infarction of unclear duration -troponin on admission 3.9 then peaked to 5 and trending down -initially was on IV heparin -Aspirin on allergies list, Plavix was started. Continue Lipitor, lisinopril and beta-lashanda -echocardiogram showed LV with severe septal hypokinesis. Severe anterior wall hypokinesis with EF 40-45%. and that recent cardiology assessment that the hypokinesis may have been much longer ago prior to this hospitalization -12/22/2019: Spoke with patient through [place]ican speaking reporting coordinator services. Patient is very soft spoken and it was difficult for reporting coordinator to hear her. Patient reports she has chest pain and when asked of duration she says it is there "all the time." patient appears very weak in appearance. Have asked nurse to obtain EKG, give IV morphine 2mg x 1 and nitropaste 2 inch. Will obtain troponin. Also notified cardiology Dr. Kurtz of these plans. the troponins were remained less than previous as 0.637 and then 0.539. -12/23/2019: cardiology service transitioning patient from IV to oral Lasix and also continuing with lisinopril. seen and examined on nasal cannula oxygen on 12/23/2019. [place]ican speaking reporting coordinator at bedside. patient not in distress but complain of some generalize pain, also throat discomforts, and chest that is worse with pressing the area. give chloraseptic throat spray and menthol for sore throat likely because of initial intubation at beginning of this hospital stay. Transaminitis -may be related to cardiac hypokinesis, versus acute illness -monitor concern for sepsis on this admission but gastrointestinal source rule ruled out, history of cecitis, ruled out Urinary tract infection -patient had history of recent hospitalization for cecitis with outpatient antibiotics of ciprofloxacin and flagyl. Lactate 3.7 on admission with normal WBC and procalcitonin -CT abd/pelvis on admission showed slightly progressive bibasilar interstitial infiltrative change. Bladder calculi unchanged. Pericecal infiltrative process unchanged from the prior exam. Right renal parapelvic cyst considered stable. -Blood cx and urine cx no growth -Urine cx grew Ecoli on 12/12 that was pansensitive, initially on Zosyn but Zosyn stopped on 12/21/2019 as no urinary tract infection in the urine culture -lactic acid normalized with IV fluids and not on current GI antibiotics -Gastroenterology following the patient and discussing whether any benefit for colonoscopy Diarrhea associated with Nausea and Vomiting Hypokalemia Hypophosphatemia -12/21/2019 stool cultures negative and C.difficile negative -electrolytes normalized on this admission after electrolyte supplements to replace electrolytes loss to diarrhea Ureteropelvic junction obstruction -Continue Jordan catheter as per urology on previous admission Follow up with urology for jordan catheter removal Hypothyroidism -Continue levothyroxine 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 [place]ican speaking reporting coordinator at bedside. patient not in distress but complain of some generalize pain, also throat discomforts, and chest that is worse with pressing the area. denies other symptoms Review of Systems Review of Systems: All systems reviewed & are unremarkable except as noted in Subjective Physical Exam Constitutional: cooperative Eyes: PERRL, conjunctivae normal, anicteric sclerae EOM intact bilaterally ENMT: external ear and nose normal, oropharynx normal Neck: normal visual inspection Respiratory: normal respiratory effort, lungs clear to auscultation Cardiovascular: Rate/Rhythm: regular rate and regular rhythm Gastrointestinal (Abdomen): normal bowel sounds, soft, nontender, no hepatosplenomegaly Musculoskeletal: Head/Neck/Chest: normocephalic and head atraumatic Neurologic: PERRL, EOMI, accommodation nl, no face palsy, no dysarthria CN's II-XI intact bilaterally Psychiatric: Orientation: alert and cooperative Results & Data Results & Data ([facility]) Vital Signs (Past 12 Hours) Vital Signs Temp Pulse Pulse Resp BP Pulse Ox 12/23/19 15:46 36.5 C 93 H 18 110/72 95 12/23/19 15:00 79 12/23/19 13:29 87 18 96 12/23/19 12:01 36.7 C 102 H 18 130/83 94 12/23/19 07:58 36.6 C 100 H 18 120/78 94 12/23/19 07:25 95 H 12/23/19 06:53 101 H 18 93
[2019-12-23] MEDS: CHLORASEPTIC 1.4% SOLN 180 ML BTL MT SCH (18:36)
[2019-12-23] MEDS: INSULIN GLARGINE SOLOSTAR 100 UNITS/ML 3 ML PEN SC SCH (21:37)
[2019-12-23] MEDS: ENOXAPARIN INJ 30 MG/0.3 ML SYR SQ SCH (21:38)
[2019-12-24] MEDS: LEVOTHYROXINE SODIUM 50 MCG TABLET PO SCH (09:45)
[2019-12-24] MEDS: INSULIN ASPART 100 UNITS/ML 3 ML PEN SC SCH ×4 (09:45→21:48)
[2019-12-24] MEDS: CHLORASEPTIC 1.4% SOLN 180 ML BTL MT SCH ×2 (09:46→21:25)
[2019-12-24] MEDS: METOPROLOL TARTRATE 25 MG TAB PO SCH ×2 (09:46→21:23)
[2019-12-24] MEDS: INSULIN GLARGINE SOLOSTAR 100 UNITS/ML 3 ML PEN SC SCH ×2 (09:46→21:47)
[2019-12-24] MEDS: FUROSEMIDE 20 MG TAB PO SCH (09:46)
[2019-12-24] MEDS: CLOPIDOGREL BISULFATE 75 MG TAB PO SCH (09:47)
[2019-12-24] MEDS: lisinopriL 10 MG TAB PO SCH (09:47)
[2019-12-24] MEDS: COUGH DROP (SUGAR FREE) LOZ 24 LOZ/1 BOX BUCCAL SCH ×2 (09:51→21:24)
--- NOTE | 2019-12-24 10:24 | Pharmacy Report ---
Pharmacy Glycemic Short Note 2 - Date of Service December 24, 2019 - Glycemic Short BSG Results (Last 24 hours): 12/23/19 12/23/19 12/23/19 11:48 16:29 20:32 POC Glucose 169 H 213 H 197 H 12/24/19 07:48 POC Glucose 148 H OUTPATIENT ANTIDIABETIC REGIMEN: * Tradjenta 5 mg qAM, metformin 500 mg BID * A1c = 7.9% (12/14/19) ASSESSMENT: 12/23 * Patient require 36 units of insulin yesterday: * 20 units basal + 16 units bolus * BSGs ranged 169 - 213 mg/dL, elevated * Believe patient was basal deficient from receiving no Lantus on 12/21. Fasting BSG this AM was 148 mg/dL. Will decrease basal scale today as patient is no longer basal deficient and received above required dose yesterday. * No changes to novolog parameters. 12/22 * Patient required 9 units of insulin yesterday, all bolus * BSGs ranged 92 - 259 mg/dL * Fasting BSG this AM significantly elevated at 191 mg/dL. This, along with post-prandial BSG elevations throughout the day yesterday, were secondary to the patient being basal deficient from me holding her Lantus. * Will give the patient a one time dose of Lantus 10 units this AM and then resume BID Lantus dosing per scale listed below. * Tightened CF/CR slightly today to help correct hyperglycemia while patient is basal deficient. Lunchtime BSG was 169 mg/dL, improving 12/21 * Anette is a 84 yo T2DM female admitted with acute respiratory failure with hypoxia and hypercapnia * BSGs remain well-controlled, slightly low if anything * Patient required 7 units of insulin yesterday, all basal * BSGs ranged 94 - 126 mg/dL * Fasting BSG decreased this morning to 92 mg/dL * Given this and patient not eating much, will hold basal insulin regimen today to prevent hypoglycemia. If PO intake changes significantly, will likely have to add basal insulin back PLAN FOR INPATIENT GLYCEMIC CONTROL: * Lantus per scale SQ BID: * 0 units for BSG below 140 mg/dL * 5 units for BSG 140 mg/dL or above * Novolog SQ ACHS - tightened * Goal range: 110-140mg/dL * Correction factor: 30 mg/dL/unit * Carb ratio: 1 unit per 10 gm CHO consumed PLAN FOR DISCHARGE: * A1c = 7.9% * Given A1c, would recommend optimizing oral medications. Titrate Metformin to 1000 mg PO BIDM and continue Tradjenta 5 mg PO QPM.
[2019-12-24 10:44] LABS: Albumin Globulin Ratio 0.6 (0.9-2); Albumin Level 2.3 gm/dl (3.4-5.0); Bilirubin,Total 0.6 mg/dl (0.2-1); Calcium 8.6 mg/dl (8.5-10.1); Creatinine Clr Calc Pharmacy 43.6 ml/min; Est GFR (Non-African American) 63.8; Globulin 3.8 gm/dl (2.5-4.0); Potassium 3.7 mmol/L (3.5-5.1); Total Protein 6.1 gm/dl (6.4-8.2)
[2019-12-24 10:49] LABS: Partial Thromboplastin Ratio 0.8; Partial Thromboplastin Time 23.4 Seconds (21.0-31.0); Prothrombin Time 10.8 Seconds (9.0-12.0)
--- NOTE | 2019-12-24 12:21 | Hospitalist Progress Note ---
Date of Service December 24, 2019 Assessment & Plan (1) Acute respiratory failure with hypoxia and hypercapnia: -CTA chest showed no evidence for pulmonary embolus. Mild interstitial change of the mid to lower lung regions bilaterally, Covid 19 PCR negative. Influenza A & B negative, VBG on admission showed pH 7.33 and PCO2 53, Received IV steroid on admission -initially was Intubated for respiratory support after failed Bipap trial, was started on empirical antibiotics of IV Zosyn and IV Vancomyin, extubated on 12/21/2019 and the subsequently transferred from ICU to medical/telemetry garcia -as of 12/22/2019, patient remains has been on room air or nasal cannula oxygen. seen and examined on nasal cannula oxygen on 12/23/2019. plans to titrate down oxygen on 12/24/2019 if possible concern for non-ST elevation myocardial infarction of unclear duration -troponin on admission 3.9 then peaked to 5 and trending down -initially was on IV heparin -Aspirin on allergies list, Plavix was started. Continue Lipitor, lisinopril and beta-lashanda -echocardiogram showed LV with severe septal hypokinesis. Severe anterior wall hypokinesis with EF 40-45%. and that recent cardiology assessment that the hypokinesis may have been much longer ago prior to this hospitalization -12/22/2019: Spoke with patient through [place] speaking reed cleaner services. Patient is very soft spoken and it was difficult for reed cleaner to hear her. Patient reports she has chest pain and when asked of duration she says it is there "all the time." patient appears very weak in appearance. Have asked nurse to obtain EKG, give IV morphine 2mg x 1 and nitropaste 2 inch. Will obtain troponin. Also notified cardiology Dr. Kurtz of these plans. the troponins were remained less than previous as 0.637 and then 0.539. -12/23/2019: cardiology service transitioning patient from IV to oral Lasix and a lso continuing with lisinopril. seen and examined on nasal cannula oxygen on 12/23/2019. [place] speaking reed cleaner at bedside. patient not in distress but complain of some generalize pain, also throat discomforts, and chest that is worse with pressing the area. give chloraseptic throat spray and menthol for sore throat likely because of initial intubation at beginning of this hospital stay. -Friday12/24/2019: patient feeling less pain as per [place] speaking reed cleaner services. Patient reports she was able to sit up in the chair. she is eating food ok and swallowing food ok. plans for going to short term rehab likely not going to be able to be logistically done until after weekend as per case managment Transaminitis -may be related to cardiac hypokinesis, versus acute illness -monitor concern for sepsis on this admission but gastrointestinal source rule ruled out, history of cecitis, ruled out Urinary tract infection -patient had history of recent hospitalization for cecitis with outpatient antibiotics of ciprofloxacin and flagyl. Lactate 3.7 on admission with normal WBC and procalcitonin -CT abd/pelvis on admission showed slightly progressive bibasilar interstitial infiltrative change. Bladder calculi unchanged. Pericecal infiltrative process unchanged from the prior exam. Right renal parapelvic cyst considered stable. -Blood cx and urine cx no growth -Urine cx grew Ecoli on 12/12 that was pansensitive, initially on Zosyn but Zosyn stopped on 12/21/2019 as no urinary tract infection in the urine culture -lactic acid normalized with IV fluids and not on current GI antibiotics -Gastroenterology following and no inpatient colonoscopy plans Diarrhea associated with Nausea and Vomiting Hypokalemia Hypophosphatemia -12/21/2019 stool cultures negative and C.difficile negative -electrolytes normalized on this admission after electrolyte supplements to replace electrolytes loss to diarrhea Ureteropelvic junction obstruction -Continue Jordan catheter as per urology on previous admission Follow up with urology for jordan catheter removal Hypothyroidism -Continue levothyroxine Diabetes Mellitus without penitentiary current use of insulin -Hold metformin -Pharmacy on board for glycemic management -Continue monitor blood sugar for insulin as needed disposition: patient waiting case management to go to short term rehab center for deconditioning DVT Px: Subq heparin Code Status Full Code Admission and Anticipated Discharge Date Admission Date: December 18, 2019 Subjective patient feeling less pain as per [place] speaking reed cleaner services. Patient reports she was able to sit up in the chair. she is eating food ok and swallowing food ok. no fever. no vomiting. no dizziness plans for going to short term rehab likely not going to be able to be logistically done until after weekend as per case managment Physical Exam Constitutional: cooperative Eyes: PERRL, conjunctivae normal, anicteric sclerae EOM intact bilaterally ENMT: external ear and nose normal, oropharynx normal Neck: normal visual inspection Respiratory: normal respiratory effort, lungs clear to auscultation Cardiovascular: Rate/Rhythm: regular rate and regular rhythm Gastrointestinal (Abdomen): normal bowel sounds, soft, nontender, no hepatospl enomegaly Musculoskeletal: Head/Neck/Chest: normocephalic and head atraumatic Neurologic: PERRL, EOMI, accommodation nl, no face palsy, no dysarthria CN's II-XI intact bilaterally Psychiatric: Orientation: alert and cooperative Results & Data Results & Data ([facility]) Vital Signs (Past 12 Hours) Vital Signs Temp Pulse Pulse Resp BP Pulse Ox 12/24/19 08:17 36.6 C 83 18 153/94 H 96 12/24/19 07:22 71 12/24/19 03:00 36.6 C 78 18 122/74 96
--- NOTE | 2019-12-24 16:07 | Cardiology Progress Note ---
Date of Service December 24, 2019 Assessment & Plan (1) Acute respiratory failure with hypoxia and hypercapnia: (2) Sepsis: (3) Pneumonia: (4) Acute non-ST elevation myocardial infarction (NSTEMI): (5) Elevated lactic acid level: (6) Abnormal CT of the abdomen: (7) Acute urinary retention: (8) Bladder stones: The patient looks her best today. She is difficult to evaluate due to the language barrier. At this point I would continue physical therapy and plan for rehab hospital. I am going to increase her lisinopril to 20 mg daily. Subjective She expresses no complaints today. Review of Systems Review of Systems: All systems reviewed & are unremarkable except as noted in HPI & below Nothing additional to add. Physical Exam Physical Exam: General: no acute distress and stated age Head: normocephalic, no masses, lesions, tenderness or abnormalities Eyes: conjunctiva are pink and non-injected, sclera clear Neck: supple, no adenopathy, no bruits, normal jugular venous pulse, no hepatojugular reflux Chest: normal shape and normal respiratory effort Lungs: clear to auscultation and percussion Cardiac Exam: - regular rate & rhythm, no murmurs gallops or rubs - normal S1, normal S2 Pulses: 2(+) throughout Abdomen: abdomen soft, non-tender, no abnormal masses and no hepatosplenomegaly Musculoskeletal: no gait disturbance, no joint inflammation, no deforming arthritis Extremities: no edema and no cyanosis Neuro: grossly normal exam Results & Data Vital Signs (Past 12 Hours) Vital Signs Temp Pulse Pulse Resp BP Pulse Ox 12/24/19 12:34 36.5 C 73 18 137/80 96 12/24/19 08:17 36.6 C 83 18 153/94 H 96 12/24/19 07:22 71 Laboratory Results Laboratory Results - last 24 hr 12/23/19 12/23/19 12/24/19 16:29 20:32 07:48 PT INR APTT PTT Ratio Sodium Potassium Chloride Carbon Dioxide Anion Gap BUN Creatinine Est Cr Clr Drug Dosing Est GFR ( Amer) Est GFR (Non-Af Amer) BUN/Creatinine Ratio Glucose POC Glucose 213 H 197 H 148 H Calcium Total Bilirubin AST ALT Alkaline Phosphatase Total Protein Albumin Globulin Albumin/Globulin Ratio 12/24/19 12/24/19 12/24/19 09:53 09:53 12:05 PT 10.8 INR 1.0 APTT 23.4 PTT Ratio 0.8 Sodium 142 Potassium 3.7 Chloride 105 Carbon Dioxide 31 Anion Gap 6.0 BUN 17 Creatinine 0.84 D Est Cr Clr Drug Dosing 43.6 Est GFR ( Amer) 74.0 Est GFR (Non-Af Amer) 63.8 BUN/Creatinine Ratio 20.0 Glucose 199 H POC Glucose 103 H Calcium 8.6 Total Bilirubin 0.6 AST 47 H ALT 94 H Alkaline Phosphatase 89 Total Protein 6.1 L Albumin 2.3 L Globulin 3.8 Albumin/Globulin Ratio 0.6 L Medications Administered Current Inpatient Medications Atorvastatin Calcium (Lipitor) 80 mg PO HS [facility] Stop: 01/17/20 19:59 Last Admin: 12/19/19 20:40 Dose: 80 mg Documented by: [facility] [place]: 01/17/20 20:09 Last Admin: 12/24/19 09:47 Dose: 75 mg Documented by: Dextrose (Dextrose 50%) 25 - 50 ml IV UD PRN; Protocol PRN Reason: Hypoglycemia Protocol Stop: 01/17/20 19:49 Enoxaparin Sodium (Lovenox) 30 mg SQ [facility] Stop: 01/19/20 20:59 Last Admin: 12/23/19 21:38 Dose: 30 mg Documented by: Furosemide (Lasix) [facility] [place]: 01/23/20 08:59 Last Admin: 12/24/19 09:46 Dose: 20 mg Documented by: Glucagon (Glucagen) 1 mg SQ UD PRN; Protocol PRN Reason: Hypoglycemia Protocol Stop: 01/17/20 19:49 Glucose (Dex4 Glucose) 4 - 8 tabs PO UD PRN; Protocol PRN Reason: Hypoglycemia Protocol Stop: 01/17/20 19:49 Glucose (Glucose 40%) 15 - 30 gm PO UD PRN; Protocol PRN Reason: Hypoglycemia Protocol Stop: 01/17/20 19:49 Insulin Aspart (Novolog Flexpen) 0 units SC ACHS [facility]; Protocol Stop: 01/19/20 07:29 Last Admin: 12/24/19 12:51 Dose: Not Given Documented by: Insulin Glargine (Lantus Solostar Pen) 0 units SC BID [facility]; Protocol Stop: 01/22/20 20:59 Last Admin: 12/24/19 09:46 Dose: 5 units Documented by: Levothyroxine Sodium (Synthroid) 50 mcg PO QDB [facility] Stop: 01/18/20 07:29 Last Admin: 12/24/19 09:45 Dose: 50 mcg Documented by: Lisinopril (Zestril) 20 mg PO QAM [facility] Stop: 01/24/20 08:59 Menthol (Nice) 1 davonte BUCCAL Q12 [facility] Stop: 01/22/20 17:29 Last Admin: 12/24/19 09:51 Dose: Not Given Documented by: Metoprolol Tartrate (Lopressor) 25 mg PO BID [facility] Stop: 01/20/20 10:44 Last Admin: 12/24/19 09:46 Dose: 25 mg Documented by: Miscellaneous (Carbohydrates For Hypoglycemia) 15 - 30 gm PO UD PRN PRN Reason: Hypoglycemia Protocol Stop: 01/17/20 19:49 Miscellaneous Information (Consult Glycemic Management Pharmacy) 1 ea N/A UD PRN; Protocol PRN Reason: Consult Stop: 01/17/20 20:19 Ondansetron HCl (Zofran) 4 mg IV Q6H PRN PRN Reason: Nausea Stop: 01/20/20 04:20 Last Admin: 12/21/19 04:50 Dose: 4 mg Documented by: Phenazopyridine HCl (Pyridium) 100 mg PO TID PRN PRN Reason: bladder pain Stop: 01/17/20 19:49 Phenol (Chloraseptic 1.4% [place]) 1 sprays MT Q12 [facility] Stop: 01/22/20 17:14 Last Admin: 12/24/19 09:46 Dose: 1 sprays Documented by: Tramadol HCl (Ultram) 50 mg PO Q6H PRN PRN Reason: Pain Stop: 01/20/20 10:11 Last Admin: 12/23/19 17:06 Dose: 50 mg Documented by:
[2019-12-24] MEDS: ENOXAPARIN INJ 30 MG/0.3 ML SYR SQ SCH (21:23)
[2019-12-25] MEDS: METOPROLOL TARTRATE 25 MG TAB PO SCH ×3 (08:29→21:33)
[2019-12-25] MEDS: CHLORASEPTIC 1.4% SOLN 180 ML BTL MT SCH ×2 (08:29→21:30)
[2019-12-25] MEDS: INSULIN GLARGINE SOLOSTAR 100 UNITS/ML 3 ML PEN SC SCH ×2 (08:30→21:31)
[2019-12-25] MEDS: INSULIN ASPART 100 UNITS/ML 3 ML PEN SC SCH ×4 (08:30→21:34)
[2019-12-25] MEDS: FUROSEMIDE 20 MG TAB PO SCH (09:12)
[2019-12-25] MEDS: COUGH DROP (SUGAR FREE) LOZ 24 LOZ/1 BOX BUCCAL SCH ×2 (09:12→21:37)
[2019-12-25] MEDS: LEVOTHYROXINE SODIUM 50 MCG TABLET PO SCH (09:12)
[2019-12-25] MEDS: lisinopriL 20 MG TAB PO SCH (09:12)
[2019-12-25] MEDS: CLOPIDOGREL BISULFATE 75 MG TAB PO SCH (09:12)
--- NOTE | 2019-12-25 10:13 | Pharmacy Report ---
Pharmacy Glycemic Short Note 2 - Date of Service December 25, 2019 - Glycemic Short BSG Results (Last 24 hours): 12/24/19 12/24/19 12/24/19 09:53 12:05 17:10 Glucose 199 H POC Glucose 103 H 107 H 12/24/19 12/25/19 20:50 07:29 Glucose POC Glucose 115 H 124 H OUTPATIENT ANTIDIABETIC REGIMEN: * Tradjenta 5 mg qAM, metformin 500 mg BID * A1c = 7.9% (12/14/19) ASSESSMENT: * Total daily insulin dose continues to decrease as stressors improve/lessen * Patient required 13 units of insulin yesterday: * 5 units basal + 8 units bolus * BSGs ranged 103 - 148 mg/dL, elevated * AM fasting BSG in goal range with 5 units of basal insulin on board; however patient received 20 units of basal insulin on 12/22 so Lantus dose may need continually titrated upwards as that wears off. Will continue with scale based Lantus dosing so that increases are made according to rising BSGs * No changes to novolog parameters. PLAN FOR INPATIENT GLYCEMIC CONTROL: * Lantus per scale SQ BID: * 0 units for BSG below 120 mg/dL * 5 units for BSG 120 mg/dL or above * Novolog SQ ACHS - no change * Goal range: 110-140mg/dL * Correction factor: 30 mg/dL/unit * Carb ratio: 1 unit per 10 gm CHO consumed PLAN FOR DISCHARGE: * A1c = 7.9% * Given A1c, would recommend optimizing oral medications. Titrate Metformin to 1000 mg PO BIDM and continue Tradjenta 5 mg PO QPM.
[2019-12-25] MEDS ORDERED: NITROGLYCERIN 2% OINTMENT 30GM TUBE EXT ONE (12:42)
--- NOTE | 2019-12-25 12:45 | Hospitalist Progress Note ---
Date of Service December 25, 2019 Assessment & Plan (1) Acute respiratory failure with hypoxia and hypercapnia: -CTA chest showed no evidence for pulmonary embolus. Mild interstitial change of the mid to lower lung regions bilaterally, Covid 19 PCR negative. Influenza A & B negative, VBG on admission showed pH 7.33 and PCO2 53, Received IV steroid on admission -initially was Intubated for respiratory support after failed Bipap trial, was started on empirical antibiotics of IV Zosyn and IV Vancomyin, extubated on 12/21/2019 and the subsequently transferred from ICU to medical/telemetry garcia -oxygen supplementation has been titrated down during hospital stay -on room air on 12/24/2019, check oxygen levels when ambulating concern for non-ST elevation myocardial infarction of unclear duration -troponin on admission 3.9 then peaked to 5 and trending down -initially was on IV heparin -Aspirin on allergies list, Plavix was started. Continue Lipitor, lisinopril and beta-lashanda -echocardiogram showed LV with severe septal hypokinesis. Severe anterior wall hypokinesis with EF 40-45%. and that recent cardiology assessment that the hypokinesis may have been much longer ago prior to this hospitalization -12/22/2019: Spoke with patient through [place] [employer] speaking glycerin supervisor services. Patient is very soft spoken and it was difficult for glycerin supervisor to hear her. Patient reports she has chest pain and when asked of duration she says it is there "all the time." patient appears very weak in appearance. Have asked nurse to obtain EKG, give IV morphine 2mg x 1 and nitropaste 2 inch. Will obtain troponin. Also notified cardiology Dr. Kurtz of these plans. the troponins were remained less than previous as 0.637 and then 0.539. -12/23/2019: cardiology service transitioning patient from IV to oral Lasix and also continuing with lisinopril. seen and examined on nasal cannula oxygen on 12/23/2019. [place] [employer] speaking glycerin supervisor at bedside. patient not in distress but complain of some generalize pain, also throat discomforts, and chest that is worse with pressing the area. give chloraseptic throat spray and menthol for sore throat likely because of initial intubation at beginning of this hospital stay. -Friday12/24/2019: patient feeling less pain as per [place] [employer] speaking glycerin supervisor services. Patient reports she was able to sit up in the chair. she is eating food ok and swallowing food ok. plans for going to short term rehab likely not going to be able to be logistically done until after weekend as per case management.lisinopril increased to 20 mg daily Friday12/25/2019: patient on room air at bedside. on room air. no acute distress. she has been moving more recently as per nurse. with [place] [employer] speaking glycerin supervisor services, patient reports shortness of breath with exertion when getting up out of the bed. patient also reports that she still gets chest pain on and off. repeat EKG with sinus tachycardia of 110s with no new ischemic changes, add a nitro paste, titrate up metoprolol tartrate 25 mg TID, adding low dose isosorbide dinitrate 5 mg TID for now, monitor for symptoms. ask nurse that when patient ambulates that the oxygen saturation is checked Transaminitis -may be related to cardiac hypokinesis, versus acute illness -elevated AST and ALT on 12/18/2019 with peak levels on 12/19/2019 as AST 383 and ALT 188 -AST/ALT has downtrended to 47 and 94 by 12/23/2019 concern for sepsis on this admission but gastrointestinal source rule ruled out, history of cecitis, ruled out Urinary tract infection -patient had history of recent hospitalization for cecitis with outpatient antibiotics of ciprofloxacin and flagyl. Lactate 3.7 on admission with normal WBC and procalcitonin -CT abd/pelvis on admission showed slightly progressive bibasilar interstitial infiltrative change. Bladder calculi unchanged. Pericecal infiltrative process unchanged from the prior exam. Right renal parapelvic cyst considered stable. -Blood cx and urine cx no growth -Urine cx grew Ecoli on 12/12 that was pansensitive, initially on Zosyn but Zosyn stopped on 12/21/2019 as no urinary tract infection in the urine culture -lactic acid normalized with IV fluids and not on current GI antibiotics -Gastroenterology following and no inpatient colonoscopy plans Diarrhea associated with Nausea and Vomiting Hypokalemia Hypophosphatemia -12/21/2019 stool cultures negative and C.difficile negative -electrolytes normalized on this admission after electrolyte supplements to replace electrolytes loss to diarrhea Ureteropelvic junction obstruction -Continue Jordan catheter as per urology on previous admission Follow up with urology for jordan catheter removal Hypothyroidism -Continue levothyroxine Diabetes Mellitus without [employer] current use of insulin -Hold metformin -Pharmacy on board for glycemic management -Continue monitor blood sugar for insulin as needed disposition: patient waiting case management to go to short term rehab center for deconditioning DVT Px: Subq heparin Code Status Full Code Admission and Anticipated Discharge Date Admission Date: December 18, 2019 Subjective patient on room air at bedside. on room air. no acute distress. she has been moving more recently as per nurse. with [place] [employer] speaking glycerin supervisor services, patient reports shortness of breath with exertion when getting up out of the bed. patient also reports that she still gets chest pain on and off. repeat EKG with sinus tachycardia of 110s with no new ischemic changes, add a nitro paste, titrate up metoprolol tartrate 25 mg TID, adding low dose isosorbide dinitrate 5 mg TID for now, monitor for symptoms. ask nurse that when patient ambulates that the oxygen saturation is checked Review of Systems Review of Systems: All systems reviewed & are unremarkable except as noted in Subjective Physical Exam Constitutional: cooperative Eyes: PERRL, conjunctivae normal, anicteric sclerae EOM intact bilaterally ENMT: external ear and nose normal, oropharynx normal Neck: normal visual inspection Respiratory: normal respiratory effort, lungs clear to auscultation Cardiovascular: Rate/Rhythm: regular rate and regular rhythm Gastrointestinal (Abdomen): normal bowel sounds, soft, nontender, no hepatosplenomegaly Musculoskeletal: Head/Neck/Chest: normocephalic and head atraumatic Neurologic: PERRL, EOMI, accommodation nl, no face palsy, no dysarthria CN's II-XI intact bilaterally Psychiatric: Orientation: alert and cooperative Results & Data Results & Data ([facility]) Vital Signs (Past 12 Hours) Vital Signs Temp Pulse Pulse Resp BP BP Pulse Ox 12/25/19 11:50 36.6 C 98 H 18 149/88 H 90 12/25/19 07:37 36.7 C 94 H 16 124/74 92 12/25/19 07:24 100 H 12/25/19 03:13 36.6 C 88 18 134/83 91
[2019-12-25] MEDS: ISOSORBIDE DINITRATE 5 MG TAB PO SCH ×2 (14:17→17:20)
--- NOTE | 2019-12-25 15:28 | Electrocardiogram Report ---
Test Reason : Blood Pressure : / mmHG Vent. Rate : 110 BPM Atrial Rate : 110 BPM P-R Int : 162 ms QRS Dur : 116 ms QT Int : 352 ms P-R-T Axes : 037 093 -21 degrees QTc Int : 476 ms Sinus tachycardia Possible Left atrial enlargement Right bundle branch block T wave abnormality, consider inferolateral ischemia Abnormal ECG When compared with ECG of 22-DEC-2019 14:11, Inverted T waves have replaced nonspecific T wave abnormality in Inferior leads T wave inversion less evident in Lateral leads Confirmed by Derrell Jarrell ([id number]) on 12/25/2019 3:27:47 PM Referred By: REFERRED SELF Confirmed By:Mahin Jarrell
[2019-12-25] MEDS: ENOXAPARIN INJ 30 MG/0.3 ML SYR SQ SCH (21:34)
[2019-12-26 07:47] LABS: BUN Creatinine Ratio 14.6 (10-20); Calcium 8.7 mg/dl (8.5-10.1); Creatinine Clr Calc Pharmacy 42.5 ml/min; Est GFR (African American) 72.9; Est GFR (Non-African American) 62.9; Magnesium 1.8 mg/dl (1.8-2.4); Phosphorus 3.2 mg/dl (2.5-4.9); Potassium 2.8 mmol/L (3.5-5.1)
[2019-12-26] MEDS: ISOSORBIDE DINITRATE 5 MG TAB PO SCH ×3 (08:02→17:00)
[2019-12-26] MEDS: CLOPIDOGREL BISULFATE 75 MG TAB PO SCH (08:02)
[2019-12-26] MEDS: FUROSEMIDE 20 MG TAB PO SCH (08:03)
[2019-12-26] MEDS: INSULIN GLARGINE SOLOSTAR 100 UNITS/ML 3 ML PEN SC SCH ×2 (08:03→21:27)
[2019-12-26] MEDS: COUGH DROP (SUGAR FREE) LOZ 24 LOZ/1 BOX BUCCAL SCH (08:03)
[2019-12-26] MEDS: LEVOTHYROXINE SODIUM 50 MCG TABLET PO SCH (08:03)
[2019-12-26] MEDS: INSULIN ASPART 100 UNITS/ML 3 ML PEN SC SCH ×4 (08:04→21:29)
[2019-12-26] MEDS: CHLORASEPTIC 1.4% SOLN 180 ML BTL MT SCH (08:04)
[2019-12-26] MEDS: METOPROLOL TARTRATE 25 MG TAB PO SCH (08:07)
[2019-12-26] MEDS: lisinopriL 20 MG TAB PO SCH (08:07)
--- NOTE | 2019-12-26 11:22 | Pharmacy Report ---
Pharmacy Glycemic Short Note 2 - Date of Service December 26, 2019 - Glycemic Short BSG Results (Last 24 hours): 12/25/19 12/25/19 12/25/19 11:33 16:31 20:10 Glucose POC Glucose 158 H 140 H 177 H 12/26/19 12/26/19 06:45 07:37 Glucose 160 H POC Glucose 152 H OUTPATIENT ANTIDIABETIC REGIMEN: * Tradjenta 5 mg qAM, metformin 500 mg BID * A1c = 7.9% (12/14/19) ASSESSMENT: * Patient required 21 units of insulin over the past 24 hrs * 10 units basal + 11 units bolus * BSGs ranged 124 - 177 mg/dL, elevated * Based on previous days of insulin dosing - estimating total daily dose ~ 30 units/day * AM fasting BSG is slightly above goal range at 154 mg/dl. Estimating total basal needs somewhere between 12-15 units. Will continue to titrate with Lantus BSG scale based dosing. * No changes to novolog parameters. PLAN FOR INPATIENT GLYCEMIC CONTROL: * Lantus per scale SQ BID: * 5 units for BSG below 140 mg/dL * 8 units for BSG 140 mg/dL or above * Novolog SQ ACHS - no change * Goal range: 110-140mg/dL * Correction factor: 30 mg/dL/unit * Carb ratio: 1 unit per 10 gm CHO consumed PLAN FOR DISCHARGE: * A1c = 7.9% * Given A1c, would recommend optimizing oral medications. Titrate Metformin to 1000 mg PO BIDM and continue Tradjenta 5 mg PO QPM.
--- NOTE | 2019-12-26 13:21 | Cardiology Progress Note ---
Date of Service December 26, 2019 Assessment & Plan (1) Acute non-ST elevation myocardial infarction (NSTEMI): Anterior / septal MO this admission , treated medically. Mild LV systolic dysfunction. Potassium is low today, 2.8 , will coordinate replacement with Dr Solomon. Adding spironolactone 25 mg daily is another consideration given the relatively low potassium levels, recent MO, LV systolic dysfunction. She appears to be relatively well compensated from a volume status standpoint. She is on clopidogrel for antiplatelet therapy as she has an apparent allergy to aspirin noted in the past. Consider transition to metoprolol succinate 100 mg daily given LV systolic dysfunction and for ease of administration rather than 3 times daily dosing of metoprolol tartrate. Consider transitioning from Isordil dinitrate to isosorbide mononitrate, 30 mg daily, for once a day dosing. Subjective No distress or complaints. Telemetry reveals sinus rhythm in the range of 80 bpm, episodes of sinus tachycardia in the 100 to 110 bpm range noted overnight last night. Review of Systems Review of Systems: All systems reviewed & are unremarkable except as noted in HPI & below Physical Exam Physical Exam: Temp Pulse Resp BP Pulse Ox 36.9 C 93 H 18 131/82 93 12/26/19 12:23 12/26/19 12:23 12/26/19 12:23 12/26/19 12:23 12/26/19 12:23 Respiratory: normal respiratory effort, lungs clear to auscultation Cardiovascular: RRR, no murmur, no edema Gastrointestinal (Abdomen): normal bowel sounds, soft, nontender, no hepatosplenomegaly Neurologic: Moves all 4 extremities. Results & Data Vital Signs (Past 12 Hours) Vital Signs Temp Pulse Pulse Resp BP Pulse Ox 12/26/19 12:23 36.9 C 93 H 18 131/82 93 12/26/19 08:19 108 H 133/90 12/26/19 07:44 36.8 C 99 H 16 101/68 95 12/26/19 07:27 104 H 12/26/19 03:57 36.5 C 100 H 20 137/81 90 Laboratory Results Comprehensive Metabolic Panel 12/26/19 Range/Units 06:45 Sodium 139 (136-145) mmol/L Potassium 2.8 L D (3.5-5.1) mmol/L Chloride 96 L (98-107) mmol/L Carbon Dioxide 33 H (21-32) mmol/L BUN 12 (7-18) mg/dl Creatinine 0.85 (0.6-1.2) mg/dl Glucose 160 H (70-99) mg/dl Calcium 8.7 (8.5-10.1) mg/dl Intake and Output 12/25/19 12/26/19 12/26/19 22:59 06:59 14:59 Output Total 375 / 1475 Balance -375 / -1095 Output: Urine Amount (Catheter) 375 / 1475 Cooper/Indwelling 375 / 1475 Other: Other Intake Source sips sips Weight 68.5 kg
[2019-12-26] MEDS ORDERED: LOPERAMIDE HCL 2 MG CAP PO PRN (13:29)
[2019-12-26] MEDS ORDERED: COUGH DROP (SUGAR FREE) LOZ 24 LOZ/1 BOX BUCCAL PRN (13:33)
[2019-12-26] MEDS ORDERED: CHLORASEPTIC 1.4% SOLN 180 ML BTL MT PRN (13:33)
--- NOTE | 2019-12-26 13:40 | Hospitalist Progress Note ---
Date of Service December 26, 2019 Assessment & Plan (1) Acute respiratory failure with hypoxia and hypercapnia: -CTA chest showed no evidence for pulmonary embolus. Mild interstitial change of the mid to lower lung regions bilaterally, Covid 19 PCR negative. Influenza A & B negative, VBG on admission showed pH 7.33 and PCO2 53, Received IV steroid on admission -initially was Intubated for respiratory support after failed Bipap trial, was started on empirical antibiotics of IV Zosyn and IV Vancomyin, extubated on 12/21/2019 and the subsequently transferred from ICU to medical/telemetry garcia -oxygen supplementation has been titrated down during hospital stay -on room air on 12/24/2019, check oxygen levels when ambulating concern for non-ST elevation myocardial infarction of unclear duration -troponin on admission 3.9 then peaked to 5 and trending down -initially was on IV heparin -Aspirin on allergies list, Plavix was started. Continue Lipitor, lisinopril and beta-lashanda -echocardiogram showed LV with severe septal hypokinesis. Severe anterior wall hypokinesis with EF 40-45%. and that recent cardiology assessment that the hypokinesis may have been much longer ago prior to this hospitalization -12/22/2019: Spoke with patient through [place]e speaking boat joiner services. Patient is very soft spoken and it was difficult for boat joiner to hear her. Patient reports she has chest pain and when asked of duration she says it is there "all the time." patient appears very weak in appearance. Have asked nurse to obtain EKG, give IV morphine 2mg x 1 and nitropaste 2 inch. Will obtain troponin. Also notified cardiology Dr. Kurtz of these plans. the troponins were remained less than previous as 0.637 and then 0.539. -12/23/2019: cardiology service transitioning patient from IV to oral Lasix and also continuing with lisinopril. seen and examined on nasal cannula oxygen on 12/23/2019 -during recent days since 12/23/2019, patient had various pain concerns that was not necessarily cardiac chest pain related. her volume of speech and throat pain has improved with chloraseptic throat spray and menthol for sore throat likely because of initial intubation at beginning of this hospital stay. Her cardiac medications have been titrated up but patient correlates diarrhea to hospital medications -as of 12/26/2019 will consolidate cardiac medications to extended release forms for use of administration and medication adherence: metoprolol succinate 100 mg daily, isosorbide mononitrate extended release 30 mg daily, spironolactone 12.5 mg daily, continue Lasix 20 mg daily, continue lisinopril as 20 mg daily Transaminitis -may be related to cardiac hypokinesis, versus acute illness -elevated AST and ALT on 12/18/2019 with peak levels on 12/19/2019 as AST 383 and ALT 188 -AST/ALT has downtrended to 47 and 94 by 12/23/2019 concern for sepsis on this admission but gastrointestinal source rule ruled out, history of cecitis, ruled out Urinary tract infection Diarrhea associated with Nausea and Vomiting Hypokalemia Hypophosphatemia -patient had history of recent hospitalization for cecitis with outpatient antibiotics of ciprofloxacin and flagyl. Lactate 3.7 on admission with normal WBC and procalcitonin -CT abd/pelvis on admission showed slightly progressive bibasilar interstitial infiltrative change. Bladder calculi unchanged. Pericecal infiltrative process unchanged from the prior exam. Right renal parapelvic cyst considered stable. -Blood cx and urine cx no growth -Urine cx grew Ecoli on 12/12 that was pansensitive, initially on Zosyn but Zosyn stopped on 12/21/2019 as no urinary tract infection in the urine culture -lactic acid normalized with IV fluids and not on current GI antibiotics -12/21/2019 stool cultures negative and C.difficile negative and with initial replacements of electrolytes on this admission -patient reports some abdomen discomfort with the diarrhea, give loperamide prn q8 hours an needed, can again repeat urine analysis adn stool culture -additional potassium given on 12/26/2019, plans for outpatient Gastroenterology followup or outpatient colonoscopy if diarrhea persists Ureteropelvic junction obstruction -Continue Jordan catheter as per urology on previous admission Follow up with urology for jordan catheter removal Hypothyroidism -Continue levothyroxine Diabetes Mellitus without termite inspector current use of insulin -Hold metformin -Pharmacy on board for glycemic management -Continue monitor blood sugar for insulin as needed disposition: patient waiting case management to go to short term rehab center for deconditioning DVT Px: Subq heparin Code Status Full Code Admission and Anticipated Discharge Date Admission Date: December 18, 2019 Subjective through italian speaking interpretor services, patient reports abdomen pain with diarrhea but so far no diarrhea today. no chest pain. no shortness of breath. no dizziness. no headache. patient has been associating cardiac medications to diarrhea but she has had diarrhea symptoms before the focus of this hospital stay on cardiac management and was advised that this association is likely inaccurate. patient encouraged to take cardiac medications as given to her by nurse with medical doctor evaluation. Review of Systems Review of Systems: All systems reviewed & are unremarkable except as noted in Subjective Physical Exam Constitutional: cooperative Eyes: PERRL, conjunctivae normal, anicteric sclerae EOM intact bilaterally ENMT: external ear and nose normal, oropharynx normal Neck: normal visual inspection Respiratory: normal respiratory effort, lungs clear to auscultation Cardiovascular: Rate/Rhythm: regular rate and regular rhythm Gastrointestinal (Abdomen): normal bowel sounds, soft, nontender, no hepatosplenomegaly Musculoskeletal: Head/Neck/Chest: normocephalic and head atraumatic Neurologic: PERRL, EOMI, accommodation nl, no face palsy, no dysarthria CN's II-XI intact bilaterally Psychiatric: Orientation: alert and cooperative Results & Data Results & Data ([facility]) Vital Signs (Past 12 Hours) Vital Signs Temp Pulse Pulse Resp BP Pulse Ox 12/26/19 12:23 36.9 C 93 H 18 131/82 93 12/26/19 08:19 108 H 133/90 12/26/19 07:44 36.8 C 99 H 16 101/68 95 12/26/19 07:27 104 H 12/26/19 03:57 36.5 C 100 H 20 137/81 90
[2019-12-26] MEDS ORDERED: METOPROLOL SUCC 50MG EXT REL TAB PO ONE (14:00)
[2019-12-26] MEDS: POTASSIUM CHLORIDE 20 MEQ TABCR PO ONE ×2 (14:03→16:59)
[2019-12-26] MEDS: SPIRONOLACTONE 12.5 MG TAB PO ONE ×2 (14:03→16:59)
[2019-12-26] MEDS: POTASSIUM CHLORIDE / WTR 10 MEQ/100 ML PLCT IV SCH ×2 (14:03→16:58)
[2019-12-26] MEDS: ISOSORBIDE MONO EXTENDED REL 30 MG TABCR PO ONE ×2 (14:04→17:00)
[2019-12-26] MEDS ORDERED: SODIUM CHLORIDE 0.9% 250 ML IV ONE (14:08)
[2019-12-26 17:50] LABS: Appearance Urine Clear (Clear); Bilirubin Urine Negative (Negative); Blood Urine Negative (Negative); Color Urine Yellow; Glucose Urine UA Negative (Negative); Ketones Urine Negative (Negative); Leukocyte Esterase Urine Negative (Negative); Nitrite Urine Negative (Negative); Protein Urine Negative (Negative); Specific Gravity Urine 1.009 (1.000-1.030); Urobilinogen Urine Negative (Negative); pH Urine 8.5 (4.5-7.5)
[2019-12-26] MEDS: ENOXAPARIN INJ 30 MG/0.3 ML SYR SQ SCH (21:28)
[2019-12-26] MEDS: ATORVASTATIN 40 MG TAB PO SCH (21:30)
[2019-12-27 07:56] LABS: BUN Creatinine Ratio 11.9 (10-20); Calcium 8.5 mg/dl (8.5-10.1); Creatinine Clr Calc Pharmacy 44.4 ml/min; Est GFR (African American) 77.3; Est GFR (Non-African American) 66.7; Potassium 2.6 mmol/L (3.5-5.1)
[2019-12-27] MEDS ORDERED: POTASSIUM CHLORIDE 20 MEQ/15 ML UDC PO STA (08:11)
[2019-12-27] MEDS: lisinopriL 20 MG TAB PO SCH (08:12)
[2019-12-27] MEDS: CLOPIDOGREL BISULFATE 75 MG TAB PO SCH (08:13)
[2019-12-27] MEDS: LEVOTHYROXINE SODIUM 50 MCG TABLET PO SCH (08:14)
[2019-12-27] MEDS: INSULIN ASPART 100 UNITS/ML 3 ML PEN SC SCH ×4 (08:21→20:55)
[2019-12-27] MEDS: INSULIN GLARGINE SOLOSTAR 100 UNITS/ML 3 ML PEN SC SCH ×2 (08:22→20:56)
[2019-12-27] MEDS ORDERED: NSS + 20MEQ KCL 20 MEQ/1,000 ML BAG IV SCH (08:30)
--- NOTE | 2019-12-27 08:51 | Hospitalist Progress Note ---
Date of Service December 27, 2019 Assessment & Plan (1) Acute respiratory failure with hypoxia and hypercapnia: -CTA chest showed no evidence for pulmonary embolus. Mild interstitial change of the mid to lower lung regions bilaterally, Covid 19 PCR negative. Influenza A & B negative, VBG on admission showed pH 7.33 and PCO2 53, Received IV steroid on admission -initially was Intubated for respiratory support after failed Bipap trial, was started on empirical antibiotics of IV Zosyn and IV Vancomyin, extubated on 12/21/2019 and the subsequently transferred from ICU to medical/telemetry garcia -oxygen supplementation has been titrated down during hospital stay -currently on room air concern for non-ST elevation myocardial infarction of unclear duration -troponin on admission 3.9 then peaked to 5 and trending down -initially was on IV heparin -Aspirin on allergies list, Plavix was started. Continue Lipitor, lisinopril and beta-lashanda -echocardiogram showed LV with severe septal hypokinesis. Severe anterior wall hypokinesis with EF 40-45%. and that recent cardiology assessment that the hypokinesis may have been much longer ago prior to this hospitalization -12/22/2019: Spoke with patient through [place] speaking repeater operator services. Patient is very soft spoken and it was difficult for repeater operator to hear her. Patient reports she has chest pain and when asked of duration she says it is there "all the time." patient appears very weak in appearance. Have asked nurse to obtain EKG, give IV morphine 2mg x 1 and nitropaste 2 inch. Will obtain troponin. Also notified cardiology Dr. Kurtz of these plans. the troponins were remained less than previous as 0.637 and then 0.539. -12/23/2019: cardiology service transitioning patient from IV to oral Lasix and also continuing with lisinopril. seen and examined on nasal cannula oxygen on 12/23/2019 -during recent days since 12/23/2019, patient had various pain concerns that was not necessarily cardiac chest pain related. her volume of speech and throat pain has improved with chloraseptic throat spray and menthol for sore throat likely because of initial intubation at beginning of this hospital stay. Her cardiac medications have been titrated up but patient correlates diarrhea to hospital medications -as of 12/26/2019 will consolidate cardiac medications to extended release forms for use of administration and medication adherence: metoprolol succinate 100 mg daily, isosorbide mononitrate extended release 30 mg daily, spironolactone 12.5 mg daily, continue Lasix 20 mg daily, continue lisinopril as 20 mg daily, atorvastatin 40 mg qhs -because of hypokalemia with serum potassium under 3 for 12/26/19, and 12/27/2019 labs - holding the Lasix and spironolactone on 12/27/2019 for now Transaminitis -may be related to cardiac hypokinesis, versus acute illness -elevated AST and ALT on 12/18/2019 with peak levels on 12/19/2019 as AST 383 and ALT 188 -AST/ALT has downtrended to 47 and 94 by 12/23/2019 concern for sepsis on this admission but gastrointestinal source rule ruled out, history of cecitis, ruled out Urinary tract infection Diarrhea associated with Nausea and Vomiting Hypokalemia Hypophosphatemia -patient had history of recent hospitalization for cecitis with outpatient antibiotics of ciprofloxacin and flagyl. Lactate 3.7 on admission with normal WBC and procalcitonin -CT abd/pelvis on admission showed slightly progressive bibasilar interstitial infiltrative change. Bladder calculi unchanged. Pericecal infiltrative process unchanged from the prior exam. Right renal parapelvic cyst considered stable. -Blood cx and urine cx no growth -Urine cx grew Ecoli on 12/12 that was pansensitive, initially on Zosyn but Zosyn stopped on 12/21/2019 as no urinary tract infection in the urine culture -lactic acid normalized with IV fluids and not on current GI antibiotics -12/21/2019 stool cultures negative and C.difficile negative and with initial replacements of electrolytes on this admission -no abdominal pain on 12/27/2019, patient has not had diarrhea on 12/26/2019 and 12/27/2019, patient given instructions through [place] speaking repeater operator services to show the nurse if diarrhea recurrs so prn loperamide can be given, patient agrees to take the cardiac medications and potassium supplements, repeat and trend the potassium levels Ureteropelvic junction obstruction -Continue Jordan catheter as per urology on previous admission Follow up with urology for jordan catheter removal Hypothyroidism -Continue levothyroxine Diabetes Mellitus without detention current use of insulin -Hold metformin -Pharmacy on board for glycemic management -Continue monitor blood sugar for insulin as needed disposition: patient waiting case management to go to short term rehab center for deconditioning DVT Px: Subq heparin Code Status Full Code Admission and Anticipated Discharge Date Admission Date: December 18, 2019 Subjective patient taking medications after talking to her family members by phone on 12/26/2019 no abdominal pain on 12/27/2019, patient has not had diarrhea on 12/26/2019 and 12/27/2019, patient given instructions through [place] speaking repeater operator services to show the nurse if diarrhea reccurs so prn loperamide can be given, patient agrees to take the cardiac medications and potassium supplements, repeat and trend the potassium levels no chest pain, no shortness of breath, no vomiting, no dizziness, no headache. Review of Systems Review of Systems: All systems reviewed & are unremarkable except as noted in Subjective Physical Exam Constitutional: cooperative Eyes: PERRL, conjunctivae normal, anicteric sclerae EOM intact bilaterally ENMT: external ear and nose normal, oropharynx normal Neck: normal visual inspection Respiratory: normal respiratory effort, lungs clear to auscultation Cardiovascular: Rate/Rhythm: regular rate and regular rhythm Gastrointestinal (Abdomen): normal bowel sounds, soft, nontender, no hepatosplenomegaly Musculoskeletal: Head/Neck/Chest: normocephalic and head atraumatic Neurologic: PERRL, EOMI, accommodation nl, no face palsy, no dysarthria CN's II-XI intact bilaterally Psychiatric: Orientation: alert and cooperative Results & Data Results & Data ([facility]) Vital Signs (Past 12 Hours) Vital Signs Temp Pulse Pulse Pulse Resp BP Pulse Ox 12/27/19 07:53 36.6 C 87 18 143/84 H 92 12/27/19 07:41 85 12/27/19 03:33 36.5 C 102 H 18 110/64 91 12/27/19 00:08 93 H 12/26/19 22:27 36.6 C 105 H 20 100/65 92
[2019-12-27] MEDS ORDERED: METOPROLOL SUCC 50MG EXT REL TAB PO SCH (09:00)
[2019-12-27] MEDS ORDERED: ISOSORBIDE MONO EXTENDED REL 30 MG TABCR PO SCH (09:00)
[2019-12-27] MEDS ORDERED: SPIRONOLACTONE 12.5 MG TAB PO SCH (09:00)
[2019-12-27 13:11] LABS: BUN Creatinine Ratio 11.9 (10-20); Calcium 8.7 mg/dl (8.5-10.1); Creatinine Clr Calc Pharmacy 32.7 ml/min; Est GFR (African American) 53.4; Est GFR (Non-African American) 46.1
[2019-12-27] MEDS ORDERED: SODIUM CHLORIDE 0.9% 1000ML 250 ML IV ONE (15:51)
[2019-12-27 17:22] LABS: Basophils # (auto) 0.03 K/uL (0-0.2); Basophils % (auto) 0.5 %; Eosinophils # (auto) 0.12 K/uL (0-0.5); Eosinophils % (auto) 1.9 %; Hematocrit (blood only) 39.9 % (37-47); Hemoglobin 12.9 g/dL (12.0-16.0); Immature Granulocytes # (auto) 0.04 K/uL (0.00-0.02); Immature Granulocytes % (auto) 0.6 %; Lymphocytes # (auto) 1.68 K/uL (1.2-3.4); Lymphocytes % (auto) 26.9 %; Mean Corpuscular Hemoglobin 30.6 pg (25-34); Mean Corpuscular Hgb Conc 32.3 g/dL (32-36); Mean Corpuscular Volume 94.8 fL (80-100); Mean Platelet Volume 12.9 fL (7.4-10.4); Monocytes # (auto) 1.26 K/uL (0.11-0.59); Monocytes % (auto) 20.2 %; Neutrophils # (auto) 3.11 K/uL (1.4-6.5); Neutrophils % (auto) 49.9 %; Platelet Count 170 K/uL (130-400); RDW Coefficient of Variation 14.1 % (11.5-14.5); RDW Standard Deviation 47.9 fL (36.4-46.3); Red Blood Count 4.21 M/uL (4.2-5.4); White Blood Count 6.24 K/uL (4.8-10.8)
[2019-12-27 17:48] LABS: BUN Creatinine Ratio 13.4 (10-20); Calcium 8.6 mg/dl (8.5-10.1); Est GFR (African American) 68.1; Est GFR (Non-African American) 58.7; Potassium 3.7 mmol/L (3.5-5.1)
--- NOTE | 2019-12-27 18:26 | XRay Report ---
SINGLE VIEW CHEST CLINICAL HISTORY: Follow-up congestive heart failure. FINDINGS: An AP, portable, upright chest radiograph is compared to study dated 12/22/2019. The examina tion is degraded by portable technique and patient rotation. The heart is enlarged noting atheroscle rotic calcification of the thoracic aorta. Pulmonary vascular congestion has improved from previous. Small pleural effusions persist with bibasilar consolidation. No pneumothorax is seen. The skeletal s tructures are osteopenic. The bony thorax is grossly intact. IMPRESSION: 1. Cardiomegaly. Pulmonary vascular congestion has improved from 12/22/2019. 2. There are layering pleural effusions with bibasilar consolidation. This likely represents atelecta sis and clinical correlation will be required. ACT 112: Negative or not required by law. Electronically signed by: Kevin Yanez M.D. 12/27/2019 6:25 PM
[2019-12-27] MEDS ORDERED: FUROSEMIDE 20 MG in SYRINGE 0 ML IV ONE (19:45)
[2019-12-27] MEDS: ENOXAPARIN INJ 30 MG/0.3 ML SYR SQ SCH (20:56)
[2019-12-27] MEDS: ATORVASTATIN 40 MG TAB PO SCH ×2 (20:57→21:25)
[2019-12-28 08:24] LABS: BUN Creatinine Ratio 14.2 (10-20); Calcium 8.5 mg/dl (8.5-10.1); Creatinine Clr Calc Pharmacy 34.5 ml/min; Est GFR (African American) 57.1; Est GFR (Non-African American) 49.3; Magnesium 1.8 mg/dl (1.8-2.4); Potassium 3.3 mmol/L (3.5-5.1)
[2019-12-28] MEDS: lisinopriL 20 MG TAB PO SCH (08:53)
[2019-12-28] MEDS: INSULIN ASPART 100 UNITS/ML 3 ML PEN SC SCH ×4 (08:53→21:50)
[2019-12-28] MEDS: CLOPIDOGREL BISULFATE 75 MG TAB PO SCH (08:53)
[2019-12-28] MEDS: METOPROLOL SUCC 25MG EXT REL TAB PO SCH (08:53)
[2019-12-28] MEDS: INSULIN GLARGINE SOLOSTAR 100 UNITS/ML 3 ML PEN SC SCH ×2 (08:55→21:52)
[2019-12-28] MEDS: LEVOTHYROXINE SODIUM 50 MCG TABLET PO SCH (08:56)
[2019-12-28] MEDS ORDERED: POTASSIUM CHLORIDE 20 MEQ/15 ML UDC PO STA (10:12)
[2019-12-28] MEDS ORDERED: FUROSEMIDE 20 MG TAB PO SCH (10:15)
--- NOTE | 2019-12-28 14:49 | Hospitalist Progress Note ---
Date of Service December 28, 2019 Assessment & Plan (1) Acute respiratory failure with hypoxia and hypercapnia: -CTA chest showed no evidence for pulmonary embolus. Mild interstitial change of the mid to lower lung regions bilaterally, Covid 19 PCR negative. Influenza A & B negative, VBG on admission showed pH 7.33 and PCO2 53, Received IV steroid on admission -initially was Intubated for respiratory support after failed Bipap trial, was started on empirical antibiotics of IV Zosyn and IV Vancomyin, extubated on 12/21/2019 and the subsequently transferred from ICU to medical/telemetry g[facility] -oxygen supplementation has been titrated down during hospital stay -currently on room air concern for non-ST elevation myocardial infarction of unclear duration -troponin on admission 3.9 then peaked to 5 and trending down -initially was on IV heparin -Aspirin on allergies list, Plavix was started. Continue Lipitor, lisinopril and beta-lashanda -echocardiogram showed LV with severe septal hypokinesis. Severe anterior wall hypokinesis with EF 40-45%. and that recent cardiology assessment that the hypokinesis may have been much longer ago prior to this hospitalization -12/22/2019: Spoke with patient through Citizen Of [place] speaking plate setter services. Patient is very soft spoken and it was difficult for plate setter to hear her. Patient reports she has chest pain and when asked of duration she says it is there "all the time." patient appears very weak in appearance. Have asked nurse to obtain EKG, give IV morphine 2mg x 1 and nitropaste 2 inch. Will obtain troponin. Also notified cardiology Dr. Kurtz of these plans. the troponins were remained less than previous as 0.637 and then 0.539. -12/23/2019: cardiology service transitioning patient from IV to oral Lasix and also continuing with lisinopril. seen and examined on nasal cannula oxygen on 12/23/2019 -during recent days since 12/23/2019, patient had various pain concerns that was not necessarily cardiac chest pain related. her volume of speech and throat pain has improved with chloraseptic throat spray and menthol for sore throat likely because of initial intubation at beginning of this hospital stay. Her cardiac medications have been titrated up but patient correlates diarrhea to hospital medications -patient has been having intermittent hypokalemia with the Lasix 20 mg daily and had low blood pressure on 12/27/2019 and at this time will be on metoprolol succinate, Lasix 20 mg every other day (had recent dose on 12/28/2019), spironolactone 12.5 mg daily, lisinopril 20 mg, atorvastatin 40 mg qhs. She is encouraged medical adherence and to work with PT/OT while in the hospital Transaminitis -may be related to cardiac hypokinesis, versus acute illness -elevated AST and ALT on 12/18/2019 with peak levels on 12/19/2019 as AST 383 and ALT 188 -AST/ALT has downtrended to 47 and 94 by 12/23/2019 concern for sepsis on this admission but gastrointestinal source rule ruled out, history of cecitis, ruled out Urinary tract infection Diarrhea associated with Nausea and Vomiting Hypokalemia Hypophosphatemia -patient had history of recent hospitalization for cecitis with outpatient antibiotics of ciprofloxacin and flagyl. Lactate 3.7 on admission with normal WBC and procalcitonin -CT abd/pelvis on admission showed slightly progressive bibasilar interstitial infiltrative change. Bladder calculi unchanged. Pericecal infiltrative process unchanged from the prior exam. Right renal parapelvic cyst considered stable. -Blood cx and urine cx no growth -Urine cx grew Ecoli on 12/12 that was pansensitive, initially on Zosyn but Zosyn stopped on 12/21/2019 as no urinary tract infection in the urine culture -lactic acid normalized with IV fluids and not on current GI antibiotics -12/21/2019 stool cultures negative and C.difficile negative and with initial replacements of electrolytes on this admission -no abdominal pain on 12/27/2019, patient has not had diarrhea on 12/26/2019 and 12/27/2019, patient given instructions through [employer] [place] speaking plate setter services to show the nurse if diarrhea recurrs so prn loperamide can be given, patient agrees to take the cardiac medications and potassium supplements, repeat and trend the potassium levels Ureteropelvic junction obstruction -Continue Jordan catheter as per urology on previous admission Follow up with urology for jordan catheter removal Hypothyroidism -Continue levothyroxine Diabetes Mellitus without skilled nursing current use of insulin -Hold metformin -Pharmacy on board for glycemic management -Continue monitor blood sugar for insulin as needed disposition: patient waiting case management to go to short term rehab center for deconditioning DVT Px: Subq heparin Code Status Full Code Admission and Anticipated Discharge Date Admission Date: December 18, 2019 Subjective She is encouraged medical adherence and to work with PT/OT while in the hospital with [employer] [place] speaking plate setter service. Patient took most medications as ordered today but may have deferred the potassium supplements. on room air. no shortness of breath. no dizziness. no headache. no abdomen pain. no vomiting Review of Systems Review of Systems: All systems reviewed & are unremarkable except as noted in Subjective Physical Exam Constitutional: cooperative Eyes: PERRL, conjunctivae normal, anicteric sclerae EOM intact bilaterally ENMT: external ear and nose normal, oropharynx normal Neck: normal visual inspection Respiratory: normal respiratory effort, lungs clear to auscultation Cardiovascular: Rate/Rhythm: regular rate and regular rhythm Gastrointestinal (Abdomen): normal bowel sounds, soft, nontender, no hepatosplenomegaly Musculoskeletal: Head/Neck/Chest: normocephalic and head atraumatic Neurologic: PERRL, EOMI, accommodation nl, no face palsy, no dysarthria CN's II-XI intact bilaterally Psychiatric: Orientation: alert and cooperative Results & Data Results & Data ([facility]) Vital Signs (Past 12 Hours) Vital Signs Temp Pulse Pulse Pulse Resp BP Pulse Ox 12/28/19 11:46 36.8 C 62 18 100/65 92 12/28/19 07:46 36.7 C 73 18 108/71 93 12/28/19 07:05 69 12/28/19 03:56 36.7 C 86 19 113/71 91
[2019-12-28] MEDS: ENOXAPARIN INJ 30 MG/0.3 ML SYR SQ SCH (21:51)
[2019-12-28] MEDS: ATORVASTATIN 40 MG TAB PO SCH (21:52)
[2019-12-29 08:07] LABS: BUN Creatinine Ratio 15.7 (10-20); Calcium 8.5 mg/dl (8.5-10.1); Creatinine Clr Calc Pharmacy 38.2 ml/min; Est GFR (African American) 63.7; Potassium 3.4 mmol/L (3.5-5.1)
[2019-12-29] MEDS: SPIRONOLACTONE 12.5 MG TAB PO SCH (08:55)
[2019-12-29] MEDS: CLOPIDOGREL BISULFATE 75 MG TAB PO SCH (08:55)
[2019-12-29] MEDS: lisinopriL 20 MG TAB PO SCH (08:55)
[2019-12-29] MEDS: LEVOTHYROXINE SODIUM 50 MCG TABLET PO SCH (08:55)
[2019-12-29] MEDS: METOPROLOL SUCC 25MG EXT REL TAB PO SCH (08:56)
[2019-12-29] MEDS: INSULIN ASPART 100 UNITS/ML 3 ML PEN SC SCH ×4 (08:59→21:49)
[2019-12-29] MEDS: INSULIN GLARGINE SOLOSTAR 100 UNITS/ML 3 ML PEN SC SCH ×2 (08:59→21:47)
--- NOTE | 2019-12-29 11:09 | Pharmacy Report ---
Pharmacy Glycemic Short Note 2 - Date of Service December 29, 2019 - Glycemic Short BSG Results (Last 24 hours): 12/28/19 12/28/19 12/28/19 11:29 16:38 20:21 Glucose POC Glucose 181 H 128 H 171 H 12/29/19 12/29/19 07:29 07:41 Glucose 141 H POC Glucose 126 H OUTPATIENT ANTIDIABETIC REGIMEN: * Tradjenta 5 mg qAM, metformin 500 mg BID * A1c = 7.9% (12/14/19) ASSESSMENT: * BSGs have been relatively well-controlled on current regimen for the past 48+ hours. * No changes required at this time. PLAN FOR INPATIENT GLYCEMIC CONTROL: * Lantus per scale SQ BID: * 5 units for BSG below 140 mg/dL * 8 units for BSG 140 mg/dL or above * Novolog SQ ACHS - no change * Goal range: 110-140mg/dL * Correction factor: 30 mg/dL/unit * Carb ratio: 1 unit per 10 gm CHO consumed PLAN FOR DISCHARGE: * A1c = 7.9% * Given A1c, would recommend optimizing oral medications. Titrate Metformin to 1000 mg PO BIDM and continue Tradjenta 5 mg PO QPM.
[2019-12-29] MEDS ORDERED: POTASSIUM CHLORIDE 20 MEQ TABCR PO STA (15:18)
[2019-12-29] MEDS ORDERED: POTASSIUM CHLORIDE 10 MEQ TABCR PO STA (15:26)
--- NOTE | 2019-12-29 18:58 | Hospitalist Progress Note ---
Date of Service December 29, 2019 Assessment & Plan (1) Acute respiratory failure with hypoxia and hypercapnia: Per Dr. Stephan Solomon's notes: -CTA chest showed no evidence for pulmonary embolus. Mild interstitial change of the mid to lower lung regions bilaterally, Covid 19 PCR negative. Influenza A & B negative, VBG on admission showed pH 7.33 and PCO2 53, Received IV steroid on admission -initially was Intubated for respiratory support after failed Bipap trial, was started on empirical antibiotics of IV Zosyn and IV Vancomyin, extubated on 12/21/2019 and the subsequently transferred from ICU to medical/telemetry garcia -oxygen supplementation has been titrated down during hospital stay -currently on room air 12/29/2019 Remains euvolemic, on room air Continue Lasix plus Aldactone Monitor and replace potassium Patient awaiting acceptance to retirement facility concern for non-ST elevation myocardial infarction of unclear duration Per Dr. Stephan Solomon's notes: -troponin on admission 3.9 then peaked to 5 and trending down -initially was on IV heparin -Aspirin on allergies list, Plavix was started. Continue Lipitor, lisinopril and beta-lashanda -echocardiogram showed LV with severe septal hypokinesis. Severe anterior wall hypokinesis with EF 40-45%. and that recent cardiology assessment that the hypokinesis may have been much longer ago prior to this hospitalization -12/22/2019: Spoke with patient through Greek speaking lemon grower services. Patient is very soft spoken and it was difficult for lemon grower to hear her. Patient reports she has chest pain and when asked of duration she says it is there "all the time." patient appears very weak in appearance. Have asked nurse to obtain EKG, give IV morphine 2mg x 1 and nitropaste 2 inch. Will obtain troponin. Also notified cardiology Dr. Kurtz of these plans. the troponins were remained less than previous as 0.637 and then 0.539. -12/23/2019: cardiology service transitioning patient from IV to oral Lasix and also continuing with lisinopril. seen and examined on nasal cannula oxygen on 12/23/2019 -during recent days since 12/23/2019, patient had various pain concerns that was not necessarily cardiac chest pain related. her volume of speech and throat pain has improved with chloraseptic throat spray and menthol for sore throat likely because of initial intubation at beginning of this hospital stay. Her cardiac medications have been titrated up but patient correlates diarrhea to hospital medications -patient has been having intermittent hypokalemia with the Lasix 20 mg daily and had low blood pressure on 12/27/2019 and at this time will be on metoprolol succinate, Lasix 20 mg every other day (had recent dose on 12/28/2019), spironolactone 12.5 mg daily, lisinopril 20 mg, atorvastatin 40 mg qhs. She is encouraged medical adherence and to work with PT/OT while in the hospital Transaminitis Per Dr. Stephan Solomon's notes: -may be related to cardiac hypokinesis, versus acute illness -elevated AST and ALT on 12/18/2019 with peak levels on 12/19/2019 as AST 383 and ALT 188 -AST/ALT has downtrended to 47 and 94 by 12/23/2019 concern for sepsis on this admission but gastrointestinal source rule ruled out, history of cecitis, ruled out Urinary tract infection Diarrhea associated with Nausea and Vomiting Hypokalemia Hypophosphatemia Per Dr. Stephan Solomon's notes: -patient had history of recent hospitalization for cecitis with outpatient antibiotics of ciprofloxacin and flagyl. Lactate 3.7 on admission with normal WBC and procalcitonin -CT abd/pelvis on admission showed slightly progressive bibasilar interstitial i nfiltrative change. Bladder calculi unchanged. Pericecal infiltrative process unchanged from the prior exam. Right renal parapelvic cyst considered stable. -Blood cx and urine cx no growth -Urine cx grew Ecoli on 12/12 that was pansensitive, initially on Zosyn but Zosyn stopped on 12/21/2019 as no urinary tract infection in the urine culture -lactic acid normalized with IV fluids and not on current GI antibiotics -12/21/2019 stool cultures negative and C.difficile negative and with initial replacements of electrolytes on this admission -no abdominal pain on 12/27/2019, patient has not had diarrhea on 12/26/2019 and 12/27/2019, patient given instructions through Greek speaking lemon grower services to show the nurse if diarrhea recurrs so prn loperamide can be given, patient agrees to take the cardiac medications and potassium supplements, repeat and trend the potassium levels 12/29/2019 No diarrhea Ureteropelvic junction obstruction -Continue Jordan catheter as per urology on previous admission Follow up with urology for jordan catheter removal 12/29/2019 no urologic problems Hypothyroidism -Continue levothyroxine Diabetes Mellitus without prison current use of insulin -Hold metformin -Pharmacy on board for glycemic management -Continue monitor blood sugar for insulin as needed disposition: Awaiting acceptance to rehab/retirement facility DVT Px: Subq heparin Code Status Full Code Admission and Anticipated Discharge Date Admission Date: December 18, 2019 Subjective Follow-up for acute respiratory failure, and non-ST elevation [place] Seen sleeping but easily awakened Inking Machine Tender service utilized during interview and exam Patient is resting, comfortable, not in distress, oriented x3 Answers all questions appropriately States she feels fine mostly Has occasional shortness of breath, but very comfortable during my exam, Denies pain No other symptoms Review of Systems Review of Systems: All systems reviewed & are unremarkable except as noted in HPI & below Physical Exam Physical Exam: General- oriented x 2, not in distress, speaks in sentences with no effort or accessory muscle use Head- atraumatic Eyes- PERRL, EOMI, anicteric ENT- oropharynx clear Neck- supple, no JVD, no adenopathy, no thyromegaly; carotids +2/2, no bruits appreciated Lungs- clear to auscultation bilaterally, no rales/wheezes Heart- normal rate, regular rhythm; no murmur, no gallop, no rub appreciated Abdomen- normal bowel sounds, nondistended, soft, nontender, no masses or hepatosplenomegaly Extremities- no pretibial edema, no calf tenderness; peripheral pulses intact Neuro- alert, oriented x 2; CN 2-12 grossly intact; motor 5/5 iris aterally;sensation 100% on all extremities; no other gross focal neurologic deficits Skin- warm & dry Results & Data Results & Data ([facility]) Vital Signs (Past 12 Hours) Vital Signs Temp Pulse Pulse Pulse Resp BP Pulse Ox 12/29/19 14:56 36.3 C L 73 18 103/68 95 12/29/19 14:20 78 12/29/19 11:27 36.5 C 75 20 108/74 95 12/29/19 07:23 37.0 C 79 20 110/73 90 12/29/19 07:00 74
[2019-12-29] MEDS: ATORVASTATIN 40 MG TAB PO SCH (21:50)
[2019-12-29] MEDS: ENOXAPARIN INJ 30 MG/0.3 ML SYR SQ SCH (21:50)
[2019-12-30] MEDS: INSULIN ASPART 100 UNITS/ML 3 ML PEN SC SCH ×4 (10:37→21:15)
[2019-12-30] MEDS: LEVOTHYROXINE SODIUM 50 MCG TABLET PO SCH (10:40)
[2019-12-30] MEDS: FUROSEMIDE 20 MG TAB PO SCH (10:41)
[2019-12-30] MEDS: CLOPIDOGREL BISULFATE 75 MG TAB PO SCH (10:41)
[2019-12-30] MEDS: METOPROLOL SUCC 25MG EXT REL TAB PO SCH (10:41)
[2019-12-30] MEDS: SPIRONOLACTONE 12.5 MG TAB PO SCH (10:41)
[2019-12-30] MEDS: INSULIN GLARGINE SOLOSTAR 100 UNITS/ML 3 ML PEN SC SCH ×2 (10:41→21:14)
[2019-12-30] MEDS: lisinopriL 20 MG TAB PO SCH (10:42)
[2019-12-30 11:16] LABS: BUN Creatinine Ratio 14.6 (10-20); Calcium 8.7 mg/dl (8.5-10.1); Creatinine Clr Calc Pharmacy 37.4 ml/min; Est GFR (African American) 61.4; Potassium 3.9 mmol/L (3.5-5.1)
--- NOTE | 2019-12-30 20:06 | Hospitalist Progress Note ---
Date of Service December 30, 2019 Assessment & Plan (1) Acute respiratory failure with hypoxia and hypercapnia: Per Dr. Stephan Solomon's notes: -CTA chest showed no evidence for pulmonary embolus. Mild interstitial change of the mid to lower lung regions bilaterally, Covid 19 PCR negative. Influenza A & B negative, VBG on admission showed pH 7.33 and PCO2 53, Received IV steroid on admission -initially was Intubated for respiratory support after failed Bipap trial, was started on empirical antibiotics of IV Zosyn and IV Vancomyin, extubated on 12/21/2019 and the subsequently transferred from ICU to medical/telemetry garcia -oxygen supplementation has been titrated down during hospital stay -currently on room air 12/30/2019 Remains euvolemic, on room air No new complaints Continue Lasix plus Aldactone, monitor creatinine and electrolytes Patient awaiting acceptance to nursing home facility concern for non-ST elevation myocardial infarction of unclear duration Per Dr. Stephan Solomon's notes: -troponin on admission 3.9 then peaked to 5 and trending down -initially was on IV heparin -Aspirin on allergies list, Plavix was started. Continue Lipitor, lisinopril and beta-lashanda -echocardiogram showed LV with severe septal hypokinesis. Severe anterior wall hypokinesis with EF 40-45%. and that recent cardiology assessment that the hypokinesis may have been much longer ago prior to this hospitalization -12/22/2019: Spoke with patient through [place] speaking paper cleaner services. Patient is very soft spoken and it was difficult for paper cleaner to hear her. Patient reports she has chest pain and when asked of duration she says it is there "all the time." patient appears very weak in appearance. Have asked nurse to obtain EKG, give IV morphine 2mg x 1 and nitropaste 2 inch. Will obtain troponin. Also notified cardiology Dr. Kurtz of these plans. the troponins were remained less than previous as 0.637 and then 0.539. -12/23/2019: cardiology service transitioning patient from IV to oral Lasix and also continuing with lisinopril. seen and examined on nasal cannula oxygen on 12/23/2019 -during recent days since 12/23/2019, patient had various pain concerns that was not necessarily cardiac chest pain related. her volume of speech and throat pain has improved with chloraseptic throat spray and menthol for sore throat likely because of initial intubation at beginning of this hospital stay. Her cardiac medications have been titrated up but patient correlates diarrhea to hospital medications -patient has been having intermittent hypokalemia with the Lasix 20 mg daily and had low blood pressure on 12/27/2019 and at this time will be on metoprolol succinate, Lasix 20 mg every other day (had recent dose on 12/28/2019), spironolactone 12.5 mg daily, lisinopril 20 mg, atorvastatin 40 mg qhs. She is encouraged medical adherence and to work with PT/OT while in the hospital --No chest pain or any cardiac symptoms Transaminitis Per Dr. Stephan Solomon's notes: -may be related to cardiac hypokinesis, versus acute illness -elevated AST and ALT on 12/18/2019 with peak levels on 12/19/2019 as AST 383 and ALT 188 -AST/ALT has downtrended to 47 and 94 by 12/23/2019 concern for sepsis on this admission but gastrointestinal source rule ruled out, history of cecitis, ruled out Urinary tract infection Diarrhea associated with Nausea and Vomiting Hypokalemia Hypophosphatemia Per Dr. Stephan Solomon's notes: -patient had history of recent hospitalization for cecitis with outpatient antibiotics of ciprofloxacin and flagyl. Lactate 3.7 on admission with normal WBC and procalcitonin -CT abd/pelvis on admission showed slightly progressive bibasilar interstitial infiltrative change. Bladder calculi unchanged. Pericecal infiltrative process unchanged from the prior exam. Right renal parapelvic cyst considered stable. -Blood cx and urine cx no growth -Urine cx grew Ecoli on 12/12 that was pansensitive, initially on Zosyn but Zosyn stopped on 12/21/2019 as no urinary tract infection in the urine culture -lactic acid normalized with IV fluids and not on current GI antibiotics -12/21/2019 stool cultures negative and C.difficile negative and with initial replacements of electrolytes on this admission -no abdominal pain on 12/27/2019, patient has not had diarrhea on 12/26/2019 and 12/27/2019, patient given instructions through [place] speaking paper cleaner services to show the nurse if diarrhea recurrs so prn loperamide can be given, patient agrees to take the cardiac medications and potassium supplements, repeat and trend the potassium levels 12/30/2019 No diarrhea Ureteropelvic junction obstruction -Continue Jordan catheter as per urology on previous admission Follow up with urology for jordan catheter removal 12/30/2019 no urologic problems Hypothyroidism -Continue levothyroxine Diabetes Mellitus without superintendent terminal current use of insulin -Hold metformin -Pharmacy on board for glycemic management -Continue monitor blood sugar for insulin as needed disposition: Awaiting acceptance to rehab/nursing home facility DVT Px: Subq heparin Code Status Full Code Admission and Anticipated Discharge Date Admission Date: December 18, 2019 Subjective Follow-up for acute respiratory failure, non-ST elevation [place] CHF Seen sitting up in bed, having dinner, comfortable, not in distress Automotive Manager services utilized to communicate with patient Patient states she feels fine overall In the morning feels she is having wheezing, but resolved now No chest pain, palpitations, dizziness, no other symptoms Review of Systems Review of Systems: All systems reviewed & are unremarkable except as noted in HPI & below Physical Exam Physical Exam: General- oriented x 3, not in distress, speaks in sentences with no effort or accessory muscle use Eyes- anicteric Neck- no JVD Lungs-mild rales at the right base, clear on the left, no wheezing Heart- normal rate, regular rhythm; no murmurs Abdomen- normal bowel sounds, nondistended, soft, nontender Extremities- no pretibial edema, no calf tenderness Neuro- alert, oriented x 3; no gross focal neurologic deficits Skin- warm & dry Results & Data Results & Data ([facility]) Vital Signs (Past 12 Hours) Vital Signs Temp Pulse Pulse Resp BP Pulse Ox 12/30/19 16:43 74 12/30/19 15:42 36.6 C 78 18 89/52 L 90 12/30/19 11:51 74 18 101/66 92 Laboratory Results Laboratory Results - last 24 hr 12/29/19 12/30/19 12/30/19 20:26 07:52 10:14 Sodium 139 Potassium 3.9 Chloride 106 Carbon Dioxide 28 Anion Gap 5.0 BUN 14 Creatinine 0.98 Est Cr Clr Drug Dosing 37.4 Est GFR ( Amer) 61.4 Est GFR (Non-Af Amer) 53.0 BUN/Creatinine Ratio 14.6 Glucose 122 H POC Glucose 225 H 139 H Calcium 8.7 12/30/19 12/30/19 11:28 16:44 Sodium Potassium Chloride Carbon Dioxide Anion Gap BUN Creatinine Est Cr Clr Drug Dosing Est GFR ( Amer) Est GFR (Non-Af Amer) BUN/Creatinine Ratio Glucose POC Glucose 118 H 150 H Calcium
[2019-12-30] MEDS: ATORVASTATIN 40 MG TAB PO SCH (21:14)
[2019-12-30] MEDS: ENOXAPARIN INJ 30 MG/0.3 ML SYR SQ SCH (21:14)
[2019-12-31] MEDS: CLOPIDOGREL BISULFATE 75 MG TAB PO SCH (07:52)
[2019-12-31] MEDS: METOPROLOL SUCC 25MG EXT REL TAB PO SCH (07:52)
[2019-12-31] MEDS: SPIRONOLACTONE 12.5 MG TAB PO SCH (07:52)
[2019-12-31] MEDS: lisinopriL 20 MG TAB PO SCH (07:52)
[2019-12-31] MEDS: LEVOTHYROXINE SODIUM 50 MCG TABLET PO SCH (07:52)
[2019-12-31] MEDS: INSULIN ASPART 100 UNITS/ML 3 ML PEN SC SCH ×4 (08:50→20:52)
[2019-12-31] MEDS: INSULIN GLARGINE SOLOSTAR 100 UNITS/ML 3 ML PEN SC SCH ×2 (08:52→20:50)
--- NOTE | 2019-12-31 12:37 | Pharmacy Report ---
Pharmacy Glycemic Short Note 2 - Date of Service December 31, 2019 - Glycemic Short BSG Results (Last 24 hours): 12/30/19 12/30/19 12/31/19 16:44 20:26 07:57 POC Glucose 150 H 73 105 H 12/31/19 11:42 POC Glucose 165 H OUTPATIENT ANTIDIABETIC REGIMEN: * Tradjenta 5 mg qAM, metformin 500 mg BID * A1c = 7.9% (12/14/19) ASSESSMENT: * Anette required 20 units of insulin yesterday (10 units basal/10 units bolus) * Fasting BSG at goal. Continue current Lantus scale. * Carb coverage was tightened on 12/29 based on post prandial of 198 and 225 mg/dL. This resulted in bedtime BSG below goal. I will slightly loosen today. PLAN FOR INPATIENT GLYCEMIC CONTROL: * Lantus per scale SQ BID: * 5 units for BSG below 140 mg/dL * 8 units for BSG 140 mg/dL or above * Novolog SQ ACHS * Goal range: 110-140mg/dL * Correction factor: 30 mg/dL/unit * Carb ratio: 1 unit per 9 gm CHO consumed PLAN FOR DISCHARGE: * A1c = 7.9% * Given A1c, would recommend optimizing oral medications. Titrate Metformin to 1000 mg PO BIDM and continue Tradjenta 5 mg PO QPM.
--- NOTE | 2019-12-31 18:33 | Hospitalist Progress Note ---
Date of Service December 31, 2019 Assessment & Plan (1) Acute respiratory failure with hypoxia and hypercapnia: Per Dr. Stephan Solomon's notes: -CTA chest showed no evidence for pulmonary embolus. Mild interstitial change of the mid to lower lung regions bilaterally, Covid 19 PCR negative. Influenza A & B negative, VBG on admission showed pH 7.33 and PCO2 53, Received IV steroid on admission -initially was Intubated for respiratory support after failed Bipap trial, was started on empirical antibiotics of IV Zosyn and IV Vancomyin, extubated on 12/21/2019 and the subsequently transferred from ICU to medical/telemetry garcia -oxygen supplementation has been titrated down during hospital stay -currently on room air 12/31/2019 Stable No new complaints Continue diuresis with Lasix plus Aldactone, Patient awaiting acceptance to longterm facility concern for non-ST elevation myocardial infarction of unclear duration Per Dr. Stephan Solomon's notes: -troponin on admission 3.9 then peaked to 5 and trending down -initially was on IV heparin -Aspirin on allergies list, Plavix was started. Continue Lipitor, lisinopril and beta-lashanda -echocardiogram showed LV with severe septal hypokinesis. Severe anterior wall hypokinesis with EF 40-45%. and that recent cardiology assessment that the hypokinesis may have been much longer ago prior to this hospitalization -12/22/2019: Spoke with patient through [place] speaking ginning operator services. Patient is very soft spoken and it was difficult for ginning operator to hear her. Patient reports she has chest pain and when asked of duration she says it is there "all the time." patient appears very weak in appearance. Have asked nurse to obtain EKG, give IV morphine 2mg x 1 and nitropaste 2 inch. Will obtain troponin. Also notified cardiology Dr. Kurtz of these plans. the troponins were remained less than previous as 0.637 and then 0.539. -12/23/2019: cardiology service transitioning patient from IV to oral Lasix and also continuing with lisinopril. seen and examined on nasal cannula oxygen on 12/23/2019 -during recent days since 12/23/2019, patient had various pain concerns that was not necessarily cardiac chest pain related. her volume of speech and throat pain has improved with chloraseptic throat spray and menthol for sore throat likely because of initial intubation at beginning of this hospital stay. Her cardiac medications have been titrated up but patient correlates diarrhea to hospital medications -patient has been having intermittent hypokalemia with the Lasix 20 mg daily and had low blood pressure on 12/27/2019 and at this time will be on metoprolol succinate, Lasix 20 mg every other day (had recent dose on 12/28/2019), spironolactone 12.5 mg daily, lisinopril 20 mg, atorvastatin 40 mg qhs. She is encouraged medical adherence and to work with PT/OT while in the hospital --No chest pain or any cardiac symptoms Transaminitis Per Dr. Stephan Solomon's notes: -may be related to cardiac hypokinesis, versus acute illness -elevated AST and ALT on 12/18/2019 with peak levels on 12/19/2019 as AST 383 and ALT 188 -AST/ALT has downtrended to 47 and 94 by 12/23/2019 concern for sepsis on this admission but gastrointestinal source rule ruled out, history of cecitis, ruled out Urinary tract infection Diarrhea associated with Nausea and Vomiting Hypokalemia Hypophosphatemia Per Dr. Stephan Solomon's notes: -patient had history of recent hospitalization for cecitis with outpatient antibiotics of ciprofloxacin and flagyl. Lactate 3.7 on admission with normal WBC and procalcitonin -CT abd/pelvis on admission showed slightly progressive bibasilar interstitial infiltrative change. Bladder calculi unchanged. Pericecal infiltrative process unchanged from the prior exam. Right renal parapelvic cyst considered stable. -Blood cx and urine cx no growth -Urine cx grew Ecoli on 12/12 that was pansensitive, initially on Zosyn but Zosyn stopped on 12/21/2019 as no urinary tract infection in the urine culture -lactic acid normalized with IV fluids and not on current GI antibiotics -12/21/2019 stool cultures negative and C.difficile negative and with initial replacements of electrolytes on this admission -no abdominal pain on 12/27/2019, patient has not had diarrhea on 12/26/2019 and 12/27/2019, patient given instructions through Citizen [place] speaking ginning operator services to show the nurse if diarrhea recurrs so prn loperamide can be given, patient agrees to take the cardiac medications and potassium supplements, repeat and trend the potassium levels -Diarrhea resolved Ureteropelvic junction obstruction -Continue Jordan catheter as per urology on previous admission Follow up with urology for jordan catheter removal -No urinary issues Hypothyroidism -Continue levothyroxine Diabetes Mellitus without senior living current use of insulin -Hold metformin -Pharmacy on board for glycemic management -Continue monitor blood sugar for insulin as needed disposition: Awaiting acceptance to rehab/longterm facility DVT Px: Subq heparin Code Status Full Code Admission and Anticipated Discharge Date Admission Date: December 18, 2019 Subjective Follow-up for NSTEMI, CHF exacerbation Unfortunately ginning operator services unavailable today-no answer despite 2 attempts Discussed case with patient's daughter Sally over the phone She reports patient feels good overall, no chest pain or shortness of breath or any other symptoms Review of Systems Review of Systems: All systems reviewed & are unremarkable except as noted in HPI & below Physical Exam Physical Exam: General-awake and alert, in good spirits, not in distress, speaks in sentences with no effort or accessory muscle use Eyes- anicteric Neck- no JVD Lungs- clear breath sounds bilaterally, no crackles, no wheezing bilaterally Heart- normal rate, regular rhythm; no murmurs Abdomen- normal bowel sounds, nondistended, soft, nontender Extremities- no pretibial edema, no calf tenderness Neuro- alert,; no gross focal neurologic deficits Skin- warm & dry Results & Data Results & Data ([facility]) Vital Signs (Past 12 Hours) Vital Signs Temp Pulse Pulse Resp BP BP Pulse Ox 12/31/19 15:17 66 12/31/19 15:07 36.7 C 67 18 97/62 L 94 12/31/19 07:36 37.0 C 70 18 104/63 93
[2019-12-31] MEDS: ENOXAPARIN INJ 30 MG/0.3 ML SYR SQ SCH (20:50)
[2019-12-31] MEDS: ATORVASTATIN 40 MG TAB PO SCH (20:51)
[2020-01-01] MEDS: lisinopriL 20 MG TAB PO SCH (08:42)
[2020-01-01] MEDS: SPIRONOLACTONE 12.5 MG TAB PO SCH (08:42)
[2020-01-01] MEDS: LEVOTHYROXINE SODIUM 50 MCG TABLET PO SCH (08:42)
[2020-01-01] MEDS: FUROSEMIDE 20 MG TAB PO SCH (08:42)
[2020-01-01] MEDS: CLOPIDOGREL BISULFATE 75 MG TAB PO SCH (08:43)
[2020-01-01] MEDS: METOPROLOL SUCC 25MG EXT REL TAB PO SCH (08:43)
[2020-01-01] MEDS: INSULIN ASPART 100 UNITS/ML 3 ML PEN SC SCH ×4 (08:43→20:30)
[2020-01-01] MEDS: INSULIN GLARGINE SOLOSTAR 100 UNITS/ML 3 ML PEN SC SCH ×2 (08:46→20:32)
--- NOTE | 2020-01-01 10:52 | Pharmacy Report ---
Pharmacy Glycemic Short Note 2 - Date of Service January 01, 2020 - Glycemic Short BSG Results (Last 24 hours): 12/31/19 12/31/19 12/31/19 11:42 16:35 20:12 POC Glucose 165 H 130 H 141 H 01/01/20 07:38 POC Glucose 130 H OUTPATIENT ANTIDIABETIC REGIMEN: * Tradjenta 5 mg qAM, metformin 500 mg BID * A1c = 7.9% (12/14/19) ASSESSMENT: * BSGs yesterday ranging 105-165 mg/dL * Required 24 units of insulin yesterday (13 units basal/11 units bolus) * Fasting BSG of 130 mg/dL this morning * No changes required today PLAN FOR INPATIENT GLYCEMIC CONTROL: * Lantus per scale SQ BID: continue * 5 units for BSG below 140 mg/dL * 8 units for BSG 140 mg/dL or above * Novolog SQ ACHS: continue * Goal range: 110-140mg/dL * Correction factor: 30 mg/dL/unit * Carb ratio: 1 unit per 9 gm CHO consumed PLAN FOR DISCHARGE: * A1c = 7.9% * Given A1c, would recommend optimizing oral medications. Titrate Metformin to 1000 mg PO BIDM and continue Tradjenta 5 mg PO QPM.
[2020-01-01] MEDS: ENOXAPARIN INJ 30 MG/0.3 ML SYR SQ SCH (20:31)
[2020-01-01] MEDS: ATORVASTATIN 40 MG TAB PO SCH (20:31)
[2020-01-02] MEDS: LEVOTHYROXINE SODIUM 50 MCG TABLET PO SCH (08:06)
[2020-01-02] MEDS: SPIRONOLACTONE 12.5 MG TAB PO SCH (08:07)
[2020-01-02] MEDS: CLOPIDOGREL BISULFATE 75 MG TAB PO SCH (08:07)
[2020-01-02] MEDS: METOPROLOL SUCC 25MG EXT REL TAB PO SCH (08:08)
[2020-01-02] MEDS: lisinopriL 20 MG TAB PO SCH (08:09)
[2020-01-02] MEDS: INSULIN ASPART 100 UNITS/ML 3 ML PEN SC SCH ×4 (08:09→21:48)
[2020-01-02] MEDS: INSULIN GLARGINE SOLOSTAR 100 UNITS/ML 3 ML PEN SC SCH ×2 (08:11→21:48)
--- NOTE | 2020-01-02 19:30 | Hospitalist Progress Note ---
Date of Service January 02, 2020 Assessment & Plan (1) Acute respiratory failure with hypoxia and hypercapnia: Per Dr. Stephan Solomon's notes: -CTA chest showed no evidence for pulmonary embolus. Mild interstitial change of the mid to lower lung regions bilaterally, Covid 19 PCR negative. Influenza A & B negative, VBG on admission showed pH 7.33 and PCO2 53, Received IV steroid on admission -initially was Intubated for respiratory support after failed Bipap trial, was started on empirical antibiotics of IV Zosyn and IV Vancomyin, extubated on 12/21/2019 and the subsequently transferred from ICU to medical/telemetry garcia -oxygen supplementation has been titrated down during hospital stay -currently on room air Stable overall No new complaints, respiratory status stable Continue diuresis with Lasix plus Aldactone, Patient awaiting acceptance to intermediate facility concern for non-ST elevation myocardial infarction of unclear duration Per Dr. Stephan Solomon's notes: -troponin on admission 3.9 then peaked to 5 and trending down -initially was on IV heparin -Aspirin on allergies list, Plavix was started. Continue Lipitor, lisinopril and beta-lashanda -echocardiogram showed LV with severe septal hypokinesis. Severe anterior wall hypokinesis with EF 40-45%. and that recent cardiology assessment that the hypokinesis may have been much longer ago prior to this hospitalization -12/22/2019: Spoke with patient through Japanese speaking long wall mining machine tender services. Patient is very soft spoken and it was difficult for long wall mining machine tender to hear her. Patient reports she has chest pain and when asked of duration she says it is there "all the time." patient appears very weak in appearance. Have asked nurse to obtain EKG, give IV morphine 2mg x 1 and nitropaste 2 inch. Will obtain troponin. Also notified cardiology Dr. Kurtz of these plans. the troponins were remained less than previous as 0.637 and then 0.539. -12/23/2019: cardiology service transitioning patient from IV to oral Lasix and also continuing with lisinopril. seen and examined on nasal cannula oxygen on 12/23/2019 -during recent days since 12/23/2019, patient had various pain concerns that was not necessarily cardiac chest pain related. her volume of speech and throat pain has improved with chloraseptic throat spray and menthol for sore throat likely because of initial intubation at beginning of this hospital stay. Her cardiac medications have been titrated up but patient correlates diarrhea to hospital medications -patient has been having intermittent hypokalemia with the Lasix 20 mg daily and had low blood pressure on 12/27/2019 and at this time will be on metoprolol succinate, Lasix 20 mg every other day (had recent dose on 12/28/2019), spironolactone 12.5 mg daily, lisinopril 20 mg, atorvastatin 40 mg qhs. She is encouraged medical adherence and to work with PT/OT while in the hospital --No chest pain or any cardiac symptoms Transaminitis Per Dr. Stephan Solomon's notes: -may be related to cardiac hypokinesis, versus acute illness -elevated AST and ALT on 12/18/2019 with peak levels on 12/19/2019 as AST 383 and ALT 188 -AST/ALT has downtrended to 47 and 94 by 12/23/2019 concern for sepsis on this admission but gastrointestinal source rule ruled out, history of cecitis, ruled out Urinary tract infection Diarrhea associated with Nausea and Vomiting Hypokalemia Hypophosphatemia Per Dr. Stephan Solomon's notes: -patient had history of recent hospitalization for cecitis with outpatient antibiotics of ciprofloxacin and flagyl. Lactate 3.7 on admission with normal WBC and procalcitonin -CT abd/pelvis on admission showed slightly progressive bibasilar interstitial infiltrative change. Bladder calculi unchanged. Pericecal infiltrative process unchanged from the prior exam. Right renal parapelvic cyst considered stable. -Blood cx and urine cx no growth -Urine cx grew Ecoli on 12/12 that was pansensitive, initially on Zosyn but Zosyn stopped on 12/21/2019 as no urinary tract infection in the urine culture -lactic acid normalized with IV fluids and not on current GI antibiotics -12/21/2019 stool cultures negative and C.difficile negative and with initial replacements of electrolytes on this admission -no abdominal pain on 12/27/2019, patient has not had diarrhea on 12/26/2019 and 12/27/2019, patient given instructions through Japanese speaking long wall mining machine tender services to show the nurse if diarrhea recurrs so prn loperamide can be given, patient agrees to take the cardiac medications and potassium supplements, repeat and trend the potassium levels -Diarrhea resolved Ureteropelvic junction obstruction -Continue Jordan catheter as per urology on previous admission Follow up with urology for jordan catheter removal -No urinary issues Hypothyroidism -Continue levothyroxine Diabetes Mellitus without alf current use of insulin -Hold metformin -Pharmacy on board for glycemic management -Continue monitor blood sugar for insulin as needed disposition: Awaiting acceptance to rehab/intermediate facility DVT Px: Subq heparin Code Status Full Code Admission and Anticipated Discharge Date Admission Date: December 18, 2019 Subjective ff up CHF exacerbation seen resting in bed, comfortable long wall mining machine tender utilized states she feels fine overall no chest pain, SOB no other symptoms Review of Systems Review of Systems: All systems reviewed & are unremarkable except as noted in HPI & below Physical Exam Physical Exam: General- oriented x 2, not in distress, speaks in sentences with no effort or accessory muscle use Eyes- anicteric Neck- no JVD Lungs- clear BS BL no rales Heart- normal rate, regular rhythm; no murmurs Abdomen- normal bowel sounds, nondistended, soft, nontender Extremities- no pretibial edema, no calf tenderness Neuro- alert, oriented x ; no gross focal neurologic deficits Skin- warm & dry Results & Data Results & Data ([facility]) Vital Signs (Past 12 Hours) Vital Signs Temp Pulse Pulse Pulse Resp BP Pulse Ox 01/02/20 15:27 37 C 66 19 103/68 94 01/02/20 11:00 36.8 C 69 16 92/59 L 93 01/02/20 08:08 82 108/76 01/02/20 07:30 58 L 01/02/20 07:29 36.7 C 66 16 96/58 L 98 Laboratory Results Laboratory Results - last 24 hr 01/01/20 01/02/20 01/02/20 20:22 07:26 11:38 POC Glucose 166 H 121 H 196 H 01/02/20 16:43 POC Glucose 113 H
[2020-01-02] MEDS: ENOXAPARIN INJ 30 MG/0.3 ML SYR SQ SCH (21:52)
[2020-01-02] MEDS: ATORVASTATIN 40 MG TAB PO SCH (21:53)
[2020-01-03] MEDS: LEVOTHYROXINE SODIUM 50 MCG TABLET PO SCH (08:27)
[2020-01-03] MEDS: CLOPIDOGREL BISULFATE 75 MG TAB PO SCH (08:27)
[2020-01-03] MEDS: METOPROLOL SUCC 25MG EXT REL TAB PO SCH (08:27)
[2020-01-03] MEDS: INSULIN ASPART 100 UNITS/ML 3 ML PEN SC SCH ×4 (08:28→20:48)
[2020-01-03] MEDS: INSULIN GLARGINE SOLOSTAR 100 UNITS/ML 3 ML PEN SC SCH ×2 (08:29→20:48)
[2020-01-03 09:45] LABS: BUN Creatinine Ratio 19.2 (10-20); Calcium 8.6 mg/dl (8.5-10.1); Creatinine Clr Calc Pharmacy 34.1 ml/min; Est GFR (African American) 55.8; Est GFR (Non-African American) 48.2; Magnesium 2.1 mg/dl (1.8-2.4); Potassium 4.2 mmol/L (3.5-5.1)
--- NOTE | 2020-01-03 16:37 | Hospitalist Progress Note ---
Date of Service January 03, 2020 Assessment & Plan (1) Acute respiratory failure with hypoxia and hypercapnia: Per Dr. Stephan Solomon's notes: -CTA chest showed no evidence for pulmonary embolus. Mild interstitial change of the mid to lower lung regions bilaterally, Covid 19 PCR negative. Influenza A & B negative, VBG on admission showed pH 7.33 and PCO2 53, Received IV steroid on admission -initially was Intubated for respiratory support after failed Bipap trial, was started on empirical antibiotics of IV Zosyn and IV Vancomyin, extubated on 12/21/2019 and the subsequently transferred from ICU to medical/telemetry garcia -oxygen supplementation has been titrated down during hospital stay -currently on room air BP on the lower side diuretics held for now Lisinopril decreased to 10mg po daily monitor BP No new complaints, respiratory status stable Patient [facility] concern for non-ST elevation myocardial infarction of unclear duration Per Dr. Stephan Solomon's notes: -troponin on admission 3.9 then peaked to 5 and trending down -initially was on IV heparin -Aspirin on allergies list, Plavix was started. Continue Lipitor, lisinopril and beta-lashanda -echocardiogram showed LV with severe septal hypokinesis. Severe anterior wall hypokinesis with EF 40-45%. and that recent cardiology assessment that the hypokinesis may have been much longer ago prior to this hospitalization -12/22/2019: Spoke with patient through Chinese speaking it coordinator services. Patient is very soft spoken and it was difficult for it coordinator to hear her. Patient reports she has chest pain and when asked of duration she says it is there "all the time." patient appears very weak in appearance. Have asked nurse to obtain EKG, give IV morphine 2mg x 1 and nitropaste 2 inch. Will obtain troponin. Also notified cardiology Dr. Kurtz of these plans. the troponins were remained less than previous as 0.637 and then 0.539. -12/23/2019: cardiology service transitioning patient from IV to oral Lasix and also continuing with lisinopril. seen and examined on nasal cannula oxygen on 12/23/2019 -during recent days since 12/23/2019, patient had various pain concerns that was not necessarily cardiac chest pain related. her volume of speech and throat pain has improved with chloraseptic throat spray and menthol for sore throat likely because of initial intubation at beginning of this hospital stay. Her cardiac medications have been titrated up but patient correlates diarrhea to hospital medications -patient has been having intermittent hypokalemia with the Lasix 20 mg daily and had low blood pressure on 12/27/2019 and at this time will be on metoprolol succinate, Lasix 20 mg every other day (had recent dose on 12/28/2019), spironolactone 12.5 mg daily, lisinopril 20 mg, atorvastatin 40 mg qhs. She is encouraged medical adherence and to work with PT/OT while in the hospital --No chest pain or any cardiac symptoms Transaminitis Per Dr. Stephan Solomon's notes: -may be related to cardiac hypokinesis, versus acute illness -elevated AST and ALT on 12/18/2019 with peak levels on 12/19/2019 as AST 383 and ALT 188 -AST/ALT has downtrended to 47 and 94 by 12/23/2019 concern for sepsis on this admission but gastrointestinal source rule ruled out, history of cecitis, ruled out Urinary tract infection Diarrhea associated with Nausea and Vomiting Hypokalemia Hypophosphatemia Per Dr. Stephan Solomon's notes: -patient had history of recent hospitalization for cecitis with outpatient antibiotics of ciprofloxacin and flagyl. Lactate 3.7 on admission with normal WBC and procalcitonin -CT abd/pelvis on admission showed slightly progressive bibasilar interstitial infiltrative change. Bladder calculi unchanged. Pericecal infiltrative process unchanged from the prior exam. Right renal parapelvic cyst considered stable. -Blood cx and urine cx no growth -Urine cx grew Ecoli on 12/12 that was pansensitive, initially on Zosyn but Zosyn stopped on 12/21/2019 as no urinary tract infection in the urine culture -lactic acid normalized with IV fluids and not on current GI antibiotics -12/21/2019 stool cultures negative and C.difficile negative and with initial replacements of electrolytes on this admission -no abdominal pain on 12/27/2019, patient has not had diarrhea on 12/26/2019 and 12/27/2019, patient given instructions through Chinese speaking it coordinator services to show the nurse if diarrhea recurrs so prn loperamide can be given, patient agrees to take the cardiac medications and potassium supplements, repeat and trend the potassium levels -Diarrhea resolved Ureteropelvic junction obstruction -Continue Jordan catheter as per urology on previous admission Follow up with urology for jordan catheter removal -No urinary issues Hypothyroidism -Continue levothyroxine Diabetes Mellitus without long term care pharmacist current use of insulin -Hold metformin -Pharmacy on board for glycemic management -Continue monitor blood sugar for insulin as needed disposition: Awaiting acceptance to rehab/usp facility DVT Px: Subq heparin Code Status Full Code Admission and Anticipated Discharge Date Admission Date: December 18, 2019 Subjective ff up for CHF exacerbation, NSTEMI seen resting bed, comfortable it coordinator services utilized states she feels fine overall no new complaints no SOB, chest pain ambulates with no problems no other symptoms Review of Systems Review of Systems: All systems reviewed & are unremarkable except as noted in HPI & below Physical Exam Physical Exam: General- oriented x 3, not in distress, speaks in sentences with no effort or accessory muscle use Eyes- anicteric Neck- no JVD Lungs- clear breath sounds no rales/wheezing Heart- normal rate, regular rhythm; no murmurs Abdomen- normal bowel sounds, nondistended, soft, nontender Extremities- no pretibial edema, no calf tenderness Neuro- alert, oriented x 3; no gross focal neurologic deficits Skin- warm & dry Results & Data Results & Data ([facility]) Vital Signs (Past 12 Hours) Vital Signs Temp Pulse Resp BP Pulse Ox 01/03/20 15:30 36.7 C 83 20 154/96 H 97 01/03/20 07:53 36.5 C 66 18 97/62 L 96 Laboratory Results Laboratory Results - last 24 hr 01/02/20 01/02/20 01/03/20 16:43 20:29 07:46 Sodium Potassium Chloride Carbon Dioxide Anion Gap BUN Creatinine Est Cr Clr Drug Dosing Est GFR ( Amer) Est GFR (Non-Af Amer) BUN/Creatinine Ratio Glucose POC Glucose 113 H 164 H 115 H Calcium Magnesium 01/03/20 01/03/20 01/03/20 09:00 11:42 16:41 Sodium 139 Potassium 4.2 Chloride 106 Carbon Dioxide 26 Anion Gap 7.0 BUN 20 H Creatinine 1.06 Est Cr Clr Drug Dosing 34.1 Est GFR ( Amer) 55.8 Est GFR (Non-Af Amer) 48.2 BUN/Creatinine Ratio 19.2 Glucose 177 H POC Glucose 133 H 123 H Calcium 8.6 Magnesium 2.1
[2020-01-03] MEDS: lisinopriL 10 MG TAB PO SCH (17:20)
[2020-01-03] MEDS: ENOXAPARIN INJ 30 MG/0.3 ML SYR SQ SCH (20:49)
[2020-01-03] MEDS: ATORVASTATIN 40 MG TAB PO SCH (20:49)
[2020-01-04] MEDS: INSULIN ASPART 100 UNITS/ML 3 ML PEN SC SCH ×3 (09:26→17:53)
[2020-01-04] MEDS: INSULIN GLARGINE SOLOSTAR 100 UNITS/ML 3 ML PEN SC SCH (09:27)
[2020-01-04] MEDS: lisinopriL 10 MG TAB PO SCH (09:27)
[2020-01-04] MEDS: METOPROLOL SUCC 25MG EXT REL TAB PO SCH (09:28)
[2020-01-04] MEDS: LEVOTHYROXINE SODIUM 50 MCG TABLET PO SCH (09:28)
[2020-01-04] MEDS: CLOPIDOGREL BISULFATE 75 MG TAB PO SCH (09:28)
--- NOTE | 2020-01-04 15:19 | Pharmacy Report ---
Pharmacy Glycemic Short Note 2 - Date of Service January 04, 2020 - Glycemic Short BSG Results (Last 24 hours): 01/03/20 01/03/20 01/04/20 16:41 20:13 07:38 POC Glucose 123 H 170 H 110 H 01/04/20 11:49 POC Glucose 148 H OUTPATIENT ANTIDIABETIC REGIMEN: * Tradjenta 5 mg qAM, metformin 500 mg BID * A1c = 7.9% (12/14/19) ASSESSMENT: 01/03 * BSGs well controlled yesterday ranging from 115-170 mg/dL * Received 13 units of basal, 21 units of correctional/prandial * Fasting this AM within goal, continue current lantus * Prandial BSGs within goal, continue current novolog parameters 12/31 * BSGs yesterday ranging 105-165 mg/dL * Required 24 units of insulin yesterday (13 units basal/11 units bolus) * Fasting BSG of 130 mg/dL this morning * No changes required today PLAN FOR INPATIENT GLYCEMIC CONTROL: * Lantus per scale SQ BID: continue * 5 units for BSG below 140 mg/dL * 8 units for BSG 140 mg/dL or above * Novolog SQ ACHS: continue * Goal range: 110-140mg/dL * Correction factor: 30 mg/dL/unit * Carb ratio: 1 unit per 9 gm CHO consumed PLAN FOR DISCHARGE: * A1c = 7.9% * Given A1c, would recommend optimizing oral medications. Titrate Metformin to 1000 mg PO BIDM and continue Tradjenta 5 mg PO QPM.
--- NOTE | 2020-01-04 16:59 | Hospitalist Progress Note ---
Date of Service January 04, 2020 Assessment & Plan (1) Acute respiratory failure with hypoxia and hypercapnia: Secondary to acute systolic CHF exacerbation, EF 40 to 45% Per Dr. Stephan Solomon's notes: -CTA chest showed no evidence for pulmonary embolus. Mild interstitial change of the mid to lower lung regions bilaterally, Covid 19 PCR negative. Influenza A & B negative, VBG on admission showed pH 7.33 and PCO2 53, Received IV steroid on admission -initially was Intubated for respiratory support after failed Bipap trial, was started on empirical antibiotics of IV Zosyn and IV Vancomyin, extubated on 12/21/2019 and the subsequently transferred from ICU to medical/telemetry garcia -oxygen supplementation has been titrated down during hospital stay -currently on room air Patient given diuretics including Lasix and Aldactone Diuresed well At some point blood pressure was on the lower side However patient remained stable, respiratory status stable Discharge plan: Lasix 20 mg p.o. daily, 3 times a week Friday/Friday/Friday Potassium 10 mEq daily 3 times a week Wednesdays and Fridays Imdur 30 mg every morning, metoprolol XL 75 mg p.o. every morning Please monitor volume status closely and titrate diuretics accordingly Repeat basic metabolic profile in 1 week upon follow-up with PCP Case management attempted to transition patient to residential facility but was not successful due to unavailability of beds Patient's daughter Sally evaluated the patient on discharge day, she is comfortable to take the patient back home We will contact case management tomorrow for home health services with the patient concern for non-ST elevation myocardial infarction Per Dr. Stephan Solomon's notes: -troponin on admission 3.9 then peaked to 5 and trending down -[employer] consulted -initially was on IV heparin -Aspirin on allergies list, Plavix was started. Continued on Lipitor, lisinopril and beta-lashanda -echocardiogram showed LV with severe septal hypokinesis. Severe anterior wall hypokinesis with EF 40-45%. and that recent cardiology assessment that the hypokinesis may have been much longer ago prior to this hospitalization --No chest pain or any cardiac symptoms while admitted --Discharge plan: Metoprolol XL 70 mg p.o. every morning, Imdur 30 mg in the morning, Lipitor 40 mg daily Transaminitis Per Dr. Stephan Solomon's notes: -may be related to cardiac hypokinesis, versus acute illness -elevated AST and ALT on 12/18/2019 with peak levels on 12/19/2019 as AST 383 and ALT 188 -AST/ALT has downtrended to 47 and 94 by 12/23/2019 concern for sepsis on this admission but gastrointestinal source rule ruled out, history of cecitis, ruled out Urinary tract infection Diarrhea associated with Nausea and Vomiting Hypokalemia Hypophosphatemia Per Dr. Stephan Solomon's notes: -patient had history of recent hospitalization for cecitis with outpatient antibiotics of ciprofloxacin and flagyl. Lactate 3.7 on admission with normal WBC and procalcitonin -CT abd/pelvis on admission showed slightly progressive bibasilar interstitial infiltrative change. Bladder calculi unchanged. Pericecal infiltrative process unchanged from the prior exam. Right renal parapelvic cyst considered stable. -Blood cx and urine cx no growth -Urine cx grew Ecoli on 12/12 that was pansensitive, initially on Zosyn but Zosyn stopped on 12/21/2019 as no urinary tract infection in the urine culture -12/21/2019 stool cultures negative and C.difficile negative and with initial replacements of electrolytes on this admission -Diarrhea resolved Ureteropelvic junction obstruction -Continue Jordan catheter as per urology on previous admission Follow up with urology for jordan catheter removal -No urinary issues Hypothyroidism -Continue levothyroxine Diabetes Mellitus without manager intermediate current use of insulin Continue metformin disposition: Discharged home with home health services Follow-up with primary care physician in 1 week Follow-up with book trimmer in 2 weeks Follow-up with urologist in 2 weeks Admission and Anticipated Discharge Date Admission Date: December 18, 2019 Subjective Follow-up for CHF exacerbation, non-ST elevation SD Seen resting in bed, sitting up, not in distress Translation services utilized Patient states she feels fine overall No new complaints Ambulates in the room with no problems Shortness of breath, chest pain, palpitations, dizziness, no other symptoms States she is ready elected to be discharged today Review of Systems Review of Systems: All systems reviewed & are unremarkable except as noted in HPI & below Physical Exam Physical Exam: General- oriented x 3, not in distress, speaks in sentences with no effort or accessory muscle use Eyes- anicteric Neck- no JVD Lungs-breath sounds, no crackles, no wheezing bilaterally Heart- normal rate, regular rhythm; no murmurs Abdomen- normal bowel sounds, nondistended, soft, nontender Extremities- no pretibial edema, no calf tenderness Neuro- alert, oriented x 3; no gross focal neurologic deficits Skin- warm & dry Results & Data Results & Data ([facility]) Vital Signs (Past 12 Hours) Vital Signs Temp Pulse Resp BP Pulse Ox 01/04/20 15:26 36.6 C 78 20 109/73 94 01/04/20 07:37 36.7 C 95 H 16 116/62 94
--- NOTE | 2020-01-04 17:29 | Discharge Summary ---
Date of Service January 04, 2020 Admission HPI Per Admitting Provider Patient is an 84-year-old female with history of asthma, diabetes mellitus, hypertension, hypothyroidism, hyperlipidemia and other medical problems presents with history of shortness of breath, chest pain, abdominal pain, nausea, vomiting and diarrhea. History is limited as patient is Yemeni-speaking and in distress at the time of admission. Most of the history is obtained from old records, ER physician and patient's daughter. Patient was discharged 2 days ago from [facility] after being treated for E. coli UTI, Cecitis, UPJ obstruction. Patient has been having nausea, vomiting, diarrhea since yesterday as per the patient's daughter. Daughter states that she noticed her mother to be cyanotic and was gasping for breath today. EMS performed an EKG which was concerning for possible STEMI. On further evaluation by interventional cardiology while in ED, patient was thought to have similar prior EKG findings and heart alert was called off. Patient complained of lower abdominal pain and left-sided chest pain. No known history of fever, cough. Patient was was noted to be hypoxic while in ED and was placed on oxygen mask and later transitioned to BiPAP. CTA showed no acute PE. Imaging studies suggestive of mild interstitial change, developing pulmonary edema. Patient did not tolerate the BiPAP, and was transferred to ICU and was intubated. Troponins were elevated to be at 3.9, lactate elevated at 3.7. Patient was started on IV heparin while in ED. Admission Exam Per Admitting Provider Physical Exam: Vitals signs as noted above General Appearance:Moderately built and nourished, in resp. distress Head: normocephalic, Atraumatic Eyes: normal inspection, EOMI Neck: supple, Trachea midline Respiratory/Chest: Decreased breath sounds, b/l scattered wheezing, Basal crackles, Tachypnea Cardiovascular: S1, S2, No murmur, +Tachycardia Abdomen/GI:Soft, Lower quadrant tender, Bowel sounds present Extremities/Musculoskelatal:normal inspection, B/L LE edema Neurologic/Psych:AAOX3, grossly no focal neurological deficits Skin: normal color, warm Principal Diagnosis Acute respiratory failure secondary to congestive heart failure, non-ST elevation myocardial infarction Discharge Exam General- oriented x 3, not in distress, speaks in sentences with no effort or accessory muscle use Eyes- anicteric Neck- no JVD Lungs-breath sounds, no crackles, no wheezing bilaterally Heart- normal rate, regular rhythm; no murmurs Abdomen- normal bowel sounds, nondistended, soft, nontender Extremities- no pretibial edema, no calf tenderness Neuro- alert, oriented x 3; no gross focal neurologic deficits Skin- warm & dry Discharge Data Allergies Allergy/AdvReac Type Severity Reaction Status Date / Time aspirin Allergy Mild ITCHING Verified 12/18/19 15:12 benzonatate Allergy Unknown Verified 12/18/19 15:12 [From Sb Bess] Consultations 12/18/19 15:41 ED Decision to Admit Stat 12/18/19 19:50 Consult Case Management - Discharge Planning Routine Consult Drill Press Hand Routine 12/18/19 20:09 Consult Cardiology Routine Consult Gastroenterology Routine Procedures Performed Operation Date: 12/18/19 12:20 Actual Procedures p Aspiration/PCI w/KUSUM for Stemi - Burak Velazquez MD Operation Date: 12/18/19 12:25 <No data on this case meets the specified criteria> Ordered Studies 12/18/19 12:29 CL Cath Imgs for PACS use only Stat 12/18/19 12:45 CT abd pelvis IV con only Stat FINDINGS: Slightly progressive basilar infiltrative change. This primarily interstitial. Trace amount pleural thickening both lung bases unchanged. The liver spleen and pancreas are uniform in appearance. Prior cholecystectomy. Unchanged right renal cyst. No evidence for renal hydronephrosis. There continues to be mild degree of pericecal infiltrative change. This is unaltered from the prior exam and is nonspecific. The appendix is poorly seen. Nonobstructive bowel pattern. There is a Jordan catheter within a collapsed bladder. Uterus demonstrates several fibroids. Bladder calcifications persist and appear unchanged. IMPRESSION: 1. Slightly progressive bibasilar interstitial infiltrative change. 2. Bladder calculi unchanged. 3. Pericecal infiltrative process unchanged from the prior exam. 4. Right renal parapelvic cyst considered stable. CT angio chest PE protocol Stat FINDINGS: Moderate atherosclerotic change thoracic aorta. Pulmonary vasculature enhances uniformly. No significant filling defects. Nonspecific bilateral interstitial change throughout both hemithoraces. No evidence for consolidative infiltrative process. IMPRESSION: 1. No evidence for pulmonary embolus. 2.. Mild interstitial change of the mid to lower lung regions bilaterally. Hospital Course (1) Acute respiratory failure with hypoxia and hypercapnia: Secondary to acute systolic CHF exacerbation, EF 40 to 45% Per Dr. Stephan Solomon's notes: -CTA chest showed no evidence for pulmonary embolus. Mild interstitial change of the mid to lower lung regions bilaterally, Covid 19 PCR negative. Influenza A & B negative, VBG on admission showed pH 7.33 and PCO2 53, Received IV steroid on admission -initially was Intubated for respiratory support after failed Bipap trial, was started on empirical antibiotics of IV Zosyn and IV Vancomyin, extubated on 12/21/2019 and the subsequently transferred from ICU to medical/telemetry garcia -oxygen supplementation has been titrated down during hospital stay -currently on room air Patient given diuretics including Lasix and Aldactone Diuresed well At some point blood pressure was on the lower side However patient remained stable, respiratory status stable Discharge plan: Lasix 20 mg p.o. daily, 3 times a week Friday/Friday/Friday Potassium 10 mEq daily 3 times a week Wednesdays and Fridays Imdur 30 mg daily, metoprolol XL 75 mg p.o. daily Please monitor volume status closely and titrate diuretics accordingly Repeat basic metabolic profile in 1 week upon follow-up with PCP Case management attempted to transition patient to long term facility but was not successful due to unavailability of beds Patient's daughter Sally evaluated the patient on discharge day, she is comfortable to take the patient back home We will contact case management tomorrow for home health services with the patient Non-ST elevation myocardial infarction Per Dr. Stephan Solomon's notes: -troponin on admission 3.9 then peaked to 5 and trending down -Smt Machine Operator consulted -initially was on IV heparin -Aspirin on allergies list, Plavix was started. Continued on Lipitor, lisinopril and beta-lashanda -echocardiogram showed LV with severe septal hypokinesis. Severe anterior wall hypokinesis with EF 40-45%. and that recent cardiology assessment that the hypokinesis may have been much longer ago prior to this hospitalization --No chest pain or any cardiac symptoms while admitted --Discharge plan: Metoprolol XL 70 mg p.o. every morning, Imdur 30 mg in the morning, Lipitor 40 mg daily Transaminitis Per Dr. Stephan Solomon's notes: -may be related to cardiac hypokinesis, versus acute illness -elevated AST and ALT on 12/18/2019 with peak levels on 12/19/2019 as AST 383 and ALT 188 -AST/ALT has downtrended to 47 and 94 by 12/23/2019 concern for sepsis on this admission but gastrointestinal source rule ruled out, history of cecitis, ruled out Urinary tract infection Diarrhea associated with Nausea and Vomiting Hypokalemia Hypophosphatemia Per Dr. Stephan Solomon's notes: -patient had history of recent hospitalization for cecitis with outpatient antibiotics of ciprofloxacin and flagyl. Lactate 3.7 on admission with normal WBC and procalcitonin -CT abd/pelvis on admission showed slightly progressive bibasilar interstitial infiltrative change. Bladder calculi unchanged. Pericecal infiltrative process unchanged from the prior exam. Right renal parapelvic cyst considered stable. -Blood cx and urine cx no growth -Urine cx grew Ecoli on 12/12 that was pansensitive, initially on Zosyn but Zosyn stopped on 12/21/2019 as no urinary tract infection in the urine culture -12/21/2019 stool cultures negative and C.difficile negative and with initial replacements of electrolytes on this admission -Diarrhea resolved Ureteropelvic junction obstruction -Continue Jordan catheter as per urology on previous admission Follow up with urology for jordan catheter removal -No urinary issues Hypothyroidism -Continue levothyroxine Diabetes Mellitus without rodent exterminator current use of insulin Continue metformin disposition: Discharged home with home health services Follow-up with primary care physician in 1 week Follow-up with pipeline welder in 2 weeks Follow-up with urologist in 2 weeks Total Time Total Time Spent Total Time Spent (In Minutes): 60 minutes Discharge Plan Discharge Items Patient Disposition: Home - Home Health Services Reason For Visit: SHORTNESS OF BREATH Discharge Diagnosis: Acute respiratory failure with hypoxia and hypercapnia secondary to acute congestive heart failure exacerbation non-ST elevation myocardial infarction Transaminitis Diarrhea associated with Nausea and Vomiting Hypokalemia Hypophosphatemia Ureteropelvic junction obstruction Diabetes Mellitus without snf current use of insulin Hypothyroidism Condition on Discharge: Good Activity: Resume your previous activity Activity Comment: Resume activity gradually as tolerated, no heavy exertion, fall precautions, always use the walker Lifting: Wait until after follow-up appointment Exercise/Sports: Wait until after follow-up appointment Driving/Machine Use: No driving Non-emergency contact: Primary Care Provider Call non-emergency contact if: you have any medication questions, your symptoms worsen and you have a fever Follow-up/Referrals: Eliseo Abreu MD [Physician] - Martín Cooper [Physician] - Eric Kurtz DO [Smt Machine Operator] - Clarisa Huff MD [Primary Care Provider] - Diet: Carb Consistent or DM2 Addtl Attending Provider Instructions: Please review your new medication list and follow instructions carefully. Your new medications include: Lasix-diuretic to promote urination of excess fluids Potassium supplement Imdur-to regulate your blood pressure Metoprolol XL-to regulate your blood pressure and heart rate Plavix-antiplatelet to prevent heart attack Your Lipitor is being increased from 20 to 40 mg daily. Your primary care physician or return to the ER immediately if with worsening or recurrence of symptoms, Chest pain, shortness of breath, dizziness, palpitations, increasing leg swelling, fever or chills. Follow-up with your primary care physician in 1 week. The clinic will be calling you for the appointment soon. Follow-up with your pipeline welder Dr. Eric Kurtz in 1 to 2 weeks. Follow-up with your urologist Dr. Derrell Abreu in 1 to 2 weeks. Follow-up with your marketing communications assistant Dr. Cooper in 1 to 2 weeks. Please call the office of the above specialists to set up an appointment. Call your Primary Care doctor if any of the following symptoms or problems start or get worse: Shortness of breath or difficulty breathing Wake up at night short of breath Chest pain Cough Swelling of your hands, feet, or legs More fatigued or tired with your normal activity Palpitations - sudden fast heart beats WEIGHT Weigh yourself every morning after using the bathroom. Use the same scale. Wear the same amount of clothing. Write your weight down on a chart. Call your Primary Care doctor if you gain more than 2-3 pounds in 1-2 days. MEDICATIONS Use this discharge instruction sheet for medication instructions. Take your medications at the time your doctor ordered. Do not skip a dose of your medicines. If you miss a dose of medicine, take it as soon as possible, but DO NOT DOUBLE A DOSE. Read your medicine information when you get home. Know all of the side effects of your medicine. If in doubt, ask your p harmacist Call your Primary Care doctor's office if you have any side effects. Be sure all of your doctors know what medicine and herbs you take (including cold, flu, and herbal medicine). Take the following with you to your follow-up doctor appointments: Weight Chart Medication List List of questions Do not drink excessive alcohol, beer or wine. Who to Call and When: Call 911 or go to the Emergency Room if: If at any time you feel your situation is an emergency You have tightness or pain in your chest that does not go away with rest or Nitroglycerin You are very short of breath even with rest. Pending Studies at Discharge: Yes Studies:: Repeat blood work including basic metabolic profile in 1 week care of your primary care physician Stand-Alone Forms: My [facility] [employer], Smoking Cessation Medications and DC Order Prescriptions: New atorvastatin 40 mg Tablet 40 mg PO HS Qty: 30 RF: 2 isosorbide mononitrate 30 mg Tablet Extended Release 24 Hr 30 mg PO QAM Qty: 30 RF: 2 clopidogrel 75 mg Tablet 75 mg PO QAM Qty: 30 RF: 2 metoprolol succinate 25 mg Tablet Extended Release 24 Hr 75 mg PO QAM Qty: 90 RF: 2 furosemide 20 mg tablet 20 mg PO UD Qty: 24 RF: 2 potassium chloride [Klor-Con M10] 10 mEq tablet,ER particles/crystals 10 meq PO UD Qty: 24 RF: 2 Continued levothyroxine 50 mcg tablet 50 mcg PO QAM RF: 0 lisinopril 10 mg tablet 10 mg PO QAM RF: 0 Tradjenta 5 mg tablet 5 mg PO QAM RF: 0 albuterol sulfate [Ventolin HFA] 90 mcg/actuation Hfa Aerosol Inhaler 2 puff inhalation Q6R PRN (Reason: shortness of breath or wheezing) Qty: 18 RF: 0 phenazopyridine [Pyridium] 100 mg Tablet 100 mg PO TID PRN (Reason: bladder pain) Qty: 20 RF: 0 metformin 500 mg Tablet 500 mg PO BID RF: 0 Discontinued atorvastatin 20 mg tablet 20 mg PO QAM RF: 0 ciprofloxacin HCl [Cipro] 500 mg tablet 500 mg PO BID Qty: 10 RF: 0 metronidazole [Flagyl] 500 mg tablet 500 mg PO TID Qty: 15 RF: 0 Discharge Orders: Discharge Order (Routine); Ordered 01/04/20 Ordered By: Saulo Bruner Admission Data Admit Date/Time: 12/18/19 17:36 Attending Provider: Saulo Bruner Admit Provider: Nimesh Ruggiero Primary Care Provider: Clarisa Huff Other Providers: [facility] ; [place] ; Stephan Solomon ; [facility] ; Nimesh Ruggiero ; Shaan Yi ; Eric Kurtz ; Andres Raines
== END 2020-01-04 18:06 | disposition home health service (06) | DRG 871 ==
LOC: ED 12:14 → SUATTDRO 17:36 → 1E 17:36 → 2N 12-21 21:33